=== PATIENT | male | born 1945 | race Caucasian/White ===

== ENCOUNTER 2016-10-17 18:21 | Inpatient (IN) | payer MEDICARE, MEDICAID ==
[2016-10-17] MEDS ORDERED: predniSONE TAB* 20 MG PO ONE (18:46)
[2016-10-17] MEDS ORDERED: Albuterol/Ipratropium NEB.SOL* Albuterol 2.5 MG/Ipratropium 0.5 MG 3 ML INH ONE (18:46)
--- NOTE | 2016-10-17 18:57 | ED ---
Shortness of Breath - HPI Summary HPI Summary: Patient presents for delayed evaluation of shortness of breath for the last several days with preceding URI/chest congestion with associated chills. No allev factors. Deep cough and dyspnea on exertion has caused him to stop smoking. Denies recent antibiotics or antipyretics. - History of Current Complaint Chief Complaint: EDUpperRespComplaint Time Seen by Provider: 10/17/16 18:41 Onset/Duration: Gradual Onset, Lasting Days Current Severity: Moderate Dyspnea At: Exertion Alleviating Factors: Nothing Associated Signs & Symptoms: Cough (Productive), Wheezing, Nasal Congestion - Allergy/Home Medications Allergies/Adverse Reactions: Allergies Allergy/AdvReac Type Severity Reaction Status Date / Time No Known Allergies Allergy Verified 05/03/16 12:53 PMH/Surg Hx/FS Hx/Imm Hx Endocrine/Hematology History: Reports: Hx Diabetes Denies: Hx Anticoagulant Therapy, Hx Blood Disorders, Hx Blood Transfusions, Hx Bone Marrow Disease, Hx Systemic Lupus Erythematosus, Hx Sickle Cell Disease , Hx Thyroid Disease, Hx Anemia, Hx Unexplained Bleeding, Other Endocrine/ Hematological Disorders Cardiovascular History: Reports: Hx Congestive Heart Failure, Hx Hypercholesterolemia, Hx Hypertension, Other Cardiovascular Problems/Disorders - 1st degree heart block Denies: Hx Aneurysm, Hx Angioplasty, Hx Auto Implanted Cardiovert Defib, Hx Cardiac Arrest, Hx Cardiomegaly, Hx Congenital Heart Disease, Hx Coronary Artery Disease, Hx Deep Vein Thrombosis, Hx Hypotension, Hx Pacemaker/ICD, Hx Peripheral Vascular Disease, Hx Rheumatic Fever, Hx Syncope, Hx Valvular Heart Disease Respiratory History: Reports: Hx Chronic Obstructive Pulmonary Disease (COPD), Hx Pneumonia, Other Respiratory Problems/Disorders - resp failure, pneumonia Denies: Hx Asthma, Hx Chronic Bronchitis, Hx Cystic Fibrosis, Hx Lung Cancer , Hx Pleural Effusion, Hx Pulmonary Edema, Hx Pulmonary Embolism, Hx Seasonal Allergies, Hx Sleep Apnea GI History: Denies: Hx Cirrhosis, Hx Crohn's Disease, Hx Diverticulosis, Hx Gall Bladder Disease, Hx Gastroesophageal Reflux Disease, Hx Gastrointestinal Bleed, Hx Hiatal Hernia, Hx Irritable Bowel, Hx Jaundice, Hx Obstructive Bowel, Hx Ileostomy, Hx Pyloric Stenosis, Hx Ulcer, Other GI Disorders History: Reports: Hx Benign Prostatic Hyperplasia Denies: Hx Acute Renal Failure, Hx Chronic Renal Failure, Hx Dialysis, Hx Kidney Infection, Hx Kidney Stones, Hx Renal Disease Musculoskeletal History: Reports: Hx Arthritis Denies: Hx Back Problems, Hx Bursitis, Hx Congenital Bone Abnormalities, Hx Fibromyalgia, Hx Gout, Hx Orthopedic Injury, Hx Osteoporosis, Hx Scoliosis, Hx Tendonitis, Other Musculoskeletal History Sensory History: Reports: Hx Contacts or Glasses - READING GLASSES Denies: Hx Cataracts, Hx Eye Injury, Hx Eye Prosthesis, Hx Glaucoma, Hx Legally Blind, Hx Macular Degeneration, Hx Vision Problem, Hx Deafness, Hx Hearing Aid, Hx Hearing Problem, Other Sensory Impairments Opthamlomology History: Reports: Hx Contacts or Glasses - READING GLASSES Denies: Hx Cataracts, Hx Eye Injury, Hx Eye Prosthesis, Hx Glaucoma, Hx Legally Blind, Hx Macular Degeneration, Hx Vision Problem, Other Sensory Impairments Neurological History: Denies: Hx Dementia, Hx Seizures Psychiatric History: Reports: Hx Anxiety, Hx Depression, Hx Inpatient Treatment - WHEN HE WAS 20, Hx Community Mental Health Tx, Hx Substance Abuse - Previous ETOH Denies: Hx Attention Deficit Hyperactivity Disorder, Hx Eating Disorder, Hx Panic Disorder, Hx Post Traumatic Stress Disorder, Hx Schizophrenia, Hx Bipolar Disorder, Hx Suicide Attempt, Hx of Violent Episodes Against Others, Other Psychiatric Issues/Disorders - Cancer History Hx Chemotherapy: No Hx Radiation Therapy: No - Surgical History Surgery Procedure, Year, and Place: T&A 1953 Hx Anesthesia Reactions: No Infectious Disease History: Yes Infectious Disease History: Denies: Hx Hepatitis, Hx Human Immunodeficiency Virus (HIV), Hx Tuberculosis , Traveled Outside the [place] in Last 30 Days - Social History Alcohol Use: Occasionally Alcohol Amount: 1-2x PER MONTH Substance Use Type: Reports: None Hx Tobacco Use: Yes Smoking Status (MU): Heavy Every Day Tobacco Smoker Type: Cigarettes Amount Used/How Often: DAILY 1PPD Length of Time of Smoking/Using Tobacco: 28 YEARS Have You Smoked in the Last Year: Yes Review of Systems Positive: Chills. Negative: Fever Negative: Palpitations, Chest Pain Positive: Shortness Of Breath, Cough All Other Systems Reviewed And Are Negative: Yes Physical Exam Triage Information Reviewed: Yes Vital Signs On Initial Exam: Initial Vitals Temp Pulse Resp BP Pulse Ox 100.4 F 109 20 143/71 68 10/17/16 18:22 10/17/16 18:22 10/17/16 18:22 10/17/16 18:22 10/17/16 18:22 Vital Signs Reviewed: Yes Appearance: Positive: No Pain Distress, Well-Nourished, Ill-Appearing Skin: Positive: Warm, Skin Color Reflects Adequate Perfusion, Dry Head/Face: Positive: Normal Head/Face Inspection Eyes: Positive: Normal, EOMI, ZAIN, Conjunctiva Clear ENT: Positive: Pharyngeal erythema, Nasal congestion. Negative: Nasal drainage , Tonsillar swelling, Tonsillar exudate Respiratory/Lung Sounds: Positive: Wheezes. Negative: Stridor, Tracheal Deviation Cardiovascular: Positive: RRR, Pulses are Symmetrical in both Upper and Lower Extremities, Tachycardia Abdomen Description: Positive: Nontender, No Organomegaly, Soft Musculoskeletal: Positive: Normal, Strength/ROM Intact Neurological: Positive: Normal, Sensory/Motor Intact, Alert, Oriented to Person Place, Time, CN Intact II-III, Normal Gait Diagnostics - Vital Signs Vital Signs Temp Pulse Resp BP Pulse Ox 10/17/16 18:22 100.4 F 109 20 143/71 68 - Laboratory Result Diagrams: 10/17/16 19:40 10/17/16 19:40 Lab Statement: Any lab studies that have been ordered have been reviewed, and results considered in the medical decision making process. - EKG No standard instances Cardiac Rate: NL EKG Rhythm: Sinus Tachycardia ST Segment: Normal Ectopy: None EKG Comparison: Other - rR RBBB, HR 101. Course/Dx - Diagnoses Differential Diagnosis/HQI/PQRI: Positive: Bronchitis, CHF, COPD Exacerbation, AR, Pneumonia Provider Diagnoses: Respiratory distress, Influenza A, COPD exacerbation, Hypoxia - Physician Notifications Discussed Care of Patient With: Hospitalist to admit. - Critical Care Time Critical Care Time: 30-74 min Discharge - Discharge Plan Condition: Stable Disposition: ADMITTED TO [facility] Prescriptions: DOXYcycline CAP(*) [DOXYcycline 100MG CAP(*)] 100 mg PO BID 10 Days predniSONE TAB* [Deltasone TAB*] 60 mg PO DAILY 5 Days Patient Education Materials: COPD (Chronic Obstructive Pulmonary Disease) (ED) Referrals: Robby Dey MD [Primary Care Provider] - 3 Days
--- NOTE | 2016-10-17 19:22 | RAD ---
INDICATION: Short of breath COMPARISON: February 03, 2016 TECHNIQUE: PA and lateral dual-energy views were obtained. FINDINGS: Bones/Soft Tissues: There are no acute bony findings. Cardiomediastinal: The cardiomediastinal silhouette is normal. Lungs: There are no infiltrates. There is hyperinflation. There are chronic interstitial changes. Pleura: There are no pleural effusions. Other: None IMPRESSION: HYPERINFLATION. NO ACTIVE DISEASE.
[2016-10-17] MEDS ORDERED: Albuterol/Ipratropium NEB.SOL* Albuterol 2.5 MG/Ipratropium 0.5 MG 3 ML ONE (19:26)
[2016-10-17] MEDS ORDERED: Albuterol/Ipratropium NEB.SOL* Albuterol 2.5 MG/Ipratropium 0.5 MG 3 ML INH STA (19:26)
[2016-10-17 19:49] LABS: Hematocrit 46 % (42-52); Mean Corpuscular HGB Conc 33 g/dl (31-36); Mean Corpuscular Hemoglobin 31 pg (27-31); Mean Corpuscular Volume 95 fL (80-94); Mean Platelet Volume 8 um3 (7.4-10.4); Red Blood Count 4.84 10^6/ul (4.0-5.4); Red Cell Distribution Width 14 % (10.5-15); White Blood Count 9.6 10^3/ul (3.5-10.8)
[2016-10-17 20:04] LABS: BUN/Creatinine Ratio 27.5 (8-20); Calcium 9.7 mg/dL (8.6-10.3); EGFR African American 123.3 (>60); EGFR Non-African American 95.8 (>60)
[2016-10-17 20:06] LABS: Troponin I 0.01 ng/mL (<0.04)
[2016-10-17] MEDS ORDERED: Albuterol/Ipratropium NEB.SOL* Albuterol 2.5 MG/Ipratropium 0.5 MG 3 ML INH PRN (21:25)
[2016-10-17] MEDS ORDERED: Dextrose 50% Syringe 50 ML* 25 GM/50 ML SYRINGE IV PUSH PRN (21:26)
[2016-10-17] MEDS ORDERED: NS 0.9% 1000 ML* 1,000 ML IV SCH (21:30)
[2016-10-17] MEDS: Heparin VIAL(*) 5000 UNITS/ML VIAL (FIVE THOUSAND) SUBCUT SCH (22:52)
--- NOTE | 2016-10-17 23:28 | HP ---
HOSPITAL MEDICINE HISTORY AND PHYSICAL: DATE OF ADMISSION: 10/17/16 PRIMARY CARE PHYSICIAN: Dr. Dey. ATTENDING PHYSICIAN: Dr. Mitchell Turner * (dictation provided by Pamela Mcintyre NP). CHIEF COMPLAINT: Cough. HISTORY OF PRESENT ILLNESS: Mr. Gray is a 71-year-old male with a past medical history of COPD, on 4 to 5 L of oxygen at home as well as non-insulin- dependent diabetes and hypertension, who presents today to the hospital with concern for cough and feeling unwell. Mr. Gray states that he began feeling poorly about 2 to 3 days ago. He has been feeling weak. He has had cough. He states he has been more short of breath with exertion. He did not take his temperature, but did have chills. He has been using his albuterol more often. He states he has been eating and drinking relatively well. In general, he is constipated and that is still the case while he has been sick. He states he has had a flu shot this year. He denies any sick contacts. He states he quit smoking 2 days ago secondary to feeling unwell. In the emergency room, Mr. Gray had a flu swab, which was positive. His white blood cell count is normal. His temperature is 100.4 and his heart rate is mildly tachycardic at approximately 100. His O2 saturation was initially about 68% on room air, is now 98% on 5 L. Based on Mr. Gray's presentation with a flu, Hospital Medicine was called regarding admission. PAST MEDICAL HISTORY: 1. COPD, on 4 to 5 L of oxygen at home. 2. Type 2 diabetes, non-insulin dependent. 3. Hypertension. 4. History of swallowing difficulties. MEDICATIONS: The patient does not know his current medication list and the pharmacies are closed. He states he gets his medications from [facility] on [facility] and his primary care physician is Dr. Dey, will have to follow with him tomorrow. ALLERGIES: No known drug allergies. FAMILY HISTORY: Reviewed and noncontributory. SOCIAL HISTORY: The patient states he started smoking at age around 42, currently he is down to smoking about 1 cigarette per day per his report. He states he quit smoking 2 days ago due to not feeling well. He denies any alcohol use, but he states in the past, he did have a problem with this. There is no report of drug abuse. He states his brother, Stefan, is the healthcare proxy. REVIEW OF SYSTEMS: A 14-point review of systems was completed with Mr. Gray and all those not mentioned above were negative. PHYSICAL EXAMINATION GENERAL: Mr. Gray is sitting in the bed. He is in no acute distress. He is calm and cooperative to my examination. VITAL SIGNS: Temperature 100.4, pulse rate 100, respiratory rate 20, O2 saturation 98% on 5 L nasal cannula, blood pressure 143/71. LUNGS: Clear to auscultation, but very diminished bilaterally with no accessory muscle use and good aeration. HEART: S1, S2. No murmur, rub, gallop, and regular. ABDOMEN: Soft, nontender with bowel sounds positive x4. EXTREMITIES: No cyanosis or edema. NEURO: He is alert and oriented x3. He moves all extremities equally. There is no facial asymmetry or focal weakness. Extraocular movements are intact. SKIN: Intact. DIAGNOSTIC STUDIES/LAB DATA: Sodium 137, potassium 4.0, chloride 93, serum bicarbonate 40, BUN 22, creatinine 0.80, glucose 220. Troponin 0.01. WBC 9.6, hemoglobin 15.0, hematocrit 46, platelet count 242. Flu A is positive. Chest x-ray shows no acute process. EKG shows ectopic atrial rhythm with a heart rate of about 100. ASSESSMENT AND PLAN: Mr. Gray is a 71-year-old male with a past medical history of chronic obstructive pulmonary disease, on 4 to 5 L oxygen at home, as well as [id number] diabetes, who presents today to the hospital with concern for cough, has been found to be flu A positive. Our plans are for observation in the hospital for the followin. Flu: The patient did get a flu shot this year, but flu A is positive. He has been having symptoms for at least 3 days, so he is not in the window for Tamiflu. We will provide symptomatic treatment with oxygen, nebulizer treatments , intravenous fluids, and Tylenol. The patient does have significant history of chronic obstructive pulmonary disease and he is very diminished today. I am quite concerned that he will develop an exacerbation, and therefore, I am going to continue the prednisone that was started in the emergency room. He will have 60 mg tomorrow morning and a quick taper could be initiated when he is feeling better. 2. Type 2 diabetes: Again, I do not have the medication reconciliation, but the patient will be on blood glucoses q.a.c. with lispro sliding scale insulin. 3. Hypertension. The patient was noted to be on cardizem at his last hospitalization, but this was in 2016. Again, we will await his medication list and resume those medications as appropriate. His blood pressure is currently well controlled. 4. DVT prophylaxis: With heparin subcu. 5. Disposition: To medical floor. TIME SPENT: Approximately 60 minutes was spent on admission of this patient, more than half time spent with him at the bedside reviewing the events leading up to this hospitalization, performing the physical examination, and reviewing my plan of care. PAMELA MCINTYRE NP CC: Dr. Dey* [id number]/CPS #: [id number] NICHOL
[2016-10-18] MEDS: Albuterol/Ipratropium NEB.SOL* Albuterol 2.5 MG/Ipratropium 0.5 MG 3 ML INH SCH ×7 (00:55→23:51)
[2016-10-18] MEDS: Heparin VIAL(*) 5000 UNITS/ML VIAL (FIVE THOUSAND) SUBCUT SCH ×3 (05:55→21:23)
[2016-10-18] MEDS: Insulin LISPRO* 1 UNITS UNIT SUBCUT SCH ×3 (08:15→17:46)
[2016-10-18] MEDS: Acetaminophen TAB* 325 MG PO PRN ×2 (08:15→21:31)
[2016-10-18] MEDS ORDERED: predniSONE TAB* 20 MG PO SCH (08:30)
--- NOTE | 2016-10-18 17:19 | PN ---
Subjective Date of Service: 10/18/16 Interval History: Patient reports he feels "ok" stating he feels a little better. Continues to have mild sob, cough with occasional sputum production. No CP. no fevers or chills. No abdominal pain but does report constipation and bloating - reports he just had a BM. No N/V. Reports good appetite Objective Active Medications: Acetaminophen (Tylenol Tab*) 650 mg PO Q6H PRN PRN Reason: pain/fever Last Admin: 10/18/16 08:15 Dose: 650 mg Albuterol/Ipratropium (Duoneb Neb.Allyn*) 1 neb INH [id number] AWAKE [facility] Last Admin: 10/18/16 15:13 Dose: 1 neb Albuterol/Ipratropium (Duoneb Neb.Allyn*) 1 neb INH Q4H PRN PRN Reason: SOB/WHEEZING Dextrose (D50w Syringe 50 Ml*) 12.5 gm IV PUSH .FOR FS < 60 - SS PRN PRN Reason: FS < 60 Heparin Sodium (Porcine) (Heparin Vial(*)) 5,000 units SUBCUT Q8HR [facility] Last Admin: 10/18/16 12:29 Dose: 5,000 units Sodium Chloride (Ns 0.9% 1000 Ml*) 1,000 mls @ 100 mls/hr IV PER RATE [facility] Last Admin: 10/18/16 08:14 Dose: 100 mls/hr Insulin Human Lispro (Humalog*) 0 units SUBCUT AC [facility] PRN Reason: Protocol Last Admin: 10/18/16 12:29 Dose: 6 units Prednisone (Deltasone Tab*) 60 mg PO DAILY WITH MEAL [facility] Last Admin: 10/18/16 08:15 Dose: 60 mg Vital Signs 10/17/16 10/17/16 10/17/16 22:00 22:59 23:01 Temperature 98.5 F 98.5 F Pulse Rate 98 96 96 Respiratory 22 22 Rate Blood Pressure 99/48 126/64 126/64 (mmHg) O2 Sat by Pulse 94 96 96 Oximetry 10/17/16 10/18/16 10/18/16 23:02 04:52 07:52 Temperature 97.4 F 97.3 F Pulse Rate 83 76 Respiratory 22 18 16 Rate Blood Pressure 125/58 106/45 (mmHg) O2 Sat by Pulse 94 96 Oximetry 10/18/16 10/18/16 10/18/16 08:00 08:45 12:23 Temperature Pulse Rate 88 76 Respiratory 18 16 18 Rate Blood Pressure (mmHg) O2 Sat by Pulse 93 93 Oximetry 10/18/16 15:15 Temperature Pulse Rate 82 Respiratory 16 Rate Blood Pressure (mmHg) O2 Sat by Pulse 92 Oximetry Oxygen Devices in Use Now: Nasal Cannula - 4.5L NC Appearance: 71 yo male sitting up on the side of the bed in NAD. A+O x3, simple Eyes: No Scleral Icterus, PERRLA Ears/Nose/Mouth/Throat: NL Teeth, Lips, Gums, Mucous Membranes Moist Neck: NL Appearance and Movements; NL JVP Respiratory: Symmetrical Chest Expansion and Respiratory Effort, - - diminished b/l with exp wheezes and coarse throughout Cardiovascular: NL Sounds; No Murmurs; No JVD, RRR, No Edema Abdominal: NL Sounds; No Tenderness; No Distention, - - distended soft nontender Extremities: No Edema, No Clubbing, Cyanosis Skin: No Rash or Ulcers, No Nodules or Sclerosis Neurological: Alert and Oriented x 3, NL Sensation, NL Gait, NL Muscle Strength and Tone Lines/Tubes/Other Access: Clean, Dry and Intact Peripheral IV Nutrition: Taking PO's Result Diagrams: 10/17/16 19:40 10/17/16 19:40 Assess/Plan/Problems-Billing Assessment: Mr. joiner is a 71 yo male with a PMH of COPD on 4-5L oxygen NC at home, Non-insulin dependent diabetes, HTN who presented to the ED on 10/17 with c /o cough found to have Influenza A - Patient Problems (1) Influenza A Comment: - pt is clincially improving - pt is outside the window for Tamiflu - supportive care only (2) COPD with exacerbation Comment: - on baseline oxygen 4-5L NC - continue azithromycin, prednisone taper and nebs. (3) HTN (hypertension) Comment: controlled. Continue carvedilol. (4) Hx of chronic congestive heart failure Comment: - Dialstolic dysfunction. Last TTE 02/17 showing EF 55% - appears stable - lasix prn - daily weights (5) Tobacco use disorder Comment: Pt states he quit a couple days prior nicotine replacement tobacco cessation (6) DVT prophylaxis Comment: HSQ (7) Full code status Status and Disposition: OBV switch to inpatient. home when medically stable.
[2016-10-18] MEDS ORDERED: Nicotine Inhaler* 10 MG AMP INH PRN (17:31)
[2016-10-18] MEDS ORDERED: Mouth Piece, Nicotine* 1 EACH CARTRIDGE INH PRN (17:31)
[2016-10-18] MEDS ORDERED: Azithromycin IV(*) 500 MG in NS 0.9% 250 ML* 250 ML IVPB SCH (21:00)
[2016-10-18] MEDS: Insulin GLARGINE(*) 1 UNITS UNIT SUBCUT SCH (21:26)
[2016-10-19] MEDS: Albuterol/Ipratropium NEB.SOL* Albuterol 2.5 MG/Ipratropium 0.5 MG 3 ML INH SCH ×6 (03:10→23:23)
[2016-10-19] MEDS: Heparin VIAL(*) 5000 UNITS/ML VIAL (FIVE THOUSAND) SUBCUT SCH ×3 (05:17→21:25)
[2016-10-19 06:31] LABS: Hematocrit 41 % (42-52); Hemoglobin 13.2 g/dl (14.0-18.0); Mean Corpuscular HGB Conc 32 g/dl (31-36); Mean Corpuscular Hemoglobin 31 pg (27-31); Mean Corpuscular Volume 96 fL (80-94); Mean Platelet Volume 8 um3 (7.4-10.4); Red Blood Count 4.24 10^6/ul (4.0-5.4); Red Cell Distribution Width 14 % (10.5-15); White Blood Count 11.2 10^3/ul (3.5-10.8)
[2016-10-19 06:44] LABS: BUN/Creatinine Ratio 32.3 (8-20); Calcium 9.2 mg/dL (8.6-10.3); EGFR African American 165.4 (>60); EGFR Non-African American 128.6 (>60); Potassium 4.6 mmol/L (3.5-5.0)
[2016-10-19] MEDS: Tiotropium CAP.INH* CAP.INH/18 MCG (USE ORDER SET !) INH SCH (07:39)
[2016-10-19] MEDS: Insulin LISPRO* 1 UNITS UNIT SUBCUT SCH ×3 (08:04→17:54)
[2016-10-19] MEDS: predniSONE TAB* 50 MG PO SCH (08:37)
[2016-10-19] MEDS: Azithromycin TAB* 250 MG PO SCH (08:37)
[2016-10-19] MEDS ORDERED: Spiriva Inhaler DEVICE* 1 EACH DEVICE INH ONE (09:00)
[2016-10-19] MEDS ORDERED: Albuterol/Ipratropium NEB.SOL* Albuterol 2.5 MG/Ipratropium 0.5 MG 3 ML INH PRN (11:11)
--- NOTE | 2016-10-19 11:17 | PN ---
Subjective Date of Service: 10/19/16 Interval History: Pt reports he "feels very tight" when he breathes. Occasionally productive cough. Slept well, good appetite, no N/V/D. No fevers or chills. No body aches. Objective Active Medications: Acetaminophen (Tylenol Tab*) 650 mg PO Q6H PRN PRN Reason: pain/fever Last Admin: 10/18/16 21:31 Dose: 650 mg Albuterol/Ipratropium (Duoneb Neb.Allyn*) 1 neb INH [id number] AWAKE [facility] Last Admin: 10/19/16 07:38 Dose: 1 neb Albuterol/Ipratropium (Duoneb Neb.Allyn*) 1 neb INH Q4H PRN PRN Reason: SOB/WHEEZING Azithromycin (Zithromax Tab*) 250 mg PO DAILY [facility] Stop: 10/23/16 08:59 Last Admin: 10/19/16 08:37 Dose: 250 mg Device (Nicotine Mouth Piece*) 1 each INH .USE WITH NICOTROL PRN PRN Reason: CRAVING Dextrose (D50w Syringe 50 Ml*) 12.5 gm IV PUSH .FOR FS < 60 - SS PRN PRN Reason: FS < 60 Heparin Sodium (Porcine) (Heparin Vial(*)) 5,000 units SUBCUT Q8HR [facility] Last Admin: 10/19/16 05:17 Dose: 5,000 units Insulin Glargine (Lantus(*)) 8 units SUBCUT Q24H [facility] Last Admin: 10/18/16 21:26 Dose: 8 units Insulin Human Lispro (Humalog*) 0 units SUBCUT AC [facility] PRN Reason: Protocol Last Admin: 10/19/16 08:04 Dose: Not Given Nicotine (Nicotine Inhaler*) 10 mg INH Q2H PRN PRN Reason: CRAVING Prednisone (Deltasone Tab*) 50 mg PO DAILY WITH MEAL [facility] Last Admin: 10/19/16 08:37 Dose: 50 mg Tiotropium [place] (Spiriva Cap.Inh*) 1 cap INH DAILY [facility] Last Admin: 10/19/16 07:39 Dose: 1 cap.inh Vital Signs 10/18/16 10/18/16 10/18/16 19:23 20:00 20:02 Temperature 97.1 F Pulse Rate 72 74 74 Respiratory 18 18 17 Rate Blood Pressure 113/61 (mmHg) O2 Sat by Pulse 96 95 97 Oximetry 10/18/16 10/18/16 10/18/16 21:36 23:36 23:50 Temperature 98.2 F Pulse Rate 67 Respiratory 18 20 Rate Blood Pressure 96/43 (mmHg) O2 Sat by Pulse 99 Oximetry 10/19/16 10/19/16 10/19/16 03:13 03:39 07:32 Temperature 97.4 F 97.4 F Pulse Rate 65 64 69 Respiratory 16 18 20 Rate Blood Pressure 90/41 113/60 (mmHg) O2 Sat by Pulse 100 100 97 Oximetry 10/19/16 10/19/16 07:41 08:00 Temperature Pulse Rate 71 Respiratory 14 20 Rate Blood Pressure (mmHg) O2 Sat by Pulse 97 Oximetry Oxygen Devices in Use Now: Nasal Cannula - 4.5L NC Appearance: 71 yo male sitting up on the side of the bed in NAD. A+O x3 Eyes: No Scleral Icterus, PERRLA Ears/Nose/Mouth/Throat: NL Teeth, Lips, Gums, Mucous Membranes Moist Neck: NL Appearance and Movements; NL JVP Respiratory: Symmetrical Chest Expansion and Respiratory Effort, - - very diminished throughout with exp wheezing bilaterally Cardiovascular: NL Sounds; No Murmurs; No JVD, RRR, No Edema Abdominal: NL Sounds; No Tenderness; No Distention, - - obese Lymphatic: No Cervical Adenopathy Extremities: No Edema, No Clubbing, Cyanosis Skin: No Rash or Ulcers, No Nodules or Sclerosis Neurological: Alert and Oriented x 3, NL Sensation, NL Gait, NL Muscle Strength and Tone Lines/Tubes/Other Access: Clean, Dry and Intact Peripheral IV Nutrition: Taking PO's Result Diagrams: 10/19/16 06:18 10/19/16 06:18 Assess/Plan/Problems-Billing Assessment: Mr. joiner is a 71 yo male with a PMH of COPD on 4-5L oxygen NC at home, Non-insulin dependent diabetes, HTN who presented to the ED on 10/17 with c /o cough found to have Influenza A - Patient Problems (1) Influenza A Comment: - pt is outside the window for Tamiflu - supportive care only (2) COPD with exacerbation Comment: - on baseline oxygen 4-5L NC, very diminshed today - repeat chest xray - continue azithromycin, prednisone taper and Q4hr nebs. - Aggressive pulmary tolieting (3) HTN (hypertension) Comment: controlled. Continue carvedilol. (4) Hx of chronic congestive heart failure Comment: - Dialstolic dysfunction. Last TTE 02/17 showing EF 55% - appears stable - lasix prn - daily weights (5) Tobacco use disorder Comment: Pt states he quit a couple days prior nicotine replacement tobacco cessation (6) DVT prophylaxis Comment: HSQ (7) Full code status Status and Disposition: inpatient with Influenza and COPD exacerbation.
--- NOTE | 2016-10-19 14:40 | RAD ---
INDICATION: Influenza COMPARISON: Chest x-ray October 17, 2016 TECHNIQUE: PA and lateral views were obtained. FINDINGS: Bones/Soft Tissues: There are no acute bony findings. Cardiomediastinal: The cardiomediastinal silhouette is normal. Lungs: There are no infiltrates. There is coarsening of interstitium which appears chronic. There is hyperinflation. Pleura: There are no pleural effusions. Other: None IMPRESSION: HYPERINFLATION WITH CHRONIC INTERSTITIAL CHANGES . NO ACUTE FINDINGS.
[2016-10-19] MEDS: Insulin GLARGINE(*) 1 UNITS UNIT SUBCUT SCH (21:25)
[2016-10-20] MEDS: Albuterol/Ipratropium NEB.SOL* Albuterol 2.5 MG/Ipratropium 0.5 MG 3 ML INH SCH ×4 (03:45→15:15)
[2016-10-20] MEDS: Heparin VIAL(*) 5000 UNITS/ML VIAL (FIVE THOUSAND) SUBCUT SCH ×2 (05:13→13:02)
[2016-10-20 06:00] LABS: Hematocrit 42 % (42-52); Hemoglobin 13.4 g/dl (14.0-18.0); Mean Corpuscular HGB Conc 32 g/dl (31-36); Mean Corpuscular Hemoglobin 31 pg (27-31); Mean Corpuscular Volume 96 fL (80-94); Mean Platelet Volume 8 um3 (7.4-10.4); Red Blood Count 4.34 10^6/ul (4.0-5.4); Red Cell Distribution Width 14 % (10.5-15); White Blood Count 13.3 10^3/ul (3.5-10.8)
[2016-10-20 06:10] LABS: Calcium 9.6 mg/dL (8.6-10.3); EGFR African American 198.2 (>60); EGFR Non-African American 154.1 (>60); Potassium 4.6 mmol/L (3.5-5.0)
[2016-10-20] MEDS: Insulin LISPRO* 1 UNITS UNIT SUBCUT SCH ×3 (07:32→16:33)
[2016-10-20] MEDS: Tiotropium CAP.INH* CAP.INH/18 MCG (USE ORDER SET !) INH SCH (08:07)
[2016-10-20 08:12] LABS: PCO2 Arterial 86 mmHg (35-45)
[2016-10-20] MEDS: predniSONE TAB* 50 MG PO SCH (08:23)
[2016-10-20] MEDS: Azithromycin TAB* 250 MG PO SCH (08:23)
[2016-10-20] MEDS ORDERED: Oseltamivir CAP* 75 MG PO SCH ×2 (09:00→21:00)
--- NOTE | 2016-10-20 10:55 | PN ---
Subjective Date of Service: 10/20/16 Interval History: per nursing staff patient is confused today. Pt was seen and evaluated at the bedside and appears more confused today. He reports SOB stating "I feel like I cant catch my breath". Appears tachypneic at rest with RR 40 min. No CP. occasional productive cough. Denies fever or chills. Per nurse he was drinking water, choked and vomited after coughing harshly. Pt denies N/V. Objective Active Medications: Acetaminophen (Tylenol Tab*) 650 mg PO Q6H PRN PRN Reason: pain/fever Last Admin: 10/18/16 21:31 Dose: 650 mg Albuterol/Ipratropium (Duoneb Neb.Allyn*) 1 neb INH [id number] AWAKE [facility] Last Admin: 10/20/16 08:07 Dose: 1 neb Albuterol/Ipratropium (Duoneb Neb.Allyn*) 1 neb INH Q4H PRN PRN Reason: SOB/WHEEZING Azithromycin (Zithromax Tab*) 250 mg PO DAILY [facility] Stop: 10/23/16 08:59 Last Admin: 10/20/16 08:23 Dose: 250 mg Device (Nicotine Mouth Piece*) 1 each INH .USE WITH NICOTROL PRN PRN Reason: CRAVING Dextrose (D50w Syringe 50 Ml*) 12.5 gm IV PUSH .FOR FS < 60 - SS PRN PRN Reason: FS < 60 Heparin Sodium (Porcine) (Heparin Vial(*)) 5,000 units SUBCUT Q8HR [facility] Last Admin: 10/20/16 05:13 Dose: Not Given Insulin Glargine (Lantus(*)) 8 units SUBCUT Q24H [facility] Last Admin: 10/19/16 21:25 Dose: 8 units Insulin Human Lispro (Humalog*) 0 units SUBCUT AC [facility] PRN Reason: Protocol Last Admin: 10/20/16 07:32 Dose: Not Given Nicotine (Nicotine Inhaler*) 10 mg INH Q2H PRN PRN Reason: CRAVING Oseltamivir Phosphate (Tamiflu Cap*) 75 mg PO DAILY [facility] Stop: 10/29/16 09:01 Last Admin: 10/20/16 08:23 Dose: 75 mg Prednisone (Deltasone Tab*) 50 mg PO DAILY WITH MEAL [facility] Last Admin: 10/20/16 08:23 Dose: 50 mg Tiotropium [place] (Spiriva Cap.Inh*) 1 cap INH DAILY [facility] Last Admin: 10/20/16 08:07 Dose: 1 cap.inh Vital Signs 10/19/16 10/19/16 10/19/16 11:21 13:53 14:56 Temperature 97.9 F Pulse Rate 68 80 80 Respiratory 16 20 14 Rate Blood Pressure 126/56 (mmHg) O2 Sat by Pulse 99 96 97 Oximetry 10/19/16 10/19/16 10/19/16 19:52 20:00 20:04 Temperature 97.6 F Pulse Rate 81 76 84 Respiratory 17 16 Rate Blood Pressure 139/60 (mmHg) O2 Sat by Pulse 97 97 98 Oximetry 10/19/16 10/19/16 10/19/16 20:12 23:22 23:34 Temperature 98.3 F Pulse Rate 79 Respiratory 18 20 Rate Blood Pressure 151/66 (mmHg) O2 Sat by Pulse 91 84 Oximetry 10/20/16 10/20/16 10/20/16 07:23 07:38 08:09 Temperature 98.0 F Pulse Rate 83 83 Respiratory 18 22 16 Rate Blood Pressure 144/58 (mmHg) O2 Sat by Pulse 93 83 Oximetry 10/20/16 10/20/16 10/20/16 08:12 09:59 10:00 Temperature 99 F Pulse Rate 52 92 Respiratory 6 Rate Blood Pressure 160/70 (mmHg) O2 Sat by Pulse 83 99 95 Oximetry 10/20/16 10/20/16 10/20/16 10:05 10:06 10:15 Temperature Pulse Rate 94 Respiratory 30 26 Rate Blood Pressure 160/70 163/76 (mmHg) O2 Sat by Pulse 95 Oximetry 10/20/16 10/20/16 10:30 10:42 Temperature Pulse Rate 95 Respiratory 22 30 Rate Blood Pressure 162/79 (mmHg) O2 Sat by Pulse 94 Oximetry Oxygen Devices in Use Now: Nasal Cannula - 4.5L NC Appearance: 71 yo male, noted mild intellectual disability A+O to self and place but not to time - appears tachypneic, mild confusion Eyes: No Scleral Icterus, PERRLA Ears/Nose/Mouth/Throat: NL Teeth, Lips, Gums, Mucous Membranes Moist Neck: NL Appearance and Movements; NL JVP Respiratory: - - diminished bilaterally with crackles to bases. tachyoneic. no accessory muscle use Cardiovascular: NL Sounds; No Murmurs; No JVD, RRR, No Edema Abdominal: NL Sounds; No Tenderness; No Distention Extremities: No Edema, No Clubbing, Cyanosis Skin: No Rash or Ulcers, No Nodules or Sclerosis Neurological: Alert and Oriented x 3, NL Sensation, NL Muscle Strength and Tone Lines/Tubes/Other Access: Clean, Dry and Intact Peripheral IV Nutrition: Taking PO's Result Diagrams: 10/20/16 05:47 10/20/16 05:47 Assess/Plan/Problems-Billing Assessment: Mr. joiner is a 71 yo male with a PMH of COPD on 4-5L oxygen NC at home, Non-insulin dependent diabetes, HTN who presented to the ED on 10/17 with c /o cough found to have Influenza A - Patient Problems (1) COPD with exacerbation Comment: - Acute on chronic hypercarbic respiratory failure - ABG this morning showing mild respiratory acidosis with with hypercapnia with pH 7.34, CO2 80, PO2 75, HCO3 37, could be chronic, but with noted confusion and tachypnea the patient will be transferred to ICU for possible Bipap. The patient is stable at this time but inappropriate to monitor this patient on the floor. Reviewed case with Dr. Judge - who agrees with monitoring in ICU but will hold off on Bipap for now. The patient would want intubation if needed. - Oxygenating well; on baseline oxygen 4-5L NC, Goal to maintain O2 sat 90%, continues to be very diminshed today with noted crackles to bases - continue azithromycin, prednisone taper and Q4hr nebs. - Aggressive pulmary tolieting - overnight pulse oximetry, patient may need home nightly Bipap. (2) Influenza A Comment: - Continue Tamiflu course (3) HTN (hypertension) Comment: controlled. Continue carvedilol. (4) Hx of chronic congestive heart failure Comment: - Dialstolic dysfunction. Last TTE 02/17 showing EF 55% - appears stable - lasix prn - daily weights (5) Tobacco use disorder Comment: Pt states he quit a couple days prior nicotine replacement tobacco cessation (6) DVT prophylaxis Comment: HSQ (7) Full code status Status and Disposition: inpatient with Influenza, acute on chronic respiratory failure
[2016-10-20 15:44] LABS: FIO2 4
[2016-10-20 15:57] LABS: PCO2 Arterial 90 mmHg (35-45)
[2016-10-20 16:27] VITALS: BP 151/79
[2016-10-20] MEDS ORDERED: LORazepam PREMIX BAG 1MG/ML* 100 MG/100 ML BAG IVPB SCH (17:00)
[2016-10-20] MEDS ORDERED: KCL 20 MEQ/100 ML IVPREMIX* 20 MEQ/100 ML BAG IV SCH (17:00)
--- NOTE | 2016-10-20 17:58 | PN ---
Progress Note - Progress Note Note: Patient with end-stage COPD admitted with acute exacerbation secondary to influenza URI, and brought to ICU because of episode of confusion this AM (see Critical Care Consult). Patient was breathing comfortably on admission to ICU, and was "cantankerous" but not confused. ABGs showed chronic CO2 retention. Patient strongly stated his desire to return home, and his roommate came in to drive him home. According to the roommate, the patient's mental condition was no different than usual. The patient signed out AMA and was discharged home breathing O2 (provided by the patients own O2 tank). He has an appointment with his PMD tomorrow. Final discharge note to be dictated.
--- NOTE | 2016-10-20 21:57 | CONS ---
CRITICAL CARE CONSULT: DATE OF CONSULT: 10/20/16 REASON FOR CONSULTATION: Apparent confusion and respiratory difficulties. HISTORY OF PRESENT ILLNESS: This patient is a 71-year-old male with a past medical history of COPD (on home O2 at 4 to 5 L per minute), hypertension, and diabetes, who was admitted to [facility] on 10/17/16 with exacerbation of COPD due to influenza A URI, Rx Tamiflu. The patient was initially admitted to the medical floor and was placed on supplemental oxygen and bronchodilator therapy. On the morning of 10/21/16, he had an episode of confusion, and was brought to the intensive care unit. When the patient arrived in the intensive care unit, there was no evidence of a change in his baseline mental status (patient known to the ICU staff from prior hospitalizations). ONGOING MEDICATIONS: 1. DuoNeb inhalations every 4 hours p.r.n. dyspnea. 2. Azithromycin 250 mg daily. 3. Tamiflu 75 mg twice daily. 4. Prednisone 40 mg daily. 5. Tiotropium inhalations once daily. 6. Glargine insulin 8 units subcutaneously daily. 7. Lispro insulin by sliding scale. DRUG ALLERGIES: None. PHYSICAL EXAM: The patient was alert and was cantankerous, but appeared to respond appropriately to verbal commands. There was no apparent respiratory distress. Vital Signs: Temperature was 99 degrees, blood pressure 160/70, heart rate 92, O2 sat 95% on nasal O2 at 4 L per minute. Auscultation of the lungs revealed scattered rhonchi with some crackles at the left base. Cardiac exam was unrevealing. Abdomen was protuberant, but bowel sounds were present and there was no fluid wave. Extremities revealed no cyanosis or edema. DIAGNOSTIC STUDIES/LAB DATA: On the day of ICU admission, white count was 13.3 , hemoglobin 13.4, hematocrit 42, platelet count 267, Sodium 139, potassium 4.6 , CO2 of 43, BUN 18 and creatinine 0.53. Fingerstick glucose monitoring showed values that ranged between 100 and 290 during the hospitalization. Chest x-ray showed hyperinflation with interstitial changes that appeared to be chronic. There is no acute alveolar process identified. Blood gases in the AM of 10/20/16 revealed a PO2 of 75, pCO2 of 86, pH 7.34, bicarb 37, O2 sat 94%. Repeat blood gases after ICU admission revealed a PO2 of 66, PCO2 of 90, pH 7.34, bicarb 38.4, and O2 sat of 93%. (The repeat ABGs are essentially unchanged from those drawn earlier.) IMPRESSION: This patient has end-stage lung disease exacerbated by an upper respiratory tract infection (influenza). At the time of ICU admission, he was breathing comfortably, and probably not far from his baseline level. Although the patient was boisterous and cantankerous, he did not appear to be confused. RECOMMENDATION: Would continue current therapy with bronchodilators, steroids, and Tamiflu. Nothing further to be added at this time. The patient does not need intubation and mechanical ventilation. CRITICAL CARE TIME: 50 minutes. [id number]/[facility] #: [id number] NICHOL
[2016-10-21] MEDS ORDERED: predniSONE TAB* 20 MG PO SCH (09:00)
--- NOTE | 2016-10-21 15:34 | DS ---
DISCHARGE SUMMARY: DATE OF ADMISSION: 10/17/16 DATE OF DISCHARGE: 10/20/16 HOSPITAL COURSE: This patient is a 71-year-old male with a history of end- stage COPD, who was well known to this hospital and was admitted on 10/17/16 with increasing shortness of breath and a diagnosis of exacerbation of COPD secondary to influenza A. The patient was placed on bronchodilator, steroids, and Tamiflu, and was admitted to the medical floor. On the morning of October 20, the patient had an episode of confusion on the floor and was subsequently brought to the intensive care unit. After admission to the intensive care unit , the patient did not appear to be confused and was in no respiratory distress. Blood gases showed chronic CO2 retention. The patient was continued on bronchodilator therapy and Tamiflu after admission to the intensive care unit. However, the patient stated a strong desire to be discharged home and became cantankerous, but did not appear confused. The patient's roommate was called in and the roommate claims that the patient's mental condition was no different than usual. The patient subsequently signed out against medical advice and was discharged home on oxygen (provided by the patient's own O2 tank). The patient' s roommate drove him home. According to the roommate, the patient has an appointment to see his PMD tomorrow. FINAL DISCHARGE DIAGNOSIS: End-stage chronic obstructive pulmonary disease with exacerbation secondary to influenza upper respiratory tract infection. [id number]/[facility] #: [id number] MTDTom
== END 2016-10-20 17:15 | disposition left against medical advice (07) | DRG 193 ==
LOC: ED 18:21 → MED 21:38 → OBSVTOIN 10-18 17:22 → ICU 10-20 09:21
PROVIDERS: ADMIT Hospitalist; ATTEND Internal Medicine Critical Care Medicine
DX: J10.1 Influenza due to other identified influenza virus with other respiratory manifestations (principal); J96.22 Acute and chronic respiratory failure with hypercapnia; E87.2 Acidosis; I50.9 Heart failure, unspecified; I11.0 Hypertensive heart disease with heart failure; J44.1 Chronic obstructive pulmonary disease with (acute) exacerbation; I50.32 Chronic diastolic (congestive) heart failure; Z99.81 Dependence on supplemental oxygen; E11.9 Type 2 diabetes mellitus without complications; E78.5 Hyperlipidemia, unspecified; Z87.01 Personal history of pneumonia (recurrent); N40.0 Benign prostatic hyperplasia without lower urinary tract symptoms; M19.90 Unspecified osteoarthritis, unspecified site; F41.9 Anxiety disorder, unspecified; F32.9 Major depressive disorder, single episode, unspecified; F17.210 Nicotine dependence, cigarettes, uncomplicated; R41.0 Disorientation, unspecified
CPT/HCPCS: 36415; 36600; 71020; 80048; 82803; 83880; 84484; 85025; 85027; 87502; 87641; 93005; 94640; 94760; 99406; A9270-GY; G0378; J0456; J1644; J7512

== ENCOUNTER 2017-08-02 00:10 | Emergency (ER) | payer MEDICARE, MEDICAID ==
[2017-08-02] MEDS ORDERED: methylPREDNISolone 125 MG* 2 ML VIAL IV ONE (01:01)
[2017-08-02] MEDS ORDERED: Albuterol/Ipratropium NEB.SOL* Albuterol 2.5 MG/Ipratropium 0.5 MG 3 ML INH ONE (01:01)
[2017-08-02 01:43] LABS: FIO2 36
[2017-08-02 01:59] LABS: PCO2 Arterial 79 mmHg (35-45)
[2017-08-02 02:14] LABS: Hematocrit 48 % (42-52); Hemoglobin 15.9 g/dl (14.0-18.0); Mean Corpuscular HGB Conc 33 g/dl (31-36); Mean Corpuscular Hemoglobin 32 pg (27-31); Mean Corpuscular Volume 97 fL (80-94); Mean Platelet Volume 9 um3 (7.4-10.4); Red Blood Count 4.96 10^6/ul (4.0-5.4); Red Cell Distribution Width 14 % (10.5-15); White Blood Count 10.4 10^3/ul (3.5-10.8)
[2017-08-02 02:34] LABS: Albumin 3.9 g/dL (3.2-5.2); BUN/Creatinine Ratio 19.4 (8-20); Calcium 10.1 mg/dL (8.6-10.3); EGFR African American 103.3 (>60); EGFR Non-African American 80.3 (>60); Globulin 2.5 g/dL (2-4); Potassium 4.1 mmol/L (3.5-5.0); Total Bilirubin 0.3 mg/dL (0.2-1.0); Total Protein 6.4 g/dL (6.4-8.9)
[2017-08-02 02:36] LABS: Troponin I 0.01 ng/mL (<0.04)
[2017-08-02] MEDS ORDERED: Azithromycin TAB* 250 MG PO ONE (03:38)
--- NOTE | 2017-08-02 03:50 | ED ---
Clare Shepard Gabriel scribrk for Law Mcintosh on 08/02/17 at 0100 . Shortness of Breath - HPI Summary HPI Summary: This patient is a 72 year old M presenting to [facility] with a chief complaint of SOB for a month. Patient reports general malaise and bilateral LE edema. Patient denies CP. Patient is on a diuretic that he takes are directed. - History of Current Complaint Chief Complaint: EDShortnessOfBreath Time Seen by Provider: 08/02/17 00:55 Hx Obtained From: Patient Onset/Duration: Lasting Weeks - 4, Still Present Timing: Constant Associated Signs & Symptoms: Negative - CP, Edema - Allergy/Home Medications Allergies/Adverse Reactions: Allergies Allergy/AdvReac Type Severity Reaction Status Date / Time No Known Allergies Allergy Verified 08/02/17 00:38 PMH/Surg Hx/FS Hx/Imm Hx Previously Healthy: No Endocrine/Hematology History: Reports: Hx Diabetes Denies: Hx Anticoagulant Therapy, Hx Blood Disorders, Hx Blood Transfusions, Hx Bone Marrow Disease, Hx Systemic Lupus Erythematosus, Hx Sickle Cell Disease , Hx Thyroid Disease, Hx Anemia, Hx Unexplained Bleeding, Other Endocrine/ Hematological Disorders Cardiovascular History: Reports: Hx Congestive Heart Failure, Hx Hypercholesterolemia, Hx Hypertension, Other Cardiovascular Problems/Disorders - 1st degree heart block Denies: Hx Aneurysm, Hx Angioplasty, Hx Auto Implanted Cardiovert Defib, Hx Cardiac Arrest, Hx Cardiomegaly, Hx Congenital Heart Disease, Hx Coronary Artery Disease, Hx Deep Vein Thrombosis, Hx Hypotension, Hx Pacemaker/ICD, Hx Peripheral Vascular Disease, Hx Rheumatic Fever, Hx Syncope, Hx Valvular Heart Disease Respiratory History: Reports: Hx Chronic Obstructive Pulmonary Disease (COPD), Hx Pneumonia, Other Respiratory Problems/Disorders - resp failure, pneumonia Denies: Hx Asthma, Hx Chronic Bronchitis, Hx Cystic Fibrosis, Hx Lung Cancer , Hx Pleural Effusion, Hx Pulmonary Edema, Hx Pulmonary Embolism, Hx Seasonal Allergies, Hx Sleep Apnea GI History: Denies: Hx Cirrhosis, Hx Crohn's Disease, Hx Diverticulosis, Hx Gall Bladder Disease, Hx Gastroesophageal Reflux Disease, Hx Gastrointestinal Bleed, Hx Hiatal Hernia, Hx Irritable Bowel, Hx Jaundice, Hx Obstructive Bowel, Hx Ileostomy, Hx Pyloric Stenosis, Hx Ulcer, Other GI Disorders History: Reports: Hx Benign Prostatic Hyperplasia Denies: Hx Acute Renal Failure, Hx Chronic Renal Failure, Hx Dialysis, Hx Kidney Infection, Hx Kidney Stones, Hx Renal Disease Musculoskeletal History: Reports: Hx Arthritis Denies: Hx Back Problems, Hx Bursitis, Hx Congenital Bone Abnormalities, Hx Fibromyalgia, Hx Gout, Hx Orthopedic Injury, Hx Osteoporosis, Hx Scoliosis, Hx Tendonitis, Other Musculoskeletal History Sensory History: Reports: Hx Contacts or Glasses Denies: Hx Cataracts, Hx Eye Injury, Hx Eye Prosthesis, Hx Glaucoma, Hx Legally Blind, Hx Macular Degeneration, Hx Vision Problem, Hx Deafness, Hx Hearing Aid, Hx Hearing Problem, Other Sensory Impairments Opthamlomology History: Reports: Hx Contacts or Glasses Denies: Hx Cataracts, Hx Eye Injury, Hx Eye Prosthesis, Hx Glaucoma, Hx Legally Blind, Hx Macular Degeneration, Hx Vision Problem, Other Sensory Impairments Neurological History: Denies: Hx Dementia, Hx Seizures Psychiatric History: Reports: Hx Anxiety, Hx Depression, Hx Inpatient Treatment - WHEN HE WAS 20, Hx Community Mental Health Tx, Hx Substance Abuse - Previous ETOH Denies: Hx Attention Deficit Hyperactivity Disorder, Hx Eating Disorder, Hx Panic Disorder, Hx Post Traumatic Stress Disorder, Hx Schizophrenia, Hx Bipolar Disorder, Hx Suicide Attempt, Hx of Violent Episodes Against Others, Other Psychiatric Issues/Disorders - Cancer History Hx Chemotherapy: No Hx Radiation Therapy: No - Surgical History Surgery Procedure, Year, and Place: T&A 1953 Hx Anesthesia Reactions: No Infectious Disease History: No Infectious Disease History: Denies: Hx Hepatitis, Hx Human Immunodeficiency Virus (HIV), Hx Tuberculosis , Traveled Outside the [place] in Last 30 Days - Family History Known Family History: Negative: Seizure Disorder - Social History Alcohol Use: None Alcohol Amount: 1-2x PER MONTH Hx Substance Use: No Substance Use Type: Reports: None Hx Tobacco Use: Yes Smoking Status (MU): Heavy Every Day Tobacco Smoker Type: Cigarettes Amount Used/How Often: DAILY 1PPD Length of Time of Smoking/Using Tobacco: 28 YEARS Have You Smoked in the Last Year: Yes Review of Systems Positive: Other - general malaise Negative: Chest Pain Positive: Shortness Of Breath Positive: Edema - bilateral All Other Systems Reviewed And Are Negative: Yes Physical Exam - Summary Physical Exam Summary: Appearance: Well appearing, no pain distress Skin: warm, dry, reflects adequate perfusion Head/face: normal Eyes: EOMI, ZAIN ENT: normal Neck: supple, non-tender Respiratory: Bilateral wheezing present. Cardiovascular: RRR, pulses symmetrical Abdomen: non-tender, soft Bowel: present Musculoskeletal: strength/ROM intact. Bilateral pedal edema Neuro: normal, sensory motor intact, A&Ox3 Triage Information Reviewed: Yes Vital Signs On Initial Exam: Initial Vitals Temp Pulse Resp BP Pulse Ox 99.2 F 98 16 141/72 95 08/02/17 00:25 08/02/17 00:25 08/02/17 00:25 08/02/17 00:25 08/02/17 00:25 Vital Signs Reviewed: Yes Diagnostics - Vital Signs Vital Signs Temp Pulse Resp BP Pulse Ox 08/02/17 00:25 99.2 F 98 16 141/72 95 - Laboratory Lab Results: Lab Results 08/02/17 08/02/17 08/02/17 Range/Units 01:38 01:55 01:55 WBC (3.5-10.8) 10^3/ul RBC (4.0-5.4) 10^6/ul Hgb (14.0-18.0) g/dl Hct (42-52) % MCV (80-94) fL MCH (27-31) pg MCHC (31-36) g/dl RDW (10.5-15) % Plt Count (150-450) 10^3/ul MPV (7.4-10.4) um3 Neut % (Auto) (38-83) % Lymph % (Auto) (25-47) % [place] % (Auto) (1-9) % Eos % (Auto) (0-6) % Baso % (Auto) (0-2) % Absolute Neuts (auto) (1.5-7.7) 10^3/ul Absolute Lymphs (auto) (1.0-4.8) 10^3/ul Absolute Monos (auto) (0-0.8) 10^3/ul Absolute Eos (auto) (0-0.6) 10^3/ul Absolute Basos (auto) (0-0.2) 10^3/ul Absolute Nucleated RBC 10^3/ul Nucleated RBC % INR (Anticoag Therapy) 0.82 L (0.89-1.11) APTT 30.8 (26.0-36.3) seconds Patient Temperature Not Reportable ABG pH 7.35 (7.35-7.45) ABG pH (Temp Correct) Not Reportable ABG pCO2 79 H* (35-45) mmHg ABG pCO2 (Temp Corrct Not Reportable ABG pO2 88 (80-100) mmHg ABG pO2 (Temp Correct Not Reportable ABG HCO3 35.0 H (19-31) mmol/L ABG O2 Saturation 96.0 (95-98) % ABG Base Excess 13.3 H (-2.0-2.0) Respiration Rate Not Reportable O2 Delivery Device nasal cannula Ventilator Type Not Reportable Vent Mode Not Reportable FiO2 36 Inspiratory Time Not Reportable PEEP Not Reportable Pressure Support Not Reportable Pressure Control Not Reportable EPAP Not Reportable IPAP Not Reportable BiPAP Not Reportable Sodium (133-145) mmol/L Potassium (3.5-5.0) mmol/L Chloride (101-111) mmol/L Carbon Dioxide (22-32) mmol/L Anion Gap (2-11) mmol/L BUN (6-24) mg/dL Creatinine (0.67-1.17) mg/dL Est GFR ( Amer) (>60) Est GFR (Non-Af Amer) (>60) BUN/Creatinine Ratio (8-20) Glucose (70-100) mg/dL Lactic Acid (0.5-2.0) mmol/L Calcium (8.6-10.3) mg/dL Total Bilirubin (0.2-1.0) mg/dL AST (13-39) U/L ALT (7-52) U/L Alkaline Phosphatase (34-104) U/L Troponin I (<0.04) ng/mL B-Natriuretic Peptide 44 ( - 100) pg/mL Total Protein (6.4-8.9) g/dL Albumin (3.2-5.2) g/dL Globulin (2-4) g/dL Albumin/Globulin Ratio (1-3) 08/02/17 08/02/17 08/02/17 Range/Units 01:55 01:55 01:55 WBC 10.4 (3.5-10.8) 10^3/ul RBC 4.96 (4.0-5.4) 10^6/ul Hgb 15.9 (14.0-18.0) g/dl Hct 48 (42-52) % MCV 97 H (80-94) fL MCH 32 H (27-31) pg MCHC 33 (31-36) g/dl RDW 14 (10.5-15) % Plt Count 211 (150-450) 10^3/ul MPV 9 (7.4-10.4) um3 Neut % (Auto) 73.3 (38-83) % Lymph % (Auto) 15.9 L (25-47) % [place] % (Auto) 8.1 (1-9) % Eos % (Auto) 2.0 (0-6) % Baso % (Auto) 0.7 (0-2) % Absolute Neuts (auto) 7.6 (1.5-7.7) 10^3/ul Absolute Lymphs (auto) 1.7 (1.0-4.8) 10^3/ul Absolute Monos (auto) 0.8 (0-0.8) 10^3/ul Absolute Eos (auto) 0.2 (0-0.6) 10^3/ul Absolute Basos (auto) 0.1 (0-0.2) 10^3/ul Absolute Nucleated RBC 0.01 10^3/ul Nucleated RBC % 0.1 INR (Anticoag Therapy) (0.89-1.11) APTT (26.0-36.3) seconds Patient Temperature ABG pH (7.35-7.45) ABG pH (Temp Correct) ABG pCO2 (35-45) mmHg ABG pCO2 (Temp Corrct ABG pO2 (80-100) mmHg ABG pO2 (Temp Correct ABG HCO3 (19-31) mmol/L ABG O2 Saturation (95-98) % ABG Base Excess (-2.0-2.0) Respiration Rate O2 Delivery Device Ventilator Type Vent Mode FiO2 Inspiratory Time PEEP Pressure Support Pressure Control EPAP IPAP BiPAP Sodium 140 (133-145) mmol/L Potassium 4.1 (3.5-5.0) mmol/L Chloride 94 L (101-111) mmol/L Carbon Dioxide 41 H* (22-32) mmol/L Anion Gap 5 (2-11) mmol/L BUN 18 (6-24) mg/dL Creatinine 0.93 (0.67-1.17) mg/dL Est GFR ( Amer) 103.3 (>60) Est GFR (Non-Af Amer) 80.3 (>60) BUN/Creatinine Ratio 19.4 (8-20) Glucose 274 H (70-100) mg/dL Lactic Acid 2.2 H* (0.5-2.0) mmol/L Calcium 10.1 (8.6-10.3) mg/dL Total Bilirubin 0.30 (0.2-1.0) mg/dL AST 11 L (13-39) U/L ALT 10 (7-52) U/L Alkaline Phosphatase 70 (34-104) U/L Troponin I 0.01 (<0.04) ng/mL B-Natriuretic Peptide ( - 100) pg/mL Total Protein 6.4 (6.4-8.9) g/dL Albumin 3.9 (3.2-5.2) g/dL Globulin 2.5 (2-4) g/dL Albumin/Globulin Ratio 1.6 (1-3) Result Diagrams: 08/02/17 01:55 08/02/17 01:55 Lab Statement: Any lab studies that have been ordered have been reviewed, and results considered in the medical decision making process. - Radiology CXR Radiology Interpretation Completed By: ED Physician - no active infiltrate - EKG 1:24 Cardiac Rate: NL EKG Rhythm: Sinus Rhythm - NSR at 94 BPM EKG Interpretation: RBBB Course/Dx - Course Assessment/Plan: This patient is a 72 year old M presenting to [facility] with a chief complaint of SOB for a month. An EKG reveals NSR. CXR reveals, per radiologist, no active infiltrate. Blood was drawn and a blood gas was take results show no significant abnormalities except for ABG CO2 of 79. In the ED course the patient was given Albuterol, Azithromycin, and Methylprednisolone. We discussed patient care with Dr. Gates wgo did consult and recommended dc home. Patient will be discharged with prescription for Methylprednisolone and Azithromycin. Patient will follow up from Dr. Dey in 3 days. The patient is agreeable with this plan. - Diagnoses Differential Diagnosis/HQI/PQRI: Positive: Asthma, CHF, COPD Exacerbation, ND, Pneumonia Provider Diagnoses: COPD exacerbation, Hypercarbia, Bronchitis - Physician Notifications Discussed Care of Patient With: Isidra Gates Time Discussed With Above Provider: 02:02 Instructed by Provider To: Other - We discussed patient care with Dr. Gates and they agreed to accept the patient for admittance. Discharge - Discharge Plan Condition: Stable Disposition: HOME Prescriptions: Azithromycin TAB* [Zithromax TAB (Z-SERGIO) 250 mg #6 tabs] 250 mg PO DAILY #4 tab Methylprednisolone [Medrol Dosepak 4 MG*] 0 mg PO .SEE SERGIO INSTRUCTION #1 tab Patient Education Materials: Azithromycin (By mouth), Methylprednisolone (By mouth), Acute Bronchitis (ED), COPD (Chronic Obstructive Pulmonary Disease) (ED) Referrals: Robby Dey MD [Primary Care Provider] - 3 Days Additional Instructions: RETURN TO THE EMERGENCY DEPARTMENT FOR CHANGING OR WORSENING SYMPTOMS. The documentation as recorded by the Clare delgadillo Gabriel accurately reflects the service I personally performed and the decisions made by , Law Mcintosh.
--- NOTE | 2017-08-02 05:05 | CONS ---
CC: Robby Dey MD * CONSULTATION REPORT: DATE OF CONSULT: 08/02/17 - EMERGENCY DEPT TIME OF EVALUATION: 0300 PRIMARY CARE PHYSICIAN: Robby Dey MD CHIEF COMPLAINT: Congestion and numbness and tingling in his feet. HISTORY OF PRESENT ILLNESS: This is a 72-year-old male with a past medical history of COPD, on 4 to 5 L, who is still smoking half a pack per day, who presents to the emergency room with numbness and tingling that has been going on for several years and not doing well in the cold. He states he lives in a trailer home. It is heated, but he feels that he is just declining and that he will eventually not do well. He denies any changes in his breathing. No increasing cough. No fevers or chills. No chest pain. No nausea or vomiting. No abdominal pain or urinary symptoms. He does have some intermittent issues with abdominal pain, but not active right now. He has trouble with constipation. He is independent of his ADLs. His appetite has been good. He states he overeats. Otherwise, remaining review of systems is negative. In the emergency room, the patient had labs and imaging and was referred to the hospitalist service for further evaluation at admission. PAST MEDICAL HISTORY: 1. COPD, on 4 to 5 L chronically. 2. Tobacco use. 3. Diabetes. 4. Hypertension. 5. History of dysphagia. 6. ICU admission for influenza in October 2016. 7. History of diverticulitis. MEDICATIONS: The patient is unsure of his current medication list. ALLERGIES: No known drug allergies. FAMILY HISTORY: Reviewed and noncontributory. SOCIAL HISTORY: The patient states he is still smoking about half a pack per day for the past 20 to 30 years. His brother, Stefan, is healthcare proxy. He occasionally drinks alcohol. Lives in a trailer park home. Independent of his ADLs. He does have his own daughter that he does not have a relationship with. CODE STATUS: He is a full code. REVIEW OF SYSTEMS: A 14-point review of systems as mentioned in the HPI, pertinent positives and negatives, otherwise negative. PHYSICAL EXAMINATION: Vitals: Temp 99.2, pulse rate 94, respiratory rate 17, oxygen saturation 98% on 4 L, blood pressure 141/72. General: No acute distress, resting comfortably. HEENT: Head, normocephalic. Pupils are equal and reactive, anicteric. Oropharynx: Mucous membranes moist. Neck: Supple. No lymphadenopathy. Cardiac: Regular rate and rhythm. Soft systolic murmur heard throughout. Respiratory: Diminished breath sounds. Bilateral expiratory wheezing. No increased work of breathing. No retractions. Poor aeration and prolonged expiratory phase. Abdomen is soft, nontender, nondistended. Extremities: No clubbing, cyanosis or edema. He does have clubbing noted on bilateral hands. Neurologic: Alert and oriented x3. No focal neurologic deficits. DIAGNOSTIC STUDIES/LAB DATA: White count 10.4, hemoglobin 15.9, hematocrit 48, platelets 211. INR was 0.82. The pH is 7.35, pCO2 is 79, pO2 88. Sodium 140, potassium 4.1, chloride 94, bicarb 41, BUN 18, creatinine 0.93. Troponin 0.01. BNP is 44. Chest x-ray, some mild prominent interstitial markings. No significant change. EKG shows sinus rhythm. No significant ST changes. ASSESSMENT: This is a 72-year-old male with past medical history of COPD, on 4 to 5 L at home, who presents to the emergency room, was not feeling well with numbness and tingling. This has been going on for several years, it comes and goes. He denies any issues with shortness of breath. No cough, no chest pain. It appears that his respiratory status is at his baseline. He is wheezing with poor aeration, but no increased work of breathing. He is on his home oxygen saturation. Discussed with him going home. May consider short course of steroids, following up with his primary care physician, which he is agreeable to and I spoke with Dr. Mcintosh who is going to follow up with the patient. TIME SPENT: Patient time, greater than 45 minutes was spent doing the consultation, more than half the time was spent in direct patient contact. [id number]/[facility] #: [id number] NICHOL
[2017-08-02 06:03] VITALS: BP 121/55
--- NOTE | 2017-08-02 08:02 | RAD ---
INDICATION: Shortness of breath. COMPARISON: Comparison is made with a prior chest x-ray study from October 19, 2016. TECHNIQUE: A portable view of the chest was obtained. FINDINGS: Cardiac and mediastinal contours appear to be within normal limits. The lungs are underinflated. There is mild prominence of the interstitial markings which are unchanged. There are linear densities at the left lung base suggestive of atelectasis. The lungs are otherwise clear. No pleural effusion is seen. IMPRESSION: NO EVIDENCE FOR ACUTE FINDING.
== END 2017-08-02 06:20 | disposition home or self-care (01) ==
LOC: ED 00:10
DX: J44.1 Chronic obstructive pulmonary disease with (acute) exacerbation (principal); R06.89 Other abnormalities of breathing; J40 Bronchitis, not specified as acute or chronic
CPT/HCPCS: 36415; 36600; 71010; 80053; 82803; 83605; 83880; 84484; 85025; 85610; 85730; 87040; 93005; 94640; 99284; A9270-GY; J2930

== ENCOUNTER 2017-08-02 21:23 | Inpatient (IN) | payer MEDICARE, MEDICAID ==
[2017-08-02 22:34] LABS: Hematocrit 46 % (42-52); Mean Corpuscular HGB Conc 33 g/dl (31-36); Mean Corpuscular Hemoglobin 32 pg (27-31); Mean Corpuscular Volume 97 fL (80-94); Mean Platelet Volume 9 um3 (7.4-10.4); Red Cell Distribution Width 14 % (10.5-15); White Blood Count 15.6 10^3/ul (3.5-10.8)
[2017-08-02 22:47] LABS: BUN/Creatinine Ratio 24.4 (8-20); Calcium 10.3 mg/dL (8.6-10.3); EGFR African American 126.6 (>60); EGFR Non-African American 98.4 (>60); Potassium 4.1 mmol/L (3.5-5.0)
[2017-08-03] MEDS ORDERED: Al Hydrox/Mg Hydrox/Simet LIQ* 30 ML UDC PO PRN
[2017-08-03] MEDS ORDERED: Acetaminophen TAB* 325 MG PO PRN
[2017-08-03] MEDS ORDERED: Ondansetron INJ* 2 MG/ML VIAL IV PRN
[2017-08-03] MEDS ORDERED: Albuterol 2.5 MG/3 ML NEB.SOL* (0.083%) INH PRN (00:04)
[2017-08-03] MEDS ORDERED: Dextrose 50% Syringe 50 ML* 25 GM/50 ML SYRINGE IV PUSH PRN (00:15)
[2017-08-03 02:22] LABS: Hematocrit 45 % (42-52); Hemoglobin 14.5 g/dl (14.0-18.0)
--- NOTE | 2017-08-03 03:42 | HP ---
CC: Robby Dey MD * HISTORY AND PHYSICAL: DATE OF ADMISSION: 08/03/17 TIME OF EVALUATION: 0000 PRIMARY CARE PHYSICIAN: Robby Dey MD CHIEF COMPLAINT: Bright red blood per rectum. HISTORY OF PRESENT ILLNESS: This is a 72-year-old male with past medical history of COPD, on 4 to 5 L chronically, tobacco use and also history of diverticulitis, who presented to the emergency room for the second time in the past 24 hours. At this time, his complaints are bright red blood per rectum. He was seen in the emergency room yesterday morning for concerns for breathing. He was sent home with prednisone and azithromycin for COPD exacerbation. He states around 5 o'clock last evening he wiped and he had bright red blood per rectum. It was jelly like in appearance and there was a whole lot that had come in into the toilet. It happened a second time. He states he has been having issues with constipation. He denied any abdominal pain. He was concerned and did not think he could wait to see Dr. Dey tomorrow at a followup appointment. He denies any lightheadedness. No dizziness, no chest pain. He states his breathing is the same as it always is. He states he has not had a colonoscopy in the last 15 years. He denies any recent aspirin use. No NSAID use and he denies being on a blood thinner. Otherwise, remaining review of systems is negative. In the emergency room, the patient had labs and was referred to the hospitalist service for further evaluation. PAST MEDICAL HISTORY: 1. History of diverticulitis. 2. COPD, on 4 to 5 L chronically. 3. Tobacco use. 4. Diabetes. 5. Hypertension. 6. History of dysphagia. 7. ICU admission back in October 2016 for Influenza. 8. BPH. MEDICATIONS: Unknown. He does not have a medication list with him. ALLERGIES: No known drug allergies. FAMILY HISTORY: Reviewed and noncontributory. SOCIAL HISTORY: The patient lives in a trailer park home alone. He is concerned about his well being there and has been considering moving into an assisted living facility. He still smoking about half a pack per day for the past 20 to 30 years. His brother, Stefan, is his healthcare proxy. He denies any alcohol use. He is independent of his ADLs. His code status is full code. He does have a daughter that he does not have a relationship with. REVIEW OF SYSTEMS: A 14-point review of systems as mentioned in the HPI, pertinent positives and negatives, otherwise reviewed and negative. PHYSICAL EXAMINATION GENERAL: No acute distress, resting comfortably. Initially he is sleeping quite soundly. I had to really do a sternal rub to get him to wake up. VITAL SIGNS: Temp 98.8, pulse rate 87, respiratory rate 27, oxygen saturation 97% on 5 L, blood pressure 127/63. HEENT: Head: Normocephalic. Pupils equal and reactive, anicteric. Oropharynx : Mucous membranes moist. No erythema or exudate. No white patches. NECK: Supple. No lymphadenopathy. RESPIRATORY: Diminished breath sounds. Prolonged expiratory phase, rhonchorous bilateral expiratory wheezing. No increased work of breathing. CARDIAC: Regular rate and rhythm. No murmurs, rubs, or gallops. ABDOMEN: Soft, nontender, nondistended. Normal bowel sounds. EXTREMITIES: Patient with upper extremity clubbing, +1 DPs. NEUROLOGIC: Alert and oriented x3. No focal neurological deficits. LABORATORY DATA: White count 15.6, hemoglobin 15, hematocrit 46, platelets 208. INR 0.88. Sodium 138, potassium 4.1, chloride 96, bicarb 38, BUN 19, creatinine 0.78, glucose 263. ASSESSMENT: This is a 72-year-old male with past medical history of diverticulitis and COPD, on 5 L, who presents to the emergency room for the second time in 24 hours, now with bright red blood per rectum. His H and H has remained stable. 1. Bright red blood per rectum. Assessment: With his history of diverticulitis, benign abdomen with bright red blood, this is most likely a diverticular bleed. His H and H is stable at this time; however, he did seem to have 2 significant events, not unreasonable to admit him and observe him overnight and monitor his H and H. I am concerned about his well being and his care at home, as he has had several admissions and ER visits over the past year. Plan: We will admit to [address] [place] [address], monitor his H and H q.4 for the next [address] a social work consult and also concern for difficulty arousing, we will get a urine tox screen as well. 2. Leukocytosis. I suspect this is demargination from his burst of steroids that he was given in the emergency room yesterday. 3. Chronic obstructive pulmonary disease, 4 to 5 L. He states his breathing is stable. We will hold off on any further steroids and continue DuoNeb and albuterol until we get his med rec and get his home inhaler regimen. CHRONIC MEDICAL PROBLEMS: 1. Diabetes: We will place him on lispro for now and obtain his home medication list. 2. FEN: We will place him on clear liquid diet. 3. DVT prophylaxis: Patient scores moderate risk. We will place him on SCDs in the setting of GI bleed. 4. Code status: The patient states he is full code. TIME SPENT: Patient time, greater than 45 minutes was spent doing the history and physical; more than half the time spent in direct patient contact. [id number]/[facility] #: [id number] MTDD
[2017-08-03 05:45] LABS: Hematocrit 47 % (42-52); Hemoglobin 15.3 g/dl (14.0-18.0); Mean Corpuscular HGB Conc 32 g/dl (31-36); Mean Corpuscular Hemoglobin 32 pg (27-31); Mean Corpuscular Volume 97 fL (80-94); Mean Platelet Volume 9 um3 (7.4-10.4); Red Blood Count 4.83 10^6/ul (4.0-5.4); Red Cell Distribution Width 14 % (10.5-15); White Blood Count 15.4 10^3/ul (3.5-10.8)
[2017-08-03] MEDS: Albuterol/Ipratropium NEB.SOL* Albuterol 2.5 MG/Ipratropium 0.5 MG 3 ML INH PRN ×3 (06:02→22:38)
--- NOTE | 2017-08-03 07:21 | ED ---
Clare Shepard Gabriel, scribed for Antwan Campbell MD on 08/02/17 at 2204 . GI/ HPI - HPI Summary HPI Summary: This patient is a 72 year old M presenting to [facility] with a chief complaint of rectal bleeding since earlier today. Pt sates he tried to pass gas when felt something fall into his underwear and upon inspection he discovered it was a blood clot. He had two episodes of blood in his stool after this. Patient denies abd pain, weakness, and dizziness. Pt states he is not on any blood thinners but has a hx of diverticulitis. - History of Current Complaint Chief Complaint: EDGIBleed Time Seen by Provider: 08/02/17 21:55 Stated Complaint: RECTAL BLEEDING Hx Obtained From: Patient Onset/Duration: Still Present Timing: Constant Pain Intensity: 0 Associated Signs and Symptoms: Positive: Negative - abd pain, weakness, and dizziness - Additional Pertinent History Primary Care Physician: NOAH - Allergy/Home Medications Allergies/Adverse Reactions: Allergies Allergy/AdvReac Type Severity Reaction Status Date / Time No Known Allergies Allergy Verified 08/02/17 00:38 PMH/Surg Hx/FS Hx/Imm Hx Previously Healthy: No Endocrine/Hematology History: Reports: Hx Diabetes Denies: Hx Anticoagulant Therapy, Hx Blood Disorders, Hx Blood Transfusions, Hx Bone Marrow Disease, Hx Systemic Lupus Erythematosus, Hx Sickle Cell Disease , Hx Thyroid Disease, Hx Anemia, Hx Unexplained Bleeding, Other Endocrine/ Hematological Disorders Cardiovascular History: Reports: Hx Congestive Heart Failure, Hx Hypercholesterolemia, Hx Hypertension, Other Cardiovascular Problems/Disorders - 1st degree heart block Denies: Hx Aneurysm, Hx Angioplasty, Hx Auto Implanted Cardiovert Defib, Hx Cardiac Arrest, Hx Cardiomegaly, Hx Congenital Heart Disease, Hx Coronary Artery Disease, Hx Deep Vein Thrombosis, Hx Hypotension, Hx Pacemaker/ICD, Hx Peripheral Vascular Disease, Hx Rheumatic Fever, Hx Syncope, Hx Valvular Heart Disease Respiratory History: Reports: Hx Chronic Obstructive Pulmonary Disease (COPD), Hx Pneumonia, Other Respiratory Problems/Disorders - resp failure, pneumonia Denies: Hx Asthma, Hx Chronic Bronchitis, Hx Cystic Fibrosis, Hx Lung Cancer , Hx Pleural Effusion, Hx Pulmonary Edema, Hx Pulmonary Embolism, Hx Seasonal Allergies, Hx Sleep Apnea GI History: Denies: Hx Cirrhosis, Hx Crohn's Disease, Hx Diverticulosis, Hx Gall Bladder Disease, Hx Gastroesophageal Reflux Disease, Hx Gastrointestinal Bleed, Hx Hiatal Hernia, Hx Irritable Bowel, Hx Jaundice, Hx Obstructive Bowel, Hx Ileostomy, Hx Pyloric Stenosis, Hx Ulcer, Other GI Disorders History: Reports: Hx Benign Prostatic Hyperplasia Denies: Hx Acute Renal Failure, Hx Chronic Renal Failure, Hx Dialysis, Hx Kidney Infection, Hx Kidney Stones, Hx Renal Disease Musculoskeletal History: Reports: Hx Arthritis Denies: Hx Back Problems, Hx Bursitis, Hx Congenital Bone Abnormalities, Hx Fibromyalgia, Hx Gout, Hx Orthopedic Injury, Hx Osteoporosis, Hx Scoliosis, Hx Tendonitis, Other Musculoskeletal History Sensory History: Reports: Hx Contacts or Glasses Denies: Hx Cataracts, Hx Eye Injury, Hx Eye Prosthesis, Hx Glaucoma, Hx Legally Blind, Hx Macular Degeneration, Hx Vision Problem, Hx Deafness, Hx Hearing Aid, Hx Hearing Problem, Other Sensory Impairments Opthamlomology History: Reports: Hx Contacts or Glasses Denies: Hx Cataracts, Hx Eye Injury, Hx Eye Prosthesis, Hx Glaucoma, Hx Legally Blind, Hx Macular Degeneration, Hx Vision Problem, Other Sensory Impairments Neurological History: Denies: Hx Dementia, Hx Seizures Psychiatric History: Reports: Hx Anxiety, Hx Depression, Hx Inpatient Treatment - WHEN HE WAS 20, Hx Community Mental Health Tx, Hx Substance Abuse - Previous ETOH Denies: Hx Attention Deficit Hyperactivity Disorder, Hx Eating Disorder, Hx Panic Disorder, Hx Post Traumatic Stress Disorder, Hx Schizophrenia, Hx Bipolar Disorder, Hx Suicide Attempt, Hx of Violent Episodes Against Others, Other Psychiatric Issues/Disorders - Cancer History Hx Chemotherapy: No Hx Radiation Therapy: No - Surgical History Surgery Procedure, Year, and Place: T&A 1953 Hx Anesthesia Reactions: No Infectious Disease History: No Infectious Disease History: Denies: Hx Hepatitis, Hx Human Immunodeficiency Virus (HIV), Hx Tuberculosis , Traveled Outside the [place] in Last 30 Days - Family History Known Family History: Negative: Seizure Disorder - Social History Alcohol Use: None Alcohol Amount: 1-2x PER MONTH Hx Substance Use: No Substance Use Type: Reports: None Hx Tobacco Use: Yes Smoking Status (MU): Heavy Every Day Tobacco Smoker Type: Cigarettes Amount Used/How Often: DAILY 1PPD Length of Time of Smoking/Using Tobacco: 28 YEARS Have You Smoked in the Last Year: Yes Review of Systems Positive: Other - rectal bleeding . Negative: Abdominal Pain Neurological: Negative - dizziness Negative: Weakness All Other Systems Reviewed And Are Negative: Yes Physical Exam - Summary Physical Exam Summary: Appearance: Well appearing, no pain distress Skin: warm, dry, reflects adequate perfusion Head/face: normal Eyes: EOMI, ZAIN, no pallor conjunctiva ENT: normal, no pallor of mucus membranes Neck: supple, non-tender Respiratory: CTA, breath sounds present Cardiovascular: RRR, pulses symmetrical Abdomen: non-tender, soft, abdomen is protuberant Bowel: present Musculoskeletal: normal, strength/ROM intact Neuro: normal, sensory motor intact, A&Ox3 Rectal: Plenty of dried gross blood on his buttock and anus ,no external hemorrhoids no fissures Triage Information Reviewed: Yes Vital Signs On Initial Exam: Initial Vitals Temp Pulse Resp BP Pulse Ox 98.8 F 97 20 150/69 84 08/02/17 21:26 08/02/17 21:26 08/02/17 21:26 08/02/17 21:26 08/02/17 21:26 Vital Signs Reviewed: Yes Diagnostics - Vital Signs Vital Signs Temp Pulse Resp BP Pulse Ox 08/02/17 21:26 98.8 F 97 20 150/69 84 - Laboratory Lab Results: Lab Results 08/02/17 08/02/17 08/02/17 Range/Units 22:12 22:12 22:12 WBC 15.6 H (3.5-10.8) 10^3/ul RBC 4.70 (4.0-5.4) 10^6/ul Hgb 15.0 (14.0-18.0) g/dl Hct 46 (42-52) % MCV 97 H (80-94) fL MCH 32 H (27-31) pg MCHC 33 (31-36) g/dl RDW 14 (10.5-15) % Plt Count 208 (150-450) 10^3/ul MPV 9 (7.4-10.4) um3 Neut % (Auto) 82.6 (38-83) % Lymph % (Auto) 8.3 L (25-47) % Guadalupe % (Auto) 8.4 (1-9) % Eos % (Auto) 0.2 (0-6) % Baso % (Auto) 0.5 (0-2) % Absolute Neuts (auto) 12.9 H (1.5-7.7) 10^3/ul Absolute Lymphs (auto) 1.3 (1.0-4.8) 10^3/ul Absolute Monos (auto) 1.3 H (0-0.8) 10^3/ul Absolute Eos (auto) 0 (0-0.6) 10^3/ul Absolute Basos (auto) 0.1 (0-0.2) 10^3/ul Absolute Nucleated RBC 0 10^3/ul Nucleated RBC % 0 INR (Anticoag Therapy) 0.88 L (0.89-1.11) APTT 31.0 (26.0-36.3) seconds Sodium 138 (133-145) mmol/L Potassium 4.1 (3.5-5.0) mmol/L Chloride 96 L (101-111) mmol/L Carbon Dioxide 38 H (22-32) mmol/L Anion Gap 4 (2-11) mmol/L BUN 19 (6-24) mg/dL Creatinine 0.78 (0.67-1.17) mg/dL Est GFR ( Amer) 126.6 (>60) Est GFR (Non-Af Amer) 98.4 (>60) BUN/Creatinine Ratio 24.4 H (8-20) Glucose 263 H (70-100) mg/dL Calcium 10.3 (8.6-10.3) mg/dL Serum Alcohol (<10) mg/dL Blood Type Antibody Screen 08/02/17 08/02/17 Range/Units 22:12 22:12 WBC (3.5-10.8) 10^3/ul RBC (4.0-5.4) 10^6/ul Hgb (14.0-18.0) g/dl Hct (42-52) % MCV (80-94) fL MCH (27-31) pg MCHC (31-36) g/dl RDW (10.5-15) % Plt Count (150-450) 10^3/ul MPV (7.4-10.4) um3 Neut % (Auto) (38-83) % Lymph % (Auto) (25-47) % Guadalupe % (Auto) (1-9) % Eos % (Auto) (0-6) % Baso % (Auto) (0-2) % Absolute Neuts (auto) (1.5-7.7) 10^3/ul Absolute Lymphs (auto) (1.0-4.8) 10^3/ul Absolute Monos (auto) (0-0.8) 10^3/ul Absolute Eos (auto) (0-0.6) 10^3/ul Absolute Basos (auto) (0-0.2) 10^3/ul Absolute Nucleated RBC 10^3/ul Nucleated RBC % INR (Anticoag Therapy) (0.89-1.11) APTT (26.0-36.3) seconds Sodium (133-145) mmol/L Potassium (3.5-5.0) mmol/L Chloride (101-111) mmol/L Carbon Dioxide (22-32) mmol/L Anion Gap (2-11) mmol/L BUN (6-24) mg/dL Creatinine (0.67-1.17) mg/dL Est GFR ( Amer) (>60) Est GFR (Non-Af Amer) (>60) BUN/Creatinine Ratio (8-20) Glucose (70-100) mg/dL Calcium (8.6-10.3) mg/dL Serum Alcohol < 10 (<10) mg/dL Blood Type AB Positive Antibody Screen Negative Result Diagrams: 08/03/17 05:26 08/02/17 22:12 Lab Statement: Any lab studies that have been ordered have been reviewed, and results considered in the medical decision making process. - EKG 22:09 Cardiac Rate: NL EKG Rhythm: Sinus Rhythm - NSR at 89 BPM EKG Interpretation: Normal axis, RBBB, non specific ST wave EKG Comparison: No Significant Change - In comparison to EKG from 08/01/19 Re-Evaluation - Re-Evaluation First Eval Change: Unchanged GIGU Course/Dx - Course Course Of Treatment: pt with 2 lg spontaneous BRBPR episodes. Nl Hbg. No blood thinners. Mult comorbidities. High risk to rebleed, likely diverticular. OBS for rebleeding, possible GI eval for scope. - Diagnoses Differential Diagnoses - Male: Diverticulosis, Ischemic Bowel, Other Provider Diagnoses: Bright red rectal bleeding, COPD (chronic obstructive pulmonary disease) - Physician Notifications Discussed Care Of Patient With: Isidra Gates Time Discussed With Above Provider: 23:17 Instructed by Provider To: Other - We discussed patient care with Dr. Gates, hospitalist and they to admit to patient to [facility] [place]. Discharge - Discharge Plan Condition: Stable Disposition: ADMITTED TO [facility] The documentation as recorded by the Clare delgadillo Gabriel accurately reflects the service I personally performed and the decisions made by , Antwan Campbell MD.
[2017-08-03] MEDS: Insulin LISPRO* 1 UNITS UNIT SUBCUT SCH ×3 (10:37→19:06)
[2017-08-03] MEDS: Azithromycin TAB* 250 MG PO SCH (13:48)
[2017-08-03] MEDS: predniSONE TAB* 20 MG PO SCH (13:48)
--- NOTE | 2017-08-03 16:07 | PN ---
Subjective Date of Service: 08/03/17 Interval History: This is a 72 yo male with chronic resp failure secondary to COPD and DM who presented with c/o BRBPR. Patient had been seen the day prior in the ER with c/ o SOB and diagnosed with a COPD exacerbation and started on prednisone and azithromycin. Patient was admitted with a suspected diverticular bleed for observation. Patient denies abd pain, n/v. He is quite fatigued as he got little sleep last night. He had another large bloody BM early this afternoon. Objective Active Medications: Acetaminophen (Tylenol Tab*) 650 mg PO Q4H PRN PRN Reason: FEVER/PAIN Al Hydrox/Mg Hydrox/Simethicone (Maalox Plus*) 30 ml PO Q6H PRN PRN Reason: INDIGESTION Albuterol (Ventolin 2.5 Mg/3 Ml Neb.Allyn*) 2.5 mg INH Q2H PRN PRN Reason: SOB/WHEEZING Albuterol/Ipratropium (Duoneb (Albuterol 2.5 Mg/Ipratropium 0.5 Mg)) 1 neb INH Q4H PRN PRN Reason: SOB/WHEEZING Last Admin: 08/03/17 11:04 Dose: 1 neb Azithromycin (Zithromax Tab*) 250 mg PO DAILY [facility] Last Admin: 08/03/17 13:48 Dose: 250 mg Dextrose (D50w Syringe 50 Ml*) 12.5 gm IV PUSH .FOR FS < 60 - SS PRN PRN Reason: FS < 60 Insulin Human Lispro (Humalog*) 0 units SUBCUT AC [facility] PRN Reason: Protocol Last Admin: 08/03/17 13:48 Dose: 3 units Ondansetron HCl (Zofran Inj*) 4 mg IV Q4H PRN PRN Reason: NAUSEA/VOMITING Prednisone (Deltasone Tab*) 40 mg PO DAILY [facility] Last Admin: 08/03/17 13:48 Dose: 40 mg Vital Signs: Temp Pulse Resp BP Pulse Ox 97.6 F 79 22 108/54 98 08/03/17 11:19 08/03/17 11:19 08/03/17 11:19 08/03/17 11:19 08/03/17 11:19 Oxygen Devices in Use Now: Nasal Cannula Appearance: Fatigued appearing elderly gentleman in NAD Respiratory: Symmetrical Chest Expansion and Respiratory Effort, - - diffuse wheeze Cardiovascular: NL Sounds; No Murmurs; No JVD, RRR Abdominal: NL Sounds; No Tenderness; No Distention Neurological: Alert and Oriented x 3 Result Diagrams: 08/03/17 05:26 08/02/17 22:12 Additional Lab and Data: . Assess/Plan/Problems-Billing Assessment: This is a 72 yo gentleman with chronic respiratory failure secondary to COPD and DM who presented with BRBPR and admitted with a lower GI bleed, suspected diverticular. - Patient Problems (1) Lower GI bleed Comment: Likely diverticular No associated abdominal pain Hgb remains stable, but still having rather large volume of blood Will cont to monitor Hgb No antiplatelet agents or anticoagulation (2) COPD with exacerbation Comment: Recently seen in the ER for increased SOB Improving symptoms, still significant wheeze on exam Cont prednisone and azithromycin At baseline O2 requirements (3) Chronic respiratory failure Comment: Secondary to COPD Requires 4-5L supp O2 at baseline (4) Diabetes Comment: NIDDM (5) DVT prophylaxis Comment: No chemical prophylaxis due to active bleeding (6) Full code status Status and Disposition: Cont observation stay. Anticipate likely dc tomorrow am
[2017-08-04] MEDS: Albuterol/Ipratropium NEB.SOL* Albuterol 2.5 MG/Ipratropium 0.5 MG 3 ML INH PRN ×2 (03:52→07:46)
[2017-08-04 05:58] LABS: Hematocrit 44 % (42-52); Hemoglobin 14.3 g/dl (14.0-18.0)
[2017-08-04] MEDS ORDERED: Furosemide IV* 10 MG/ML 2 ML VIAL (20 MG) IV ONE (06:22)
[2017-08-04] MEDS ORDERED: Albuterol/Ipratropium NEB.SOL* Albuterol 2.5 MG/Ipratropium 0.5 MG 3 ML INH PRN (07:48)
--- NOTE | 2017-08-04 07:51 | PN ---
Hospitalist Progress Note Pt with 5th large bloody BM since midnight, largest yet. BRBPR with some clots. Hypoxia increased. Sat 90% on 15L. Asked for another duoneb (last 4am). changed to q4 waldemar and q2 prn. Transferred to ICU for closer monitoring. H&H q6. 15.3-> 14.3 at 5am. HR 98 144/74. Placed on tele. Mentating well.
[2017-08-04] MEDS ORDERED: Albuterol/Ipratropium NEB.SOL* Albuterol 2.5 MG/Ipratropium 0.5 MG 3 ML INH SCH (08:00)
--- NOTE | 2017-08-04 08:14 | RAD ---
INDICATION: Short of breath COMPARISON: August 02, 2017 TECHNIQUE: An AP portable view obtained at 0438 hours is submitted. FINDINGS: Bones/Soft Tissues: There are no acute bony findings. Cardiomediastinal: The cardiomediastinal silhouette is normal. Lungs: There are no focal consolidative changes. There are mild chronic interstitial changes. Pleura: There are no pleural effusions. Other: None IMPRESSION: MILD CHRONIC LUNG FINDINGS. NO ACUTE PROCESS.
[2017-08-04] MEDS: predniSONE TAB* 20 MG PO SCH (09:57)
[2017-08-04] MEDS: Azithromycin TAB* 250 MG PO SCH (09:57)
[2017-08-04 10:11] LABS: PCO2 Arterial 88 mmHg (35-45)
[2017-08-04 11:43] LABS: FIO2 75; IPAP 14; Resp Rate 14
[2017-08-04 11:44] LABS: EPAP 6; Patient Temp ABG 101.4
[2017-08-04 11:52] LABS: Hematocrit 44 % (42-52); Hemoglobin 14.1 g/dl (14.0-18.0)
[2017-08-04] MEDS: Insulin LISPRO* 1 UNITS UNIT SUBCUT SCH ×5 (12:00→22:10)
[2017-08-04 12:04] LABS: PCO2 Arterial 94 mmHg (35-45)
--- NOTE | 2017-08-04 12:21 | CONSULT ---
Consult Consult: GI Consult: Patient evaluated. Consult dictated. 72 years old man with O2-dependant COPD, presented with multiple episodes of painless hematochezia but without hemodynamic instability. Last Colonoscopy (10/1996) showed sigmoid diverticulosis. His respiratory status deteriorated and he was transferred to ICU. Currently on BiPap with RR 25-28 HR: 90 & BP 121/77 Last bloody bowel movement > 4 hrs ago. No further bleeding while in ICU. Recommendations: -Continue supportive care. -Monitor CBC and transfuse pRBCs, prn -He will need diagnostic colonoscopy once breathing status improves. -If bleeding worsens, consider interventional radiologist consultation for selective mesenteric angiogram & coil embolization. Assessment & Recommendations were discussed with hospitalist
--- NOTE | 2017-08-04 13:38 | PN ---
Subjective Date of Service: 08/04/17 Interval History: Patient had multiple bloody bowel movements overnight and became increasingly hypoxic. He was transferred to ICU this am and placed on BiPAP. Patient continues to deny abd pain. Objective Active Medications: Acetaminophen (Tylenol Tab*) 650 mg PO Q4H PRN PRN Reason: FEVER/PAIN Al Hydrox/Mg Hydrox/Simethicone (Maalox Plus*) 30 ml PO Q6H PRN PRN Reason: INDIGESTION Albuterol (Ventolin 2.5 Mg/3 Ml Neb.Allyn*) 2.5 mg INH Q2H PRN PRN Reason: SOB/WHEEZING Albuterol/Ipratropium (Duoneb (Albuterol 2.5 Mg/Ipratropium 0.5 Mg)) 1 neb INH Q2H PRN PRN Reason: SOB/WHEEZING Albuterol/Ipratropium (Duoneb (Albuterol 2.5 Mg/Ipratropium 0.5 Mg)) 1 neb INH [id number] AWAKE [facility] Azithromycin (Zithromax Tab*) 250 mg PO DAILY [facility] Last Admin: 08/04/17 09:57 Dose: 250 mg Dextrose (D50w Syringe 50 Ml*) 12.5 gm IV PUSH .FOR FS < 60 - SS PRN PRN Reason: FS < 60 Insulin Human Lispro (Humalog*) 0 units SUBCUT Q4H [facility] PRN Reason: Protocol Last Admin: 08/04/17 13:27 Dose: 4 units Methylprednisolone Sodium Succinate (Solu-Medrol 40 Mg) 40 mg IV Q8H [facility] Ondansetron HCl (Zofran Inj*) 4 mg IV Q4H PRN PRN Reason: NAUSEA/VOMITING Vital Signs: Temp Pulse Resp BP Pulse Ox 98.7 F 89 32 121/71 93 08/04/17 11:45 08/04/17 11:45 08/04/17 11:45 08/04/17 11:45 08/04/17 11:46 Oxygen Devices in Use Now: BiPAP Appearance: 72 yo gentleman resting on BiPAP. Responds to verbal stimuli but generally lethargic. Respiratory: Symmetrical Chest Expansion and Respiratory Effort, - - little air exchange appreciated on exam Cardiovascular: NL Sounds; No Murmurs; No JVD, RRR Abdominal: NL Sounds; No Tenderness; No Distention Extremities: No Edema Skin: No Rash or Ulcers Neurological: Alert and Oriented x 3 - lethargic Result Diagrams: 08/04/17 11:30 08/02/17 22:12 Additional Lab and Data: . Assess/Plan/Problems-Billing Assessment: This is a 72 yo gentleman with chronic respiratory failure secondary to COPD and DM who presented with BRBPR and admitted with a lower GI bleed, suspected diverticular, now complicated by COPD exacerbation. - Patient Problems (1) Acute and chronic respiratory failure Comment: Secondary to COPD exacerbation Acutely decompensated overnight, now on BiPAP and appears to be tolerating well Start IV corticosteroids and scheduled nebulizer treatments No infiltrate appreciated on CXR Baseline O2 requirements ~4-5L (2) Lower GI bleed Comment: Likely diverticular No associated abdominal pain He has had multiple bloody BMs overnight but remains hemodynamically stable without large drop in Hgb Will cont to monitor Hgb No antiplatelet agents or anticoagulation Appreciate GI consult, plan for diagnostic colonoscopy Mon/Tu (3) Diabetes Comment: NIDDM Cover hyperglycemia associated with corticosteroids and acute illness with SS Humalog (4) DVT prophylaxis Comment: No chemical prophylaxis due to active bleeding (5) Full code status Status and Disposition: Now inpatient. Continue ICU level care. Colonoscopy planned for early next week
[2017-08-04 14:45] LABS: EPAP 6; FIO2 60; IPAP 18; Resp Rate 14
[2017-08-04] MEDS: Albuterol/Ipratropium NEB.SOL* Albuterol 2.5 MG/Ipratropium 0.5 MG 3 ML INH SCH ×3 (14:45→23:28)
[2017-08-04 16:35] LABS: PCO2 Arterial 88 mmHg (35-45)
--- NOTE | 2017-08-04 16:57 | PN ---
Progress Note - Progress Note Date of Service: 08/04/17 SOAP: Subjective: Mr. Gray is a 72 yo male with a history of COPD, Type II DM, and diverticulitis who presented to the ED c/o multiple episodes of hematochezia. Patient also has a COPD exacerbation and was in the ED one day ago d/t dyspnea. Patient is currently on BiPAP d/t respiratory failure that happened overnight. Patient is minimally responsive to verbal cues, and therefore, this exam was limited. Objective: Vital Signs Temp Pulse Resp BP Pulse Ox 98.7 F 89 33 108/69 91 08/04/17 16:00 08/04/17 15:00 08/04/17 15:00 08/04/17 14:00 08/04/17 15:00 Laboratory Results - last 24 hr 08/03/17 08/04/17 08/04/17 17:06 05:35 08:07 Hgb 14.3 Hct 44 Patient Temperature ABG pH ABG pH (Temp Correct) ABG pCO2 ABG pCO2 (Temp Corrct ABG pO2 ABG pO2 (Temp Correct ABG HCO3 ABG O2 Saturation ABG Base Excess Respiration Rate O2 Delivery Device Ventilator Type Vent Mode FiO2 Inspiratory Time PEEP Pressure Support Pressure Control EPAP IPAP BiPAP POC Glucose (mg/dL) 199 H 213 H 08/04/17 08/04/17 08/04/17 09:55 11:08 11:30 Hgb 14.1 Hct 44 Patient Temperature ABG pH 7.30 L ABG pH (Temp Correct) ABG pCO2 88 H* ABG pCO2 (Temp Corrct ABG pO2 63 L ABG pO2 (Temp Correct ABG HCO3 34.3 H ABG O2 Saturation 93.8 L ABG Base Excess 12.3 H Respiration Rate O2 Delivery Device Ventilator Type Vent Mode FiO2 Inspiratory Time PEEP Pressure Support Pressure Control EPAP IPAP BiPAP POC Glucose (mg/dL) 224 H 08/04/17 08/04/17 11:35 14:35 Hgb Hct Patient Temperature 101.4 Not Reportable ABG pH 7.31 L 7.31 L ABG pH (Temp Correct) Not Reportable Not Reportable ABG pCO2 94 H* 88 H* ABG pCO2 (Temp Corrct Not Reportable Not Reportable ABG pO2 84 69 L ABG pO2 (Temp Correct Not Reportable Not Reportable ABG HCO3 37.2 H 35.2 H ABG O2 Saturation 95.6 94.8 L ABG Base Excess 15.9 H 13.3 H Respiration Rate 14 14 O2 Delivery Device Bipap Bipap Ventilator Type Not Reportable Not Reportable Vent Mode bipap Not Reportable FiO2 75 60 Inspiratory Time Not Reportable Not Reportable PEEP Not Reportable Not Reportable Pressure Support Not Reportable Not Reportable Pressure Control Not Reportable Not Reportable EPAP 6 6 IPAP 14 18 BiPAP Not Reportable Not Reportable POC Glucose (mg/dL) Active Medications Acetaminophen (Tylenol Tab*) 650 mg PO Q4H PRN PRN Reason: FEVER/PAIN Al Hydrox/Mg Hydrox/Simethicone (Maalox Plus*) 30 ml PO Q6H PRN PRN Reason: INDIGESTION Albuterol (Ventolin 2.5 Mg/3 Ml Neb.Allyn*) 2.5 mg INH Q2H PRN PRN Reason: SOB/WHEEZING Albuterol/Ipratropium (Duoneb (Albuterol 2.5 Mg/Ipratropium 0.5 Mg)) 1 neb INH Q2H PRN PRN Reason: SOB/WHEEZING Albuterol/Ipratropium (Duoneb (Albuterol 2.5 Mg/Ipratropium 0.5 Mg)) 1 neb INH [id number] AWAKE [facility] Last Admin: 08/04/17 14:45 Dose: 1 neb Azithromycin (Zithromax Tab*) 250 mg PO DAILY [facility] Last Admin: 08/04/17 09:57 Dose: 250 mg Dextrose (D50w Syringe 50 Ml*) 12.5 gm IV PUSH .FOR FS < 60 - SS PRN PRN Reason: FS < 60 Insulin Human Lispro (Humalog*) 0 units SUBCUT Q4H [facility] PRN Reason: Protocol Last Admin: 08/04/17 13:27 Dose: 4 units Methylprednisolone Sodium Succinate (Solu-Medrol 40 Mg) 40 mg IV Q8H [facility] Ondansetron HCl (Zofran Inj*) 4 mg IV Q4H PRN PRN Reason: NAUSEA/VOMITING General: WDWN 72 yo male who is extremely lethargic. HEENT: Mucous membranes moist and pink CV: RRR w/o MRG Respiratory: Minimal lung movement appreciated Extremities: w/o LE edema Assessment: Mr. Gray is a 72 yo male with a history of COPD, type II DM, and diverticulitis who presented d/t episodes of hematochezia. Patient also has a COPD exacerbation. Patient has been admitted to ICU for respiratory failure. Plan: 1. Respiratory failure: Patient is on BiPAP, IV corticosteroids, and nebulizer treatments 2. GI Bleed: Suspicion of a diverticular bleed, GI consulted, monitoring H&H 3. Type II Diabetes: Non-insulin dependent, however, during acute illness, administer humalog.
[2017-08-04] MEDS: methylPREDNISolone SOD 40 MG* 1 ML VIAL IV SCH (17:13)
[2017-08-04 17:34] LABS: Hematocrit 44 % (42-52); Hemoglobin 14.3 g/dl (14.0-18.0)
--- NOTE | 2017-08-04 18:19 | CONS ---
CC: Dr. Ajay Gonzalez; Robby Dey MD GI CONSULTATION REPORT: DATE OF CONSULT: 08/04/17 REFERRING PHYSICIAN: Syed Mott MD REASON FOR CONSULTATION: Hematochezia. HISTORY OF PRESENT ILLNESS: A 72-year-old gentleman with a past medical history of oxygen-dependent COPD, who also has known history of diverticulosis, presented to emergency room twice with complaint of hematochezia. He reported copious amount of blood in the toilet bowl on 2 occasions. He denied any complaint of abdominal pain, nausea, vomiting. No hematemesis. No complaint of associated dizziness, lightheadedness, or loss of consciousness. His pulse and blood pressure were stable on admission. Due to repeated episodes, he was admitted for observation. His lab work upon admission revealed hemoglobin of 15.3, which dropped by 1 g overnight to 14.3. His INR was normal. During hospitalization, he became progressively short of breath and somnolent and was transferred to ICU and has been on BiPAP since then. He had a few episodes of hematochezia overnight. Last episode was cleaner laboratory equipment, but for the last 4 hours, he had no further lower GI bleeding. At present, he is in ICU on BiPAP and denies any abdominal pain or dizziness. PAST MEDICAL HISTORY: Diverticulosis, COPD, diabetes, hypertension, BPH. MEDICATIONS: 1. Albuterol. 2. Azithromycin. 3. Insulin. 4. Methylprednisolone. ALLERGIES: NKDA. FAMILY HISTORY: Reviewed and noncontributory. SOCIAL HISTORY: He [place] in [place]. Denies any alcohol use. He is a smoker for the past 30 years. PAST SURGICAL HISTORY: The patient had a colonoscopy performed by Dr. Curt Crum in October 1996, which revealed sigmoid diverticulosis. REVIEW OF SYSTEMS: Revealed shortness of breath, but no chest pain, dizziness, lightheadedness, or fever. PHYSICAL EXAMINATION: An elderly gentleman, lying in the bed, appears to be in respiratory distress, on BiPAP. Pulse 90 per minute, blood pressure 121/71, pulse ox 96%, respiratory rate 25 to 28 per minute, temperature afebrile. HEENT : Head is normocephalic. Pupils equal and reactive to light and accommodation. Neck: Supple. No JVD. Respiratory: Decreased breathing sounds bilaterally with expiratory wheezes. Cardiac: S1, S2 regular, but muffled sounds without any murmurs or added sounds. Abdomen: Obese, but soft, nontender. No organomegaly appreciated. Extremities: Clubbing in upper extremity. Neurologic: Alert, oriented to time, place and person without any gross focal deficit. DATA REVIEW: Showed a hemoglobin of 15.3 on admission, which dropped by 1 g to 14.3 earlier today, INR 0.88. Chemistry revealed elevated CO2. Sodium and potassium were normal. Blood gases showed pCO2 of 88 and ABG of 7.3 with oxygen of 63. ASSESSMENT: A 72-year-old gentleman with known history of diverticular disease , presenting with multiple episodes of painless hematochezia, but remained hemodynamically stable. Differential diagnosis includes diverticular bleeding, AVMs, colorectal malignancy. He is currently in ICU due to worsening of chronic chronic obstructive pulmonary disease. Chronic obstructive pulmonary disease, home oxygen dependent with increased CO2. RECOMMENDATIONS: 1. Advised to continue supportive care. 2. Treat COPD and shortness of breath. 3. Monitor CBC and transfuse packed RBC as needed. 4. The patient will require diagnostic colonoscopy at some point during this admission, but his respiratory status needs to be stable before he is scheduled for the procedure. 5. If the patient starts bleeding profusely, I will advise to consult interventional radiologist for coil embolization of bleeding vessel. [id number]/[facility] #: [id number] NICHOL
[2017-08-04 23:36] LABS: Hematocrit 44 % (42-52); Hemoglobin 14.2 g/dl (14.0-18.0)
[2017-08-05] MEDS: Insulin LISPRO* 1 UNITS UNIT SUBCUT SCH ×7 (02:14→20:21)
[2017-08-05] MEDS: methylPREDNISolone SOD 40 MG* 1 ML VIAL IV SCH ×2 (02:14→09:47)
[2017-08-05 03:10] LABS: Benzodiazepine Urine Screen None Detected (None Detect)
[2017-08-05] MEDS: Albuterol/Ipratropium NEB.SOL* Albuterol 2.5 MG/Ipratropium 0.5 MG 3 ML INH SCH ×6 (03:27→23:27)
[2017-08-05 05:36] LABS: Hematocrit 44 % (42-52); Hemoglobin 14.4 g/dl (14.0-18.0); Mean Corpuscular HGB Conc 32 g/dl (31-36); Mean Corpuscular Hemoglobin 31 pg (27-31); Mean Corpuscular Volume 97 fL (80-94); Mean Platelet Volume 9 um3 (7.4-10.4); Red Blood Count 4.59 10^6/ul (4.0-5.4); Red Cell Distribution Width 14 % (10.5-15); White Blood Count 15.6 10^3/ul (3.5-10.8)
[2017-08-05 05:52] LABS: BUN/Creatinine Ratio 30.8 (8-20); Calcium 9.4 mg/dL (8.6-10.3); EGFR African American 202.1 (>60); EGFR Non-African American 157.1 (>60); Potassium 4.8 mmol/L (3.5-5.0)
[2017-08-05] MEDS: Azithromycin TAB* 250 MG PO SCH (09:47)
--- NOTE | 2017-08-05 12:02 | PN ---
Subjective Date of Service: 08/05/17 Interval History: Less SOB. Little cough. Objective Active Medications: Acetaminophen (Tylenol Tab*) 650 mg PO Q4H PRN PRN Reason: FEVER/PAIN Al Hydrox/Mg Hydrox/Simethicone (Maalox Plus*) 30 ml PO Q6H PRN PRN Reason: INDIGESTION Albuterol (Ventolin 2.5 Mg/3 Ml Neb.Allyn*) 2.5 mg INH Q2H PRN PRN Reason: SOB/WHEEZING Albuterol/Ipratropium (Duoneb (Albuterol 2.5 Mg/Ipratropium 0.5 Mg)) 1 neb INH Q2H PRN PRN Reason: SOB/WHEEZING Albuterol/Ipratropium (Duoneb (Albuterol 2.5 Mg/Ipratropium 0.5 Mg)) 1 neb INH [id number] AWAKE [facility] Last Admin: 08/05/17 10:57 Dose: 1 neb Azithromycin (Zithromax Tab*) 250 mg PO DAILY [facility] Last Admin: 08/05/17 09:47 Dose: 250 mg Dextrose (D50w Syringe 50 Ml*) 12.5 gm IV PUSH .FOR FS < 60 - SS PRN PRN Reason: FS < 60 Insulin Human Lispro (Humalog*) 0 units SUBCUT Q4HR [facility] PRN Reason: Protocol Last Admin: 08/05/17 09:46 Dose: 4 units Ondansetron HCl (Zofran Inj*) 4 mg IV Q4H PRN PRN Reason: NAUSEA/VOMITING Prednisone (Deltasone Tab*) 60 mg PO DAILY [facility] Vital Signs 08/04/17 08/04/17 08/04/17 12:00 12:15 12:30 Temperature Pulse Rate 89 93 86 Respiratory 27 23 24 Rate Blood Pressure 127/73 118/71 118/65 (mmHg) O2 Sat by Pulse 95 96 94 Oximetry 08/04/17 08/04/17 08/04/17 12:45 13:00 13:15 Temperature Pulse Rate 86 85 85 Respiratory 29 23 29 Rate Blood Pressure 104/64 120/81 111/68 (mmHg) O2 Sat by Pulse 93 91 89 Oximetry 08/04/17 08/04/17 08/04/17 13:30 14:00 14:45 Temperature Pulse Rate 86 84 83 Respiratory 25 30 27 Rate Blood Pressure 114/69 108/69 (mmHg) O2 Sat by Pulse 90 90 95 Oximetry 08/04/17 08/04/17 08/04/17 15:00 16:00 17:00 Temperature 98.7 F Pulse Rate 89 84 84 Respiratory 28 28 26 Rate Blood Pressure 117/71 143/78 (mmHg) O2 Sat by Pulse 91 92 97 Oximetry 08/04/17 08/04/17 08/04/17 18:00 19:00 20:00 Temperature 98.1 F Pulse Rate 91 86 75 Respiratory 23 28 27 Rate Blood Pressure 125/72 122/72 127/80 (mmHg) O2 Sat by Pulse 96 91 93 Oximetry 08/04/17 08/04/17 08/04/17 21:00 21:55 22:00 Temperature Pulse Rate 82 80 78 Respiratory 25 25 26 Rate Blood Pressure 123/72 118/72 (mmHg) O2 Sat by Pulse 90 96 95 Oximetry 08/04/17 08/04/17 08/04/17 23:00 23:48 23:56 Temperature 98.1 F Pulse Rate 78 75 Respiratory 24 27 Rate Blood Pressure 120/68 (mmHg) O2 Sat by Pulse 94 93 Oximetry 08/05/17 08/05/17 08/05/17 00:00 00:45 01:00 Temperature Pulse Rate 75 74 Respiratory 26 23 24 Rate Blood Pressure 109/63 116/62 (mmHg) O2 Sat by Pulse 94 95 Oximetry 08/05/17 08/05/17 08/05/17 02:00 03:00 03:24 Temperature Pulse Rate 83 89 80 Respiratory 18 27 22 Rate Blood Pressure 120/69 130/83 (mmHg) O2 Sat by Pulse 95 88 91 Oximetry 08/05/17 08/05/17 08/05/17 03:27 04:00 05:00 Temperature 97.0 F Pulse Rate 74 77 76 Respiratory 22 27 24 Rate Blood Pressure 116/73 127/76 (mmHg) O2 Sat by Pulse 91 95 96 Oximetry 08/05/17 08/05/17 08/05/17 06:00 06:15 07:00 Temperature Pulse Rate 81 79 Respiratory 24 20 20 Rate Blood Pressure 126/75 120/73 (mmHg) O2 Sat by Pulse 95 93 Oximetry 08/05/17 08/05/17 08/05/17 07:50 07:54 08:00 Temperature 98.1 F 98.1 F Pulse Rate 80 80 Respiratory 20 28 Rate Blood Pressure 121/69 (mmHg) O2 Sat by Pulse 95 93 Oximetry 08/05/17 08/05/17 08/05/17 09:00 10:00 10:59 Temperature Pulse Rate 77 87 85 Respiratory 23 29 24 Rate Blood Pressure 109/58 128/74 (mmHg) O2 Sat by Pulse 94 92 93 Oximetry 08/05/17 11:39 Temperature 97.5 F Pulse Rate Respiratory Rate Blood Pressure (mmHg) O2 Sat by Pulse Oximetry Oxygen Devices in Use Now: High Flow Nasal Cannula Appearance: Alert, partly up in ICU bed. In fair spirits, c/o frequently about the [place] but otherwise looks comfortable. Eyes: No Scleral Icterus Neck: NL Appearance and Movements; NL JVP, No Thyroid Enlargement, Masses Respiratory: Symmetrical Chest Expansion and Respiratory Effort, Clear to Percussion, - - diminished B S BL Cardiovascular: NL Sounds; No Murmurs; No JVD, RRR, No Edema, - Extremities: No Edema, No Clubbing, Cyanosis, - Skin: No Rash or Ulcers, No Nodules or Sclerosis, - Neurological: Alert and Oriented x 3, NL Sensation Result Diagrams: 08/05/17 05:17 08/05/17 05:17 Additional Lab and Data: . Assess/Plan/Problems-Billing Assessment: This is a 72 yo gentleman with chronic respiratory failure secondary to COPD and DM who presented with BRBPR and admitted with a lower GI bleed, suspected diverticular, now complicated by COPD exacerbation. - Patient Problems (1) Lower GI bleed Current Visit: Yes Status: Acute Code(s): K92.2 - GASTROINTESTINAL HEMORRHAGE, UNSPECIFIED SNOMED Code(s): 47285452 Comment: Likely diverticular. No associated abdominal pain. H&H remain nl. Consider outpt colonoscopy . No antiplatelet agents or anticoagulation Appreciate GI consult, plan for diagnostic colonoscopy Mon/ (2) COPD with exacerbation Current Visit: No Status: Acute Code(s): J44.1 - CHRONIC OBSTRUCTIVE PULMONARY DISEASE W (ACUTE) EXACERBATION SNOMED Code(s): 181642361923765 Comment: Resume tiotropium. Recently seen in the ER for increased SOB Improving symptoms, still significant wheeze on exam Prednisone taper. Continue azithromycin (3) Diabetes Current Visit: Yes Status: Acute Code(s): E11.9 - TYPE 2 DIABETES MELLITUS WITHOUT COMPLICATIONS SNOMED Code(s): 12179636 Comment: Resume home dose metformin and glypizide. Status and Disposition: Now inpatient. Continue ICU level care. Colonoscopy planned for early next week
[2017-08-05] MEDS ORDERED: Dextrose 50% Syringe 50 ML* 25 GM/50 ML SYRINGE IV PUSH PRN (14:57)
[2017-08-05] MEDS: glipiZIDE TAB* 5 MG PO SCH (17:13)
[2017-08-05] MEDS: metFORMIN* 1,000 MG TAB PO SCH (17:13)
[2017-08-06] MEDS: Albuterol/Ipratropium NEB.SOL* Albuterol 2.5 MG/Ipratropium 0.5 MG 3 ML INH SCH ×5 (03:56→19:36)
[2017-08-06] MEDS: Tiotropium CAP.INH* CAP.INH/18 MCG (USE ORDER SET !) INH SCH (07:22)
[2017-08-06] MEDS: Insulin LISPRO* 1 UNITS UNIT SUBCUT SCH ×4 (07:44→20:23)
[2017-08-06] MEDS: glipiZIDE TAB* 5 MG PO SCH ×2 (08:31→17:49)
[2017-08-06] MEDS: Azithromycin TAB* 250 MG PO SCH (08:31)
[2017-08-06] MEDS: metFORMIN* 1,000 MG TAB PO SCH ×2 (08:31→17:49)
[2017-08-06] MEDS ORDERED: Spiriva Inhaler DEVICE* 1 EACH DEVICE INH ONE (09:00)
[2017-08-06] MEDS ORDERED: predniSONE TAB* 20 MG PO SCH (09:00)
--- NOTE | 2017-08-06 14:08 | PN ---
Objective Active Medications: Acetaminophen (Tylenol Tab*) 650 mg PO Q4H PRN PRN Reason: FEVER/PAIN Al Hydrox/Mg Hydrox/Simethicone (Maalox Plus*) 30 ml PO Q6H PRN PRN Reason: INDIGESTION Albuterol (Ventolin 2.5 Mg/3 Ml Neb.Allyn*) 2.5 mg INH Q2H PRN PRN Reason: SOB/WHEEZING Last Admin: 08/06/17 05:38 Dose: 2.5 mg Albuterol/Ipratropium (Duoneb (Albuterol 2.5 Mg/Ipratropium 0.5 Mg)) 1 neb INH Q2H PRN PRN Reason: SOB/WHEEZING Albuterol/Ipratropium (Duoneb (Albuterol 2.5 Mg/Ipratropium 0.5 Mg)) 1 neb INH [id number] AWAKE [facility] Last Admin: 08/06/17 13:19 Dose: 1 neb Azithromycin (Zithromax Tab*) 250 mg PO DAILY [facility] Last Admin: 08/06/17 08:31 Dose: 250 mg Dextrose (D50w Syringe 50 Ml*) 12.5 gm IV PUSH .FOR FS < 60 - SS PRN PRN Reason: FS < 60 Glipizide (Glucotrol Tab*) 10 mg PO 0800,1700 [facility] Last Admin: 08/06/17 08:31 Dose: 10 mg Insulin Human Lispro (Humalog*) 0 units SUBCUT ACHS [facility] PRN Reason: Protocol Last Admin: 08/06/17 12:35 Dose: 4 units Metformin HCl (Glucophage*) 1,000 mg PO 0800,1700 [facility] Last Admin: 08/06/17 08:31 Dose: 1,000 mg Ondansetron HCl (Zofran Inj*) 4 mg IV Q4H PRN PRN Reason: NAUSEA/VOMITING Prednisone (Deltasone Tab*) 60 mg PO DAILY [facility] Last Admin: 08/06/17 08:31 Dose: 60 mg Tiotropium [place] (Spiriva Cap.Inh*) 1 cap INH DAILY [facility] Last Admin: 08/06/17 07:22 Dose: 1 cap Vital Signs 08/05/17 08/05/17 08/05/17 14:16 14:33 14:47 Temperature 98.1 F 98.1 F Pulse Rate 83 83 89 Respiratory 24 24 17 Rate Blood Pressure 120/61 120/61 (mmHg) O2 Sat by Pulse 91 91 88 Oximetry 08/05/17 08/05/17 08/05/17 15:55 20:00 20:21 Temperature 97.8 F Pulse Rate 84 78 Respiratory 30 18 18 Rate Blood Pressure 121/59 (mmHg) O2 Sat by Pulse 97 99 Oximetry 08/05/17 08/06/17 08/06/17 23:44 03:30 03:31 Temperature 98.0 F 98.0 F Pulse Rate 88 75 Respiratory 18 19 Rate Blood Pressure 123/63 100/50 98/43 (mmHg) O2 Sat by Pulse 92 93 Oximetry 08/06/17 08/06/17 08/06/17 05:40 07:24 07:45 Temperature 98.2 F Pulse Rate 88 81 88 Respiratory 18 17 18 Rate Blood Pressure 131/70 (mmHg) O2 Sat by Pulse 91 91 90 Oximetry 08/06/17 08/06/17 11:22 13:20 Temperature Pulse Rate 86 Respiratory 17 16 Rate Blood Pressure (mmHg) O2 Sat by Pulse 92 Oximetry Oxygen Devices in Use Now: High Flow Nasal Cannula Result Diagrams: 08/05/17 05:17 08/05/17 05:17 Additional Lab and Data: . Assess/Plan/Problems-Billing Assessment: This is a 72 yo gentleman with chronic respiratory failure secondary to COPD and DM who presented with BRBPR and admitted with a lower GI bleed, suspected diverticular, now complicated by COPD exacerbation. - Patient Problems (1) Lower GI bleed Current Visit: Yes Status: Acute Code(s): K92.2 - GASTROINTESTINAL HEMORRHAGE, UNSPECIFIED SNOMED Code(s): 73908103 Comment: Likely diverticular. No associated abdominal pain. H&H remain nl. Consider outpt colonoscopy . No antiplatelet agents or anticoagulation Appreciate GI consult, plan for diagnostic colonoscopy Mon/Tu (2) COPD with exacerbation Current Visit: No Status: Acute Code(s): J44.1 - CHRONIC OBSTRUCTIVE PULMONARY DISEASE W (ACUTE) EXACERBATION SNOMED Code(s): 702489564121449 Comment: Resume tiotropium. Recently seen in the ER for increased SOB Improving symptoms, still significant wheeze on exam Prednisone taper. Continue azithromycin (3) Diabetes Current Visit: Yes Status: Acute Code(s): E11.9 - TYPE 2 DIABETES MELLITUS WITHOUT COMPLICATIONS SNOMED Code(s): 02491510 Comment: Resume home dose metformin and glypizide. Status and Disposition: Now inpatient. Continue ICU level care. Colonoscopy planned for early next week
[2017-08-06] MEDS ORDERED: Magnesium Hydroxide LIQ* 30 ML UDC PO ONE (14:21)
--- NOTE | 2017-08-06 14:38 | PN ---
Subjective Date of Service: 08/06/17 Interval History: No new c/o. Patient feels he is at his baseline. He uses O2 abut 5L/min at home. Objective Active Medications: Acetaminophen (Tylenol Tab*) 650 mg PO Q4H PRN PRN Reason: FEVER/PAIN Al Hydrox/Mg Hydrox/Simethicone (Maalox Plus*) 30 ml PO Q6H PRN PRN Reason: INDIGESTION Albuterol (Ventolin 2.5 Mg/3 Ml Neb.Allyn*) 2.5 mg INH Q2H PRN PRN Reason: SOB/WHEEZING Last Admin: 08/06/17 05:38 Dose: 2.5 mg Albuterol/Ipratropium (Duoneb (Albuterol 2.5 Mg/Ipratropium 0.5 Mg)) 1 neb INH Q2H PRN PRN Reason: SOB/WHEEZING Albuterol/Ipratropium (Duoneb (Albuterol 2.5 Mg/Ipratropium 0.5 Mg)) 1 neb INH [id number] AWAKE [facility] Last Admin: 08/06/17 13:19 Dose: 1 neb Azithromycin (Zithromax Tab*) [address] [facility] Last Admin: 08/06/17 08:31 Dose: 250 mg Dextrose (D50w Syringe 50 Ml*) 12.5 gm IV PUSH .FOR FS < 60 - SS PRN PRN Reason: FS < 60 Glipizide (Glucotrol Tab*) 10 [address] PO 0800,1700 [facility] Last Admin: 08/06/17 08:31 Dose: 10 mg Insulin Human Lispro (Humalog*) [address] [facility] PRN Reason: Protocol Last Admin: 08/06/17 12:35 Dose: 4 units Metformin HCl (Glucophage*) 1,000 mg PO 0800,1700 [facility] Last Admin: 08/06/17 08:31 Dose: 1,000 mg Ondansetron HCl (Zofran Inj*) 4 mg IV Q4H PRN PRN Reason: NAUSEA/VOMITING Prednisone (Deltasone Tab*) [address] [facility] Last Admin: 08/06/17 08:31 Dose: 60 mg Tiotropium [place] (Spiriva Cap.Inh*) [address] [facility] Last Admin: 08/06/17 07:22 Dose: 1 cap Vital Signs 08/05/17 08/05/17 08/05/17 14:33 14:47 15:55 Temperature 98.1 F 97.8 F Pulse Rate 83 89 84 Respiratory 24 17 30 Rate Blood Pressure 120/61 121/59 (mmHg) O2 Sat by Pulse 91 88 97 Oximetry 08/05/17 08/05/17 08/05/17 20:00 20:21 23:44 Temperature 98.0 F Pulse Rate 78 88 Respiratory 18 18 18 Rate Blood Pressure 123/63 (mmHg) O2 Sat by Pulse 99 92 Oximetry 08/06/17 08/06/17 08/06/17 03:30 03:31 05:40 Temperature 98.0 F Pulse Rate 75 88 Respiratory 19 18 Rate Blood Pressure 100/50 98/43 (mmHg) O2 Sat by Pulse 93 91 Oximetry 08/06/17 08/06/17 08/06/17 07:24 07:45 11:22 Temperature 98.2 F Pulse Rate 81 88 Respiratory 17 18 17 Rate Blood Pressure 131/70 (mmHg) O2 Sat by Pulse 91 90 Oximetry 08/06/17 13:20 Temperature Pulse Rate 86 Respiratory 16 Rate Blood Pressure (mmHg) O2 Sat by Pulse 92 Oximetry Oxygen Devices in Use Now: Nasal Cannula - Alert, sitting on the edge of his bed. In good spirits. Looks comfortable., High Flow Nasal Cannula Neck: NL Appearance and Movements; NL JVP, No Thyroid Enlargement, Masses Respiratory: Symmetrical Chest Expansion and Respiratory Effort, Clear to Auscultation, Clear to Percussion, - - diminished BS BL Extremities: No Edema, No Clubbing, Cyanosis, - Skin: No Rash or Ulcers, No Nodules or Sclerosis, - Neurological: Alert and Oriented x 3, NL Sensation Result Diagrams: 08/05/17 05:17 08/05/17 05:17 Additional Lab and Data: . Assess/Plan/Problems-Billing Assessment: This is a 72 yo gentleman with chronic respiratory failure secondary to COPD and DM who presented with [facility] and admitted with a lower GI bleed, suspected diverticular, now complicated by COPD exacerbation. - Patient Problems (1) Lower GI bleed Current Visit: Yes Status: Acute Code(s): K92.2 - GASTROINTESTINAL HEMORRHAGE, UNSPECIFIED SNOMED Code(s): 80704841 Comment: Likely diverticular. Small volume of blood loss. Avoid antiplatelet agents or anticoagulation Fup his PCP Dr. Dey. (2) COPD with exacerbation Current Visit: No Status: Acute Code(s): J44.1 - CHRONIC OBSTRUCTIVE PULMONARY DISEASE W (ACUTE) EXACERBATION SNOMED Code(s): 956683592646293 Comment: At his baseline. Prednisone taper, will give 30-20-10 as outpt due to effect on his glycemic control.. Needs 1 more day of azithromycin as outpt. (3) Diabetes Current Visit: Yes Status: Acute Code(s): E11.9 - TYPE 2 DIABETES MELLITUS WITHOUT COMPLICATIONS SNOMED Code(s): 85170420 Comment: Resume home dose metformin and glypizide. Glycemic control should be better in 1-2 days with rapid prednsione taper. Status and Disposition: Now inpatient. Continue ICU level care. Colonoscopy planned for early next week
[2017-08-06] MEDS ORDERED: Polyethylene Glycol 3350* 17 GM PACKET PO PRN (14:46)
--- NOTE | 2017-08-06 14:58 | PN ---
Progress Note - Progress Note Date of Service: 08/06/17 Note: Discussed with Dr. Resendiz. IN view of advanced COPD and small volume blood loss, no current GI-related sx's, not likely that a colonoscopy would be done. Discharge now. Fup Dr. Dey.
--- NOTE | 2017-08-06 14:59 | PN ---
Progress Note - Progress Note Date of Service: 08/06/17 Note: Time spent on discharge 50 minutes.
[2017-08-06] MEDS ORDERED: Magnesium CITRATE* 300 ML BTL PO PRN (17:00)
[2017-08-06] MEDS ORDERED: Dextrose 50% Syringe 50 ML* 25 GM/50 ML SYRINGE IV PUSH PRN ×2 (17:54→17:56)
[2017-08-06] MEDS ORDERED: Insulin LISPRO* 1 UNITS UNIT SUBCUT ONE (18:00)
--- NOTE | 2017-08-06 20:07 | PN ---
Progress Note - Progress Note Date of Service: 08/06/17 Note: Friend came to get patient. He brought oxygen however friend became very upset and yelling at the RN that the patient does not have electricity and is not safe to be discharged home. Will keep him here overnight and have social work readdress a safe discharge plan.
--- NOTE | 2017-08-06 21:09 | DS ---
CC: Dr. Dey * DISCHARGE SUMMARY: DATE OF ADMISSION: 08/04/17 DATE OF DISCHARGE: 08/06/17 HISTORY OF PRESENT ILLNESS: This 72-year-old man presented to the emergency room twice in the 24-hour period. On the first visit in the morning, he was having shortness of breath, he was given prednisone and azithromycin and sent home, and then he said that about 5 p.m., he had bright red blood per rectum, he said a lot came out in the toilet and was like jelly. He had been having some constipation before that. He did not get chest pain or dizziness, no change in his chronic shortness of breath. It turns out he last had a colonoscopy about 1996. The patient was admitted to the intensive care unit. He did not require any transfusions and in fact his hematocrit remained normal and unchanged at 44. He had no further bleeding in the hospital. He continued to get the prednisone taper and azithromycin. There was some compromise of his glycemic control with the prednisone and other steroids. In view of his advanced COPD, it is unlikely that he would ever have another colonoscopy particularly at this time when he is essentially asymptomatic and had a very small volume blood loss. If the blood loss became severe or the patient began having marked symptoms, then the decision about coloscopy could be reconsidered. On the last hospital day his FS glucose read high. He was given 12 U Lispro and about 2 hrs later his FS was 342. As he was rapidly tapering his prednison , I felt his hyperglycemia would resolve in a few days at most on his usual oral hypoglycemic agents. FINAL DIAGNOSES: 1. Chronic obstructive pulmonary disease exacerbation. 2. Lower gastrointestinal bleed, likely diverticular. 3. Diabetes. DISCHARGE MEDICATIONS: 1. Prednisone 10 mg, 3 on 08/07, 2 on 08/08, 1 on 08/09. 2. Albuterol inhaler 1 to 2 puffs every 4 hours p.r.n. 3. Simvastatin 40 mg daily. 4. Metformin 1000 mg b.i.d. 5. Glipizide 10 mg b.i.d. 6. Terbinafine 1% topical to feet p.r.n. 7. Budesonide 0.5 mg inhalation b.i.d. 8. Albuterol ipratropium 1 neb 4 times a day p.r.n. 9. Tiotropium 1 capsule daily. The social work department was notified that the patient seems to be having trouble with his utilities, particularly lack of electricity. [id number]/[facility] #: [id number] NICHOL
[2017-08-07] MEDS: Albuterol/Ipratropium NEB.SOL* Albuterol 2.5 MG/Ipratropium 0.5 MG 3 ML INH SCH ×3 (01:45→14:05)
[2017-08-07] MEDS: glipiZIDE TAB* 5 MG PO SCH (07:24)
[2017-08-07] MEDS: metFORMIN* 1,000 MG TAB PO SCH (07:24)
[2017-08-07] MEDS: Azithromycin TAB* 250 MG PO SCH (07:25)
[2017-08-07] MEDS: Insulin LISPRO* 1 UNITS UNIT SUBCUT SCH ×2 (07:25→12:19)
[2017-08-07] MEDS: Tiotropium CAP.INH* CAP.INH/18 MCG (USE ORDER SET !) INH SCH (08:17)
[2017-08-07] MEDS ORDERED: predniSONE TAB* 10 MG PO SCH (09:00)
[2017-08-07 12:14] VITALS: BP 149/71
[2017-08-07 12:47] LABS: Hematocrit 44 % (42-52); Hemoglobin 13.9 g/dl (14.0-18.0); Mean Corpuscular HGB Conc 32 g/dl (31-36); Mean Corpuscular Hemoglobin 31 pg (27-31); Mean Corpuscular Volume 98 fL (80-94); Mean Platelet Volume 9 um3 (7.4-10.4); Red Blood Count 4.45 10^6/ul (4.0-5.4); Red Cell Distribution Width 14 % (10.5-15); White Blood Count 12.9 10^3/ul (3.5-10.8)
[2017-08-07] MEDS ORDERED: Insulin LISPRO* 1 UNITS UNIT SUBCUT ONE (17:55)
--- NOTE | 2017-08-08 10:29 | DS ---
CC: Dr. Robby Dey; Dr. Ajay Gonzalez * DISCHARGE SUMMARY: DATE OF ADMISSION: 08/03/17 DATE OF DISCHARGE: 08/07/17 PRIMARY CARE PHYSICIAN: Dr. Robby Dey. ADMISSION DIAGNOSES: 1. Gastrointestinal bleed. 2. Leukocytosis. 3. Chronic obstructive pulmonary disease. 4. Diabetes. 5. Tobacco abuse. DISCHARGE DIAGNOSES: 1. Gastrointestinal bleed. 2. Leukocytosis. 3. Chronic obstructive pulmonary disease. 4. Diabetes. 5. Tobacco abuse. HOSPITAL COURSE: The patient is a 72-year-old gentleman who presented to [facility] with a chief complaint of bright red blood per rectum. Please see H and P for further details. The patient was felt to likely have a diverticular bleed. He was seen by GI. Overnight before GI saw him, the patient decompensated from a respiratory standpoint requiring BiPAP. He was placed in the ICU. GI put this endoscopy on hold. GI continued to see the patient but they felt he was too fragile from COPD perspective to do an endoscopy. GI said that in view of the advanced COPD and small volume blood loss that they would not do a colonoscopy at this point. The patient did have some more bleeding on the morning of discharge, but he was asymptomatic and his blood count was fairly stable. Therefore, the patient was stable for discharge to home with close followup with his PCP and GI as an outpatient. PHYSICAL EXAMINATION ON THE DAY OF DISCHARGE: Elderly gentleman, disheveled, sitting up in the bed, in no acute distress. Vital Signs: Blood pressure 149/ 71; pulse oxygenation 89% on room air, 92% on 5 L; respiratory rate 20 breaths per minute; heart rate 79 beats per minute; temperature 97.7 degrees. HEENT: Normocephalic, atraumatic. Pupils equal, round, and reactive to light. Moist mucous membranes. Neck: Supple. No JVD, bruits, palpable thyroid, or lymphadenopathy. Chest: Clear to auscultation and percussion bilaterally. Cardiovascular Exam: S1, S2 appreciated. Abdominal Exam: Positive bowel sounds in all 4 quadrants. Soft, nontender, nondistended. No hepatosplenomegaly. Extremities: No cyanosis or clubbing. Neuro: Alert and oriented x3. Moves all extremities. Skin: No rashes. STUDIES DONE WHILE IN THE HOSPITAL: Chest x-ray, 08/04/17, impression: Mild chronic lung findings. No acute process. DISCHARGE MEDICATIONS: 1. Albuterol nebulizer q.4 times a day as needed. 2. Metformin 1000 mg twice daily. 3. Glipizide 10 mg twice daily. 4. Spiriva 1 capsule inhaled daily. 5. Terbinafine 1% topical twice daily. 6. Simvastatin 40 mg daily. 7. Pulmicort 0.5 mg inhaled twice daily. 8. Albuterol inhaler 1 to 2 puffs every 4 hours as needed. 9. Prednisone 10 mg daily. DISCHARGE PLAN: The patient will be discharged home. He is to follow up with his PCP within 1 week. The patient will return to the ED if symptoms recur. The patient should also follow up with GI as soon as possible. TIME SPENT: Over 35 minutes was spent on this discharge, more than 20 minutes was spent in direct [id number] contact with the patient in evaluation, physical exam, counseling, and coordination of care. [id number]/[facility] #: [id number] NICHOL
== END 2017-08-07 14:05 | disposition home or self-care (01) | DRG 189 ==
LOC: ED 21:23 → SSU 08-03 → MED 08-04 00:16 → OBSVTOIN 08-04 08:08 → ICU 08-04 08:48 → MED 08-05 14:29
PROVIDERS: ADMIT Pediatrics; ATTEND Internal Medicine
PROC: 5A09457 Assistance with Respiratory Ventilation, 24-96 Consecutive Hours, Continuous Positive Airway Pressure (ICD-10-PCS; principal; 2017-08-04)
DX: J96.21 Acute and chronic respiratory failure with hypoxia (principal); Z99.81 Dependence on supplemental oxygen; K57.31 Diverticulosis of large intestine without perforation or abscess with bleeding; E11.9 Type 2 diabetes mellitus without complications; J44.1 Chronic obstructive pulmonary disease with (acute) exacerbation; D72.829 Elevated white blood cell count, unspecified; F17.210 Nicotine dependence, cigarettes, uncomplicated; I10 Essential (primary) hypertension; N40.0 Benign prostatic hyperplasia without lower urinary tract symptoms; Z79.84 Long term (current) use of oral hypoglycemic drugs; Z79.899 Other long term (current) drug therapy
CPT/HCPCS: 36415; 36600; 71010; 80048; 80053; 80307; 80320; 82803; 82947; 83605; 83880; 84484; 85014; 85018; 85025; 85027; 85610; 85730; 86850; 86900; 86901; 87040; 93005; 94640; 94660; 94760; 99284; 99406; A9270-GY; G0378; G0480; J1940; J2920; J2930; J7512

== ENCOUNTER 2017-08-07 21:49 | Observation (INO) | payer MEDICARE, MEDICAID ==
[2017-08-07] MEDS ORDERED: Pantoprazole IV* 40 MG IV ONE (22:10)
[2017-08-07] MEDS ORDERED: Albuterol 2.5 MG/3 ML NEB.SOL* (0.083%) INH ONE (22:14)
[2017-08-07] MEDS ORDERED: Albuterol/Ipratropium NEB.SOL* Albuterol 2.5 MG/Ipratropium 0.5 MG 3 ML INH ONE (22:14)
[2017-08-07] MEDS ORDERED: methylPREDNISolone 125 MG* 2 ML VIAL IV ONE (22:15)
[2017-08-07 22:28] LABS: Hematocrit 44 % (42-52); Hemoglobin 14.2 g/dl (14.0-18.0); Mean Corpuscular HGB Conc 33 g/dl (31-36); Mean Corpuscular Hemoglobin 32 pg (27-31); Mean Corpuscular Volume 98 fL (80-94); Mean Platelet Volume 9 um3 (7.4-10.4); Red Blood Count 4.45 10^6/ul (4.0-5.4); Red Cell Distribution Width 14 % (10.5-15); White Blood Count 12.4 10^3/ul (3.5-10.8)
[2017-08-07 22:42] LABS: Albumin 3.6 g/dL (3.2-5.2); BUN/Creatinine Ratio 27.6 (8-20); C Reactive Protein 50.75 mg/L (< 5.00); Calcium 9.6 mg/dL (8.6-10.3); EGFR African American 130.4 (>60); EGFR Non-African American 101.4 (>60); Globulin 2.7 g/dL (2-4); Magnesium 2.1 mg/dL (1.9-2.7); Potassium 4.4 mmol/L (3.5-5.0); Total Bilirubin 0.4 mg/dL (0.2-1.0); Total Protein 6.3 g/dL (6.4-8.9)
[2017-08-08] MEDS ORDERED: Iodixanol* (CONTRAST) 320 MG/ML 100 ML SDV IV ONE (00:12)
[2017-08-08 00:52] LABS: Urine Bacteria Absent (Absent); Urine Bilirubin Negative (Negative); Urine Glucose 3+(>=500 mg/dL) (Negative); Urine Nitrite Negative (Negative)
[2017-08-08] MEDS ORDERED: Acetaminophen TAB* 325 MG PO PRN (03:08)
[2017-08-08] MEDS ORDERED: Ondansetron INJ* 2 MG/ML VIAL IV PRN (03:08)
[2017-08-08] MEDS ORDERED: CMCS: Melatonin (NF) 3 MG TAB PO PRN (03:08)
[2017-08-08] MEDS ORDERED: Albuterol 2.5 MG/3 ML NEB.SOL* (0.083%) INH PRN (03:08)
[2017-08-08] MEDS ORDERED: traMADol TAB* 50 MG PO PRN (03:08)
--- NOTE | 2017-08-08 03:11 | ED ---
Madi Shepard Benjamin, scribed for Marlon Khan MD on 08/07/17 at 2217 . GI/ HPI - HPI Summary HPI Summary: 72yo male c/o rectal bleeding for a few days. Pt was d/c earlier last Monday from [facility] for lung problems. Pt suspects from diverticulitis. Pt denies taking any blood thinners. Denies previous rectal bleeding hx. No abdominal pain. Pt's abdomen is distended. Hx of asthma, emphysema, DM. Pt takes 2-3L of O2 at home. - History of Current Complaint Chief Complaint: EDGIBleed Stated Complaint: GI BLEEDING Hx Obtained From: Patient Onset/Duration: Started Days Ago - a fews days ago Severity: Mild Current Severity: Mild Pain Intensity: 0 Associated Signs and Symptoms: Positive: Blood w/Stool - rectal bleeding, Other : - distended abdomen - Additional Pertinent History Primary Care Physician: NOAH - Allergy/Home Medications Allergies/Adverse Reactions: Allergies Allergy/AdvReac Type Severity Reaction Status Date / Time No Known Allergies Allergy Verified 08/07/17 21:56 PMH/Surg Hx/FS Hx/Imm Hx Endocrine/Hematology History: Reports: Hx Diabetes Denies: Hx Anticoagulant Therapy, Hx Blood Disorders, Hx Blood Transfusions, Hx Bone Marrow Disease, Hx Systemic Lupus Erythematosus, Hx Sickle Cell Disease , Hx Thyroid Disease, Hx Anemia, Hx Unexplained Bleeding, Other Endocrine/ Hematological Disorders Cardiovascular History: Reports: Hx Congestive Heart Failure, Hx Hypercholesterolemia, Hx Hypertension, Other Cardiovascular Problems/Disorders - 1st degree heart block Denies: Hx Aneurysm, Hx Angioplasty, Hx Auto Implanted Cardiovert Defib, Hx Cardiac Arrest, Hx Cardiomegaly, Hx Congenital Heart Disease, Hx Coronary Artery Disease, Hx Deep Vein Thrombosis, Hx Hypotension, Hx Pacemaker/ICD, Hx Peripheral Vascular Disease, Hx Rheumatic Fever, Hx Syncope, Hx Valvular Heart Disease Respiratory History: Reports: Hx Chronic Obstructive Pulmonary Disease (COPD), Hx Pneumonia, Other Respiratory Problems/Disorders - resp failure, pneumonia Denies: Hx Asthma, Hx Chronic Bronchitis, Hx Cystic Fibrosis, Hx Lung Cancer , Hx Pleural Effusion, Hx Pulmonary Edema, Hx Pulmonary Embolism, Hx Seasonal Allergies, Hx Sleep Apnea GI History: Denies: Hx Cirrhosis, Hx Crohn's Disease, Hx Diverticulosis, Hx Gall Bladder Disease, Hx Gastroesophageal Reflux Disease, Hx Gastrointestinal Bleed, Hx Hiatal Hernia, Hx Irritable Bowel, Hx Jaundice, Hx Obstructive Bowel, Hx Ileostomy, Hx Pyloric Stenosis, Hx Ulcer, Other GI Disorders History: Reports: Hx Benign Prostatic Hyperplasia Denies: Hx Acute Renal Failure, Hx Chronic Renal Failure, Hx Dialysis, Hx Kidney Infection, Hx Kidney Stones, Hx Renal Disease Musculoskeletal History: Reports: Hx Arthritis Denies: Hx Back Problems, Hx Bursitis, Hx Congenital Bone Abnormalities, Hx Fibromyalgia, Hx Gout, Hx Orthopedic Injury, Hx Osteoporosis, Hx Scoliosis, Hx Tendonitis, Other Musculoskeletal History Sensory History: Reports: Hx Contacts or Glasses Denies: Hx Cataracts, Hx Eye Injury, Hx Eye Prosthesis, Hx Glaucoma, Hx Legally Blind, Hx Macular Degeneration, Hx Vision Problem, Hx Deafness, Hx Hearing Aid, Hx Hearing Problem, Other Sensory Impairments Opthamlomology History: Reports: Hx Contacts or Glasses Denies: Hx Cataracts, Hx Eye Injury, Hx Eye Prosthesis, Hx Glaucoma, Hx Legally Blind, Hx Macular Degeneration, Hx Vision Problem, Other Sensory Impairments Neurological History: Denies: Hx Dementia, Hx Seizures Psychiatric History: Reports: Hx Anxiety, Hx Depression, Hx Inpatient Treatment - WHEN HE WAS 20, Hx [facility] Tx, Hx Substance Abuse - Previous ETOH Denies: Hx Attention Deficit Hyperactivity Disorder, Hx Eating Disorder, Hx Panic Disorder, Hx Post Traumatic Stress Disorder, Hx Schizophrenia, Hx Bipolar Disorder, Hx Suicide Attempt, Hx of Violent Episodes Against Others, Other Psychiatric Issues/Disorders - Cancer History Hx Chemotherapy: No Hx Radiation Therapy: No - Surgical History Surgery Procedure, Year, and Place: T&A 1953 Hx Anesthesia Reactions: No Infectious Disease History: No Infectious Disease History: Denies: Hx Hepatitis, Hx Human Immunodeficiency Virus (HIV), Hx Tuberculosis , Traveled Outside the [place] in Last 30 Days - Family History Known Family History: Positive: Diabetes Negative: Seizure Disorder - Social History Alcohol Use: None Alcohol Amount: 1-2x PER MONTH Hx Substance Use: No Substance Use Type: Reports: None Substance Use Comment - Amount & Last Used: Patient states he smokes marijuana rarely. Hx Tobacco Use: Yes Smoking Status (MU): Heavy Every Day Tobacco Smoker Type: Cigarettes Amount Used/How Often: DAILY 1PPD Length of Time of Smoking/Using Tobacco: 28 YEARS Have You Smoked in the Last Year: Yes Review of Systems Constitutional: Negative Eyes: Negative ENT: Negative Cardiovascular: Negative Positive: Shortness Of Breath - chronic SOB Positive: Other - rectal bleeding, distended abdomen. Negative: Abdominal Pain Genitourinary: Negative Musculoskeletal: Negative Skin: Negative Neurological: Negative Psychological: Normal All Other Systems Reviewed And Are Negative: Yes Physical Exam - Summary Physical Exam Summary: Appearance: Well-appearing, Well-nourished Skin: Warm. No jaundice Eyes: Normal ENT: Normal, Moist Mucous Membrane Neck: Supple, nontender Respiratory: Bilateral expiratory wheezing with prolonged expiratory phase Cardiovascular: Normal Abdomen: Soft, nontender. No organomegaly. Distended abdomen. Bowel: Present Musculoskeletal: Normal, Strength/ROM Intact. Strong distal pulses. Bilateral LE 1+ pitting edema Neurological: Normal, A&Ox3 Psychiatric: Normal Triage Information Reviewed: Yes Vital Signs On Initial Exam: Initial Vitals Temp Pulse Resp BP Pulse Ox 98.9 F 108 18 167/78 77 08/07/17 21:51 08/07/17 21:51 08/07/17 21:51 08/07/17 21:51 08/07/17 21:51 Vital Signs Reviewed: Yes Diagnostics - Vital Signs Vital Signs Temp Pulse Resp BP Pulse Ox 08/07/17 21:51 98.9 F 108 18 167/78 77 - Laboratory Lab Results: Lab Results 08/07/17 08/07/17 08/07/17 Range/Units 22:20 22:20 22:20 WBC 12.4 H (3.5-10.8) 10^3/ul RBC 4.45 (4.0-5.4) 10^6/ul Hgb 14.2 (14.0-18.0) g/dl Hct 44 (42-52) % MCV 98 H (80-94) fL MCH 32 H (27-31) pg MCHC 33 (31-36) g/dl RDW 14 (10.5-15) % Plt Count 236 (150-450) 10^3/ul MPV 9 (7.4-10.4) um3 Neut % (Auto) 77.7 (38-83) % Lymph % (Auto) 9.8 L (25-47) % [place] % (Auto) 11.3 H (1-9) % Eos % (Auto) 0.7 (0-6) % Baso % (Auto) 0.5 (0-2) % Absolute Neuts (auto) 9.6 H (1.5-7.7) 10^3/ul Absolute Lymphs (auto) 1.2 (1.0-4.8) 10^3/ul Absolute Monos (auto) 1.4 H (0-0.8) 10^3/ul Absolute Eos (auto) 0.1 (0-0.6) 10^3/ul Absolute Basos (auto) 0.1 (0-0.2) 10^3/ul Absolute Nucleated RBC 0.01 10^3/ul Nucleated RBC % 0.1 INR (Anticoag Therapy) 0.80 (0.77-1.02) APTT 30.4 (26.0-36.3) seconds Sodium 136 (133-145) mmol/L Potassium 4.4 (3.5-5.0) mmol/L Chloride 94 L (101-111) mmol/L Carbon Dioxide 40 H (22-32) mmol/L Anion Gap 2 (2-11) mmol/L BUN 21 (6-24) mg/dL Creatinine 0.76 (0.67-1.17) mg/dL Est GFR ( Amer) 130.4 (>60) Est GFR (Non-Af Amer) 101.4 (>60) BUN/Creatinine Ratio 27.6 H (8-20) Glucose 494 H (70-100) mg/dL Lactic Acid (0.5-2.0) mmol/L Calcium 9.6 (8.6-10.3) mg/dL Magnesium 2.1 (1.9-2.7) mg/dL Total Bilirubin 0.40 (0.2-1.0) mg/dL AST 7 L (13-39) U/L ALT 8 (7-52) U/L Alkaline Phosphatase 53 (34-104) U/L C-Reactive Protein 50.75 H (< 5.00) mg/L Total Protein 6.3 L (6.4-8.9) g/dL Albumin 3.6 (3.2-5.2) g/dL Globulin 2.7 (2-4) g/dL Albumin/Globulin Ratio 1.3 (1-3) Lipase 19 (11.0-82.0) U/L Urine Color Urine Appearance Urine pH (5-9) Ur Specific [place] (1.010-1.030) Urine Protein (Negative) Urine Ketones (Negative) Urine Blood (Negative) Urine Nitrate (Negative) Urine Bilirubin (Negative) Urine Urobilinogen (Negative) Ur Leukocyte Esterase (Negative) Urine WBC (Auto) (Absent) Urine RBC (Auto) (Absent) Urine Bacteria (Absent) Urine Glucose (Negative) 08/07/17 08/08/17 Range/Units 22:20 00:04 WBC (3.5-10.8) 10^3/ul RBC (4.0-5.4) 10^6/ul Hgb (14.0-18.0) g/dl Hct (42-52) % MCV (80-94) fL MCH (27-31) pg MCHC (31-36) g/dl RDW (10.5-15) % Plt Count (150-450) 10^3/ul MPV (7.4-10.4) um3 Neut % (Auto) (38-83) % Lymph % (Auto) (25-47) % [place] % (Auto) (1-9) % Eos % (Auto) (0-6) % Baso % (Auto) (0-2) % Absolute Neuts (auto) (1.5-7.7) 10^3/ul Absolute Lymphs (auto) (1.0-4.8) 10^3/ul Absolute Monos (auto) (0-0.8) 10^3/ul Absolute Eos (auto) (0-0.6) 10^3/ul Absolute Basos (auto) (0-0.2) 10^3/ul Absolute Nucleated RBC 10^3/ul Nucleated RBC % INR (Anticoag Therapy) (0.77-1.02) APTT (26.0-36.3) seconds Sodium (133-145) mmol/L Potassium (3.5-5.0) mmol/L Chloride (101-111) mmol/L Carbon Dioxide (22-32) mmol/L Anion Gap (2-11) mmol/L BUN (6-24) mg/dL Creatinine (0.67-1.17) mg/dL Est GFR ( Amer) (>60) Est GFR (Non-Af Amer) (>60) BUN/Creatinine Ratio (8-20) Glucose (70-100) mg/dL Lactic Acid 1.8 (0.5-2.0) mmol/L Calcium (8.6-10.3) mg/dL Magnesium (1.9-2.7) mg/dL Total Bilirubin (0.2-1.0) mg/dL AST (13-39) U/L ALT (7-52) U/L Alkaline Phosphatase (34-104) U/L C-Reactive Protein (< 5.00) mg/L Total Protein (6.4-8.9) g/dL Albumin (3.2-5.2) g/dL Globulin (2-4) g/dL Albumin/Globulin Ratio (1-3) Lipase (11.0-82.0) U/L Urine Color Yellow Urine Appearance Clear Urine pH 6.0 (5-9) Ur Specific [place] 1.030 (1.010-1.030) Urine Protein Negative (Negative) Urine Ketones Negative (Negative) Urine Blood 2+ H (Negative) Urine Nitrate Negative (Negative) Urine Bilirubin Negative (Negative) Urine Urobilinogen Negative (Negative) Ur Leukocyte Esterase 1+ H (Negative) Urine WBC (Auto) 2+(11-20/hpf) H (Absent) Urine RBC (Auto) 2+(6-10/hpf) H (Absent) Urine Bacteria Absent (Absent) Urine Glucose 3+(>=500 mg/dl) H (Negative) Result Diagrams: 08/07/17 22:20 08/07/17 22:20 Lab Statement: Any lab studies that have been ordered have been reviewed, and results considered in the medical decision making process. - Radiology CXR Xray Interpretation: No Acute Changes - haziness bilaterally, consistent with prior CXR. No acute changes. Radiology Interpretation Completed By: ED Physician CT A/P Xray Interpretation: Positive (See Comments) - Diverticulosis without diverticulitis. Minimal bilateral pleural effusions with basilar compressive ateclectasis Radiology Interpretation Completed By: Radiologist - ED physician has reviewed this radiology report and agrees. GIGU Course/Dx - Course Course Of Treatment: ct shows diverticulosis wtihout diverticulitis, admtited for GI bleed, GI consulted - Diagnoses Provider Diagnoses: GI bleed, Diverticulosis Discharge - Discharge Plan Condition: Stable Disposition: ADMITTED TO [facility] Referrals: Robby Dey MD [Primary Care Provider] - The documentation as recorded by the Madi delgadillo Benjamin accurately reflects the service I personally performed and the decisions made by Bill saez Dong, MD.
[2017-08-08] MEDS: NS 0.9% 1000 ML* 1,000 ML IV SCH ×2 (04:59→19:14)
[2017-08-08] MEDS: Omeprazole CAP* 20 MG PO SCH (04:59)
--- NOTE | 2017-08-08 05:27 | HP ---
H&P (Free Text) History and Physical: PCP: Najma Dey MD Date/Time: 08/08/2017 0300 CC: rectal bleeding HPI: Mr Gray is a 72YO male [place] [facility] [place] for suspected diverticular bleed, last colonoscopy was 1996. After returning home, he began seeing "cranberry jelly" stools without pain, F/C, N/V, change in baseline SOB, chest pain, light-headedness, palpitations, or other issues. He is concerned as he has no electricity or heat at home and "can't concentrate on getting things fixed with this going on". ED MD discussed the case with Vinay Lazar MD GI television production technician who will evaluate him in the AM. PMedHx COPD, 4L NC continuous tobacco use disorder DM2 HTN HLD dysphagia BPH Ambulatory Orders Nursing to reconcile. Albuterol HFA INHALER* [Ventolin HFA Inhaler*] 1 - 2 puff INH Q4H PRN 06/15/12 Simvastatin TAB(NF) [Zocor 20 MG (NF)] 40 mg PO DAILY 06/15/12 Albuterol/Ipratropium NEB.KAM* [Duoneb (Albuterol 2.5 MG/Ipratropium 0.5 MG)] 1 neb INH QID PRN 02/03/16 Budesonide NEB* [Pulmicort Neb*] 0.5 mg INH BID 02/03/16 Terbinafine HCl (Topical) [Athletes Foot] 1 % TOPICAL BID 02/03/16 Tiotropium CAP.INH* [Spiriva CAP.INH*] 1 cap.inh INH DAILY 02/03/16 glipiZIDE TAB* [Glucotrol TAB*] 10 mg PO BID 02/03/16 metFORMIN* [Glucophage 1000 MG TAB *] 1,000 mg PO BID 02/03/16 predniSONE TAB* [Deltasone TAB*] 10 mg PO DAILY tab 08/06/17 Allergies No Known Allergies Allergy (Verified 08/07/17 21:56) SocHx: 1/2PPD cigarettes, denies alcohol & recreational drugs; lives alone in a trailer currently without electricity & heat; full code status FamHx: reviewed & non-contributory to presentation ROS: as above, otherwise reviewed and all were negative vitals: Vital Signs Temp 37.2 C 08/07/17 21:51 Pulse 87 08/08/17 02:55 Resp 30 08/08/17 02:55 BP 132/84 08/08/17 02:55 Pulse Ox 89 08/08/17 02:55 Intake & Output 08/07/17 08/07/17 08/08/17 11:59 23:59 11:59 Weight 77.111 kg 77.111 kg Constitutional: NAD, normally developed, well-nourished elderly white male HEENM: atraumatic; sclera/conjunctiva: anicteric/clear; hearing: moderately decreased; oropharynx: clear, mucosa moist Neck: soft tissue: non-tender; thyroid: normal Pulmonary: clear to auscultation bilaterally, good aeration, no accessory muscle use CV: RR/RR, normal S1S2, no carotid bruit, no jugular venous distention, 2+ B DP/ PT, no edema Abdominal: soft, non-distended, non-tender, no rebound/guarding/rigidity, normoactive bowel sounds, no hepatosplenomegaly or masses, no costovertebral angle tenderness Musculoskeletal: general: grossly intact w/o palpable tenderness Integumental: normal appearance and texture of exposed skin Psychiatric orientation: AA&O to PPS affect: calm mood: cooperative eye contact: fair content: reliable responses: timely insight: fair Testing: Lab Results 08/07/17 08/07/17 08/07/17 Range/Units 22:20 22:20 22:20 WBC 12.4 H (3.5-10.8) 10^3/ul RBC 4.45 (4.0-5.4) 10^6/ul Hgb 14.2 (14.0-18.0) g/dl Hct 44 (42-52) % MCV 98 H (80-94) fL MCH 32 H (27-31) pg MCHC 33 (31-36) g/dl RDW 14 (10.5-15) % Plt Count 236 (150-450) 10^3/ul MPV 9 (7.4-10.4) um3 Neut % (Auto) 77.7 (38-83) % Lymph % (Auto) 9.8 L (25-47) % [place] % (Auto) 11.3 H (1-9) % Eos % (Auto) 0.7 (0-6) % Baso % (Auto) 0.5 (0-2) % Absolute Neuts (auto) 9.6 H (1.5-7.7) 10^3/ul Absolute Lymphs (auto) 1.2 (1.0-4.8) 10^3/ul Absolute Monos (auto) 1.4 H (0-0.8) 10^3/ul Absolute Eos (auto) 0.1 (0-0.6) 10^3/ul Absolute Basos (auto) 0.1 (0-0.2) 10^3/ul Absolute Nucleated RBC 0.01 10^3/ul Nucleated RBC % 0.1 INR (Anticoag Therapy) 0.80 (0.77-1.02) APTT 30.4 (26.0-36.3) seconds Sodium 136 (133-145) mmol/L Potassium 4.4 (3.5-5.0) mmol/L Chloride 94 L (101-111) mmol/L Carbon Dioxide 40 H (22-32) mmol/L Anion Gap 2 (2-11) mmol/L BUN 21 (6-24) mg/dL Creatinine 0.76 (0.67-1.17) mg/dL Est GFR ( Amer) 130.4 (>60) Est GFR (Non-Af Amer) 101.4 (>60) BUN/Creatinine Ratio 27.6 H (8-20) Glucose 494 H (70-100) mg/dL Lactic Acid (0.5-2.0) mmol/L Calcium 9.6 (8.6-10.3) mg/dL Magnesium 2.1 (1.9-2.7) mg/dL Total Bilirubin 0.40 (0.2-1.0) mg/dL AST 7 L (13-39) U/L ALT 8 (7-52) U/L Alkaline Phosphatase 53 (34-104) U/L C-Reactive Protein 50.75 H (< 5.00) mg/L Total Protein 6.3 L (6.4-8.9) g/dL Albumin 3.6 (3.2-5.2) g/dL Globulin 2.7 (2-4) g/dL Albumin/Globulin Ratio 1.3 (1-3) Lipase 19 (11.0-82.0) U/L Urine Color Urine Appearance Urine pH (5-9) Ur Specific [place] (1.010-1.030) Urine Protein (Negative) Urine Ketones (Negative) Urine Blood (Negative) Urine Nitrate (Negative) Urine Bilirubin (Negative) Urine Urobilinogen (Negative) Ur Leukocyte Esterase (Negative) Urine WBC (Auto) (Absent) Urine RBC (Auto) (Absent) Urine Bacteria (Absent) Urine Glucose (Negative) 08/07/17 08/08/17 Range/Units 22:20 00:04 WBC (3.5-10.8) 10^3/ul RBC (4.0-5.4) 10^6/ul Hgb (14.0-18.0) g/dl Hct (42-52) % MCV (80-94) fL MCH (27-31) pg MCHC (31-36) g/dl RDW (10.5-15) % Plt Count (150-450) 10^3/ul MPV (7.4-10.4) um3 Neut % (Auto) (38-83) % Lymph % (Auto) (25-47) % [place] % (Auto) (1-9) % Eos % (Auto) (0-6) % Baso % (Auto) (0-2) % Absolute Neuts (auto) (1.5-7.7) 10^3/ul Absolute Lymphs (auto) (1.0-4.8) 10^3/ul Absolute Monos (auto) (0-0.8) 10^3/ul Absolute Eos (auto) (0-0.6) 10^3/ul Absolute Basos (auto) (0-0.2) 10^3/ul Absolute Nucleated RBC 10^3/ul Nucleated RBC % INR (Anticoag Therapy) (0.77-1.02) APTT (26.0-36.3) seconds Sodium (133-145) mmol/L Potassium (3.5-5.0) mmol/L Chloride (101-111) mmol/L Carbon Dioxide (22-32) mmol/L Anion Gap (2-11) mmol/L BUN (6-24) mg/dL Creatinine (0.67-1.17) mg/dL Est GFR ( Amer) (>60) Est GFR (Non-Af Amer) (>60) BUN/Creatinine Ratio (8-20) Glucose (70-100) mg/dL Lactic Acid 1.8 (0.5-2.0) mmol/L Calcium (8.6-10.3) mg/dL Magnesium (1.9-2.7) mg/dL Total Bilirubin (0.2-1.0) mg/dL AST (13-39) U/L ALT (7-52) U/L Alkaline Phosphatase (34-104) U/L C-Reactive Protein (< 5.00) mg/L Total Protein (6.4-8.9) g/dL Albumin (3.2-5.2) g/dL Globulin (2-4) g/dL Albumin/Globulin Ratio (1-3) Lipase (11.0-82.0) U/L Urine Color Yellow Urine Appearance Clear Urine pH 6.0 (5-9) Ur Specific [place] 1.030 (1.010-1.030) Urine Protein Negative (Negative) Urine Ketones Negative (Negative) Urine Blood 2+ H (Negative) Urine Nitrate Negative (Negative) Urine Bilirubin Negative (Negative) Urine Urobilinogen Negative (Negative) Ur Leukocyte Esterase 1+ H (Negative) Urine WBC (Auto) 2+(11-20/hpf) H (Absent) Urine RBC (Auto) 2+(6-10/hpf) H (Absent) Urine Bacteria Absent (Absent) Urine Glucose 3+(>=500 mg/dl) H (Negative) CXR, personally reviewed: no acute process CT abd/pel W, personally reviewed: IMPRESSION: Diverticulosis without diverticulitis. Minimal bilateral pleural effusions with basilar compressive atelectasis. Impression: 72M presenting with painless lower GI bleed, suspect diverticular DIAGNOSIS & PLAN Primary painless lower GI bleed, suspect diverticular : clear liquid diet : type & screen : Vinay Lazar MD consulted by ED, will evaluate in AM : IVFs : trend H&H : supportive care Secondary COPD, 4L NC continuous : albuterol nebs : mometasone/formoterol : tiotropium : supplemental oxygen : review other meds once reconciled tobacco use disorder : cessation recommended, low motivation DM2 : check A1c : hold metformin : correctional insulin HTN : review meds once reconciled HLD : review meds once reconciled BPH : review meds once reconciled Admission Rational: observation for lower GI bleeding DVTp: SCDs Code Status: full HCP: no designation
[2017-08-08 05:53] LABS: Hematocrit 40 % (42-52); Hemoglobin 13.2 g/dl (14.0-18.0); Mean Corpuscular HGB Conc 33 g/dl (31-36); Mean Corpuscular Hemoglobin 32 pg (27-31); Mean Corpuscular Volume 97 fL (80-94); Mean Platelet Volume 8 um3 (7.4-10.4); Red Blood Count 4.14 10^6/ul (4.0-5.4); Red Cell Distribution Width 14 % (10.5-15); White Blood Count 10.4 10^3/ul (3.5-10.8)
[2017-08-08] MEDS: Insulin LISPRO* 1 UNITS UNIT SUBCUT SCH ×5 (06:18→21:18)
[2017-08-08] MEDS: Albuterol 2.5 MG/3 ML NEB.SOL* (0.083%) INH SCH ×3 (07:58→20:25)
[2017-08-08] MEDS: Tiotropium CAP.INH* CAP.INH/18 MCG (USE ORDER SET !) INH SCH (07:59)
--- NOTE | 2017-08-08 08:02 | RAD ---
INDICATION: GI bleeding COMPARISON: Similar chest x-ray August 04, 2017 TECHNIQUE: Single AP portable view of the chest was obtained. FINDINGS: Image quality is compromised due to the relative inferiority of a portable chest x-ray. The heart and mediastinum exhibit normal size and contour. A faint linear density at the lateral left lung base is most compatible with atelectasis. Otherwise the lungs are grossly clear. There is no evidence of a large pleural effusion. Visualized bones are normal for the patient's age. IMPRESSION: No radiographic evidence for acute cardiopulmonary abnormality on this portable chest x-ray.
[2017-08-08] MEDS: Mometasone/Formoter 200/5 MDI INH SCH ×2 (08:06→20:24)
--- NOTE | 2017-08-08 08:18 | RAD ---
CLINICAL HISTORY: GI bleed, diverticulitis COMPARISON: May 03, 2016 TECHNIQUE: Multiple contiguous axial CT scans were obtained of the abdomen and pelvis after the administration of intravenous contrast. Coronal and sagittal multiplanar reformations are submitted for review. Oral contrast was administered. Delayed images were obtained through the abdomen and pelvis. FINDINGS: LUNG BASES: There is dependent atelectasis with trace bilateral pleural effusions. LIVER: The liver is normal in shape, size, contour, and attenuation. BILE DUCTS: There is no intrahepatic or extrahepatic biliary dilatation. GALLBLADDER: The gallbladder is normal, without pericholecystic inflammatory change. PANCREAS: The pancreas is normal, without mass or ductal dilatation. SPLEEN: Normal in size and appearance. UPPER GI TRACT: Evaluation of the gastrointestinal tract is limited by incomplete gastric distention. The upper GI tract is unremarkable. SMALL BOWEL AND MESENTERY: The small bowel is normal in contour, course, and caliber. There is no obstruction or dilatation. COLON: There is extensive diverticulosis of the descending and sigmoid colon. There is no pericolonic inflammatory change. There is large amount of stool within the proximal colon ADRENALS: Normal bilaterally. KIDNEYS: The kidneys are normal in shape, size, contour, and axis. There is no hydronephrosis or nephrolithiasis. BLADDER: The bladder is smooth in contour. PELVIC ORGANS: The prostate is mildly enlarged. The seminal vesicles are symmetric. AORTA: There is calcific atherosclerotic disease of the abdominal aorta and its branches, without aneurysmal dilatation IVC: Unremarkable LYMPH NODES: There is no lymphadenopathy by size criteria. ABDOMINAL WALL: There is no evidence for abdominal wall hernia. BONES AND SOFT TISSUES: Diffuse degenerative changes are noted. OTHER: None IMPRESSION: EXTENSIVE DIVERTICULOSIS OF THE DESCENDING AND SIGMOID COLON
[2017-08-08] MEDS ORDERED: Spiriva Inhaler DEVICE* 1 EACH DEVICE INH ONE (09:00)
[2017-08-08] MEDS: Docusate CAP* 100 MG PO SCH ×2 (11:04→21:15)
--- NOTE | 2017-08-08 17:52 | PN ---
Subjective Date of Service: 08/08/17 Interval History: Patient seen and examined. No complaints. States no abdominal pain, did not have BM today so does not know if he has further bleeding. Denies chest pain, no SOB although he has needed higher O2 demand as per RN. Objective Active Medications: Acetaminophen (Tylenol Tab*) 650 mg PO Q6H PRN PRN Reason: FEVER/PAIN Albuterol (Ventolin 2.5 Mg/3 Ml Neb.Allyn*) 2.5 mg INH Q2H PRN PRN Reason: SOB/WHEEZING Albuterol (Ventolin 2.5 Mg/3 Ml Neb.Allyn*) 2.5 mg INH [id number] Last Admin: 08/08/17 12:38 Dose: 2.5 mg Docusate Sodium (Colace Cap*) 200 mg PO BID [facility] Last Admin: 08/08/17 11:04 Dose: 200 mg Sodium Chloride (Ns 0.9% 1000 Ml*) 1,000 mls @ 75 mls/hr IV PER RATE [facility] Last Admin: 08/08/17 04:59 Dose: 75 mls/hr Insulin Glargine (Lantus(*)) 10 units SUBCUT Q12H [facility] Insulin Human Lispro (Humalog*) 0 units SUBCUT Q4H [facility] PRN Reason: Protocol Last Admin: 08/08/17 14:49 Dose: 8 units Melatonin (Melatonin (Nf)) 3 mg PO BEDTIME PRN; Protocol PRN Reason: Sleep Mometasone Furoate/Formoterol Fumar (Dulera 200/5 Mdi*) 2 puff INH BID [facility] Last Admin: 08/08/17 08:06 Dose: 2 puff Omeprazole (Prilosec Cap*) 20 mg PO DAILY@0600 [facility] Last Admin: 08/08/17 04:59 Dose: 20 mg Ondansetron HCl (Zofran Inj*) 4 mg IV Q6H PRN PRN Reason: NAUSEA Tiotropium [place] (Spiriva Cap.Inh*) 1 cap INH DAILY [facility] Last Admin: 08/08/17 07:59 Dose: 1 cap Tramadol HCl (Ultram*) 50 mg PO Q6H PRN PRN Reason: PAIN Vital Signs - 8 hr 08/08/17 08/08/17 11:40 12:42 Temperature 97.7 F Pulse Rate 78 78 Respiratory 18 22 Rate Blood Pressure 132/63 (mmHg) O2 Sat by Pulse 94 92 Oximetry Oxygen Devices in Use Now: OxyMask - 5LPM Eyes: No Scleral Icterus, PERRLA - poor dentition Neck: Trachea Midline Respiratory: - - diminished throughout, expiratory wheeze at bases, no rhonchi Cardiovascular: NL Sounds; No Murmurs; No JVD, RRR Abdominal: NL Sounds; No Tenderness; No Distention, No Hepatosplenomegaly Neurological: Alert and Oriented x 3 Nutrition: - - Clears Result Diagrams: 08/08/17 05:35 08/07/17 22:20 Additional Lab and Data: Lab Results 08/07/17 08/07/17 08/07/17 Range/Units 22:20 22:20 22:20 WBC 12.4 H (3.5-10.8) 10^3/ul RBC 4.45 (4.0-5.4) 10^6/ul Hgb 14.2 (14.0-18.0) g/dl Hct 44 (42-52) % MCV 98 H (80-94) fL MCH 32 H (27-31) pg MCHC 33 (31-36) g/dl RDW 14 (10.5-15) % Plt Count 236 (150-450) 10^3/ul MPV 9 (7.4-10.4) um3 Neut % (Auto) 77.7 (38-83) % Lymph % (Auto) 9.8 L (25-47) % [place] % (Auto) 11.3 H (1-9) % Eos % (Auto) 0.7 (0-6) % Baso % (Auto) 0.5 (0-2) % Absolute Neuts (auto) 9.6 H (1.5-7.7) 10^3/ul Absolute Lymphs (auto) 1.2 (1.0-4.8) 10^3/ul Absolute Monos (auto) 1.4 H (0-0.8) 10^3/ul Absolute Eos (auto) 0.1 (0-0.6) 10^3/ul Absolute Basos (auto) 0.1 (0-0.2) 10^3/ul Absolute Nucleated RBC 0.01 10^3/ul Nucleated RBC % 0.1 INR (Anticoag Therapy) 0.80 (0.77-1.02) APTT 30.4 (26.0-36.3) seconds Sodium 136 (133-145) mmol/L Potassium 4.4 (3.5-5.0) mmol/L Chloride 94 L (101-111) mmol/L Carbon Dioxide 40 H (22-32) mmol/L Anion Gap 2 (2-11) mmol/L BUN 21 (6-24) mg/dL Creatinine 0.76 (0.67-1.17) mg/dL Est GFR ( Amer) 130.4 (>60) Est GFR (Non-Af Amer) 101.4 (>60) BUN/Creatinine Ratio 27.6 H (8-20) Glucose 494 H (70-100) mg/dL Lactic Acid (0.5-2.0) mmol/L Calcium 9.6 (8.6-10.3) mg/dL Magnesium 2.1 (1.9-2.7) mg/dL Total Bilirubin 0.40 (0.2-1.0) mg/dL AST 7 L (13-39) U/L ALT 8 (7-52) U/L Alkaline Phosphatase 53 (34-104) U/L C-Reactive Protein 50.75 H (< 5.00) mg/L Total Protein 6.3 L (6.4-8.9) g/dL Albumin 3.6 (3.2-5.2) g/dL Globulin 2.7 (2-4) g/dL Albumin/Globulin Ratio 1.3 (1-3) Lipase 19 (11.0-82.0) U/L Urine Color Urine Appearance Urine pH (5-9) Ur Specific [place] (1.010-1.030) Urine Protein (Negative) Urine Ketones (Negative) Urine Blood (Negative) Urine Nitrate (Negative) Urine Bilirubin (Negative) Urine Urobilinogen (Negative) Ur Leukocyte Esterase (Negative) Urine WBC (Auto) (Absent) Urine RBC (Auto) (Absent) Urine Bacteria (Absent) Urine Glucose (Negative) 08/07/17 08/08/17 Range/Units 22:20 00:04 WBC (3.5-10.8) 10^3/ul RBC (4.0-5.4) 10^6/ul Hgb (14.0-18.0) g/dl Hct (42-52) % MCV (80-94) fL MCH (27-31) pg MCHC (31-36) g/dl RDW (10.5-15) % Plt Count (150-450) 10^3/ul MPV (7.4-10.4) um3 Neut % (Auto) (38-83) % Lymph % (Auto) (25-47) % [place] % (Auto) (1-9) % Eos % (Auto) (0-6) % Baso % (Auto) (0-2) % Absolute Neuts (auto) (1.5-7.7) 10^3/ul Absolute Lymphs (auto) (1.0-4.8) 10^3/ul Absolute Monos (auto) (0-0.8) 10^3/ul Absolute Eos (auto) (0-0.6) 10^3/ul Absolute Basos (auto) (0-0.2) 10^3/ul Absolute Nucleated RBC 10^3/ul Nucleated RBC % INR (Anticoag Therapy) (0.77-1.02) APTT (26.0-36.3) seconds Sodium (133-145) mmol/L Potassium (3.5-5.0) mmol/L Chloride (101-111) mmol/L Carbon Dioxide (22-32) mmol/L Anion Gap (2-11) mmol/L BUN (6-24) mg/dL Creatinine (0.67-1.17) mg/dL Est GFR ( Amer) (>60) Est GFR (Non-Af Amer) (>60) BUN/Creatinine Ratio (8-20) Glucose (70-100) mg/dL Lactic Acid 1.8 (0.5-2.0) mmol/L Calcium (8.6-10.3) mg/dL Magnesium (1.9-2.7) mg/dL Total Bilirubin (0.2-1.0) mg/dL AST (13-39) U/L ALT (7-52) U/L Alkaline Phosphatase (34-104) U/L C-Reactive Protein (< 5.00) mg/L Total Protein (6.4-8.9) g/dL Albumin (3.2-5.2) g/dL Globulin (2-4) g/dL Albumin/Globulin Ratio (1-3) Lipase (11.0-82.0) U/L Urine Color Yellow Urine Appearance Clear Urine pH 6.0 (5-9) Ur Specific [place] 1.030 (1.010-1.030) Urine Protein Negative (Negative) Urine Ketones Negative (Negative) Urine Blood 2+ H (Negative) Urine Nitrate Negative (Negative) Urine Bilirubin Negative (Negative) Urine Urobilinogen Negative (Negative) Ur Leukocyte Esterase 1+ H (Negative) Urine WBC (Auto) 2+(11-20/hpf) H (Absent) Urine RBC (Auto) 2+(6-10/hpf) H (Absent) Urine Bacteria Absent (Absent) Urine Glucose 3+(>=500 mg/dl) H (Negative) Assess/Plan/Problems-Billing Assessment: - Patient Problems (1) COPD (chronic obstructive pulmonary disease) Code(s): J44.9 - CHRONIC OBSTRUCTIVE PULMONARY DISEASE, UNSPECIFIED SNOMED Code(s): 75483493 Comment: - Keep on O2 to keep sats>90% - Maintenance/home meds (2) Chronic respiratory failure Code(s): J96.10 - CHRONIC RESPIRATORY FAILURE, UNSP W HYPOXIA OR HYPERCAPNIA SNOMED Code(s): 09661807 Comment: - Secondary to COPD - Requires 4-5L supp O2 at baseline, titrate down if possible (3) Diabetes Code(s): E11.9 - TYPE 2 DIABETES MELLITUS WITHOUT COMPLICATIONS SNOMED Code(s) : 06797873 Comment: - Uncontrolled hyperglycemia - Insulin SS coverage - Added lantus BID for more effective coverage - A1C = 10.0, poorly controlled (4) Full code status Code(s): Z78.9 - OTHER SPECIFIED HEALTH STATUS SNOMED Code(s): 121954155 (5) Lower GI bleed Code(s): K92.2 - GASTROINTESTINAL HEMORRHAGE, UNSPECIFIED SNOMED Code(s): 44777974 Comment: - Likely diverticular in nature - GI consulted, appreciate recommendations - Follow H&H - supportive care - Avoid blood thinning agents (6) HTN (hypertension) Code(s): I10 - ESSENTIAL (PRIMARY) HYPERTENSION SNOMED Code(s): 74273978 Comment: - continue home meds, coreg (7) Hx of chronic congestive heart failure Code(s): Z86.79 - PERSONAL HISTORY OF OTHER DISEASES OF THE CIRCULATORY SYSTEM SNOMED Code(s): 549340270 Comment: - Diastolic dysfunction - Not in exacerbation - Follow daily weights (8) Tobacco use disorder Code(s): Z72.0 - TOBACCO USE SNOMED Code(s): 786854323 Comment: - Reluctant to cease smoking - Counseled Status and Disposition: Remain inpatient until tomorrow. If stable (no change in hemodynamics) will DC with outpatient follow up with GI and PCP Dr. Dey. Counseling and/or Coordination of Care Minutes: Coordinated with patient and staff, time spent >60 mins Attending: Katie Tran
--- NOTE | 2017-08-08 17:58 | CONS ---
GASTROENTEROLOGY CONSULT: DATE OF CONSULT: 08/08/17 CONSULTING PHYSICIAN: Dr. Mitchell Turner. REASON FOR CONSULTATION: Rectal bleeding recurrent since 08/03/17. HISTORY: This 72-year-old man living in a trailer in [place] with a roommate of 11 years, was sent home and passage of dark and bright red blood seemed to cease as of 08/07/17. He is a poor historian but can give some sketchy details and his roommate of 11 years, Mitchell, assisted a little bit. Apparently, he overindulged over Thanksgiving and came to the emergency room with tingling in his legs on 08/02/17. He is also short of breath. It was not clear that he had any edema and he was sent home. He came back, however, just a few hours later complaining of passing blood per rectum. He was hemodynamically stable and in the ICU on BiPAP. Hemoglobin fell from 14.5 to 39. His BUN was never elevated. CT scan 08/07/17 showed extensive diverticulosis of the descending and sigmoid. There was no inflammatory change. Oral and IV contrast was administered. The liver, pancreas, and mesentery were normal. There was no ascites. He states that he has 1 to 7 bowel movements a day. He last had a rectal exam a couple of months ago when he seemed to be bound up. Dr. Dey did a rectal and found an enlarged prostate. He was not bleeding at the time. He had a colonoscopy in 1996 with a poor prep showing diverticulosis. In 2005, he was seen in our office by me complaining of loose stools, and based on COPD and living alone status with no social support, it was felt that attempting a colonoscopy had more burden than benefit and he was not a candidate for routine screening colonoscopy. That was 10 years ago. PAST MEDICAL HISTORY: 1. COPD - on home O2. 2. Congestive heart failure - he is familiar with that term. 3. Diabetes - poorly compliant with glucose 436 in January 2013, 450 in February 2016, and 494 on admission last night. Hemoglobin A1c has been 9 to 10 for determinations June 2012 till yesterday. 4. Hypertension. MEDICATIONS: The list is reviewed, though it is acknowledged that he does not take them. SOCIAL HISTORY: He lives in a trailer in [place]. Eight days ago the power went out. His roommate of 11 years is going to pay the rent, get the utilities worked on today. He has a brother living in [place]. A daughter lives in [place], but the patient says he has not seen her in 7 years and she has been telling others that he is . He smokes a pack a day and also some marijuana. REVIEW OF SYSTEMS: There is no history of SC, syncope or CVA, liver disease, gallbladder disease, upper endoscopy, surgery, or recent fall or fracture. PHYSICAL EXAMINATION: He is a disheveled man sitting at the edge of his bed, stating he has not had a bowel movement since he left home late last evening. He had no bowel movement through the night while sleeping or this morning. HEENT: Exam shows poor dentition. He is anicteric. He has no adenopathy. Breath sounds are diminished symmetrically. Heart sounds are regular, about 90. The abdomen is obese with an apple configuration and relatively low subcutaneous fat. There is no tenderness. He denies any pain anywhere. Perianal inspection shows dried bloody secretions and clots. Digital rectal shows the rectal fold of greasy clots and dark red blood. The prostate is unremarkable and nontender. There is no palpable mass. Extremities show no edema and popliteal pulses are intact. IMPRESSION: A 72-year-old man with multiple severe medical problems and poor social support, who has had some noncritical gastrointestinal bleeding. Right now the biggest threats to his health are chronic obstructive pulmonary disease and diabetes. If they are stabilized, there might be a way to partially investigate this bleeding via sigmoidoscopy. Should bleeding become more profuse, fresh blood could act as a laxative, but for the moment there was no practical way to perform endoscopy. Again, his other problems take precedence and would preclude safe performance of sigmoidoscopy or colonoscopy. [id number]/[facility] #: [id number] NICHOL
[2017-08-08] MEDS: Insulin GLARGINE(*) 1 UNITS UNIT SUBCUT SCH (21:17)
[2017-08-09] MEDS: Insulin LISPRO* 1 UNITS UNIT SUBCUT SCH ×3 (05:20→10:46)
[2017-08-09] MEDS: Omeprazole CAP* 20 MG PO SCH (05:29)
[2017-08-09] MEDS: NS 0.9% 1000 ML* 1,000 ML IV SCH (05:59)
[2017-08-09] MEDS: Tiotropium CAP.INH* CAP.INH/18 MCG (USE ORDER SET !) INH SCH (07:40)
[2017-08-09] MEDS: Mometasone/Formoter 200/5 MDI INH SCH (07:40)
[2017-08-09] MEDS: Insulin GLARGINE(*) 1 UNITS UNIT SUBCUT SCH (08:36)
[2017-08-09] MEDS: Docusate CAP* 100 MG PO SCH (08:37)
[2017-08-09 10:26] LABS: Hematocrit 41 % (42-52); Mean Corpuscular HGB Conc 32 g/dl (31-36); Mean Corpuscular Hemoglobin 32 pg (27-31); Mean Corpuscular Volume 99 fL (80-94); Mean Platelet Volume 8 um3 (7.4-10.4); Red Blood Count 4.12 10^6/ul (4.0-5.4); Red Cell Distribution Width 15 % (10.5-15); White Blood Count 12.6 10^3/ul (3.5-10.8)
[2017-08-09 12:59] VITALS: BP 146/65
--- NOTE | 2017-08-09 15:25 | DS ---
AMENDED REPORT NOW INCLUDES COSIGNER DESIGNATION - ESIGNED BEFORE ADJUSTMENT CC: Dr. Dey * DISCHARGE SUMMARY: DATE OF ADMISSION: 08/08/17 DATE OF DISCHARGE: 08/09/17 ATTENDING PROVIDER: Jackie Nicole MD * (DICTATED BY TY HALL NP ) HOSPITAL COURSE: The patient presented to the emergency room. This is a 72- year- old male in his usual state of health. He was originally admitted on through 08/06/17 for suspected diverticular bleeding. After returning home for a couple of days, he noticed that he had some additional bleeding, returned back to the ER after 2 days for persistent rectal bleeding. At that time, he had some change in his usual shortness of breath. The patient has chronic COPD and is always short of breath and apparently has had some issues with compliance with using his oxygen regimen at home. Also, he said that he had been lightheaded and few other kind of vague symptoms. Also stated that he was having trouble focusing. Also significant amount of social issues with the patient's living situation. He says he has no electricity or heat in his home, and he is very well known to social services counselor here at [facility]. The patient was admitted for observation for GI bleeding and GI was consulted to evaluate his condition. At that time, his hemoglobin was stable. The patient was observed for 24 hours. He had no continued rectal bleeding, although he did have a positive guaiac. The notes from GI basically state that the patient can follow up as an outpatient. Again, no change in hemodynamic status. Laboratories remain stable. Vital signs remain stable. The patient was placed back on his O2, he is on 4 to 5 L continuous at home. Once he was placed on that while here, he maintained the sats greater than 90% for the duration of his stay. LABORATORY DATA: Today, WBC is 12.6, RBC is 4.12, hemoglobin 13.0, hematocrit 41, platelets 262. Blood sugars were riding high in the range of 151 to, at admission, 398. Also of note, his urinalysis showed some microscopic hematuria. Chest x-ray was done at admission and showed no acute radiographic evidence of any cardiopulmonary abnormalities at that time. GI was consulted and the patient was essentially cleared for outpatient followup and management. The patient will need probably a sigmoidoscopy or outpatient colonoscopy and endoscopy. The patient would likely benefit also from outpatient urology. Again, the patient is hemodynamically stable, does not require any acute care at this time, but does have multiple comorbidities that should really be followed up on, but the patient has multiple social issues and probably does not have adequate followup in the community. He was referred to [facility]. We discussed this with case management this morning, so the patient will be transported directly to [facility], so he has access to oxygen and safe discharge in hotel environment where he has electricity and heat. The patient does need to be referred back to Dr. Dey, his primary care physician. I would also recommend a urologic follow up for the blood in his urine. The patient does have longstanding history of smoking. She would probably be screened for cancers, low dose chest CT for lung cancer, also bladder cancer given the hematuria and colon cancer for the rectal bleeding. This has all been explained to the patient. He does not have a whole lot of insight into his condition and again there are a lot of social issues involved here. However, we will do our best to get the patient access to community resources and healthcare followup as needed. The patient was discharged in stable condition. Followups were noted. MEDICATIONS AT THE TIME OF DISCHARGE: Include: 1. Albuterol inhaler 1 to 2 puffs q.4 hours as needed. 2. Albuterol/ipratropium nebulizer 1 neb inhaled daily as needed. 3. Budesonide nebulizer 0.5 mg inhaled b.i.d. 4. Glipizide 5 mg tablet 2 tablets p.o. 2 times a day. 5. Metformin 1000 mg one tablet 2 times a day. 6. Prednisone 10 mg one tablet daily. 7. Simvastatin 40 mg one tablet daily in the evening. 8. Terbinafine cream 1% cream topical daily 2 times a day to the feet. 9. Tiotropium cap inhalation, 18 mcg inhaled one cap daily. CONDITION ON DISCHARGE: The patient was discharged in stable condition in the care of [facility] services. All questions were answered. TY HALL, MARIANA [id number]/[facility] #: [id number] NICHOL
== END 2017-08-09 12:54 ==
LOC: ED 21:49 → MED 08-08 03:00
PROVIDERS: ADMIT Hospitalist; ATTEND Internal Medicine
DX: K92.2 Gastrointestinal hemorrhage, unspecified (principal); J44.9 Chronic obstructive pulmonary disease, unspecified; E11.9 Type 2 diabetes mellitus without complications; E78.5 Hyperlipidemia, unspecified; I11.0 Hypertensive heart disease with heart failure; I50.9 Heart failure, unspecified; N40.0 Benign prostatic hyperplasia without lower urinary tract symptoms; F17.210 Nicotine dependence, cigarettes, uncomplicated; Z79.899 Other long term (current) drug therapy; Z79.84 Long term (current) use of oral hypoglycemic drugs; R06.02 Shortness of breath; K57.90 Diverticulosis of intestine, part unspecified, without perforation or abscess without bleeding
CPT/HCPCS: 36415; 71010; 74177; 80053; 81003; 81015; 82272; 83036; 83605; 83690; 83735; 85025; 85027; 85610; 85730; 86140; 86850; 86900; 86901; 87077; 87086; 87186; 94640; 94760; 96374; 99283; 99406; A9270-GY; G0378; J2930; Q9967

== ENCOUNTER 2017-08-11 10:42 | Inpatient (IN) | payer MEDICARE, MEDICAID ==
[2017-08-11] MEDS ORDERED: NS 0.9% 1000 ML* 1,000 ML IV ONE ×2 (10:51→12:01)
[2017-08-11 11:29] LABS: Hematocrit 40 % (42-52); Mean Corpuscular HGB Conc 32 g/dl (31-36); Mean Corpuscular Hemoglobin 32 pg (27-31); Mean Corpuscular Volume 99 fL (80-94); Mean Platelet Volume 8 um3 (7.4-10.4); Red Blood Count 4.08 10^6/ul (4.0-5.4); Red Cell Distribution Width 15 % (10.5-15); White Blood Count 14.2 10^3/ul (3.5-10.8)
[2017-08-11 11:31] LABS: FIO2 4
[2017-08-11 11:34] LABS: Add Diff/Slide Review? Slide Review Added; Comments Flag Yes
[2017-08-11 11:44] LABS: PCO2 Arterial 76 mmHg (35-45)
[2017-08-11 11:49] LABS: Troponin I 0.03 ng/mL (<0.04)
[2017-08-11 11:52] LABS: Albumin 3.4 g/dL (3.2-5.2); BUN/Creatinine Ratio 21.7 (8-20); C Reactive Protein 147.02 mg/L (< 5.00); Calcium 9.5 mg/dL (8.6-10.3); EGFR African American 145.8 (>60); EGFR Non-African American 113.4 (>60); Globulin 2.7 g/dL (2-4); Potassium 4.7 mmol/L (3.5-5.0); Total Bilirubin 0.5 mg/dL (0.2-1.0); Total Protein 6.1 g/dL (6.4-8.9)
[2017-08-11] MEDS ORDERED: Insulin REGULAR(*) 1 UNITS UNIT IV PUSH ONE (12:00)
--- NOTE | 2017-08-11 12:31 | RAD ---
INDICATION: Short of breath COMPARISON: August 07, 2017 TECHNIQUE: AP seated and lateral views were obtained. FINDINGS: Bones/Soft Tissues: There are no acute bony findings. Cardiomediastinal: The heart is normal in size. . Lungs: There is no focal consolidation. The pulmonary interstitium is mildly prominent. There is mild hyperinflation. Pleura: There is scant residual fluid. There are no significant dependent effusions. Other: None IMPRESSION: SUSPECT MILD INTERSTITIAL CONGESTION. HYPERINFLATION.
[2017-08-11] MEDS ORDERED: cefTRIAXone(*) 1 GM in NS 0.9% 50 ML* 50 ML IVPB ONE (13:19)
[2017-08-11 14:23] LABS: Urine Bilirubin Negative (Negative); Urine Glucose 3+(>=500 mg/dL) (Negative); Urine Nitrite Negative (Negative)
[2017-08-11] MEDS ORDERED: Ondansetron INJ* 2 MG/ML VIAL IV PRN (14:45)
[2017-08-11] MEDS ORDERED: Albuterol 2.5 MG/3 ML NEB.SOL* (0.083%) INH PRN (14:45)
[2017-08-11] MEDS ORDERED: Piperacillin/Tazobac ADVAN(*) 3.375 GM in NS 0.9% 100 ML* 100 ML IVPB ONE (14:45)
[2017-08-11] MEDS ORDERED: Acetaminophen TAB* 325 MG PO PRN (14:45)
[2017-08-11] MEDS ORDERED: NS 0.9% 1000 ML* 1,000 ML IV SCH (14:45)
[2017-08-11] MEDS ORDERED: Dextrose 50% Syringe 50 ML* 25 GM/50 ML SYRINGE IV PUSH PRN (14:54)
[2017-08-11] MEDS ORDERED: Albuterol/Ipratropium NEB.SOL* Albuterol 2.5 MG/Ipratropium 0.5 MG 3 ML INH SCH (15:00)
[2017-08-11] MEDS ORDERED: Zosyn per Pharmacy* NOTE FOLLOW UP SCH (15:00)
[2017-08-11] MEDS ORDERED: Albuterol/Ipratropium NEB.SOL* Albuterol 2.5 MG/Ipratropium 0.5 MG 3 ML ONE (16:06)
[2017-08-11] MEDS ORDERED: Insulin LISPRO* 1 UNITS UNIT SUBCUT SCH (16:30)
[2017-08-11] MEDS: predniSONE TAB* 20 MG PO SCH (16:44)
[2017-08-11] MEDS ORDERED: Piperacillin/Tazobac ADVAN(*) 3.375 GM in D5W 100 ML BAG* 100 ML IVPB ONE (16:45)
[2017-08-11] MEDS ORDERED: Azithromycin IV(*) 250 MG in D5W 250 ML BAG* 250 ML IVPB SCH (17:00)
[2017-08-11] MEDS ORDERED: Azithromycin IV(*) 250 MG in NS 0.9% 250 ML* 250 ML IVPB SCH (17:30)
[2017-08-11 17:34] LABS: EGFR African American 193.4 (>60); EGFR Non-African American 150.4 (>60)
[2017-08-11] MEDS ORDERED: Insulin LISPRO* 1 UNITS UNIT SUBCUT ONE (18:18)
[2017-08-11] MEDS: Mometasone/Formoter 200/5 MDI INH SCH (20:09)
[2017-08-11] MEDS: Albuterol/Ipratropium NEB.SOL* Albuterol 2.5 MG/Ipratropium 0.5 MG 3 ML INH SCH ×2 (20:15→22:35)
--- NOTE | 2017-08-11 20:34 | HP ---
CC: Dr. Dey * HISTORY AND PHYSICAL: DATE OF ADMISSION: 08/11/17 PRIMARY CARE PROVIDER: Dr. Dey. ATTENDING PHYSICIAN WHILE IN THE HOSPITAL: Dr. Sidra Yoo * (report dictated by Yassine Alex NP). CHIEF COMPLAINT: 1. Hypoxia. 2. Shortness of breath. HISTORY OF PRESENT ILLNESS: Mr. Gray is a 72-year-old male patient. He has multiple complaints. He has a history of COPD, diabetes, hypertension, hyperlipidemia, dysphagia, and BPH. He says he comes in today because his doctor made him come in. Apparently, he was over at the doctor's office, Dr. Dey's office, and they checked his O2 saturation, that was in the 60s. He was not on his oxygen, and apparently his tank had run out, so we set him into the hospital because of this. The patient says that he recently was here, just discharged a couple of days ago for concerns of possible GI bleeding, he was observed overnight, had no more episodes and was discharged, but today, he says that he has been having a little bit more of a cough. Says anytime he drinks anything, he has trouble swallowing and he has been choking off and on. Denies having any chest pain. He says he feels short of breath. He says that he is pretty preoccupied with his home. He is worried that he might get evicted because of it is being unsafe. He denies having any chest pain at this point or any abdominal pain. He says he has not noticed any more blood per the rectum , but he says there was an issue at one point. He denies having any abdominal pain or any nausea or vomiting. He says he has been coughing particularly after he eats or drinks anything. So, he was concerned, came in to the hospital , was evaluated in the ED. It was noted that he was wheezing, there was concern for COPD exacerbation, we were asked to evaluate for admission. PAST MEDICAL HISTORY: Significant for: 1. COPD. 2. Diabetes. 3. Hyperlipidemia. 4. Hypertension. 5. Dysphagia. 6. BPH. PAST SURGICAL HISTORY: Denied. MEDICATIONS: Home meds include: 1. Bactroban 1 application topically t.i.d. as needed. 2. Glipizide 10 mg daily p.o. b.i.d. 3. Athlete's Foot 1% topically b.i.d. as needed. 4. Metformin 1000 mg p.o. b.i.d. 5. Theophylline 300 mg p.o. b.i.d. 6. Coreg 3.125 mg p.o. b.i.d. 7. Simvastatin 40 mg p.o. daily. 8. Lasix 40 mg daily as needed. 9. Lasix 80 mg p.o. daily as needed. 10. Spiriva 1 capsule inhaled daily. 11. Albuterol 1 to 2 puffs every 4 hours as needed. According to the discharge though, he was on albuterol 1 to 2 puffs every 4 hours as needed nebulizer, 1 neb as needed daily. 12. Pulmicort 0.5 mg inhaled b.i.d. 13. Prednisone 10 mg daily. ALLERGIES TO MEDICATIONS: Include no known drug allergies. FAMILY HISTORY: Says both of his parents of old age. SOCIAL HISTORY: He is [id number]-a-day smoker. He is still smoking. He has been smoking since he was a teenager. Surrogate decision maker would be his brother, Stefan. REVIEW OF SYSTEMS: There is no documented fever. He denied any significant weight change. No double vision or ear discharge. Denies having any rhinorrhea. No sore throat. No thyroid enlargement. Denied having any chest pain. There was no orthopnea or nocturnal dyspnea. There was no abdominal pain. There was no nausea, vomiting. No dysuria, no frequency. There was no seizure, no loss of consciousness. No pruritus and no skin ulcerations. Review of 14 systems was completed, all others negative. PHYSICAL EXAMINATION GENERAL: At this time, Mr. Gray is a 72-year-old male patient. He is unkempt. He is sitting in the ED stretcher. He does not appear to be in any acute distress. VITAL SIGNS: Blood pressure 153/60 with a pulse of 93, respirations 19, O2 sat 96%, temperature 98.7. HEENT: Head: Atraumatic. Eyes: EOMs are intact. Sclerae anicteric and not pale. Throat: Oral mucosa appears to be dry. No oropharyngeal erythema. NECK: Supple. LUNGS: He had wheezing in the lower lobes and rhonchi in the upper lobes. Equal diaphragmatic expansion. HEART: Sounds S1, S2. Regular rate and rhythm. No murmurs, rubs, or gallops. ABDOMEN: Soft, flat, nontender. Bowel sounds were present. EXTREMITIES: Pulses 2+ throughout. Moving all 4 extremities. He does have +2 pitting edema. NEUROLOGIC: The patient is awake, he is alert, he is oriented x3. No gross focal deficits. SKIN: Intact. DIAGNOSTIC STUDIES/LAB DATA: WBC 14.2, RBC of 4.08, hemoglobin 15.0, hematocrit 40, platelet count 306. APTT was 29.9. Blood gas: pH is 7.34, PCO2 is 76, bicarb of 34, which is kind of near his baseline gas. His sodium is 140, potassium 4.7, chloride 99, bicarb 38, BUN 15, creatinine 0.69, glucose 357, lactate 0.8, calcium 9.5. Total bili 0.5, AST 15, ALT 13, alk phos 65. CK 76. Troponin 0.03. CRP of 147. BNP 183. Albumin is 3.4. Urine showed trace ketones, positive urobilinogen, 3+ glucose. He was flu negative. He had a chest x-ray obtained today. It showed suspect mild interstitial congestion, hyperinflation. EKG shows normal sinus rhythm with a right bundle branch block, no ST elevations or T-wave inversions, rate of 96. It was reviewed to his previous EKG, it is similar. Old medical records were reviewed. ASSESSMENT AND PLAN: Mr. Gray is a 72-year-old male patient coming in to the ED today with complaints of hypoxia, worsening shortness of breath, and trouble swallowing. He will be admitted under inpatient status for: 1. Chronic obstructive pulmonary disease exacerbation. I am questioning if he may have aspirated. He may have an aspiration pneumonitis. He is wheezing on exam. I think it is appropriate to put him on Zosyn. His white count has gone up. His CRP has gone up significantly. So, I am going to put him on Zosyn, azithromycin, nebs, steroids, pulmonary toileting, n.p.o., and we are also going to get a speech evaluation on the patient and again aggressive pulmonary toileting. 2. Chronic obstructive pulmonary disease. Again, it does appear to be exacerbated. We will continue nebs, steroids, antibiotics. 3. Diabetes. Lispro sliding scale. 4. Hypertension. We will follow. We will start him on medication. 5. Hyperlipidemia. Continue statin therapy. 6. Dysphagia. Go ahead and get a speech evaluation. 7. Benign prostatic hyperplasia. Continue his meds as prescribed. 8. Social issues. Again, we will have Social Work come and evaluate the patient. There is concern that his home might be condemned because of the shape that it is in, so we will get Social Work to evaluate. 9. DVT prophylaxis. I am going to go ahead and put him on heparin subcu. 10. Code status. Full code. 11. Fluids, electrolytes, and nutrition. He will be n.p.o. pending speech evaluation. TIME SPENT: On admission was approximately 60 minutes, greater than half the time was spent [id number] with the patient obtaining my history and physical; the other half the time was spent going over the plan of care with the patient and implementing the plan of care. I did discuss this plan of care with my attending, Dr. Yoo; she is in agreement. YASSINE ALEX, MARIANA [id number]/[facility] #: [id number] NICHOL
[2017-08-11] MEDS ORDERED: Carvedilol TAB* 3.125 MG PO SCH (21:00)
[2017-08-11] MEDS ORDERED: Theophylline TAB* 300 MG PO SCH (21:00)
[2017-08-11] MEDS ORDERED: NS 0.9% 100 ML* 100 ML ONE (21:19)
[2017-08-11] MEDS: Heparin VIAL(*) 5000 UNITS/ML VIAL (FIVE THOUSAND) SUBCUT SCH (21:23)
[2017-08-11] MEDS: ZOSYN 3.375 GM Q8H per EXTENDED INFUSION IVPB SCH ×2 (21:23)
[2017-08-12] MEDS: Albuterol/Ipratropium NEB.SOL* Albuterol 2.5 MG/Ipratropium 0.5 MG 3 ML INH SCH ×6 (00:37→19:31)
[2017-08-12] MEDS: ZOSYN 3.375 GM Q8H per EXTENDED INFUSION IVPB SCH ×6 (05:05→21:22)
[2017-08-12] MEDS: Heparin VIAL(*) 5000 UNITS/ML VIAL (FIVE THOUSAND) SUBCUT SCH ×3 (05:31→21:22)
[2017-08-12] MEDS ORDERED: Insulin LISPRO* 1 UNITS UNIT SUBCUT SCH ×2 (07:30)
[2017-08-12 07:41] LABS: Hematocrit 37 % (42-52); Hemoglobin 11.7 g/dl (14.0-18.0); Mean Corpuscular HGB Conc 32 g/dl (31-36); Mean Corpuscular Hemoglobin 32 pg (27-31); Mean Corpuscular Volume 99 fL (80-94); Mean Platelet Volume 8 um3 (7.4-10.4); Red Blood Count 3.69 10^6/ul (4.0-5.4); Red Cell Distribution Width 14 % (10.5-15); White Blood Count 11.5 10^3/ul (3.5-10.8)
[2017-08-12 07:46] LABS: Add Diff/Slide Review? Slide Review Added; Comments Flag Yes
[2017-08-12 07:58] LABS: BUN/Creatinine Ratio 23.3 (8-20); Blood Urea Nitrogen 14 mg/dL (6-24); CO2 Carbon Dioxide 36 mmol/L (22-32); Calcium 8.4 mg/dL (8.6-10.3); Chloride 104 mmol/L (101-111); EGFR African American 171.3 (>60); EGFR Non-African American 133.2 (>60); Glucose 263 mg/dL (70-100); Sodium 140 mmol/L (133-145)
[2017-08-12] MEDS: Mometasone/Formoter 200/5 MDI INH SCH ×2 (08:09→19:29)
--- NOTE | 2017-08-12 09:30 | PN ---
Subjective Date of Service: 08/12/17 Interval History: Mr. Gray denies complaint today and feels that his breathing is at baseline. He notes trouble with his swallowing for about two years and feels that at times he aspirates on liquids. He denies a worsening cough, chest pain, fever, nausea, abdominal pain, and red or dark stool. He is not clear about the events at his doctor's office and whether or not he was wearing oxygen at the time that his O2 sat was checked and shown to be in the 60s. Objective Active Medications: Acetaminophen (Tylenol Tab*) 650 mg PO Q4H PRN Albuterol (Ventolin 2.5 Mg/3 Ml Neb.Allyn*) 2.5 mg INH Q2H PRN Albuterol/Ipratropium (Duoneb (Albuterol 2.5 Mg/Ipratropium 0.5 Mg)) 1 neb INH [id number] AWAKE MAGY Atorvastatin Calcium (Lipitor*) 40 mg PO DAILY MAGY Dextrose (D50w Syringe 50 Ml*) 12.5 gm IV PUSH .FOR FS < 60 - SS PRN Heparin Sodium (Porcine) (Heparin Vial(*)) 5,000 units SUBCUT Q8HR MAGY Sodium Chloride (Ns 0.9% 1000 Ml*) 1,000 mls @ 100 mls/hr IV PER RATE MAGY Piperacillin Sod/Tazobactam (Sod 3.375 gm/ Sodium Chloride) 100 mls @ 25 mls/ hr IVPB Q8H MAGY Azithromycin 250 mg/ Sodium (Chloride) 250 mls @ 250 mls/hr IVPB Q24H MAGY Insulin Human Lispro (Humalog*) 0 units SUBCUT AC MAGY Mometasone Furoate/Formoterol Fumar (Dulera 200/5 Mdi*) 2 puff INH BID MAGY Ondansetron HCl (Zofran Inj*) 4 mg IV Q6H PRN Pharmacy Consult (Zosyn Per Pharmacy*) 1 note FOLLOW UP .ZOSYN PER PHARMACY MAGY Prednisone (Deltasone Tab*) 60 mg PO DAILY MAGY Vital Signs: Temp Pulse Resp BP Pulse Ox 97.3 F 70 18 100/49 93 08/12/17 07:00 08/12/17 08:20 08/12/17 08:20 08/12/17 07:00 08/12/17 08:20 Oxygen Devices in Use Now: Nasal Cannula Appearance: Elderly male sitting up in bed in NAD Eyes: No Scleral Icterus Ears/Nose/Mouth/Throat: Mucous Membranes Moist Neck: Trachea Midline Respiratory: Symmetrical Chest Expansion and Respiratory Effort, - - Rhonchi in right base, no wheezing noted Cardiovascular: NL Sounds; No Murmurs; No JVD, No Edema Abdominal: NL Sounds; No Tenderness; No Distention Lymphatic: No Cervical Adenopathy Extremities: No Edema Skin: No Rash or Ulcers Neurological: Alert and Oriented x 3, NL Muscle Strength and Tone Nutrition: Taking PO's Result Diagrams: 08/12/17 07:26 08/12/17 07:26 Microbiology and Other Data: Microbiology 08/11/17 20:15 Legionella Urinary Antigen - Final Urine Negative Legionella Streptococcus pneumoniae Ag Screen - Final Negative S. pneumo Antigen Assess/Plan/Problems-Billing Assessment: Mr. Gray is a 72 yo male with a PMH of COPD, HTN, HLD, dysphagia and diabetes who was admitted on 08/11/17 with concern for COPD exacerbation vs aspiration pneumonia. - Patient Problems (1) Acute and chronic respiratory failure Comment: - Not tachypneic, mentation appropriate. However, currently needing 8-10L of O2 to maintain O2 sat > 90%. - Plan for nebulizer treatment now with re-eval. Consider transfer to ICU for vapotherm if O2 requirements remain high. - Secondary to COPD exacerbation vs aspiration pneumonia. - No infiltrate on cxray but CRP and WBC elevated, with report of possible dysphagia. - Continue albuterol, dulera, prednisone for COPD exacerbation. - Continue zosyn given concern for aspiration pneumonia. (2) Swallowing difficulty Comment: - History of unspecified swallowing difficulty. - Appreciate speech therapy swallow eval, thickened liquids ordered. (3) Diabetes Comment: - BG 170-370. - Increase to high dose sliding scale lispro with meals, add lantus 10 units now and adjust base on clinical course. (4) HLD (hyperlipidemia) Comment: - Continue atorvastatin. (5) HTN (hypertension) Comment: - SBP 100-120. - Not on medication outpatient. (6) DVT prophylaxis Comment: - Heparin SQ. (7) Full code status Status and Disposition: Inpatient. Anticipate discharge to home when medically stable, though report of unsafe living conditions has been raised, [employer] consulted.
[2017-08-12] MEDS: predniSONE TAB* 20 MG PO SCH (09:40)
[2017-08-12] MEDS: Atorvastatin* 20 MG TAB PO SCH (09:40)
[2017-08-12] MEDS ORDERED: Insulin GLARGINE(*) 1 UNITS UNIT SUBCUT ONE (09:42)
[2017-08-12] MEDS: Insulin LISPRO* 1 UNITS UNIT SUBCUT SCH ×2 (13:09→17:47)
[2017-08-13] MEDS: Albuterol/Ipratropium NEB.SOL* Albuterol 2.5 MG/Ipratropium 0.5 MG 3 ML INH SCH ×4 (01:13→19:37)
[2017-08-13] MEDS: ZOSYN 3.375 GM Q8H per EXTENDED INFUSION IVPB SCH ×4 (05:15→12:35)
[2017-08-13] MEDS: Heparin VIAL(*) 5000 UNITS/ML VIAL (FIVE THOUSAND) SUBCUT SCH ×3 (05:18→22:37)
[2017-08-13] MEDS: Mometasone/Formoter 200/5 MDI INH SCH ×2 (07:36→19:36)
[2017-08-13] MEDS: Insulin LISPRO* 1 UNITS UNIT SUBCUT SCH ×4 (08:29→22:37)
[2017-08-13] MEDS: Atorvastatin* 20 MG TAB PO SCH (08:31)
[2017-08-13] MEDS: predniSONE TAB* 20 MG PO SCH (08:32)
--- NOTE | 2017-08-13 08:35 | PN ---
Subjective Date of Service: 08/13/17 Objective Active Medications: Acetaminophen (Tylenol Tab*) 650 mg PO Q4H PRN Albuterol (Ventolin 2.5 Mg/3 Ml Neb.Allyn*) 2.5 mg INH Q2H PRN Albuterol/Ipratropium (Duoneb (Albuterol 2.5 Mg/Ipratropium 0.5 Mg)) 1 neb INH [id number] AWAKE MAGY Atorvastatin Calcium (Lipitor*) 40 mg PO DAILY MAGY Dextrose (D50w Syringe 50 Ml*) 12.5 gm IV PUSH .FOR FS < 60 - SS PRN Heparin Sodium (Porcine) (Heparin Vial(*)) 5,000 units SUBCUT Q8HR MAGY Piperacillin Sod/Tazobactam (Sod 3.375 gm/ Sodium Chloride) 100 mls @ 25 mls/ hr IVPB Q8H MAGY Insulin Human Lispro (Humalog*) 0 units SUBCUT ACHS MAGY Mometasone Furoate/Formoterol Fumar (Dulera 200/5 Mdi*) 2 puff INH BID MAGY Ondansetron HCl (Zofran Inj*) 4 mg IV Q6H PRN Pharmacy Consult (Zosyn Per Pharmacy*) 1 note FOLLOW UP .ZOSYN PER PHARMACY MAGY Prednisone (Deltasone Tab*) 60 mg PO DAILY [facility] Vital Signs - 8 hr Vital Signs: Temp Pulse Resp BP Pulse Ox 97.6 F 70 18 116/61 93 08/13/17 07:33 08/13/17 07:33 08/13/17 07:46 08/13/17 07:33 08/13/17 07:33 Oxygen Devices in Use Now: Nasal Cannula Result Diagrams: 08/12/17 07:26 08/12/17 07:26 Assess/Plan/Problems-Billing Assessment: Mr. Gray is a 72 yo male with a PMH of COPD, HTN, HLD, dysphagia and diabetes who was admitted on 08/11/17 with concern for COPD exacerbation vs aspiration pneumonia. - Patient Problems (1) Acute and chronic respiratory failure Comment: - O2 requirement back down to 4.5L NC. - Secondary to COPD exacerbation vs aspiration pneumonia. - No infiltrate on cxray but CRP and WBC elevated, with report of possible dysphagia. - Continue albuterol, dulera, prednisone for COPD exacerbation. - Continue zosyn given concern for aspiration pneumonia. (2) Swallowing difficulty Comment: - History of dysphagia. - Appreciate speech therapy swallow eval, thickened liquids ordered. (3) Diabetes Comment: - BG's 220. - Continue high dose sliding scale lispro with meals, with lantus 10 units daily. (4) HLD (hyperlipidemia) Comment: - Continue atorvastatin. (5) HTN (hypertension) Comment: - SBP 100-120. - Not on medication outpatient. (6) DVT prophylaxis Comment: - Heparin SQ. (7) Full code status Status and Disposition: Inpatient. Patient interested in placement and palliative care consult. hookman following.
--- NOTE | 2017-08-13 09:25 | PN ---
Subjective Date of Service: 08/13/17 Interval History: Mr. Gray feels that he is "slowly dying" but feels relatively well today without any new complaint. He reports that his breathing feels that it is about at baseline. He denies chest pain, nausea, or abdominal pain and is tolerating oral intake well. He is concerned about his continued lack of electricity at home and frustrations with his roommate. Objective Active Medications: Acetaminophen (Tylenol Tab*) 650 mg PO Q4H PRN Albuterol (Ventolin 2.5 Mg/3 Ml Neb.Allyn*) 2.5 mg INH Q2H PRN Albuterol/Ipratropium (Duoneb (Albuterol 2.5 Mg/Ipratropium 0.5 Mg)) 1 neb INH [id number] AWAKE MAGY Atorvastatin Calcium (Lipitor*) 40 mg PO DAILY [facility] Dextrose (D50w Syringe 50 Ml*) 12.5 gm IV PUSH .FOR FS < 60 - SS PRN Heparin Sodium (Porcine) (Heparin Vial(*)) 5,000 units SUBCUT Q8HR MAGY Piperacillin Sod/Tazobactam (Sod 3.375 gm/ Sodium Chloride) 100 mls @ 25 mls/ hr IVPB Q8H MAGY Insulin Human Lispro (Humalog*) 0 units SUBCUT ACHS MAGY Mometasone Furoate/Formoterol Fumar (Dulera 200/5 Mdi*) 2 puff INH BID MAGY Ondansetron HCl (Zofran Inj*) 4 mg IV Q6H PRN Pharmacy Consult (Zosyn Per Pharmacy*) 1 note FOLLOW UP .ZOSYN PER PHARMACY MAGY Prednisone (Deltasone Tab*) 60 mg PO DAILY [facility] Vital Signs: Temp Pulse Resp BP Pulse Ox 97.6 F 70 18 116/61 93 08/13/17 07:33 08/13/17 07:33 08/13/17 07:46 08/13/17 07:33 08/13/17 07:33 Oxygen Devices in Use Now: Nasal Cannula Appearance: Male sitting up on edge of bed eating breakfast, in good spirits Eyes: No Scleral Icterus Ears/Nose/Mouth/Throat: Mucous Membranes Moist Neck: Trachea Midline Respiratory: Symmetrical Chest Expansion and Respiratory Effort, - - Diminished bilaterally Cardiovascular: NL Sounds; No Murmurs; No JVD, No Edema Abdominal: NL Sounds; No Tenderness; No Distention Extremities: No Edema Skin: No Rash or Ulcers Neurological: Alert and Oriented x 3, NL Muscle Strength and Tone Result Diagrams: 08/12/17 07:26 08/12/17 07:26 Assess/Plan/Problems-Billing Assessment: Mr. Gray is a 72 yo male with a PMH of COPD, HTN, HLD, dysphagia and diabetes who was admitted on 08/11/17 with concern for COPD exacerbation vs aspiration pneumonia. - Patient Problems (1) Acute and chronic respiratory failure Comment: - O2 requirement back down to 4.5L NC. - Secondary to COPD exacerbation vs aspiration pneumonia. - No infiltrate on cxray but CRP and WBC elevated, with report of possible dysphagia. - Continue albuterol, dulera, prednisone taper for COPD exacerbation. - Switch to augmentin for possible aspiration pneumonia. (2) Swallowing difficulty Comment: - History of dysphagia. - Appreciate speech therapy swallow eval, thickened liquids ordered. However, nursing staff note persistent evidence of dysphagia, plan for swallow function study. (3) Diabetes Comment: - BG's 220, likely secondary to prednisone. - Continue high dose sliding scale lispro with meals, with lantus 10 units daily. - Hold glipizide and metformin. (4) HLD (hyperlipidemia) Comment: - Continue atorvastatin. (5) HTN (hypertension) Comment: - SBP 100-120. - Not on medication outpatient. (6) DVT prophylaxis Comment: - Heparin SQ. (7) Full code status Status and Disposition: Inpatient. Patient interested in placement and palliative care consult. clinical rn liaison following.
--- NOTE | 2017-08-13 16:26 | ED ---
Rubén Shepard Angela, scribed for Ezra Carver MD on 08/11/17 at 1123 . Shortness of Breath - HPI Summary HPI Summary: This pt is a 72 y/o male presenting to [facility] via EMS from [facility] for SOB today. He notes he had a fever of 101 F today at his PCP's office. Pt has multiple complaints, including stomach problems, increased bowel movements and increased urinary frequency. Pt is on Prednisone, Albuterol, and Metformin. Pt has not been taking his regular medications as he is living out of home. He notes he is staying at an [facility] (closer to [facility]) because he has an appointment next week and he lives far away. Pt was last seen in the ED on 08/08 for a GI bleed, for which he was admitted. PMHx includes COPD, asthma, DM, diverticulitis. - History of Current Complaint Chief Complaint: EDShortnessOfBreath Hx Obtained From: Patient Onset/Duration: Still Present Timing: Constant Dyspnea At: Rest Associated Signs & Symptoms: Fever - Allergy/Home Medications Allergies/Adverse Reactions: Allergies Allergy/AdvReac Type Severity Reaction Status Date / Time No Known Allergies Allergy Verified 08/07/17 21:56 Home Medications: Home Medications Albuterol/Ipratropium NEB.KAM* [Duoneb (Albuterol 2.5 MG/Ipratropium 0.5 MG)] 1 neb INH QID PRN 08/11/17 [History Confirmed 08/11/17] Budesonide NEB* [Pulmicort NEB*] 0.5 mg INH BID 08/11/17 [History Confirmed 04/20] predniSONE TAB* [Deltasone TAB*] 10 mg PO DAILY 08/11/17 [History Confirmed 04/20] PMH/Surg Hx/FS Hx/Imm Hx Endocrine/Hematology History: Reports: Hx Diabetes Denies: Hx Anticoagulant Therapy, Hx Blood Disorders, Hx Blood Transfusions, Hx Bone Marrow Disease, Hx Systemic Lupus Erythematosus, Hx Sickle Cell Disease , Hx Thyroid Disease, Hx Anemia, Hx Unexplained Bleeding, Other Endocrine/ Hematological Disorders Cardiovascular History: Reports: Hx Congestive Heart Failure, Hx Hypercholesterolemia, Hx Hypertension, Other Cardiovascular Problems/Disorders - 1st degree heart block Denies: Hx Aneurysm, Hx Angioplasty, Hx Auto Implanted Cardiovert Defib, Hx Cardiac Arrest, Hx Cardiomegaly, Hx Congenital Heart Disease, Hx Coronary Artery Disease, Hx Deep Vein Thrombosis, Hx Hypotension, Hx Pacemaker/ICD, Hx Peripheral Vascular Disease, Hx Rheumatic Fever, Hx Syncope, Hx Valvular Heart Disease Respiratory History: Reports: Hx Chronic Obstructive Pulmonary Disease (COPD), Hx Pneumonia, Other Respiratory Problems/Disorders - resp failure, pneumonia Denies: Hx Asthma, Hx Chronic Bronchitis, Hx Cystic Fibrosis, Hx Lung Cancer , Hx Pleural Effusion, Hx Pulmonary Edema, Hx Pulmonary Embolism, Hx Seasonal Allergies, Hx Sleep Apnea GI History: Denies: Hx Cirrhosis, Hx Crohn's Disease, Hx Diverticulosis, Hx Gall Bladder Disease, Hx Gastroesophageal Reflux Disease, Hx Gastrointestinal Bleed, Hx Hiatal Hernia, Hx Irritable Bowel, Hx Jaundice, Hx Obstructive Bowel, Hx Ileostomy, Hx Pyloric Stenosis, Hx Ulcer, Other GI Disorders History: Reports: Hx Benign Prostatic Hyperplasia Denies: Hx Acute Renal Failure, Hx Chronic Renal Failure, Hx Dialysis, Hx Kidney Infection, Hx Kidney Stones, Hx Renal Disease Musculoskeletal History: Reports: Hx Arthritis Denies: Hx Back Problems, Hx Bursitis, Hx Congenital Bone Abnormalities, Hx Fibromyalgia, Hx Gout, Hx Orthopedic Injury, Hx Osteoporosis, Hx Scoliosis, Hx Tendonitis, Other Musculoskeletal History Sensory History: Reports: Hx Contacts or Glasses Denies: Hx Cataracts, Hx Eye Injury, Hx Eye Prosthesis, Hx Glaucoma, Hx Legally Blind, Hx Macular Degeneration, Hx Vision Problem, Hx Deafness, Hx Hearing Aid, Hx Hearing Problem, Other Sensory Impairments Opthamlomology History: Reports: Hx Contacts or Glasses Denies: Hx Cataracts, Hx Eye Injury, Hx Eye Prosthesis, Hx Glaucoma, Hx Legally Blind, Hx Macular Degeneration, Hx Vision Problem, Other Sensory Impairments Neurological History: Denies: Hx Dementia, Hx Seizures Psychiatric History: Reports: Hx Anxiety, Hx Depression, Hx Inpatient Treatment - WHEN HE WAS 20, Hx Community Mental Health Tx, Hx Substance Abuse - Previous ETOH Denies: Hx Attention Deficit Hyperactivity Disorder, Hx Eating Disorder, Hx Panic Disorder, Hx Post Traumatic Stress Disorder, Hx Schizophrenia, Hx Bipolar Disorder, Hx Suicide Attempt, Hx of Violent Episodes Against Others, Other Psychiatric Issues/Disorders - Cancer History Hx Chemotherapy: No Hx Radiation Therapy: No - Surgical History Surgery Procedure, Year, and Place: T&A 1953 Hx Anesthesia Reactions: No Infectious Disease History: No Infectious Disease History: Denies: Hx Hepatitis, Hx Human Immunodeficiency Virus (HIV), Hx Tuberculosis , Traveled Outside the [place] in Last 30 Days - Family History Known Family History: Positive: Diabetes Negative: Seizure Disorder - Social History Alcohol Use: None Alcohol Amount: 1-2x PER MONTH Hx Substance Use: No Substance Use Type: Reports: None Substance Use Comment - Amount & Last Used: Patient states he smokes marijuana rarely. Hx Tobacco Use: Yes Smoking Status (MU): Heavy Every Day Tobacco Smoker Type: Cigarettes Amount Used/How Often: DAILY 1PPD Length of Time of Smoking/Using Tobacco: 28 YEARS Have You Smoked in the Last Year: Yes Review of Systems Positive: Fever. Negative: Chills Positive: Shortness Of Breath Gastrointestinal: Other - increased frequency of bowel movements Positive: frequency - increased All Other Systems Reviewed And Are Negative: Yes Physical Exam - Summary Physical Exam Summary: VITAL SIGNS: Reviewed. GENERAL: Patient is an elderly male who is currently on oxygen. Patient is not in any acute respiratory distress. HEAD AND FACE: No signs of trauma. No ecchymosis, hematomas or skull depressions. No sinus tenderness. EYES: PERRLA, EOMI x 2, No injected conjunctiva, no nystagmus. EARS: Hearing grossly intact. Ear canals and tympanic membranes are within normal limits. MOUTH: Oropharynx within normal limits. NECK: Supple, trachea is midline, no adenopathy, no JVD, no carotid bruit, no c- spine tenderness, neck with full ROM. CHEST: Symmetric, no tenderness at palpation LUNGS: Crackles in both bases of the lungs with some wheezing. CVS: Regular rate and rhythm, S1 and S2 present, no murmurs or gallops appreciated. ABDOMEN: Soft, non-tender. No signs of distention. No rebound no guarding, and no masses palpated. Bowel sounds are normal. : Both testicles are descended. Uncircumcised penis. No masses are appreciated. No flores or rash abnormalities. EXTREMITIES: FROM in all major joints, no edema, no cyanosis or clubbing. NEURO: Alert and oriented x 3. No acute neurological deficits. Speech is normal and follows commands. SKIN: Warm. His skin is dry. Triage Information Reviewed: Yes Vital Signs On Initial Exam: Initial Vitals Temp Pulse Resp BP Pulse Ox 98.7 F 101 22 131/75 92 08/11/17 10:50 08/11/17 10:50 08/11/17 10:50 08/11/17 10:50 08/11/17 10:50 Vital Signs Reviewed: Yes - Sakina Coma Scale Coma Scale Total: 15 Diagnostics - Vital Signs Vital Signs Temp Pulse Resp BP Pulse Ox 08/11/17 10:50 98.7 F 101 22 131/75 92 - Laboratory Lab Results: Lab Results 08/11/17 08/11/17 08/11/17 Range/Units 11:10 11:10 11:10 WBC (3.5-10.8) 10^3/ul RBC (4.0-5.4) 10^6/ul Hgb (14.0-18.0) g/dl Hct (42-52) % MCV (80-94) fL MCH (27-31) pg MCHC (31-36) g/dl RDW (10.5-15) % Plt Count (150-450) 10^3/ul MPV (7.4-10.4) um3 Neut % (Auto) (38-83) % Lymph % (Auto) (25-47) % Custer % (Auto) (1-9) % Eos % (Auto) (0-6) % Baso % (Auto) (0-2) % Absolute Neuts (auto) (1.5-7.7) 10^3/ul Absolute Lymphs (auto) (1.0-4.8) 10^3/ul Absolute Monos (auto) (0-0.8) 10^3/ul Absolute Eos (auto) (0-0.6) 10^3/ul Absolute Basos (auto) (0-0.2) 10^3/ul Absolute Nucleated RBC 10^3/ul Nucleated RBC % APTT 29.9 (26.0-36.3) seconds Patient Temperature ABG pH (7.35-7.45) ABG pH (Temp Correct) ABG pCO2 (35-45) mmHg ABG pCO2 (Temp Corrct ABG pO2 (80-100) mmHg ABG pO2 (Temp Correct ABG HCO3 (19-31) mmol/L ABG O2 Saturation (95-98) % ABG Base Excess (-2.0-2.0) Respiration Rate Ventilator Type Vent Mode FiO2 Inspiratory Time PEEP Pressure Support Pressure Control EPAP IPAP BiPAP Sodium 140 (133-145) mmol/L Potassium 4.7 (3.5-5.0) mmol/L Chloride 99 L (101-111) mmol/L Carbon Dioxide 38 H (22-32) mmol/L Anion Gap 3 (2-11) mmol/L BUN 15 (6-24) mg/dL Creatinine 0.69 (0.67-1.17) mg/dL Est GFR ( Amer) 145.8 (>60) Est GFR (Non-Af Amer) 113.4 (>60) BUN/Creatinine Ratio 21.7 H (8-20) Glucose 357 H (70-100) mg/dL Lactic Acid (0.5-2.0) mmol/L Calcium 9.5 (8.6-10.3) mg/dL Total Bilirubin 0.50 (0.2-1.0) mg/dL AST 15 (13-39) U/L ALT 13 (7-52) U/L Alkaline Phosphatase 65 (34-104) U/L Total Creatine Kinase 76 (10-223) U/L Troponin I 0.03 (<0.04) ng/mL C-Reactive Protein 147.02 H (< 5.00) mg/L B-Natriuretic Peptide 183 H ( - 100) pg/mL Total Protein 6.1 L (6.4-8.9) g/dL Albumin 3.4 (3.2-5.2) g/dL Globulin 2.7 (2-4) g/dL Albumin/Globulin Ratio 1.3 (1-3) Urine Color Urine Appearance Urine pH (5-9) Ur Specific [place] (1.010-1.030) Urine Protein (Negative) Urine Ketones (Negative) Urine Blood (Negative) Urine Nitrate (Negative) Urine Bilirubin (Negative) Urine Urobilinogen (Negative) Ur Leukocyte Esterase (Negative) Urine Glucose (Negative) Influenza A (Rapid) (Negative) Influenza B (Rapid) (Negative) 08/11/17 08/11/17 08/11/17 Range/Units 11:10 11:10 11:22 WBC 14.2 H (3.5-10.8) 10^3/ul RBC 4.08 (4.0-5.4) 10^6/ul Hgb 13.0 L (14.0-18.0) g/dl Hct 40 L (42-52) % MCV 99 H (80-94) fL MCH 32 H (27-31) pg MCHC 32 (31-36) g/dl RDW 15 (10.5-15) % Plt Count 306 (150-450) 10^3/ul MPV 8 (7.4-10.4) um3 Neut % (Auto) 81.6 (38-83) % Lymph % (Auto) 8.0 L (25-47) % Custer % (Auto) 7.9 (1-9) % Eos % (Auto) 1.7 (0-6) % Baso % (Auto) 0.8 (0-2) % Absolute Neuts (auto) 11.6 H (1.5-7.7) 10^3/ul Absolute Lymphs (auto) 1.1 (1.0-4.8) 10^3/ul Absolute Monos (auto) 1.1 H (0-0.8) 10^3/ul Absolute Eos (auto) 0.2 (0-0.6) 10^3/ul Absolute Basos (auto) 0.1 (0-0.2) 10^3/ul Absolute Nucleated RBC 0.03 10^3/ul Nucleated RBC % 0.2 APTT (26.0-36.3) seconds Patient Temperature Not Reportable ABG pH 7.34 L (7.35-7.45) ABG pH (Temp Correct) Not Reportable ABG pCO2 76 H* (35-45) mmHg ABG pCO2 (Temp Corrct Not Reportable ABG pO2 100 (80-100) mmHg ABG pO2 (Temp Correct Not Reportable ABG HCO3 34.1 H (19-31) mmol/L ABG O2 Saturation 97.3 (95-98) % ABG Base Excess 12.0 H (-2.0-2.0) Respiration Rate Not Reportable Ventilator Type Not Reportable Vent Mode Not Reportable FiO2 4 Inspiratory Time Not Reportable PEEP Not Reportable Pressure Support Not Reportable Pressure Control Not Reportable EPAP Not Reportable IPAP Not Reportable BiPAP Not Reportable Sodium (133-145) mmol/L Potassium (3.5-5.0) mmol/L Chloride (101-111) mmol/L Carbon Dioxide (22-32) mmol/L Anion Gap (2-11) mmol/L BUN (6-24) mg/dL Creatinine (0.67-1.17) mg/dL Est GFR ( Amer) (>60) Est GFR (Non-Af Amer) (>60) BUN/Creatinine Ratio (8-20) Glucose (70-100) mg/dL Lactic Acid 0.8 (0.5-2.0) mmol/L Calcium (8.6-10.3) mg/dL Total Bilirubin (0.2-1.0) mg/dL AST (13-39) U/L ALT (7-52) U/L Alkaline Phosphatase (34-104) U/L Total Creatine Kinase (10-223) U/L Troponin I (<0.04) ng/mL C-Reactive Protein (< 5.00) mg/L B-Natriuretic Peptide ( - 100) pg/mL Total Protein (6.4-8.9) g/dL Albumin (3.2-5.2) g/dL Globulin (2-4) g/dL Albumin/Globulin Ratio (1-3) Urine Color Urine Appearance Urine pH (5-9) Ur Specific [place] (1.010-1.030) Urine Protein (Negative) Urine Ketones (Negative) Urine Blood (Negative) Urine Nitrate (Negative) Urine Bilirubin (Negative) Urine Urobilinogen (Negative) Ur Leukocyte Esterase (Negative) Urine Glucose (Negative) Influenza A (Rapid) (Negative) Influenza B (Rapid) (Negative) 08/11/17 08/11/17 Range/Units 11:29 13:37 WBC (3.5-10.8) 10^3/ul RBC (4.0-5.4) 10^6/ul Hgb (14.0-18.0) g/dl Hct (42-52) % MCV (80-94) fL MCH (27-31) pg MCHC (31-36) g/dl RDW (10.5-15) % Plt Count (150-450) 10^3/ul MPV (7.4-10.4) um3 Neut % (Auto) (38-83) % Lymph % (Auto) (25-47) % Custer % (Auto) (1-9) % Eos % (Auto) (0-6) % Baso % (Auto) (0-2) % Absolute Neuts (auto) (1.5-7.7) 10^3/ul Absolute Lymphs (auto) (1.0-4.8) 10^3/ul Absolute Monos (auto) (0-0.8) 10^3/ul Absolute Eos (auto) (0-0.6) 10^3/ul Absolute Basos (auto) (0-0.2) 10^3/ul Absolute Nucleated RBC 10^3/ul Nucleated RBC % APTT (26.0-36.3) seconds Patient Temperature ABG pH (7.35-7.45) ABG pH (Temp Correct) ABG pCO2 (35-45) mmHg ABG pCO2 (Temp Corrct ABG pO2 (80-100) mmHg ABG pO2 (Temp Correct ABG HCO3 (19-31) mmol/L ABG O2 Saturation (95-98) % ABG Base Excess (-2.0-2.0) Respiration Rate Ventilator Type Vent Mode FiO2 Inspiratory Time PEEP Pressure Support Pressure Control EPAP IPAP BiPAP Sodium (133-145) mmol/L Potassium (3.5-5.0) mmol/L Chloride (101-111) mmol/L Carbon Dioxide (22-32) mmol/L Anion Gap (2-11) mmol/L BUN (6-24) mg/dL Creatinine (0.67-1.17) mg/dL Est GFR ( Amer) (>60) Est GFR (Non-Af Amer) (>60) BUN/Creatinine Ratio (8-20) Glucose (70-100) mg/dL Lactic Acid (0.5-2.0) mmol/L Calcium (8.6-10.3) mg/dL Total Bilirubin (0.2-1.0) mg/dL AST (13-39) U/L ALT (7-52) U/L Alkaline Phosphatase (34-104) U/L Total Creatine Kinase (10-223) U/L Troponin I (<0.04) ng/mL C-Reactive Protein (< 5.00) mg/L B-Natriuretic Peptide ( - 100) pg/mL Total Protein (6.4-8.9) g/dL Albumin (3.2-5.2) g/dL Globulin (2-4) g/dL Albumin/Globulin Ratio (1-3) Urine Color Yellow Urine Appearance Clear Urine pH 5.0 (5-9) Ur Specific [place] 1.030 (1.010-1.030) Urine Protein Negative (Negative) Urine Ketones Trace H (Negative) Urine Blood Negative (Negative) Urine Nitrate Negative (Negative) Urine Bilirubin Negative (Negative) Urine Urobilinogen Positive H (Negative) Ur Leukocyte Esterase Negative (Negative) Urine Glucose 3+(>=500 mg/dl) H (Negative) Influenza A (Rapid) Negative (Negative) Influenza B (Rapid) Negative (Negative) Result Diagrams: 08/12/17 07:26 08/12/17 07:26 Lab Statement: Any lab studies that have been ordered have been reviewed, and results considered in the medical decision making process. - Radiology chest XR Xray Interpretation: Positive (See Comments) - IMPRESSION: Suspect mild interstitial congestion. Hyperinflation. ED physician has reviewed this radiology report and agrees. Radiology Interpretation Completed By: Radiologist - EKG 1117 Cardiac Rate: NL EKG Rhythm: Sinus Rhythm - at 96 bpm EKG Interpretation: RBBB. EKG Comparison: No Significant Change - similar to prior EKG done on 08/02/17. Course/Dx - Course Assessment/Plan: This pt is a 72 y/o male presenting to [facility] via EMS from [facility] for SOB today. He notes he had a fever of 101 F today at his PCP 's office. Pt has multiple complaints, including stomach problems, increased bowel movements and increased urinary frequency. Pt is on Prednisone, Albuterol , and Metformin. Pt has not been taking his regular medications as he is living out of home. He notes he is staying at an [facility] (closer to [facility]) because he has an appointment next week and he lives far away. Pt was last seen in the ED on 08/08 for a GI bleed, for which he was admitted. PMHx includes COPD, asthma, DM , diverticulitis. Test results shows WBC of 14.2, slight anemia, glucose of 357 , CRP of 147, BNP of 183,. ABG ph of 7.34, pCO2 of 76, pO2 of 100, therefore this is compensated. Urinalysis is negative for UTI. Rapid influenza A and B are negative. Chest XR shows Suspect mild interstitial congestion. Hyperinflation. CRP tripled in a couple of days, therefore I will start the pt on Rocephin. I discussed the test results and findings with Dr. Yoo, who accepted the pt for admission. Pt is hemodynamically stable, alert and oriented x3. - Diagnoses Differential Diagnosis/HQI/PQRI: Positive: Asthma, Bronchitis, CHF, COPD Exacerbation, Pneumonia Provider Diagnoses: COPD exacerbation, Hypoxia Discharge - Discharge Plan Condition: Stable Disposition: ADMITTED TO [facility] The documentation as recorded by the Rubén delgadillo Angela accurately reflects the service I personally performed and the decisions made by Mehul saez Walter, MD.
[2017-08-13] MEDS: Insulin LISPRO* 1 UNITS UNIT SUBCUT ONE (17:43)
[2017-08-13] MEDS: Amoxicillin/Clavulanate TAB* 875 MG PO SCH (22:36)
[2017-08-13] MEDS: Insulin GLARGINE(*) 1 UNITS UNIT SUBCUT SCH (22:39)
[2017-08-14] MEDS: Albuterol/Ipratropium NEB.SOL* Albuterol 2.5 MG/Ipratropium 0.5 MG 3 ML INH SCH ×2 (01:03→07:55)
[2017-08-14 04:35] LABS: Hematocrit 37 % (42-52); Hemoglobin 11.6 g/dl (14.0-18.0); Mean Corpuscular HGB Conc 32 g/dl (31-36); Mean Corpuscular Hemoglobin 31 pg (27-31); Mean Corpuscular Volume 99 fL (80-94); Mean Platelet Volume 8 um3 (7.4-10.4); Red Blood Count 3.69 10^6/ul (4.0-5.4); Red Cell Distribution Width 15 % (10.5-15); White Blood Count 12.9 10^3/ul (3.5-10.8)
[2017-08-14] MEDS: Heparin VIAL(*) 5000 UNITS/ML VIAL (FIVE THOUSAND) SUBCUT SCH ×3 (05:30→21:49)
[2017-08-14] MEDS: Insulin LISPRO* 1 UNITS UNIT SUBCUT SCH ×4 (07:53→21:50)
[2017-08-14] MEDS: Mometasone/Formoter 200/5 MDI INH SCH ×2 (07:55→20:13)
[2017-08-14] MEDS: predniSONE TAB* 20 MG PO SCH (09:27)
[2017-08-14] MEDS: Atorvastatin* 20 MG TAB PO SCH (09:27)
[2017-08-14] MEDS: Amoxicillin/Clavulanate TAB* 875 MG PO SCH ×2 (09:27→21:49)
--- NOTE | 2017-08-14 10:53 | RAD ---
INDICATION: Aspiration COMPARISON: None FINDINGS: 60 seconds of fluoroscopy were provided for the speech pathology department. Fluoroscopic imaging of the swallowing mechanism was performed. Briefly, there was aspiration of nectar thick liquids without apparent symptomatology. Please refer to full speech pathology report. CPT II Codes: 6045F (fluoro time doc)
--- NOTE | 2017-08-14 12:51 | CONS ---
CC: Robby Dey MD * PALLIATIVE CARE CONSULTATION: DATE OF CONSULT: 08/14/17 PRIMARY CARE PHYSICIAN: Robby Dey MD REFERRING PHYSICIAN: Pamela Mcintyre NP HOSPITAL COURSE: This is a 72-year-old male with past medical history of COPD on 4 to 5 L, tobacco use and diabetes who presented to the emergency room on the for hypoxia and shortness of breath. He was seen at his primary care physician's office that day where his O2 sat was in the 60s. He was not on oxygen, he had ran out at home. On my encounter, the patient states that his breathing is at his baseline. He states he has a good appetite. He occasionally has intermittent pain. When discussing his home life, he states [place]. He has difficulties with a roommate, Mitchell, who he states does not take care of himself and brings several items back to the house. They do not have a lot of space there. When asked about his oxygen needs, he states he usually has no issues managing his oxygen at home. He states he is able to get to the [facility] where he can shower routinely and obtain meals there without any issues. He states that he is planning to ask the friend to move out next summer so that he has more space and can manage easier. When talking about his frequent ER visits and admissions over the past several months, he admits that he does not want to keep coming back here and would like to have better control of his breathing at home. We discussed his eligibility for hospice given his end-stage COPD and he is interested in hospice coming out to his home to help manage him at home. We also reviewed his MOLST form and he is agreeable to being a DNR/DNI. Otherwise, remaining review of systems is negative. The patient states he had a good breakfast and is feeling better. PAST MEDICAL HISTORY: 1. 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 This is his fourth admission since October 2016. 2. History of GI bleed. 3. Tobacco use. 4. Diabetes. 5. Hypertension. 6. History of dysphagia. 7. BPH. 8. History of diverticulitis. INPATIENT MEDICATIONS: 1. Tylenol 650 mg every 4 hours as needed. 2. Albuterol 2.5 mg q.2 hours as needed. 3. Augmentin 875 mg p.o. b.i.d. 4. Lipitor 40 mg daily. 5. Heparin 5000 units subcu t.i.d. 6. Insulin lantus 15 units at bedtime and 20 units in the morning. 7. Lispro sliding scale. 8. Mometasone/formoterol 2 puffs inhaled b.i.d. 9. Zofran 4 mg IV q.6 hours as needed. 10. Prednisone 40 mg daily. ALLERGIES: No known drug allergies. FAMILY HISTORY: Both parents from old age. SOCIAL HISTORY: As mentioned, the patient lives in a trailer park home with a housemate named Mitchell. He is still smoking above 2 packs per day. He has been smoking for past 55 years. No alcohol use. No illicit drug use. His surrogate decision maker is his brother, Stefan. He states he does have a daughter, but she does not want anything to do with him. He states he is independent of his ADLs. REVIEW OF SYSTEMS: A 14-point review of systems completed as mentioned in the HPI, otherwise negative. PHYSICAL EXAM: Vital Signs: Temp 98.3, pulse rate 70, respiratory rate 18, oxygen saturation 91% on 7 L, blood pressure 115/56. General: In no acute distress, resting comfortably, watching TV. HEENT: Head, normocephalic. Pupils are equal and reactive. Oropharynx, mucous membranes moist. Neck: Supple. No lymphadenopathy. Cardiac: Regular rate and rhythm. Soft systolic murmur heard throughout. Respiratory: Diminished breath sounds. Poor aeration. Prolonged expiratory phase. No wheezes, rhonchi, or rales. Abdomen: Some mild distention. Soft and nontender. Extremities: Trace pretibial edema. +1 DPs. Neurologic: Alert and oriented x3. No focal neurologic deficits. LABORATORY DATA: White count 12.9, hemoglobin 11.6, hematocrit 37, and platelets 293,000. Sodium 140, potassium 5, chloride 104, bicarbonate 36, BUN 14, creatinine 0.6, albumin 3.4. RADIOGRAPHIC DATA: Chest x-ray on 08/11/17 shows suspect mild interstitial congestion and hyperinflation. ASSESSMENT/PLAN: This is a 72-year-old male with past medical history of end- stage chronic obstructive pulmonary disease, on 4 to 5 L, who presents to the emergency room from his primary care physician office after being found hypoxic while not on his home routine continuous oxygen. The patient has had several ER visits and admissions including for a recent GI bleed. He states he is relatively independent in his [facility] home. I discussed his end-stage chronic obstructive pulmonary disease requiring 4 to 5 L that he is eligible for hospice. He is interested in having hospice come out to the home. There needs to be further evaluation that he has a safe discharge plan and Physical Therapy is going to get involved and he will have Siria from social work follow up with him to discuss more of his home situation. Also, a MOLST form completed with a DNR/DNI was done. Currently the patient is asymptomatic with his breathing. If he gets to be more with increased work of breathing, recommend morphine as needed for air hunger. Thank you for this consultation. I will follow along with you. TIME SPENT: Greater than 60 minutes spent doing the consultation, more than half the time spent in direct patient contact. [id number]/CPS #: [id number] NICHOL
--- NOTE | 2017-08-14 14:39 | PN ---
Subjective Date of Service: 08/14/17 Interval History: Patient has no acute complaints, not feeling SOB, no CP, abdominal pain, F/C, productive cough or other signs of worsening respiratory status. While patient was being interviewed he took off his oxygen to eat and made no attempt to put it back on while he was eating. Patient had to be prompted to thicken his fluids and took a sip of thin liquids and started coughing profusely before trying to take another sip. Patient was prompted to put Nasal Cannula on and his saturations gonzalez from 89% with no O2 to 94% on 4.5L NC. Patient states that he feels like he's dying slowly and doesn't want to keep going on like this. Family History: Unchanged from Admission Social History: Unchanged from Admission Past Medical History: Unchanged from Admission Objective Active Medications: Acetaminophen (Tylenol Tab*) 650 mg PO Q4H PRN PRN Reason: FEVER/PAIN Albuterol (Ventolin 2.5 Mg/3 Ml Neb.Allyn*) 2.5 mg INH Q2H PRN PRN Reason: SOB/WHEEZING Last Admin: 08/13/17 11:54 Dose: 2.5 mg Amoxicillin/Clavulanate Potassium (Augmentin Tab*) 875 mg PO BID [facility] Last Admin: 08/14/17 09:27 Dose: 875 mg Atorvastatin Calcium (Lipitor*) 40 mg PO DAILY [facility] Last Admin: 08/14/17 09:27 Dose: 40 mg Dextrose (D50w Syringe 50 Ml*) 12.5 gm IV PUSH .FOR FS < 60 - SS PRN PRN Reason: FS < 60 Heparin Sodium (Porcine) (Heparin Vial(*)) 5,000 units SUBCUT Q8HR [facility] Last Admin: 08/14/17 12:45 Dose: 5,000 units Insulin Glargine (Lantus(*)) 15 units SUBCUT 2100 [facility] Last Admin: 08/13/17 22:39 Dose: 15 units Insulin Human Lispro (Humalog*) 0 units SUBCUT ACHS [facility] PRN Reason: Protocol Last Admin: 08/14/17 12:45 Dose: 12 units Insulin Human Lispro (Humalog*) 20 units SUBCUT ONCE ONE Stop: 08/14/17 17:33 Last Admin: 08/13/17 17:43 Dose: 20 units Mometasone Furoate/Formoterol Fumar (Dulera 200/5 Mdi*) 2 puff INH BID [facility] Last Admin: 08/14/17 07:55 Dose: Not Given Ondansetron HCl (Zofran Inj*) 4 mg IV Q6H PRN PRN Reason: NAUSEA Prednisone (Deltasone Tab*) 40 mg PO DAILY [facility] Last Admin: 08/14/17 09:27 Dose: 40 mg Vital Signs - 8 hr 08/14/17 08/14/17 08/14/17 07:33 07:49 07:56 Temperature 98.3 F Pulse Rate 70 70 Respiratory 18 21 18 Rate Blood Pressure 115/56 (mmHg) O2 Sat by Pulse 97 91 Oximetry Oxygen Devices in Use Now: Nasal Cannula - 4.5L, OxyMask Appearance: Patient is a 72yo male who appears stated age and is sitting in the bed in [facility]. Eyes: No Scleral Icterus, PERRLA Ears/Nose/Mouth/Throat: NL Teeth, Lips, Gums, Clear Oropharnyx, Mucous Membranes Moist Neck: NL Appearance and Movements; NL JVP, Trachea Midline Respiratory: Symmetrical Chest Expansion and Respiratory Effort, - - Diminished throughout, Course rhonchi heard in B/L Lower lobes. Cardiovascular: NL Sounds; No Murmurs; No JVD, RRR, - - Trace pitting edema in B /L LE. Pulses 2+ in Radial, DP/PT areas. Abdominal: NL Sounds; No Tenderness; No Distention, No Hepatosplenomegaly Lymphatic: No Cervical Adenopathy Extremities: No Clubbing, Cyanosis Skin: No Rash or Ulcers, No Nodules or Sclerosis Neurological: Alert and Oriented x 3, NL Sensation, NL Gait, NL Muscle Strength and Tone Result Diagrams: 08/14/17 04:24 08/12/17 07:26 Additional Lab and Data: Lab Results Microbiology and Other Data: Microbiology 08/11/17 20:15 Legionella Urinary Antigen - Final Urine Negative Legionella Streptococcus pneumoniae Ag Screen - Final Negative S. pneumo Antigen Assess/Plan/Problems-Billing Assessment: Mr. Gray is a 72 yo male with a PMH of COPD, HTN, HLD, dysphagia and diabetes who was admitted on 08/11/17 with concern for COPD exacerbation vs aspiration pneumonia. - Patient Problems (1) Acute and chronic respiratory failure Current Visit: No Status: Acute Code(s): J96.20 - ACUTE AND CHR RESP FAILURE , UNSP W HYPOXIA OR HYPERCAPNIA SNOMED Code(s): 52676494 Comment: O2 requirement back down to 4.5L NC. Secondary to COPD exacerbation vs aspiration pneumonia. No infiltrate on cxray but CRP and WBC elevated, with report of possible dysphagia. Continue albuterol, dulera, prednisone taper for COPD exacerbation. Switch to augmentin for possible aspiration pneumonia. WBC count increased back up today. Will monitor and consider antibiotic change patient begins to deteriorate clinically. (2) COPD with exacerbation Current Visit: No Status: Acute Code(s): J44.1 - CHRONIC OBSTRUCTIVE PULMONARY DISEASE W (ACUTE) EXACERBATION SNOMED Code(s): 912107654722227 Comment: Continue albuterol, dulera. Continue augmentin given concern for aspiration pneumonia. (3) Diabetes Current Visit: No Status: Acute Code(s): E11.9 - TYPE 2 DIABETES MELLITUS WITHOUT COMPLICATIONS SNOMED Code(s): 76943809 Comment: BG's up to 405, likely secondary to prednisone. Continue high dose sliding scale lispro with meals, with lantus 10 units daily. Hold glipizide and metformin. Will not adjust lantus today due to FSBG of 100 in AM (4) Swallowing difficulty Current Visit: No Status: Acute Code(s): R13.10 - DYSPHAGIA, UNSPECIFIED SNOMED Code(s): 44075838 Comment: History of dysphagia. Witnessed coughing spell with thin liquids. Appreciate speech therapy swallow eval and fluoroscopy. Honey Thickened liquids ordered. Concern for compliance at home with thickening liquids. (5) HLD (hyperlipidemia) Current Visit: No Status: Chronic Code(s): E78.5 - HYPERLIPIDEMIA, UNSPECIFIED SNOMED Code(s): 12409979 Comment: Continue atorvastatin. (6) HTN (hypertension) Current Visit: No Status: Chronic Code(s): I10 - ESSENTIAL (PRIMARY) HYPERTENSION SNOMED Code(s): 30285610 Comment: History of HTN, well controlled in hospital. SBP 100-120. Not on medication outpatient. (7) DNR (do not resuscitate) Current Visit: Yes Status: Acute (8) DVT prophylaxis Current Visit: No Status: Acute Code(s): NVT9003 - SNOMED Code(s): 138509820 Comment: - Heparin SQ. Status and Disposition: Inpatient. Patient interested in placement and palliative care consult. burn nurse following.
[2017-08-14] MEDS: Insulin LISPRO* 1 UNITS UNIT SUBCUT ONE (17:18)
[2017-08-14] MEDS: Insulin GLARGINE(*) 1 UNITS UNIT SUBCUT SCH (21:49)
[2017-08-15] MEDS: Heparin VIAL(*) 5000 UNITS/ML VIAL (FIVE THOUSAND) SUBCUT SCH ×3 (05:53→21:23)
[2017-08-15 06:21] LABS: Hematocrit 38 % (42-52); Hemoglobin 12.3 g/dl (14.0-18.0); Mean Corpuscular HGB Conc 32 g/dl (31-36); Mean Corpuscular Hemoglobin 32 pg (27-31); Mean Corpuscular Volume 99 fL (80-94); Mean Platelet Volume 8 um3 (7.4-10.4); Red Cell Distribution Width 15 % (10.5-15); White Blood Count 13.9 10^3/ul (3.5-10.8)
[2017-08-15] MEDS ORDERED: LORazepam TAB(*) 0.5 MG PO PRN (06:32)
--- NOTE | 2017-08-15 06:34 | PN ---
Progress Note - Progress Note Date of Service: 08/15/17 Note: The patient is demanding to leave the hospital. At this time I do not feel he has capacity to make that decision. Will try giving the patient a nicotine inhaler and prn ativan for agitation.
[2017-08-15] MEDS ORDERED: Mouth Piece, Nicotine* 1 EACH CARTRIDGE ONE (06:36)
[2017-08-15] MEDS ORDERED: LORazepam TAB(*) 0.5 MG ONE (06:36)
[2017-08-15] MEDS ORDERED: Nicotine Inhaler* 10 MG AMP ONE (06:37)
[2017-08-15] MEDS: Mouth Piece, Nicotine* 1 EACH CARTRIDGE INH PRN (06:39)
[2017-08-15 06:43] LABS: BUN/Creatinine Ratio 20.6 (8-20); Calcium 9.6 mg/dL (8.6-10.3); EGFR African American 148.3 (>60); EGFR Non-African American 115.3 (>60)
[2017-08-15] MEDS: Nicotine Inhaler* 10 MG AMP INH PRN (07:16)
[2017-08-15 07:44] LABS: Potassium 4.9 mmol/L (3.5-5.0)
[2017-08-15 08:15] LABS: C Reactive Protein 20.59 mg/L (< 5.00)
[2017-08-15] MEDS: Mometasone/Formoter 200/5 MDI INH SCH ×2 (08:24→19:52)
[2017-08-15] MEDS: Insulin LISPRO* 1 UNITS UNIT SUBCUT SCH ×4 (09:02→21:19)
[2017-08-15] MEDS: predniSONE TAB* 20 MG PO SCH (09:03)
[2017-08-15] MEDS: Atorvastatin* 20 MG TAB PO SCH (09:03)
[2017-08-15] MEDS: Amoxicillin/Clavulanate TAB* 875 MG PO SCH ×2 (09:03→21:19)
--- NOTE | 2017-08-15 10:13 | RAD ---
HISTORY: Aspiration pneumonia COMPARISONS: August 11, 2017 VIEWS: 2: Frontal and lateral views of the chest. FINDINGS: CARDIOMEDIASTINAL SILHOUETTE: The cardiomediastinal silhouette is normal. ZENIA: The zenia are normal. PLEURA: There is a small left pleural effusion. LUNG PARENCHYMA: The lung volumes are low. The lungs are clear. There is patchy alveolar opacification of the lung bases bilaterally. ABDOMEN: The upper abdomen is clear. There is no subphrenic gas. BONES AND SOFT TISSUES: No bone or soft tissue abnormalities are noted. OTHER: None. IMPRESSION: 1. COPD. 2. BIBASILAR ATELECTASIS VERSUS CONSOLIDATION. 3. SMALL LEFT PLEURAL EFFUSION
[2017-08-15 13:22] LABS: FIO2 5
[2017-08-15] MEDS: guaiFENesin ER TAB 600 MG PO SCH ×2 (13:26→21:19)
[2017-08-15 13:30] LABS: Blood Urea Nitrogen 13 mg/dL (6-24); Calcium 9.8 mg/dL (8.6-10.3); Chloride 95 mmol/L (101-111); EGFR African American 164.9 (>60); EGFR Non-African American 128.3 (>60); Glucose 289 mg/dL (70-100); Sodium 144 mmol/L (133-145)
[2017-08-15 13:34] LABS: PCO2 Arterial 98 mmHg (35-45)
[2017-08-15 13:36] LABS: Potassium 5.3 mmol/L (3.5-5.0)
[2017-08-15 13:48] LABS: CO2 Carbon Dioxide 46 mmol/L (22-32)
--- NOTE | 2017-08-15 14:45 | PN ---
Subjective Date of Service: 08/15/17 Interval History: Patient has no new complaints overnight except that he wants to go home and has been stating this repeatedly throughout the day. Patient is somewhat confused and seems to think he is in [place] at times but is oriented at others. Patient has no increased SOB, N/V, F/C, abdominal pain, Diarrhea, or constipation. Patient was also confused yesterday at times and his his oxygen increased overnight several times. Family History: Unchanged from Admission Social History: Unchanged from Admission Past Medical History: Unchanged from Admission Objective Active Medications: Acetaminophen (Tylenol Tab*) 650 mg PO Q4H PRN PRN Reason: FEVER/PAIN Acetazolamide (Diamox Tab*) 250 mg PO BID [facility] Stop: 08/17/17 21:01 Albuterol (Ventolin 2.5 Mg/3 Ml Neb.Allyn*) 2.5 mg INH Q2H PRN PRN Reason: SOB/WHEEZING Last Admin: 08/13/17 11:54 Dose: 2.5 mg Amoxicillin/Clavulanate Potassium (Augmentin Tab*) 875 mg PO BID [facility] Last Admin: 08/15/17 09:03 Dose: 875 mg Atorvastatin Calcium (Lipitor*) 40 mg PO DAILY [facility] Last Admin: 08/15/17 09:03 Dose: 40 mg Device (Nicotine Mouth Piece*) 1 each INH .USE WITH NICOTROL PRN PRN Reason: CRAVING Last Admin: 08/15/17 06:39 Dose: 1 each Dextrose (D50w Syringe 50 Ml*) 12.5 gm IV PUSH .FOR FS < 60 - SS PRN PRN Reason: FS < 60 Guaifenesin (Mucinex*) 1,200 mg PO BID [facility] Last Admin: 08/15/17 13:26 Dose: 1,200 mg Heparin Sodium (Porcine) (Heparin Vial(*)) 5,000 units SUBCUT Q8HR [facility] Last Admin: 08/15/17 12:48 Dose: 5,000 units Insulin Glargine (Lantus(*)) 20 units SUBCUT 2100 [facility] Insulin Human Lispro (Humalog*) 0 units SUBCUT ACHS MAGY PRN Reason: Protocol Last Admin: 08/15/17 12:49 Dose: 9 units Lorazepam (Ativan Tab(*)) 0.5 mg PO Q4H PRN PRN Reason: AGITATION Last Admin: 08/15/17 06:39 Dose: 0.5 mg Mometasone Furoate/Formoterol Fumar (Dulera 200/5 Mdi*) 2 puff INH BID [facility] Last Admin: 08/15/17 08:24 Dose: 2 puff Nicotine (Nicotine Inhaler*) 10 mg INH Q2H PRN PRN Reason: CRAVING Last Admin: 08/15/17 07:16 Dose: 10 mg Ondansetron HCl (Zofran Inj*) 4 mg IV Q6H PRN PRN Reason: NAUSEA Prednisone (Deltasone Tab*) 40 mg PO DAILY [facility] Last Admin: 08/15/17 09:03 Dose: 40 mg Vital Signs - 8 hr 08/15/17 08/15/17 08/15/17 07:33 08:26 10:46 Temperature 98.1 F Pulse Rate 87 78 Respiratory 20 18 19 Rate Blood Pressure 148/73 (mmHg) O2 Sat by Pulse 91 94 Oximetry 08/15/17 11:18 Temperature 98.1 F Pulse Rate 88 Respiratory 16 Rate Blood Pressure 144/71 (mmHg) O2 Sat by Pulse 89 Oximetry Oxygen Devices in Use Now: Nasal Cannula - 5L Appearance: Patient is a 72yo male who appears older than stated age and is sitting in the bed in [facility]. Eyes: No Scleral Icterus, PERRLA Ears/Nose/Mouth/Throat: NL Teeth, Lips, Gums, Clear Oropharnyx, Mucous Membranes Moist Neck: NL Appearance and Movements; NL JVP, Trachea Midline Respiratory: Symmetrical Chest Expansion and Respiratory Effort, - - Diminished breath sounds throughout. One wheeze heard in middle of right lung and course rhonchi heard in B/L lung bases. Cardiovascular: NL Sounds; No Murmurs; No JVD, RRR, - - 1+ pitting edema in B/L LE unchanged from prior exam. Abdominal: NL Sounds; No Tenderness; No Distention, No Hepatosplenomegaly Lymphatic: No Cervical Adenopathy Extremities: No Clubbing, Cyanosis Skin: No Rash or Ulcers, No Nodules or Sclerosis Neurological: NL Gait, - - CN II-XII intact. No focal deficits. Result Diagrams: 08/15/17 05:55 08/15/17 12:30 Additional Lab and Data: Lab Results Microbiology and Other Data: Microbiology 08/11/17 20:15 Legionella Urinary Antigen - Final Urine Negative Legionella Streptococcus pneumoniae Ag Screen - Final Negative S. pneumo Antigen Assess/Plan/Problems-Billing Assessment: Mr. Gray is a 72 yo male with a PMH of COPD, HTN, HLD, dysphagia and diabetes who was admitted on 08/11/17 with concern for COPD exacerbation vs aspiration pneumonia. - Patient Problems (1) Acute and chronic respiratory failure Current Visit: No Status: Acute Code(s): J96.20 - ACUTE AND CHR RESP FAILURE , UNSP W HYPOXIA OR HYPERCAPNIA SNOMED Code(s): 85186542 Comment: O2 requirement at 5L NC. Secondary to COPD exacerbation vs aspiration pneumonia. No infiltrate on cxr or repeat but CRP and WBC elevated, with documented dysphagia to thin liquids. Continue albuterol, dulera, prednisone taper for COPD exacerbation. On augmentin WBC count increased again but CRP significantly from previously today. Will monitor and consider antibiotic change patient begins to deteriorate clinically. Patient reataining CO2 with a serum CO2 of 46 and a ABG pCO2 of 98 with a normal pH of 7.35. Will start on Diamox to decrease serum bicarbonate and allow for compensation and attempt to lower O2 use by targeting a lower SpO2. (2) COPD with exacerbation Current Visit: No Status: Acute Code(s): J44.1 - CHRONIC OBSTRUCTIVE PULMONARY DISEASE W (ACUTE) EXACERBATION SNOMED Code(s): 065957934943870 Comment: Continue albuterol, dulera. Continue augmentin given concern for aspiration pneumonia. (3) Diabetes Current Visit: No Status: Acute Code(s): E11.9 - TYPE 2 DIABETES MELLITUS WITHOUT COMPLICATIONS SNOMED Code(s): 76904763 Comment: BG's up to 405, likely secondary to prednisone. Continue high dose sliding scale lispro with meals, with lantus 20 units daily. Hold glipizide and metformin. (4) Swallowing difficulty Current Visit: No Status: Acute Code(s): R13.10 - DYSPHAGIA, UNSPECIFIED SNOMED Code(s): 17113809 Comment: History of dysphagia. Witnessed coughing spell with thin liquids. Appreciate speech therapy swallow eval and fluoroscopy. Honey Thickened liquids ordered. Concern for compliance at home with thickening liquids. (5) HLD (hyperlipidemia) Current Visit: No Status: Chronic Code(s): E78.5 - HYPERLIPIDEMIA, UNSPECIFIED SNOMED Code(s): 03720554 Comment: Continue atorvastatin. (6) HTN (hypertension) Current Visit: No Status: Chronic Code(s): I10 - ESSENTIAL (PRIMARY) HYPERTENSION SNOMED Code(s): 94100001 Comment: History of HTN, well controlled in hospital. SBP 100-120. Not on medication outpatient. (7) DNR (do not resuscitate) Current Visit: Yes Status: Acute (8) DVT prophylaxis Current Visit: No Status: Acute Code(s): OZX6369 - SNOMED Code(s): 432943610 Comment: - Heparin SQ. Status and Disposition: Inpatient. Patient interested in placement and palliative care consult. [facility] bed offered. Will discharge when medically stable.
[2017-08-15] MEDS: acetaZOLAMIDE TAB* 250 MG PO SCH ×2 (15:54→21:19)
[2017-08-15] MEDS ORDERED: Sodium Polystyrene ORAL.SOL* 15 GM/60 ML BTL PO ONE (16:11)
[2017-08-15] MEDS ORDERED: Insulin GLARGINE(*) 1 UNITS UNIT SUBCUT SCH (21:00)
[2017-08-16] MEDS: Heparin VIAL(*) 5000 UNITS/ML VIAL (FIVE THOUSAND) SUBCUT SCH ×3 (05:38→22:03)
[2017-08-16 05:55] LABS: Hematocrit 41 % (42-52); Hemoglobin 12.7 g/dl (14.0-18.0); Mean Corpuscular HGB Conc 31 g/dl (31-36); Mean Corpuscular Hemoglobin 31 pg (27-31); Mean Corpuscular Volume 100 fL (80-94); Mean Platelet Volume 8 um3 (7.4-10.4); Red Blood Count 4.09 10^6/ul (4.0-5.4); Red Cell Distribution Width 15 % (10.5-15); White Blood Count 17.4 10^3/ul (3.5-10.8)
[2017-08-16 06:16] LABS: BUN/Creatinine Ratio 18.7 (8-20); Blood Urea Nitrogen 14 mg/dL (6-24); Chloride 96 mmol/L (101-111); Glucose 302 mg/dL (70-100); Potassium 4.4 mmol/L (3.5-5.0); Sodium 138 mmol/L (133-145)
[2017-08-16 06:17] LABS: C Reactive Protein 14.39 mg/L (< 5.00); Calcium 9.5 mg/dL (8.6-10.3); EGFR African American 132.4 (>60); Magnesium 2.1 mg/dL (1.9-2.7)
[2017-08-16 06:20] LABS: CO2 Carbon Dioxide 43 mmol/L (22-32)
[2017-08-16] MEDS: Mometasone/Formoter 200/5 MDI INH SCH ×2 (08:00→19:19)
[2017-08-16] MEDS: Amoxicillin/Clavulanate TAB* 875 MG PO SCH (08:36)
[2017-08-16] MEDS: predniSONE TAB* 20 MG PO SCH (08:36)
[2017-08-16] MEDS: guaiFENesin ER TAB 600 MG PO SCH ×2 (08:36→21:32)
[2017-08-16] MEDS: Insulin LISPRO* 1 UNITS UNIT SUBCUT SCH ×4 (08:36→21:46)
[2017-08-16] MEDS: Atorvastatin* 20 MG TAB PO SCH (08:36)
[2017-08-16] MEDS: acetaZOLAMIDE TAB* 250 MG PO SCH (08:42)
[2017-08-16 13:22] LABS: PCO2 Arterial 93 mmHg (35-45)
[2017-08-16] MEDS ORDERED: Insulin GLARGINE(*) 1 UNITS UNIT SUBCUT SCH (14:22)
[2017-08-16] MEDS ORDERED: Albuterol/Ipratropium NEB.SOL* Albuterol 2.5 MG/Ipratropium 0.5 MG 3 ML INH PRN (15:12)
--- NOTE | 2017-08-16 15:18 | PN ---
Subjective Date of Service: 08/16/17 Interval History: Patient drowsy and barely arousable. Denies any complaint including increased SOB, CP, Abdominal pain, Dysuria, F/C, N/V. Patient oriented only to self. Blood Gas repeated and shows acidosis. Transferred to ICU. Still drowsy and tolerating BiPAP well. Family History: Unchanged from Admission Social History: Unchanged from Admission Past Medical History: Unchanged from Admission Objective Active Medications: Acetaminophen (Tylenol Tab*) 650 mg PO Q4H PRN PRN Reason: FEVER/PAIN Albuterol (Ventolin 2.5 Mg/3 Ml Neb.Allyn*) 2.5 mg INH Q2H PRN PRN Reason: SOB/WHEEZING Last Admin: 08/13/17 11:54 Dose: 2.5 mg Albuterol/Ipratropium (Duoneb (Albuterol 2.5 Mg/Ipratropium 0.5 Mg)) 1 neb INH Q4H PRN PRN Reason: SOB/WHEEZING Amoxicillin/Clavulanate Potassium (Augmentin Tab*) 875 mg PO BID [facility] Last Admin: 08/16/17 08:36 Dose: 875 mg Atorvastatin Calcium (Lipitor*) 40 mg PO DAILY [facility] Last Admin: 08/16/17 08:36 Dose: 40 mg Device (Nicotine Mouth Piece*) 1 each INH .USE WITH NICOTROL PRN PRN Reason: CRAVING Last Admin: 08/15/17 06:39 Dose: 1 each Dextrose (D50w Syringe 50 Ml*) 12.5 gm IV PUSH .FOR FS < 60 - SS PRN PRN Reason: FS < 60 Guaifenesin (Mucinex*) 1,200 mg PO BID [facility] Last Admin: 08/16/17 08:36 Dose: 1,200 mg Heparin Sodium (Porcine) (Heparin Vial(*)) 5,000 units SUBCUT Q8HR [facility] Last Admin: 08/16/17 12:34 Dose: 5,000 units Insulin Glargine (Lantus(*)) 30 units SUBCUT 2100 [facility] Insulin Human Lispro (Humalog*) 0 units SUBCUT ACHS [facility] PRN Reason: Protocol Last Admin: 08/16/17 12:34 Dose: 6 units Lorazepam (Ativan Tab(*)) 0.5 mg PO Q4H PRN PRN Reason: AGITATION Last Admin: 08/15/17 06:39 Dose: 0.5 mg Mometasone Furoate/Formoterol Fumar (Dulera 200/5 Mdi*) 2 puff INH BID MAGY Last Admin: 08/16/17 08:00 Dose: 2 puff Nicotine (Nicotine Inhaler*) 10 mg INH Q2H PRN PRN Reason: CRAVING Last Admin: 08/15/17 07:16 Dose: 10 mg Ondansetron HCl (Zofran Inj*) 4 mg IV Q6H PRN PRN Reason: NAUSEA Prednisone (Deltasone Tab*) 40 mg PO DAILY [facility] Vital Signs - 8 hr 08/16/17 08/16/17 08/16/17 07:38 08:00 08:02 Temperature 97.3 F Pulse Rate 78 82 Respiratory 17 24 16 Rate Blood Pressure 121/55 (mmHg) O2 Sat by Pulse 93 95 Oximetry 08/16/17 08/16/17 08/16/17 11:33 14:28 14:30 Temperature 97.9 F Pulse Rate 84 93 Respiratory 16 10 33 Rate Blood Pressure 121/63 153/77 (mmHg) O2 Sat by Pulse 94 90 Oximetry 08/16/17 08/16/17 08/16/17 14:32 14:45 14:48 Temperature 98.9 F Pulse Rate 89 82 78 Respiratory 23 25 Rate Blood Pressure 147/77 113/64 113/64 (mmHg) O2 Sat by Pulse 93 93 93 Oximetry 08/16/17 08/16/17 14:57 15:00 Temperature Pulse Rate 77 Respiratory 17 19 Rate Blood Pressure 105/60 (mmHg) O2 Sat by Pulse 97 93 Oximetry Oxygen Devices in Use Now: BiPAP Appearance: Patient is a drowsy 72yo male alexia appears stated age and is sitting in the bed in NAD. Eyes: No Scleral Icterus, PERRLA Ears/Nose/Mouth/Throat: NL Teeth, Lips, Gums, Clear Oropharnyx, Mucous Membranes Moist Neck: NL Appearance and Movements; NL JVP, Trachea Midline Respiratory: Symmetrical Chest Expansion and Respiratory Effort, - - Course Rhonchi in B/L Lower lobes. Breath sounds severely diminished throughout. Cardiovascular: NL Sounds; No Murmurs; No JVD, RRR, No Edema, - - 2+ edema in B/ L LE. Abdominal: NL Sounds; No Tenderness; No Distention, No Hepatosplenomegaly, - - Obese Lymphatic: No Cervical Adenopathy Extremities: No Clubbing, Cyanosis Skin: No Rash or Ulcers, No Nodules or Sclerosis Neurological: - - CN II-XII intact, Drowsy and awakens to verbal stimulation. Minimally cooperative with exam. Result Diagrams: 08/16/17 05:33 08/16/17 05:33 Additional Lab and Data: Lab Results Microbiology and Other Data: Microbiology 08/11/17 20:15 Legionella Urinary Antigen - Final Urine Negative Legionella Streptococcus pneumoniae Ag Screen - Final Negative S. pneumo Antigen Assess/Plan/Problems-Billing Assessment: Mr. Gray is a 72 yo male with a PMH of COPD, HTN, HLD, dysphagia and diabetes who was admitted on 08/11/17 with concern for COPD exacerbation vs aspiration pneumonia. - Patient Problems (1) Acute and chronic respiratory failure Current Visit: No Status: Acute Code(s): J96.20 - ACUTE AND CHR RESP FAILURE , UNSP W HYPOXIA OR HYPERCAPNIA SNOMED Code(s): 80099182 Comment: Patient retaining CO2 with a serum CO2 of 43 Repeat ABG shows pCO2 of 93 with a Acidosis at 7.25. Diamox stopped, transferred to ICU for BiPAP. Appreciate Pulmonology input. Keep on BiPAP, Recheck ABG in 1 hour. Broaden Antibiotic coverage to cefepime/azithromycin. Made NPO due to sedation and aspiration risk. O2 requirement at 5L NC. Secondary to COPD exacerbation and aspiration pneumonia No infiltrate on cxr or repeat but CRP and WBC elevated, with documented dysphagia to thin liquids. Continue albuterol, dulera, spiriva, prednisone taper for COPD exacerbation. WBC count increased again. CRP continues to decline. May be appropriate for comfort care if no improvement. (2) COPD with exacerbation Current Visit: No Status: Acute Code(s): J44.1 - CHRONIC OBSTRUCTIVE PULMONARY DISEASE W (ACUTE) EXACERBATION SNOMED Code(s): 856245485154098 Comment: Continue Duoneb, Albuterol, dulera. Continue augmentin given concern for aspiration pneumonia. (3) Diabetes Current Visit: No Status: Acute Code(s): E11.9 - TYPE 2 DIABETES MELLITUS WITHOUT COMPLICATIONS SNOMED Code(s): 05417145 Comment: Fasting BG 302 this morning, likely secondary to prednisone. Continue high dose sliding scale lispro with meals, increase lantus to 30 units daily. Hold glipizide and metformin. (4) Swallowing difficulty Current Visit: No Status: Acute Code(s): R13.10 - DYSPHAGIA, UNSPECIFIED SNOMED Code(s): 28757909 Comment: History of dysphagia. Witnessed coughing spell with thin liquids. Appreciate speech therapy swallow eval and fluoroscopy. Honey Thickened liquids ordered. Concern for compliance at home with thickening liquids. (5) HLD (hyperlipidemia) Current Visit: No Status: Chronic Code(s): E78.5 - HYPERLIPIDEMIA, UNSPECIFIED SNOMED Code(s): 58947625 Comment: Continue atorvastatin. (6) HTN (hypertension) Current Visit: No Status: Chronic Code(s): I10 - ESSENTIAL (PRIMARY) HYPERTENSION SNOMED Code(s): 66021058 Comment: History of HTN, well controlled in hospital. SBP 100-120. Not on medication outpatient. (7) DNR (do not resuscitate) Current Visit: Yes Status: Acute Comment: Patient DNR and interested in Hospice. Will trial BiPAP and hopefully stabilize for discharge to SNF to allow him to return home with hospice. (8) DVT prophylaxis Current Visit: No Status: Acute Code(s): PWO0807 - SNOMED Code(s): 695926901 Comment: - Heparin SQ. Status and Disposition: Inpatient. Patient interested in placement and palliative care consult. [facility] bed offered. Will discharge when medically stable. Earliest they could take him is on 08/17.
[2017-08-16 15:21] LABS: EPAP 6; FIO2 60; IPAP 14; Resp Rate 14
[2017-08-16 15:27] LABS: PCO2 Arterial 98 mmHg (35-45)
[2017-08-16] MEDS ORDERED: Spiriva Inhaler DEVICE* 1 EACH DEVICE INH ONE (16:00)
[2017-08-16] MEDS ORDERED: Cefepime(*) 1 GM in NS 0.9% 50 ML* 50 ML IVPB SCH (16:00)
[2017-08-16] MEDS ORDERED: CEFEPIME* 2 GM in Dextrose* 50 ml IV SCH (16:30)
[2017-08-16] MEDS: Cefepime 1 GM in Dextrose(*) 1 GM/50 ML BAG IV SCH (17:37)
[2017-08-16] MEDS: Nicotine Inhaler* 10 MG AMP INH PRN (17:41)
[2017-08-16] MEDS: Mouth Piece, Nicotine* 1 EACH CARTRIDGE INH PRN (17:41)
[2017-08-16] MEDS: Azithromycin IV(*) 500 MG in NS 0.9% 250 ML* 250 ML IVPB SCH (19:02)
[2017-08-16] MEDS: Tiotropium CAP.INH* CAP.INH/18 MCG (USE ORDER SET !) INH SCH (19:19)
[2017-08-16 20:07] LABS: EPAP 6; FIO2 50; IPAP 14
[2017-08-16 20:14] LABS: PCO2 Arterial 89 mmHg (35-45)
--- NOTE | 2017-08-16 20:14 | CONS ---
PULMONARY CONSULTATION REPORT: DATE OF CONSULTATION: 08/16/17 CONSULTATION REQUESTED BY: ROSANNE Fernández REASON FOR CONSULTATION: Hypercapnic respiratory failure. HISTORY OF PRESENT ILLNESS: A 72-year-old male with multiple comorbidities including COPD, dementia, dysphagia, presented to the emergency room for evaluation of hypoxemia and shortness of breath. The patient was sent from his PCP's office for evaluation of hypoxemia to low 60s. He was not on O2 at that time as his oxygen tank ran out. He was recently discharged after being admitted for possible GI bleed. The patient reports having a worsening cough. He also reports choking while eating. He denies chest pain, palpitations, or dizziness. He was admitted for treatment of acute COPD exacerbation and also for possible aspiration pneumonia. The patient has had a complicated course, has been having worsening hypoxemia and hypercapnia and respiratory acidosis. He was started on Diamox yesterday for significant metabolic alkalosis as a compensation for underlying respiratory acidosis, he was found to be drowsy this morning and barely arousable. Blood gas analysis showed hypercapnia and was transferred to ICU for noninvasive ventilation. He was placed on BiPAP and I have seen and examined him. He is not able to provide information or history at this time. History obtained from his chart. He appears drowsy, arousable. He has been tolerating BiPAP well. Blood gas and other labs were reviewed. The patient is on maximal treatment for COPD at this time. The patient is tolerating BiPAP well at this time. Speech and Swallow revealed a possible aspiration. Chest x-ray was reviewed by me showed evidence of bibasilar atelectasis versus consolidation and small left pleural effusion with underlying hyperinflation suggestive of COPD. The patient is currently on 60% FiO2, saturating 99%. He is on prednisone 40 mg, Dulera, and nebulizer treatments. He is on Augmentin. Urine was negative for Legionella and Strep pneumo antigens. Influenza testing was negative. Blood cultures negative to date. PAST MEDICAL HISTORY: 1. COPD. 2. Diabetes. 3. Hyperlipidemia. 4. Hypertension. 5. Dysphagia. 6. BPH. PAST SURGICAL HISTORY: Denied. MEDICATIONS: 1. Bactroban. 2. Glipizide. 3. Athlete's foot medication. 4. Metformin. 5. Theophylline. 6. Coreg. 7. Simvastatin. 8. Lasix. 9. Spiriva. 10. Albuterol. 11. Pulmicort. 12. Prednisone. ALLERGIES: No known drug allergies. FAMILY HISTORY: Both parents of old age. SOCIAL HISTORY: Half a pack a day smoker, continues to smoke. REVIEW OF SYSTEMS: Limited given the patient being drowsy. PHYSICAL EXAMINATION: The patient is drowsy, arousable to verbal stimuli. Vital Signs: Temperature 98.9, pulse 77 beats per minute, respiratory rate 19 per minute, O2 sat 99% on 60% FiO2, blood pressure 105/60. HEENT: Pupils equal and reactive to light, mucous membranes moist. Respiratory: Diminished air entry bilaterally, decreased at bases. Cardiovascular: S1, S2 present, regular. Skin: No rash or bruises. Musculoskeletal: Normal range of motion. Neuro: No focal deficits, drowsy secondary to underlying hypercapnia. DIAGNOSTIC STUDIES/LAB DATA: WBC count 17.4, hemoglobin 12.7, hematocrit 41, and platelet count was 318. Blood gas analysis showed respiratory acidosis with pCO2 of 98, pH 7.24, pO2 of 70 while on BiPAP, with bicarb 32.9. Chest x-ray as described above in HPI. IMPRESSION AND RECOMMENDATIONS: 72-year-old male with history of chronic obstructive pulmonary disease, noncompliant with O2 with worsening hypercapnia, likely [id number] hypercapnic and hypoxemic respiratory failure secondary to possible aspiration pneumonia. Would broaden antibiotic coverage given elevated white count. Agree with continuing current dose of prednisone. Noninvasive ventilation. Will repeat BiPAP in 4 hours to monitor improvements. Continue with nebulizers every 4 hours. Thank you for allowing me to participate in the care of your patient. Will follow up with you. The patient is DNR/DNI. D/w Chance Mojica [id number]/[facility] #: [id number] [facility]
[2017-08-16] MEDS: Insulin GLARGINE(*) 1 UNITS UNIT SUBCUT SCH (21:47)
[2017-08-17 01:15] LABS: Venous Bicarbonate HCO3 29.7 mmol/L (24-28)
[2017-08-17] MEDS: Cefepime 1 GM in Dextrose(*) 1 GM/50 ML BAG IV SCH ×2 (04:29→16:51)
[2017-08-17 04:30] LABS: FIO2 45; Patient Temp ABG 98.9
[2017-08-17 04:39] LABS: PCO2 Arterial 81 mmHg (35-45)
[2017-08-17] MEDS: Heparin VIAL(*) 5000 UNITS/ML VIAL (FIVE THOUSAND) SUBCUT SCH ×3 (06:03→22:18)
[2017-08-17 06:55] LABS: Hematocrit 41 % (42-52); Hemoglobin 12.8 g/dl (14.0-18.0); Mean Corpuscular HGB Conc 31 g/dl (31-36); Mean Corpuscular Hemoglobin 31 pg (27-31); Mean Corpuscular Volume 100 fL (80-94); Mean Platelet Volume 8 um3 (7.4-10.4); Red Blood Count 4.11 10^6/ul (4.0-5.4); Red Cell Distribution Width 15 % (10.5-15); White Blood Count 17.1 10^3/ul (3.5-10.8)
[2017-08-17 06:56] LABS: Add Diff/Slide Review? Slide Review Added; Comments Flag Yes
[2017-08-17 07:09] LABS: Albumin 3.1 g/dL (3.2-5.2); BUN/Creatinine Ratio 35.6 (8-20); Calcium 9.6 mg/dL (8.6-10.3); EGFR African American 174.7 (>60); EGFR Non-African American 135.8 (>60); Globulin 2.5 g/dL (2-4); Total Bilirubin 0.3 mg/dL (0.2-1.0); Total Protein 5.6 g/dL (6.4-8.9)
[2017-08-17] MEDS: Insulin LISPRO* 1 UNITS UNIT SUBCUT SCH ×4 (08:57→22:44)
[2017-08-17] MEDS ORDERED: predniSONE TAB* 20 MG PO SCH (09:00)
[2017-08-17] MEDS: Tiotropium CAP.INH* CAP.INH/18 MCG (USE ORDER SET !) INH SCH (09:59)
[2017-08-17] MEDS: Mometasone/Formoter 200/5 MDI INH SCH ×2 (09:59→21:38)
[2017-08-17] MEDS: Atorvastatin* 20 MG TAB PO SCH (11:22)
[2017-08-17] MEDS: guaiFENesin ER TAB 600 MG PO SCH ×2 (11:23→21:40)
[2017-08-17] MEDS: predniSONE TAB* 20 MG PO SCH (11:23)
--- NOTE | 2017-08-17 16:16 | PN ---
Subjective Date of Service: 08/17/17 Interval History: Mr. Gray reports that he is tired but doesn't offer any other complaint this morning. He denies chest pain, SOB, nausea, or abdominal pain. Note is made of patient's transfer to ICU for Bipap. He is now on vapotherm at 45% at 25L flow rate with an SpO2 of 87%. Family History: Unchanged from Admission Social History: Unchanged from Admission Past Medical History: Unchanged from Admission Objective Active Medications: Acetaminophen (Tylenol Tab*) 650 mg PO Q4H PRN Albuterol (Ventolin 2.5 Mg/3 Ml Neb.Allyn*) 2.5 mg INH Q2H PRN Albuterol/Ipratropium (Duoneb (Albuterol 2.5 Mg/Ipratropium 0.5 Mg)) 1 neb INH Q4H PRN Atorvastatin Calcium (Lipitor*) 40 mg PO DAILY MAGY Device (Nicotine Mouth Piece*) 1 each INH .USE WITH NICOTROL PRN Dextrose (D50w Syringe 50 Ml*) 12.5 gm IV PUSH .FOR FS < 60 - SS PRN Guaifenesin (Mucinex*) 1,200 mg PO BID MAGY Heparin Sodium (Porcine) (Heparin Vial(*)) 5,000 units SUBCUT Q8HR MAGY Azithromycin 500 mg/ Sodium (Chloride) 250 mls @ 250 mls/hr IVPB Q24H MAGY Cefepime HCl (Maxipime 1 Gm In Dextrose Duplex (*)) 1 gm in 50 mls @ 100 mls/ hr IV Q12H MAGY Insulin Glargine (Lantus(*)) 30 units SUBCUT 2100 MAGY Insulin Human Lispro (Humalog*) 0 units SUBCUT ACHS MAGY Lorazepam (Ativan Tab(*)) 0.5 mg PO Q4H PRN Mometasone Furoate/Formoterol Fumar (Dulera 200/5 Mdi*) 2 puff INH BID MAGY Nicotine (Nicotine Inhaler*) 10 mg INH Q2H PRN Ondansetron HCl (Zofran Inj*) 4 mg IV Q6H PRN Prednisone (Deltasone Tab*) 40 mg PO DAILY MAGY Tiotropium [place] (Spiriva Cap.Inh*) 1 cap INH DAILY [facility] Vital Signs: Temp Pulse Resp BP Pulse Ox 98.2 F 76 18 107/54 88 08/17/17 15:43 08/17/17 15:00 08/17/17 15:00 08/17/17 12:30 08/17/17 15:00 Oxygen Devices in Use Now: High Flow Heated Nasal Cannula Appearance: Male lying in bed in NAD Eyes: No Scleral Icterus Ears/Nose/Mouth/Throat: Mucous Membranes Moist Neck: Trachea Midline Respiratory: Symmetrical Chest Expansion and Respiratory Effort, - - Diminished bilaterally Cardiovascular: NL Sounds; No Murmurs; No JVD, No Edema Abdominal: NL Sounds; No Tenderness; No Distention Lymphatic: No Cervical Adenopathy Extremities: No Edema Skin: No Rash or Ulcers Neurological: NL Muscle Strength and Tone, - - Alert and oriented x 3 but confused about details. Difficult to direct during conversation. Nutrition: Taking PO's Result Diagrams: 08/17/17 06:35 08/17/17 06:35 Additional Lab and Data: Lab Results Microbiology and Other Data: Microbiology 08/11/17 20:15 Legionella Urinary Antigen - Final Urine Negative Legionella Streptococcus pneumoniae Ag Screen - Final Negative S. pneumo Antigen Assess/Plan/Problems-Billing Assessment: Mr. Gray is a 72 yo male with a PMH of COPD, HTN, HLD, dysphagia and diabetes who was admitted on 08/11/17 with concern for COPD exacerbation vs aspiration pneumonia now with worsening acute on chronic respiratory failure. - Patient Problems (1) Acute and chronic respiratory failure Comment: - Minimal improvement, appears that mentation is better. He is now on vapotherm and will continue on bipap at night. - Chronic hypoxic and hypercapnic respiratory failure, not likely to improve dramatically. - Appreciate pulmonology input, as well as welder fitter helper. - Secondary to COPD exacerbation and aspiration pneumonia. Continue cefepime and azithromycin. Continue dulera, spiriva, and prednisone. - Patient is DNR/DNI and has considered hospice care, do not anticipate that patient will improve enough to return home, will continue to consult with palliative care team. (2) Swallowing difficulty Comment: - Appreciate speech therapy swallow eval and fluoroscopy. Honey Thickened liquids ordered. (3) Diabetes Comment: - Fasting BG 110 this morning. Patient still eating well per nursing. - Continue high dose sliding scale lispro with meals, with lantus 30 units qPM. - Hold glipizide and metformin. (4) HLD (hyperlipidemia) Comment: Continue atorvastatin. (5) HTN (hypertension) Comment: - SBP 100-120. - Not on medication outpatient. (6) DVT prophylaxis Comment: - Heparin SQ. (7) Full code status Status and Disposition: Inpatient. Patient interested in placement. [facility] has offered a bed. ? possible discharge for Monday.
[2017-08-17] MEDS: Azithromycin IV(*) 500 MG in NS 0.9% 250 ML* 250 ML IVPB SCH (17:32)
[2017-08-17] MEDS: Insulin LISPRO* 1 UNITS UNIT SUBCUT ONE (18:28)
[2017-08-17] MEDS ORDERED: Insulin LISPRO* 1 UNITS UNIT SUBCUT ONE (21:57)
[2017-08-17] MEDS: Insulin GLARGINE(*) 1 UNITS UNIT SUBCUT SCH (22:17)
[2017-08-18] MEDS: Cefepime 1 GM in Dextrose(*) 1 GM/50 ML BAG IV SCH ×2 (05:15→15:52)
[2017-08-18] MEDS: Heparin VIAL(*) 5000 UNITS/ML VIAL (FIVE THOUSAND) SUBCUT SCH ×3 (06:20→22:00)
--- NOTE | 2017-08-18 07:19 | PN ---
Subjective Date of Service: 08/18/17 Interval History: Mr. Gray reports that he is feeling fine today. He is on salter cannula this morning and her SpO2 is > 90%. He denies chest pain, nausea, or abdominal pain. Family History: Unchanged from Admission Social History: Unchanged from Admission Past Medical History: Unchanged from Admission Objective Active Medications: Acetaminophen (Tylenol Tab*) 650 mg PO Q4H PRN Albuterol (Ventolin 2.5 Mg/3 Ml Neb.Allyn*) 2.5 mg INH Q2H PRN Albuterol/Ipratropium (Duoneb (Albuterol 2.5 Mg/Ipratropium 0.5 Mg)) 1 neb INH Q4H PRN Atorvastatin Calcium (Lipitor*) 40 mg PO DAILY MAGY Device (Nicotine Mouth Piece*) 1 each INH .USE WITH NICOTROL PRN Dextrose (D50w Syringe 50 Ml*) 12.5 gm IV PUSH .FOR FS < 60 - SS PRN Guaifenesin (Mucinex*) 1,200 mg PO BID MAGY Heparin Sodium (Porcine) (Heparin Vial(*)) 5,000 units SUBCUT Q8HR MAGY Azithromycin 500 mg/ Sodium (Chloride) 250 mls @ 250 mls/hr IVPB Q24H MAGY Cefepime HCl (Maxipime 1 Gm In Dextrose Duplex (*)) 1 gm in 50 mls @ 100 mls/ hr IV Q12H MAGY Insulin Glargine (Lantus(*)) 30 units SUBCUT 2100 [facility]Y Insulin Human Lispro (Humalog*) 0 units SUBCUT ACHS MAGY Insulin Human Lispro (Humalog*) 18 units SUBCUT ONCE ONE Lorazepam (Ativan Tab(*)) 0.5 mg PO Q4H PRN Mometasone Furoate/Formoterol Fumar (Dulera 200/5 Mdi*) 2 puff INH BID MAGY Nicotine (Nicotine Inhaler*) 10 mg INH Q2H PRN Ondansetron HCl (Zofran Inj*) 4 mg IV Q6H PRN Prednisone (Deltasone Tab*) 40 mg PO DAILY MAGY Tiotropium [place] (Spiriva Cap.Inh*) 1 cap INH DAILY [facility] Vital Signs: Temp Pulse Resp BP Pulse Ox 98.4 F 83 16 119/57 94 08/18/17 15:21 08/18/17 15:21 08/18/17 15:21 08/18/17 15:21 08/18/17 15:21 Oxygen Devices in Use Now: High Flow Heated Nasal Cannula Appearance: Male sitting up in chair in NAD Eyes: No Scleral Icterus Ears/Nose/Mouth/Throat: Mucous Membranes Moist Neck: Trachea Midline Respiratory: Symmetrical Chest Expansion and Respiratory Effort, - - Diminished Cardiovascular: NL Sounds; No Murmurs; No JVD, No Edema Abdominal: NL Sounds; No Tenderness; No Distention Lymphatic: No Cervical Adenopathy Extremities: No Edema Skin: No Rash or Ulcers Neurological: Alert and Oriented x 3, NL Muscle Strength and Tone Nutrition: Taking PO's Result Diagrams: 08/17/17 06:35 08/17/17 06:35 Additional Lab and Data: . Microbiology and Other Data: . Assess/Plan/Problems-Billing Assessment: Mr. Gray is a 72 yo male with a PMH of COPD, HTN, HLD, dysphagia and diabetes who was admitted on 08/11/17 with concern for COPD exacerbation vs aspiration pneumonia now with worsening acute on chronic respiratory failure. - Patient Problems (1) Acute and chronic respiratory failure Comment: - Continued improvement but remains on salter cannula. Mentation continues to improve. He will continue on bipap at night. - Chronic hypoxic and hypercapnic respiratory failure, not likely to improve dramatically. - Appreciate pulmonology input, as well as news copy editor. - Secondary to COPD exacerbation and aspiration pneumonia. Continue cefepime and azithromycin. Continue dulera, spiriva, and prednisone. - Patient is DNR/DNI and has considered hospice care, do not anticipate that patient will improve enough to return home, will continue to consult with palliative care team. (2) Swallowing difficulty Comment: - Appreciate speech therapy swallow eval and fluoroscopy. Honey Thickened liquids ordered. (3) Diabetes Comment: - Fasting BG 110 this morning, higher later in day due to dietary indiscretion. Patient still eating well per nursing. - Continue high dose sliding scale lispro with meals, with lantus 30 units qPM. - Hold glipizide and metformin. (4) HLD (hyperlipidemia) Comment: - Continue atorvastatin. (5) HTN (hypertension) Comment: - SBP 100-120. - Not on medication outpatient. (6) DVT prophylaxis Comment: - Heparin SQ. (7) Full code status Status and Disposition: Inpatient. Patient interested in placement. [facility] has offered a bed. ? possible discharge for Monday.
[2017-08-18] MEDS: Mometasone/Formoter 200/5 MDI INH SCH ×2 (07:59→20:21)
[2017-08-18] MEDS: Tiotropium CAP.INH* CAP.INH/18 MCG (USE ORDER SET !) INH SCH (07:59)
[2017-08-18] MEDS: Insulin LISPRO* 1 UNITS UNIT SUBCUT SCH ×4 (08:26→21:00)
[2017-08-18] MEDS: Atorvastatin* 20 MG TAB PO SCH (08:45)
[2017-08-18] MEDS: guaiFENesin ER TAB 600 MG PO SCH ×2 (08:45→21:00)
[2017-08-18] MEDS: predniSONE TAB* 20 MG PO SCH (08:46)
--- NOTE | 2017-08-18 10:51 | PN ---
Progress Note - Progress Note Date of Service: 08/18/17 - Pulm consult f/u note Note: Pt seen and examined bedside, overnight events noted. Pt sitting up in chair, wants to be d/braydon, reports having to take care of lot of things. Active Medications Generic Name Dose Route Start Last Admin Trade Name Freq PRN Reason Stop Dose Admin Acetaminophen 650 mg 08/11/17 14:45 Tylenol Tab* PO Q4H PRN FEVER/PAIN Albuterol 2.5 mg 08/11/17 14:45 08/13/17 11:54 Ventolin 2.5 Mg/3 Ml Neb.Allyn* INH 2.5 mg Q2H PRN Administration SOB/WHEEZING Albuterol/Ipratropium 1 neb 08/16/17 15:12 Duoneb (Albuterol 2.5 Mg/Ipratropium 0.5 Mg) INH Q4H PRN SOB/WHEEZING Atorvastatin Calcium 40 mg 08/12/17 09:00 08/18/17 08:45 Lipitor* PO 40 mg DAILY MAGY Administration Device 1 each 08/15/17 06:33 08/16/17 17:41 Nicotine Mouth Piece* INH 1 each .USE WITH NICOTROL PRN Administration CRAVING Dextrose 12.5 gm 08/11/17 14:54 D50w Syringe 50 Ml* IV PUSH .FOR FS < 60 - SS PRN FS < 60 Guaifenesin 1,200 mg 08/15/17 13:00 08/18/17 08:45 Mucinex* PO 1,200 mg BID MAGY Administration Heparin Sodium (Porcine) 5,000 units 08/11/17 22:00 08/18/17 06:20 Heparin Vial(*) SUBCUT 5,000 units Q8HR MAGY Administration Azithromycin 500 mg/ Sodium 250 mls @ 250 mls/hr 08/16/17 17:00 08/17/17 17: 32 Chloride IVPB 250 mls/hr Q24H MAGY Administration Cefepime HCl 1 gm in 50 mls @ 100 mls/hr 08/16/17 16:30 08/18/17 05:15 Maxipime 1 Gm In Dextrose Duplex (*) IV 100 mls/hr Q12H MAGY Administration Insulin Glargine 30 units 08/16/17 21:00 08/17/17 22:17 Lantus(*) SUBCUT 30 units 2100 MAGY Administration Insulin Human Lispro 0 units 08/13/17 07:30 08/18/17 08:26 Humalog* SUBCUT 3 units ACHS MAGY Administration Protocol Insulin Human Lispro 18 units 08/18/17 18:19 08/17/17 18:28 Humalog* SUBCUT 08/18/17 18:20 18 unit ONCE ONE Administration Lorazepam 0.5 mg 08/15/17 06:32 08/15/17 06:39 Ativan Tab(*) PO 0.5 mg Q4H PRN Administration AGITATION Mometasone Furoate/Formoterol Fumar 2 puff 08/11/17 21:00 08/18/17 07:59 Dulera 200/5 Mdi* INH 2 puff BID MAGY Administration Nicotine 10 mg 08/15/17 06:33 08/16/17 17:41 Nicotine Inhaler* INH 10 mg Q2H PRN Administration CRAVING Ondansetron HCl 4 mg 08/11/17 14:45 Zofran Inj* IV Q6H PRN NAUSEA Prednisone 40 mg 08/17/17 09:00 08/18/17 08:46 Deltasone Tab* PO 40 mg DAILY MAGY Administration Tiotropium [place] 1 cap 08/16/17 16:00 08/18/17 07:59 Spiriva Cap.Inh* INH 1 cap DAILY MAGY Administration Vital Signs Temp Pulse Resp BP Pulse Ox 97.9 F 60 21 101/63 95 08/18/17 08:00 08/18/17 07:59 08/18/17 06:06 08/18/17 06:00 08/18/17 06:00 O/E: Pt in NAD, sitting up in chair, alert, oriented HEENT: PERRLA, No JVD Lungs: Diminished air entry, no wheeze CVS: S1, S2+, regular Abd: Soft, BS+ Ext: Normal ROM Skin: No rash/bruise Laboratory Results - last 24 hr 08/17/17 08/17/17 08/17/17 16:58 17:11 17:30 Glucose 418 H POC Glucose (mg/dL) > 444 H* 411 H* 08/17/17 08/17/17 08/17/17 21:09 21:15 21:19 Glucose 418 H POC Glucose (mg/dL) 441 H* 415 H* 12/15/17 08:17 Glucose POC Glucose (mg/dL) 154 H I/R: 72 y o m with h/o COPD, O2 depeandant a/w worsening hypoxia and SOB found to have acute on chronic resp failure improved with BiPAP, FiO2 currently being tapered to nasal cannula also with improved mental status Acute COPD exacerbation likely sec to PNA with acute on chronic hypercapnic and hypoxic resp failure C/w nebulizers q 6 hrs while awake Pt on long acting bronchodilators On Nicotine patch Smoking cessation enforced On Cefepime, Azithromycin, will d/c Azithromycin as received 3 day course Possible asp PNA on Cefepime, to complete 7 day course COPD education Can be transferred to regular medical floor
[2017-08-18] MEDS: Azithromycin IV(*) 500 MG in NS 0.9% 250 ML* 250 ML IVPB SCH (16:55)
[2017-08-18] MEDS: Insulin LISPRO* 1 UNITS UNIT SUBCUT ONE (16:57)
[2017-08-18] MEDS: Insulin GLARGINE(*) 1 UNITS UNIT SUBCUT SCH (21:01)
[2017-08-19] MEDS: Cefepime 1 GM in Dextrose(*) 1 GM/50 ML BAG IV SCH ×2 (04:37→16:14)
[2017-08-19] MEDS: Heparin VIAL(*) 5000 UNITS/ML VIAL (FIVE THOUSAND) SUBCUT SCH ×3 (05:47→21:45)
[2017-08-19] MEDS: Insulin LISPRO* 1 UNITS UNIT SUBCUT SCH ×4 (07:36→21:42)
[2017-08-19] MEDS: guaiFENesin ER TAB 600 MG PO SCH ×2 (07:48→21:44)
[2017-08-19] MEDS: predniSONE TAB* 20 MG PO SCH (07:48)
[2017-08-19] MEDS: Atorvastatin* 20 MG TAB PO SCH (07:48)
[2017-08-19] MEDS: Mometasone/Formoter 200/5 MDI INH SCH ×2 (08:22→19:58)
[2017-08-19] MEDS: Tiotropium CAP.INH* CAP.INH/18 MCG (USE ORDER SET !) INH SCH (08:22)
--- NOTE | 2017-08-19 15:53 | PN ---
Subjective Date of Service: 08/19/17 Interval History: Mr. Gray denies complaint today other than complaining that his bottom hurts from lying in bed. Patient offered to sit in chair and he accepted. He denies chest pain, SOB, nausea, or abdominal pain. Family History: Unchanged from Admission Social History: Unchanged from Admission Past Medical History: Unchanged from Admission Objective Active Medications: Acetaminophen (Tylenol Tab*) 650 mg PO Q4H PRN Albuterol (Ventolin 2.5 Mg/3 Ml Neb.Allyn*) 2.5 mg INH Q2H PRN Albuterol/Ipratropium (Duoneb (Albuterol 2.5 Mg/Ipratropium 0.5 Mg)) 1 neb INH Q4H PRN Atorvastatin Calcium (Lipitor*) 40 mg PO DAILY MAGY Device (Nicotine Mouth Piece*) 1 each INH .USE WITH NICOTROL PRN Dextrose (D50w Syringe 50 Ml*) 12.5 gm IV PUSH .FOR FS < 60 - SS PRN Guaifenesin (Mucinex*) 1,200 mg PO BID MAGY Heparin Sodium (Porcine) (Heparin Vial(*)) 5,000 units SUBCUT Q8HR MAGY Azithromycin 500 mg/ Sodium (Chloride) 250 mls @ 250 mls/hr IVPB Q24H MAGY Cefepime HCl (Maxipime 1 Gm In Dextrose Duplex (*)) 1 gm in 50 mls @ 100 mls/ hr IV Q12H MAGY Insulin Glargine (Lantus(*)) 30 units SUBCUT 2100 MAGY Insulin Human Lispro (Humalog*) 0 units SUBCUT ACHS MAGY Lorazepam (Ativan Tab(*)) 0.5 mg PO Q4H PRN Mometasone Furoate/Formoterol Fumar (Dulera 200/5 Mdi*) 2 puff INH BID MAGY Nicotine (Nicotine Inhaler*) 10 mg INH Q2H PRN Ondansetron HCl (Zofran Inj*) 4 mg IV Q6H PRN Prednisone (Deltasone Tab*) 40 mg PO DAILY MAGY Tiotropium [place] (Spiriva Cap.Inh*) 1 cap INH DAILY MAGY Vital Signs: Temp Pulse Resp BP Pulse Ox 98.2 F 74 18 135/53 88 08/19/17 11:38 08/19/17 11:38 08/19/17 11:38 08/19/17 11:38 08/19/17 11:38 Oxygen Devices in Use Now: Nasal Cannula Appearance: Male sitting up in chair in NAD Eyes: No Scleral Icterus Ears/Nose/Mouth/Throat: Mucous Membranes Moist Neck: Trachea Midline Respiratory: Symmetrical Chest Expansion and Respiratory Effort, - - Diminished bilaterally Cardiovascular: NL Sounds; No Murmurs; No JVD, No Edema Abdominal: NL Sounds; No Tenderness; No Distention Lymphatic: No Cervical Adenopathy Extremities: No Edema Skin: No Rash or Ulcers Neurological: Alert and Oriented x 3, NL Muscle Strength and Tone Nutrition: Taking PO's Result Diagrams: 08/17/17 06:35 08/17/17 06:35 Additional Lab and Data: . Microbiology and Other Data: . Assess/Plan/Problems-Billing Assessment: Mr. Gray is a 72 yo male with a PMH of COPD, HTN, HLD, dysphagia and diabetes who was admitted on 08/11/17 with concern for COPD exacerbation vs aspiration pneumonia now with worsening acute on chronic respiratory failure. - Patient Problems (1) Acute and chronic respiratory failure Comment: - Continued improvement, now back on NC. He will continue on bipap at night. - Chronic hypoxic and hypercapnic respiratory failure. - Appreciate pulmonology input, as well as food production worker. - Secondary to COPD exacerbation and aspiration pneumonia. Continue cefepime completed course of azithromycin. Continue dulera, spiriva, and prednisone. - Patient is DNR/DNI and has considered hospice care, do not anticipate that patient will improve enough to return home, will continue to consult with palliative care team. (2) Swallowing difficulty Comment: - Appreciate speech therapy swallow eval and fluoroscopy. Honey Thickened liquids ordered. (3) Diabetes Comment: - Fasting BG 110 this morning, but up to 300 later in the day - Increase sliding scale lispro with meals, with lantus 30 units qPM. - Hold glipizide and metformin. (4) HLD (hyperlipidemia) Comment: - Continue atorvastatin. (5) HTN (hypertension) Comment: - SBP 100-120. - Not on medication outpatient. (6) DVT prophylaxis Comment: - Heparin SQ. (7) Full code status Status and Disposition: Inpatient. Patient interested in placement. [facility] has offered a bed. ? possible discharge for Monday.
[2017-08-19] MEDS: Azithromycin IV(*) 500 MG in NS 0.9% 250 ML* 250 ML IVPB SCH (17:13)
[2017-08-19] MEDS: Insulin GLARGINE(*) 1 UNITS UNIT SUBCUT SCH (21:47)
[2017-08-20] MEDS: Cefepime 1 GM in Dextrose(*) 1 GM/50 ML BAG IV SCH ×2 (04:14→16:34)
[2017-08-20] MEDS: Heparin VIAL(*) 5000 UNITS/ML VIAL (FIVE THOUSAND) SUBCUT SCH ×3 (06:11→21:27)
[2017-08-20] MEDS: Mometasone/Formoter 200/5 MDI INH SCH ×2 (07:35→19:57)
[2017-08-20] MEDS: Tiotropium CAP.INH* CAP.INH/18 MCG (USE ORDER SET !) INH SCH (07:36)
[2017-08-20] MEDS: Atorvastatin* 20 MG TAB PO SCH (08:22)
[2017-08-20] MEDS: guaiFENesin ER TAB 600 MG PO SCH ×2 (08:23→20:22)
[2017-08-20] MEDS: predniSONE TAB* 10 MG PO SCH (08:23)
[2017-08-20] MEDS: Insulin LISPRO* 1 UNITS UNIT SUBCUT SCH ×6 (08:24→20:34)
[2017-08-20] MEDS ORDERED: Insulin LISPRO* 1 UNITS UNIT SUBCUT ONE ×2 (08:25→08:28)
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
[2017-08-20] MEDS ORDERED: glipiZIDE TAB* 5 MG ONE (08:30)
[2017-08-20] MEDS ORDERED: metFORMIN* 1,000 MG TAB ONE (08:30)
[2017-08-20] MEDS: metFORMIN* 1,000 MG TAB PO SCH ×2 (08:31→20:22)
[2017-08-20] MEDS: glipiZIDE TAB* 5 MG PO SCH ×2 (08:31→20:22)
[2017-08-20] MEDS: Mupirocin 2% OINT* TUBE TOPICAL SCH (17:30)
[2017-08-20] MEDS: Insulin GLARGINE(*) 1 UNITS UNIT SUBCUT SCH (20:33)
[2017-08-20] MEDS ORDERED: Mupirocin 2% OINT* TUBE TOPICAL SCH (21:00)
[2017-08-21] MEDS: Cefepime 1 GM in Dextrose(*) 1 GM/50 ML BAG IV SCH ×2 (04:32→16:02)
[2017-08-21] MEDS: Heparin VIAL(*) 5000 UNITS/ML VIAL (FIVE THOUSAND) SUBCUT SCH ×3 (05:23→21:20)
[2017-08-21 07:10] LABS: Hematocrit 37 % (42-52); Hemoglobin 11.9 g/dl (14.0-18.0); Mean Corpuscular HGB Conc 32 g/dl (31-36); Mean Corpuscular Hemoglobin 32 pg (27-31); Mean Corpuscular Volume 97 fL (80-94); Mean Platelet Volume 8 um3 (7.4-10.4); Red Blood Count 3.79 10^6/ul (4.0-5.4); Red Cell Distribution Width 14 % (10.5-15); White Blood Count 14.7 10^3/ul (3.5-10.8)
[2017-08-21] MEDS ORDERED: Insulin LISPRO* 1 UNITS UNIT SUBCUT ONE (08:08)
[2017-08-21] MEDS ORDERED: Dextrose 50% Syringe 50 ML* 25 GM/50 ML SYRINGE IV PUSH PRN (08:08)
[2017-08-21] MEDS: Mometasone/Formoter 200/5 MDI INH SCH ×2 (08:12→21:06)
[2017-08-21] MEDS: Tiotropium CAP.INH* CAP.INH/18 MCG (USE ORDER SET !) INH SCH (08:13)
[2017-08-21] MEDS: Insulin LISPRO* 1 UNITS UNIT SUBCUT SCH ×7 (08:51→20:26)
[2017-08-21] MEDS: Atorvastatin* 20 MG TAB PO SCH (08:58)
[2017-08-21] MEDS: metFORMIN* 1,000 MG TAB PO SCH ×2 (08:58→20:16)
[2017-08-21] MEDS: glipiZIDE TAB* 5 MG PO SCH ×2 (08:58→20:16)
[2017-08-21] MEDS: predniSONE TAB* 10 MG PO SCH (08:58)
[2017-08-21] MEDS: guaiFENesin ER TAB 600 MG PO SCH ×2 (08:59→20:16)
[2017-08-21] MEDS: Clotrimazole 1% CREAM* 30 GM TOPICAL SCH (08:59)
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
[2017-08-21] MEDS: Mupirocin 2% OINT* TUBE TOPICAL SCH (16:11)
[2017-08-21] MEDS: Insulin GLARGINE(*) 1 UNITS UNIT SUBCUT SCH (20:24)
[2017-08-22] MEDS: Cefepime 1 GM in Dextrose(*) 1 GM/50 ML BAG IV SCH ×2 (04:29→17:14)
[2017-08-22] MEDS: Heparin VIAL(*) 5000 UNITS/ML VIAL (FIVE THOUSAND) SUBCUT SCH ×3 (05:21→22:24)
[2017-08-22] MEDS: Insulin LISPRO* 1 UNITS UNIT SUBCUT SCH ×7 (07:41→22:25)
[2017-08-22] MEDS: Mometasone/Formoter 200/5 MDI INH SCH ×2 (08:29→20:33)
[2017-08-22] MEDS: Tiotropium CAP.INH* CAP.INH/18 MCG (USE ORDER SET !) INH SCH (08:29)
[2017-08-22] MEDS: predniSONE TAB* 10 MG PO SCH (08:43)
[2017-08-22] MEDS: Atorvastatin* 20 MG TAB PO SCH (08:43)
[2017-08-22] MEDS: metFORMIN* 1,000 MG TAB PO SCH ×2 (08:43→21:56)
[2017-08-22] MEDS: guaiFENesin ER TAB 600 MG PO SCH ×2 (08:43→21:56)
[2017-08-22] MEDS: glipiZIDE TAB* 5 MG PO SCH (08:43)
[2017-08-22] MEDS: Clotrimazole 1% CREAM* 30 GM TOPICAL SCH (08:44)
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
[2017-08-22] MEDS: Mupirocin 2% OINT* TUBE TOPICAL SCH (17:19)
[2017-08-22] MEDS: Insulin GLARGINE(*) 1 UNITS UNIT SUBCUT SCH (22:25)
[2017-08-23] MEDS: Cefepime 1 GM in Dextrose(*) 1 GM/50 ML BAG IV SCH (04:33)
[2017-08-23] MEDS: Heparin VIAL(*) 5000 UNITS/ML VIAL (FIVE THOUSAND) SUBCUT SCH (05:17)
[2017-08-23] MEDS: Mometasone/Formoter 200/5 MDI INH SCH (07:23)
[2017-08-23] MEDS: Tiotropium CAP.INH* CAP.INH/18 MCG (USE ORDER SET !) INH SCH (07:23)
[2017-08-23] MEDS: Insulin LISPRO* 1 UNITS UNIT SUBCUT SCH ×2 (07:28→08:44)
[2017-08-23 07:44] VITALS: BP 113/45
[2017-08-23] MEDS: guaiFENesin ER TAB 600 MG PO SCH (08:43)
[2017-08-23] MEDS: metFORMIN* 1,000 MG TAB PO SCH (08:43)
[2017-08-23] MEDS: Atorvastatin* 20 MG TAB PO SCH (08:43)
[2017-08-23] MEDS: predniSONE TAB* 10 MG PO SCH (08:43)
[2017-08-23] MEDS: Clotrimazole 1% CREAM* 30 GM TOPICAL SCH (08:46)
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
== END 2017-08-23 11:50 | DRG 177 ==
LOC: ED 10:42 → MED 14:03 → ICU 08-16 14:44 → MED 08-18 09:45
PROVIDERS: ADMIT Internal Medicine; ATTEND Internal Medicine
PROC: 5A09357 Assistance with Respiratory Ventilation, Less than 24 Consecutive Hours, Continuous Positive Airway Pressure (ICD-10-PCS; principal; 2017-08-15)
DX: J69.0 Pneumonitis due to inhalation of food and vomit (principal); J96.21 Acute and chronic respiratory failure with hypoxia; E11.649 Type 2 diabetes mellitus with hypoglycemia without coma; I50.9 Heart failure, unspecified; I11.0 Hypertensive heart disease with heart failure; R13.10 Dysphagia, unspecified; E87.2 Acidosis; J96.22 Acute and chronic respiratory failure with hypercapnia; J44.1 Chronic obstructive pulmonary disease with (acute) exacerbation; M19.90 Unspecified osteoarthritis, unspecified site; F41.9 Anxiety disorder, unspecified; F32.9 Major depressive disorder, single episode, unspecified; N40.0 Benign prostatic hyperplasia without lower urinary tract symptoms; E78.5 Hyperlipidemia, unspecified; F17.210 Nicotine dependence, cigarettes, uncomplicated; I45.10 Unspecified right bundle-branch block; F03.90 Unspecified dementia, unspecified severity, without behavioral disturbance, psychotic disturbance, mood disturbance, and anxiety; Z66 Do not resuscitate; T25.022A Burn of unspecified degree of left foot, initial encounter; R15.9 Full incontinence of feces; R19.7 Diarrhea, unspecified; Z79.4 Long term (current) use of insulin; Z83.3 Family history of diabetes mellitus; Z91.19 Patient's noncompliance with other medical treatment and regimen; Z99.81 Dependence on supplemental oxygen
CPT/HCPCS: 36415; 36600; 71010; 71020; 74177; 74230; 80048; 80053; 81003; 81015; 82272; 82550; 82565; 82803; 82947; 83036; 83605; 83690; 83735; 83880; 84484; 84520; 85025; 85027; 85610; 85730; 86140; 86850; 86900; 86901; 87040; 87070; 87077; 87086; 87186; 87205; 87502; 87899; 93005; 94640; 94660; 94760; 96374; 99283; 99406; A9270-GY; G0378; J0456; J0692; J0696; J1644; J2543; J2930; J7512; Q9967

== ENCOUNTER 2019-01-31 13:19 | Inpatient (IN) | payer MEDICARE, MEDICAID ==
--- NOTE | 2019-01-31 13:35 | ED ---
Shortness of Breath - HPI Summary HPI Summary: 73 year old M brought in by ambulance to [facility] with a chief complaint of shortness of breath since 4 days ago. The patient rates the pain 4/10 in severity. Symptoms aggravated by exertion. Symptoms alleviated by nothing. Patient reports productive cough with yellow phlegm. Patient denies chest pain, BLE edema, fever. Patient wears O2 at home. - History of Current Complaint Chief Complaint: EDShortnessOfBreath Time Seen by Provider: 01/31/19 13:27 Hx Obtained From: Patient Onset/Duration: Lasting Days - 4, Still Present Timing: Constant Current Severity: None Aggrevating Factors: Other - Exertion Alleviating Factors: Nothing Associated Signs & Symptoms: Negative - chest pain, BLE edema, fever, Cough ( Productive) - Allergy/Home Medications Allergies/Adverse Reactions: Allergies Allergy/AdvReac Type Severity Reaction Status Date / Time No Known Allergies Allergy Verified 08/07/17 21:56 Home Medications: Home Medications Acetaminophen [Acetaminophen Extra Strength] 1,000 mg PO Q8HR 01/31/19 [History Confirmed 01/31/19] Albuterol Sulfate 1.25 mg INH Q4HR 01/31/19 [History Confirmed 01/31/19] Albuterol/Ipratropium RESP(NF) [Combivent Respimat(NF)] 1 puff INH QID 01/31/19 [History Confirmed 01/31/19] DOXYcycline CAP(*) [DOXYcycline 100MG CAP(*)] 100 mg PO BID 01/31/19 [History Confirmed 01/31/19] Econazole 1% CREAM (NF) [Econazole 1 % CREAM (NF)] 1 applic TOPICAL BID PRN [History Confirmed 01/31/19] Fluticasone-Salmeterol 100-50* [Advair Diskus 100-50*] 1 puff INH BID 01/31/19 [ History Confirmed 01/31/19] Insulin GLARGINE(*) [Lantus(*)] 40 units SUBCUT 2100 01/31/19 [History Confirmed 01/31/19] Insulin LISPRO* [HumaLOG*] 14 units SUBCUT PC 01/31/19 [History Confirmed ] Sennosides/Docusate Sodium [Senna Plus Tablet] 1 tab PO DAILY 01/31/19 [History Confirmed 01/31/19] Spironolactone TAB* [Aldactone TAB*] 25 mg PO DAILY 01/31/19 [History Confirmed 01/31/19] Torsemide TAB* [Demadex*] 20 mg PO BID 01/31/19 [History Confirmed 01/31/19] PMH/Surg Hx/FS Hx/Imm Hx Previously Healthy: No Endocrine/Hematology History: Reports: Hx Diabetes Denies: Hx Anticoagulant Therapy, Hx Blood Disorders, Hx Blood Transfusions, Hx Bone Marrow Disease, Hx Systemic Lupus Erythematosus, Hx Sickle Cell Disease , Hx Thyroid Disease, Hx Anemia, Hx Unexplained Bleeding, Other Endocrine/ Hematological Disorders Cardiovascular History: Reports: Hx Congestive Heart Failure, Hx Hypercholesterolemia, Hx Hypertension, Other Cardiovascular Problems/Disorders - 1st degree heart block Denies: Hx Aneurysm, Hx Angioplasty, Hx Auto Implanted Cardiovert Defib, Hx Cardiac Arrest, Hx Cardiomegaly, Hx Congenital Heart Disease, Hx Coronary Artery Disease, Hx Deep Vein Thrombosis, Hx Hypotension, Hx Pacemaker/ICD, Hx Peripheral Vascular Disease, Hx Rheumatic Fever, Hx Syncope, Hx Valvular Heart Disease Respiratory History: Reports: Hx Chronic Obstructive Pulmonary Disease (COPD), Hx Pneumonia, Other Respiratory Problems/Disorders - resp failure, pneumonia Denies: Hx Asthma, Hx Chronic Bronchitis, Hx Cystic Fibrosis, Hx Lung Cancer , Hx Pleural Effusion, Hx Pulmonary Edema, Hx Pulmonary Embolism, Hx Seasonal Allergies, Hx Sleep Apnea GI History: Denies: Hx Cirrhosis, Hx Crohn's Disease, Hx Diverticulosis, Hx Gall Bladder Disease, Hx Gastroesophageal Reflux Disease, Hx Gastrointestinal Bleed, Hx Hiatal Hernia, Hx Irritable Bowel, Hx Jaundice, Hx Obstructive Bowel, Hx Ileostomy, Hx Pyloric Stenosis, Hx Ulcer, Other GI Disorders History: Reports: Hx Benign Prostatic Hyperplasia Denies: Hx Acute Renal Failure, Hx Chronic Renal Failure, Hx Dialysis, Hx Kidney Infection, Hx Kidney Stones, Hx Renal Disease Musculoskeletal History: Reports: Hx Arthritis Denies: Hx Back Problems, Hx Bursitis, Hx Congenital Bone Abnormalities, Hx Fibromyalgia, Hx Gout, Hx Orthopedic Injury, Hx Osteoporosis, Hx Scoliosis, Hx Tendonitis, Other Musculoskeletal History Sensory History: Reports: Hx Contacts or Glasses Denies: Hx Cataracts, Hx Eye Injury, Hx Eye Prosthesis, Hx Glaucoma, Hx Legally Blind, Hx Macular Degeneration, Hx Vision Problem, Hx Deafness, Hx Hearing Aid, Hx Hearing Problem, Other Sensory Impairments Opthamlomology History: Reports: Hx Contacts or Glasses Denies: Hx Cataracts, Hx Eye Injury, Hx Eye Prosthesis, Hx Glaucoma, Hx Legally Blind, Hx Macular Degeneration, Hx Vision Problem, Other Sensory Impairments Neurological History: Denies: Hx Dementia, Hx Seizures Psychiatric History: Reports: Hx Anxiety, Hx Depression, Hx Inpatient Treatment - WHEN HE WAS 20, Hx Community Mental Health Tx, Hx Substance Abuse - Previous ETOH Denies: Hx Attention Deficit Hyperactivity Disorder, Hx Eating Disorder, Hx Panic Disorder, Hx Post Traumatic Stress Disorder, Hx Schizophrenia, Hx Bipolar Disorder, Hx Suicide Attempt, Hx of Violent Episodes Against Others, Other Psychiatric Issues/Disorders - Cancer History Hx Chemotherapy: No Hx Radiation Therapy: No - Surgical History Surgery Procedure, Year, and Place: T&A 1953 Hx Anesthesia Reactions: No Infectious Disease History: No Infectious Disease History: Denies: Hx Hepatitis, Hx Human Immunodeficiency Virus (HIV), Hx Tuberculosis , Traveled Outside the [place] in Last 30 Days - Family History Known Family History: Positive: Diabetes Negative: Seizure Disorder - Social History Alcohol Use: Rare Alcohol Amount: 1-2x PER MONTH Hx Substance Use: No Substance Use Type: Reports: None Substance Use Comment - Amount & Last Used: Patient states he smokes marijuana rarely. Hx Tobacco Use: Yes Smoking Status (MU): Heavy Every Day Tobacco Smoker Type: Cigarettes Amount Used/How Often: DAILY 1PPD Length of Time of Smoking/Using Tobacco: 28 YEARS Have You Smoked in the Last Year: Yes Review of Systems Negative: Fever Negative: Chest Pain Positive: Shortness Of Breath, Cough Negative: Edema All Other Systems Reviewed And Are Negative: Yes Physical Exam - Summary Physical Exam Summary: VITAL SIGNS: Reviewed. GENERAL: Patient is a well-developed and nourished MALE who is lying comfortable in the stretcher. Patient is not in any acute respiratory distress. HEAD AND FACE: No signs of trauma. No ecchymosis, hematomas or skull depressions. No sinus tenderness. EYES: PERRLA, EOMI x 2, No injected conjunctiva, no nystagmus. EARS: Hearing grossly intact. Ear canals and tympanic membranes are within normal limits. MOUTH: Dry oral mucosa NECK: Supple, trachea is midline, no adenopathy, no JVD, no carotid bruit, no c- spine tenderness, neck with full ROM. CHEST: Symmetric, no tenderness at palpation LUNGS: Crackles in both bases of lungs, decreased breath sounds CVS: Regular rate and rhythm, S1 and S2 present, no murmurs or gallops appreciated. ABDOMEN: Soft, non-tender. No signs of distention. No rebound no guarding, and no masses palpated. Bowel sounds are normal. EXTREMITIES: FROM in all major joints, no edema, no cyanosis or clubbing. NEURO: Alert and oriented x 3. No acute neurological deficits. Speech is normal and follows commands. SKIN: Dry and warm. Triage Information Reviewed: Yes Vital Signs On Initial Exam: Initial Vitals Temp Pulse Resp BP Pulse Ox 97.8 F 104 20 142/82 89 01/31/19 13:21 01/31/19 13:21 01/31/19 13:21 01/31/19 13:21 01/31/19 13:21 Vital Signs Reviewed: Yes Diagnostics - Vital Signs Vital Signs Temp Pulse Resp BP Pulse Ox 01/31/19 13:21 97.8 F 104 20 142/82 89 - Laboratory Result Diagrams: 01/31/19 14:06 01/31/19 14:06 Lab Statement: Any lab studies that have been ordered have been reviewed, and results considered in the medical decision making process. - Radiology CXR Radiology Interpretation Completed By: Radiologist Summary of Radiographic Findings: PATCHY RIGHT BASILAR ATELECTASIS VERSUS EARLY CONSOLIDATION. ED physician has reviewed this report. - EKG 1357 Cardiac Rate: NL - 99 BPM EKG Comparison: No Significant Change - 08/15/17 Summary of EKG Findings: Ectopic atrial tachycardia at 99 BPM, RBBB, similar to previous EKG on 08/15/17 - Additional Comments Diagnostic Additional Comments: CTA Chest, per radiology, 1. No visualized pulmonary embolus. The subsegmental pulmonary arteries are subobtimally demonstrated, and cannot be completely cleared. 2. Bibasilar atelectasis, and left lower lobe consolidation which may be pneumonia or aspiration. 3. Additional occasional scattered patchy areas of consolidation also suggesting inflammation or infection. Nodules could be obscured currently here and followup after therapy is recommended. 4. Moderate bronchial wall thickening with some areas of impacted secretions in the lower lobes. 5. No other acute disease seen. As above. ED physician has reviewed this report. Course/Dx - Course Assessment/Plan: 73 year old M brought in by ambulance to [facility] with a chief complaint of shortness of breath since 4 days ago. The patient rates the pain 4/ 10 in severity. Symptoms aggravated by exertion. Symptoms alleviated by nothing. Patient reports productive cough with yellow phlegm. Patient denies chest pain, BLE edema, fever. Patient wears O2 at home. Blood work shows WBCs of 14.3, hemoglobin 12.9, hematocrit 40, chloride 93, carbon dioxide is 39, BUN is 29, glucose 315, BNP of 200 and CRP 336. Chest x-ray impression: Patchy right basilar atelectasis versus consolidation. In the ED course, the patient was started on Rocephin and azithromycin. ABG shows a pH of 7.38, PCO2 of 71, PO2 66, O2 sat is 93.7. Therefore at this point, I decided to place the patient in BiPAP. I repeated the ABG which showed a pH of 7.36, PCO2 79, PO2 is 96, O2 sat is 98.9. At this time, I discussed my physical exam and findings with Dr. Mendoza from the intensive care unit and she came and assessed the patient. She recommends for the patient to be placed on Zosyn for the pneumonia , and to remove the BiPAP at this time. She only recommends a nasal cannula to keep and O2 sat between 90 to 92%. She also recommends for the patient to be admitted to the hospital services. I discuss my physical exam, findings and test results with Dr. Moreno from the hospitalist services and she agrees to admit patient to her services. Patient is hemodynamically stable alert and oriented x 3. - Diagnoses Differential Diagnosis/HQI/PQRI: Positive: Asthma, Bronchitis, CHF, COPD Exacerbation, SD, Pneumonia Provider Diagnoses: COPD exacerbation, Pneumonia, Hypercapnia - Physician Notifications Discussed Care of Patient With: Dexter Mendoza Time Discussed With Above Provider: 16:56 Instructed by Provider To: Other - Dr. Mendoza, ICU, will come see patient in ED. Spoke with Dr. Moreno, hospitalist, at 1719, who agrees to admit the patient - Critical Care Time Critical Care Time: 30-74 min Discharge - Sign-Out/Discharge Documenting (check all that apply): Patient Departure - Admit Patient Received Moderate/Deep Sedation with Procedure: No - Discharge Plan Condition: Fair Disposition: ADMITTED TO [facility] Referrals: Elton Torres [Primary Care Provider] - - Billing Disposition and Condition Condition: FAIR Disposition: Admitted to [facility] - Attestation Statements Document Initiated by Scribe: Yes Documenting Scribe: Yael Emmanuel Provider For Whom Abdirashid is Documenting (Include Credential): Ezra Carver MD Scribe Attestation: I, Yael Emmanuel, scribed for Ezra Carver MD on 01/31/19 at 1857. Scribe Documentation Reviewed: Yes Provider Attestation: The documentation as recorded by the scribeYael accurately reflects the service I personally performed and the decisions made by nh, Ezra Carver MD Status of Scribe Document: Viewed
[2019-01-31] MEDS ORDERED: methylPREDNISolone 125 MG* 2 ML VIAL IV ONE (13:50)
[2019-01-31] MEDS ORDERED: Albuterol/Ipratropium NEB.SOL* Albuterol 2.5 MG/Ipratropium 0.5 MG 3 ML INH ONE (13:50)
[2019-01-31 14:34] LABS: ABS Lymphocytes 0.4 10^3/ul (1.0-4.8); ABS Monocytes 0.7 10^3/ul (0-0.8); ABS Neutrophils 13.2 10^3/ul (1.5-7.7); Hematocrit 40 % (42-52); Hemoglobin 12.9 g/dL (14.0-18.0); Lymphocyte % 2.9 %; Mean Corpuscular HGB Conc 32 g/dL (31-36); Mean Corpuscular Hemoglobin 31 pg (27-31); Mean Corpuscular Volume 96 fL (80-94); Mean Platelet Volume 8.5 fL (7.4-10.4); Nucleated Red Blood Cells % 0.2; Platelet Count 290 10^3/uL (150-450); Red Blood Count 4.12 10^6 /uL (4.18-5.48); Red Cell Distribution Width 14 % (10.5-15); White Blood Count 14.3 10^3/uL (3.5-10.8)
[2019-01-31 14:52] LABS: Albumin 3.5 g/dL (3.2-5.2); BUN/Creatinine Ratio 26.1 (8-20); C Reactive Protein 336.06 mg/L (<8.01); Calcium 9.6 mg/dL (8.6-10.3); EGFR Non-African American 65.3 (>60); Globulin 3.6 g/dL (2-4); Potassium 4.5 mmol/L (3.5-5.0); Total Bilirubin 0.4 mg/dL (0.2-1.0); Total Protein 7.1 g/dL (6.4-8.9)
[2019-01-31 14:54] LABS: Troponin I 0.03 ng/mL (<0.04)
[2019-01-31 14:55] LABS: CKMB ng/mL 3.8 ng/mL (0.6-6.3)
[2019-01-31] MEDS ORDERED: cefTRIAXone(*) 1 GM in NS 0.9% 50 ML* 50 ML IVPB ONE (16:17)
[2019-01-31] MEDS ORDERED: Azithromycin 500 mg/250 ml NS 500 MG/250 ML BAG IVPB ONE (16:17)
[2019-01-31] MEDS ORDERED: Iodixanol* (CONTRAST) 320 MG/ML 100 ML SDV IV ONE (16:58)
[2019-01-31] MEDS ORDERED: Piperacillin/Tazobac ADVAN(*) 3.375 GM in NS 0.9% 100 ML* 100 ML IVPB ONE (17:34)
[2019-01-31] MEDS ORDERED: Acetaminophen TAB* 325 MG PO PRN (19:25)
[2019-01-31] MEDS ORDERED: NS 0.9% 1000 ML** 2,720 ML IV ONE (19:35)
[2019-01-31] MEDS ORDERED: ECONAZOLE 1% TOPICAL PRN (19:40)
[2019-01-31] MEDS ORDERED: Dextrose 50% Syringe 50 ML* 25 GM/50 ML SYRINGE IV PUSH PRN (19:46)
[2019-01-31] MEDS: Enoxaparin(*) 40 MG/0.4 ML SYR SUBCUT SCH (21:20)
[2019-01-31] MEDS: Docusate CAP* 100 MG PO SCH (21:21)
[2019-01-31] MEDS: Acetaminophen TAB* 325 MG PO SCH (21:21)
[2019-01-31] MEDS: Senna TAB PO SCH (21:21)
[2019-01-31] MEDS: metFORMIN* 1,000 MG TAB PO SCH (21:21)
[2019-01-31] MEDS: Insulin GLARGINE(*) 1 UNITS UNIT SUBCUT SCH (21:33)
[2019-01-31] MEDS: Torsemide TAB 10 MG PO SCH (21:34)
--- NOTE | 2019-01-31 21:58 | HP ---
HISTORY AND PHYSICAL: DATE OF ADMISSION: 01/31/19 PRIMARY CARE PROVIDER: Dr. Torres at [facility]. ATTENDING PHYSICIAN: Dr. Sidra Yoo* (dictated by ROSANNE Jeronimo). CHIEF COMPLAINT: Shortness of breath x3 to 4 days. HISTORY OF PRESENT ILLNESS: Shayan Gray is a 73-year-old white male with past medical history of COPD, on 3 L; history of hypercapnic respiratory failure; diabetes mellitus type 2; hypertension; and diastolic heart failure, who presents to the emergency department from [facility] due to shortness of breath x3 to 4 days. The patient explains that his shortness of breath has worsened over this period of time, and today it was very difficult for him to walk from his unit to the dining room and it took several minutes of sitting for him to recover from the shortness of breath. The patient increased his oxygen from 3 L and continued to not receive relief from the shortness of breath. He is unsure how high he increased his oxygen to. The patient reports that he typically has a productive cough. The nursing staff at [facility] states that the cough has worsened over the past week. There has been no documented fever per nursing staff at [facility]. The patient feels that he has been having cold sweats. The patient denies nausea, vomiting, abdominal pain, and chest pain. He does report that he has chronic constipation issue and did have 1 hard stool today. It is of note that the prescriptive history shows that the patient has been receiving doxycycline since 01/01/19. When discussed with [facility] nursing staff, it was unable to gather the reason why the patient is prescribed doxycycline as there is no documentation of pneumonia on chest x-ray that the nursing staff could see. The patient additionally denies headache, visual changes, and new edema. EMERGENCY DEPARTMENT COURSE: When the patient arrived to the emergency room, his temperature was 97.8 degrees Fahrenheit, pulse 104 beats per minute, respiratory rate 31 respirations per minute, oxygen saturation 89% on 4 L, blood pressure 142/82. The patient had an ABG in the emergency department, which demonstrated hypercapnia and the patient was placed on BiPAP; however, once the patient was on BiPAP, repeat ABG demonstrated worsening hypercapnia. The bargain table clerk, Dr. Mendoza, was called and she recommended taking the patient off BiPAP and switching to a nasal cannula. While the patient was in the emergency department, he was given 1 dose of IV Zosyn 3.375 g, 1 g of IV ceftriaxone, and 1 dose of 500 mg IV azithromycin. He additionally was given 125 mg of IV Solu-Medrol and DuoNeb. The hospitalists were then asked to evaluate the patient for admission. PAST MEDICAL HISTORY: 1. COPD, on 3 L of oxygen at home. 2. History of hypercapnic respiratory failure, previously declined BiPAP. 3. Diabetes mellitus type 2. 4. Hyperlipidemia. 5. Hypertension. 6. History of dysphagia. 7. BPH. 8. Diastolic heart failure. 9. Diverticulosis. 10. 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 PAST SURGICAL HISTORY: Tonsillectomy. HOME MEDICATIONS: 1. Econazole 1% cream apply topically b.i.d. p.r.n. itching. 2. Albuterol inhaler 1 puff q.2 hours p.r.n. shortness of breath/wheezing. 3. Acetaminophen 1000 mg p.o. q.8 hours. 4. Albuterol nebulizer inhaled q.4 hours p.r.n. shortness of breath/wheezing. 5. Combivent Respimat inhaler 1 puff inhaled q.i.d. 6. Doxycycline 100 mg p.o. b.i.d. 7. Prednisone 20 mg daily. 8. Torsemide 20 mg p.o. b.i.d. 9. Advair 1 puff inhaled b.i.d. 10. Senna 1 tab p.o. daily. 11. Spironolactone 25 mg p.o. daily. 12. Insulin glargine 40 units subcu at 2100. 13. Insulin lispro 14 units subcu p.c. 14. Metformin 1000 mg p.o. b.i.d. 15. Simvastatin 40 mg p.o. daily. ALLERGIES: No known drug allergies. FAMILY HISTORY: Mother lived to age 104. The patient is unsure of her past medical history. Father at age 65 due to a cancer of the mouth. SOCIAL HISTORY: The patient is and has 1 child. He is a long-term resident at [facility] currently. The patient is a retired institutional custodian. The patient is a previous smoker. He quit 1.5 years ago when he entered [employer]. He was previously smoking about 2 packs per day and smoked for about 45 years. He denies alcohol use and illicit drug use. Should the patient need a surrogate medical decision maker, he would like his brother, Stefan Gray, to do so. His phone number is [phone]. REVIEW OF SYSTEMS: An 11-point review of systems was completed and all pertinent positives and negatives are above in the HPI. All other systems are negative. PHYSICAL EXAMINATION GENERAL: An obese white male, sitting comfortably in the emergency department stretcher, appearing in no acute distress. HEENT: Head: Normocephalic, atraumatic. Eyes: PERRL. Sclerae anicteric. ENT: Mucous membranes moist. NECK: Supple without JVD. LUNGS: Rhonchi in the lower bilateral bases. Wheezing throughout. CARDIO: Regular rate and rhythm without murmurs, rubs, or gallops. ABDOMEN: Abdomen is distended. Normoactive bowel sounds x4 quadrants. Abdomen is nontender to palpation. EXTREMITIES: No clubbing, cyanosis, or edema. NEURO: The patient is alert and oriented x3. The patient's speech is dysarthric. SKIN: Skin is warm, dry, and intact. There is patchy dryness to the lateral upper arms. DIAGNOSTIC STUDIES/LAB DATA: White blood cells 14.3, hemoglobin 12.9, hematocrit 40, platelet count 290. Sodium 140, potassium 4.5, chloride 93, carbon dioxide 39, BUN 29, creatinine 1.11, glucose 315, lactic acid 2.0. Troponin 0.03, CRP 36.06, BNP 200. ABG at 1415; pH 7.38, pCO2 71, pO2 66, bicarb 35.7, O2 sat 93.7%, and base excess 14. ABG at 1622; pH 7.36, pCO2 79, pO2 96, bicarb 36.8, O2 sat 98.9%, base excess 15.2. Chest x-ray, impression: Patchy right basilar atelectasis versus early consolidation. Chest CT angiogram, impression: 1. No visualized pulmonary embolus. The subsegmental pulmonary arteries are suboptimally demonstrated and cannot be completely cleared. 2. Bibasilar atelectasis and left lower lobe consolidation, which may be pneumonia or aspiration. 3. Additional occasional scattered patchy areas of consolidation also suggesting inflammation or infection. Nodules could be obscured currently here and followup after therapy is recommended. 4. Moderate bronchial wall thickening with some areas of impacted secretions in the lower lobes. 5. No other acute disease seen. EKG: Atrial tachycardia, rate 99 beats per minute, right bundle-branch block consistent with previous EKG in 2017. No T-wave changes. No ST depressions or elevations. ASSESSMENT AND PLAN: Shayan Gray is a 73-year-old male with past medical history of diabetes; chronic obstructive pulmonary disease, on 3 L; history of hypercapnic respiratory failure; hypertension; and diastolic heart failure, who presents to the emergency department with shortness of breath. The patient will be admitted OBV for: 1. Sepsis. This sepsis is likely secondary to pneumonia. It appears that the patient has been taking doxycycline at [facility], but it is unclear whether this was due to a diagnosis of pneumonia or not. I will place an order to obtain records from providers at [facility]. The patient received 1 dose of Zosyn, 1 dose of ceftriaxone, and 1 dose of azithromycin in the emergency department. We will continue IV ceftriaxone and azithromycin. The patient had blood cultures drawn prior to the administration of these antibiotics. Lactic acid was 2.0, which does not need to be rechecked at this point. I will order a normal saline fluid bolus. His vital signs of tachycardia and tachypnea as well as a white blood cell count of 14.3 are all the criteria meeting for sepsis. Additionally, urine legionella and Strep pneumoniae antigens have been ordered as well as a sputum culture. 2. Acute on chronic hypoxic respiratory failure. The patient normally uses 3 L oxygen at home and has been hypoxic and dyspneic despite this. He received BiPAP while he was in the emergency department, but his hypercapnia worsened with this and he has been on 5 L nasal cannula since then. The patient will be admitted into the ICU for further respiratory monitoring overnight. The patient received IV Solu- Medrol in the emergency department and we will continue 20 mg IV Solu-Medrol as well as DuoNeb scheduled. Likely, the underlying pneumonia has caused the exacerbation of his chronic obstructive pulmonary disease. His home inhalers will be continued per hospital formularies and will include Dulera and Spiriva as well as albuterol rescue inhaler. I am holding the patient's home prednisone while receiving IV Solu- Medrol. 3. Diabetes mellitus type 2. Order lispro sliding scale and we will continue a lower dose of p.m. insulin glargine and we will continue the patient's home metformin. Because the patient's creatinine clearance is over 30, metformin does not need to be held in the setting of receiving IV contrast. Fingersticks have been ordered a.c. h.s. 4. Diastolic heart failure. Continue the patient's home spironolactone and torsemide. 5. Hyperlipidemia. Continue the patient's home simvastatin. 6. Chronic constipation. The patient does appear distended, but abdominal exam is otherwise benign. If this clinically worsens, we will consider an abdominal plain film. The patient takes senna and docusate at home, and we will continue these. 7. FEN: Carbohydrate consistent diet has been ordered. The patient is receiving fluid bolus and all electrolytes are within normal limits. 8. Code status: The patient is DNR/DNI. MOLST has been updated. 9. DVT prophylaxis: The patient is receiving Lovenox 40 mg daily. TIME SPENT: Approximately 55 minutes was spent on this admission, approximately half this time was spent at bedside. This case has been reviewed by my attending Dr. Sidra Yoo, and she agrees with this plan of care. ROSANNE JERONIMO [id number]/[facility] #: [id number] MTDD
[2019-01-31] MEDS: Mometasone/Formoter 100/5 MDI INH SCH (21:59)
[2019-01-31] MEDS: NFT: Albuterol/Ipratropium RESP(NF) MDI (Combivent Respimat) INH SCH (22:57)
[2019-01-31 23:48] LABS: Urine Appearance Clear; Urine Bilirubin Negative (Negative); Urine Blood Negative (Negative); Urine Color Yellow; Urine Glucose 3+(>=500 mg/dL) (Negative); Urine Ketones Trace (Negative); Urine Nitrite Negative (Negative); Urine Protein Negative (Negative); Urine Specific Gravity 1.033 (1.010-1.030); Urine Urobilinogen Negative (Negative)
[2019-02-01] MEDS: Albuterol 2.5 MG/3 ML NEB.SOL* (0.083%) INH SCH ×7 (00:42→23:45)
[2019-02-01 05:42] LABS: ABS Lymphocytes 0.6 10^3/ul (1.0-4.8); ABS Monocytes 0.8 10^3/ul (0-0.8); ABS Neutrophils 9.5 10^3/ul (1.5-7.7); Hematocrit 35 % (42-52); Hemoglobin 11.2 g/dL (14.0-18.0); Lymphocyte % 5.8 %; Mean Corpuscular HGB Conc 32 g/dL (31-36); Mean Corpuscular Hemoglobin 31 pg (27-31); Mean Corpuscular Volume 98 fL (80-94); Mean Platelet Volume 8.4 fL (7.4-10.4); Nucleated Red Blood Cells % 0.1; Platelet Count 272 10^3/uL (150-450); Red Blood Count 3.56 10^6 /uL (4.18-5.48); Red Cell Distribution Width 14 % (10.5-15)
[2019-02-01 05:58] LABS: BUN/Creatinine Ratio 30.6 (8-20); Calcium 8.3 mg/dL (8.6-10.3); EGFR African American 91.2 (>60); EGFR Non-African American 75.4 (>60); Potassium 4.6 mmol/L (3.5-5.0)
[2019-02-01] MEDS ORDERED: cefTRIAXone(*) 1 GM in NS 0.9% 50 ML* 50 ML IVPB SCH (06:00)
[2019-02-01] MEDS: Acetaminophen TAB* 325 MG PO SCH ×3 (06:33→21:30)
[2019-02-01] MEDS: Mometasone/Formoter 100/5 MDI INH SCH ×2 (07:29→19:42)
[2019-02-01] MEDS: metFORMIN* 1,000 MG TAB PO SCH ×2 (07:56→21:31)
[2019-02-01] MEDS: Senna TAB PO SCH (07:57)
[2019-02-01] MEDS: Torsemide TAB 10 MG PO SCH ×2 (07:57→21:30)
[2019-02-01] MEDS: Spironolactone TAB* 25 MG PO SCH (07:58)
[2019-02-01] MEDS: Docusate CAP* 100 MG PO SCH ×2 (07:58→21:32)
[2019-02-01] MEDS: Atorvastatin* 20 MG TAB PO SCH (07:58)
[2019-02-01] MEDS: methylPREDNISolone SOD 40 MG* 1 ML VIAL IV SCH (08:03)
[2019-02-01] MEDS: Azithromycin IV(*) 250 MG in NS 0.9% 250 ML* 250 ML IVPB SCH (08:04)
[2019-02-01] MEDS: cefTRIAXone(*) 1 GM in NS 0.9% 50 ML* 50 ML IVPB SCH (08:07)
[2019-02-01] MEDS: Insulin LISPRO* 1 UNITS UNIT SUBCUT SCH ×3 (08:11→17:00)
[2019-02-01] MEDS: NFT: Albuterol/Ipratropium RESP(NF) MDI (Combivent Respimat) INH SCH ×3 (10:32→19:01)
--- NOTE | 2019-02-01 18:51 | PN ---
Progress Note - Progress Note Date of Service: 02/01/19 - Pulmonary note Note: Pt seen and examined at bedside. pt reports feeling better. Doing well off BiPAP Active Medications Generic Name Dose Route Start Last Admin Trade Name Freq PRN Reason Stop Dose Admin Acetaminophen 650 mg 01/31/19 19:25 Tylenol Tab* PO Q4H PRN FEVER/PAIN Acetaminophen 975 mg 01/31/19 22:00 02/01/19 16:10 Tylenol Tab* PO Not Given Q8HR MAGY Albuterol 2.5 mg 01/31/19 23:00 02/01/19 15:30 Ventolin 2.5 Mg/3 Ml Neb.Allyn* INH 2.5 mg [id number] AWAKE MAGY Administration Albuterol 1 puff 01/31/19 19:40 Ventolin Hfa Inhaler* INH Q2HR PRN SOB/WHEEZING Albuterol/Ipratropium 1 puff 01/31/19 21:00 02/01/19 17:03 Combivent Respimat(Nf) INH Not Given QID [facility] Protocol Atorvastatin Calcium 20 mg 02/01/19 09:00 02/01/19 07:58 Lipitor* PO 20 mg DAILY MAGY Administration Dextrose 12.5 gm 01/31/19 19:46 D50w Syringe 50 Ml* IV PUSH .FOR FS < 60 - SS PRN FS < 60 Docusate Sodium 100 mg 01/31/19 21:00 02/01/19 07:58 Colace Cap* PO 100 mg BID MAGY Administration Econazole Nitrate 1 applic 01/31/19 19:40 Econazole 1 % Cream (Nf) TOPICAL BID PRN ITCHING Enoxaparin Sodium 40 mg 01/31/19 20:00 01/31/19 21:20 Lovenox(*) SUBCUT 40 mg Q24H MAGY Administration Azithromycin 250 mg/ Sodium 250 mls @ 250 mls/hr 02/01/19 09:00 02/01/19 08: 04 Chloride IVPB 250 mls/hr Q24H MAGY Administration Ceftriaxone Sodium 1 gm/ 50 mls @ 200 mls/hr 02/01/19 09:00 02/01/19 08:07 Sodium Chloride IVPB 200 mls/hr Q24H MAGY Administration Insulin Glargine 30 units 01/31/19 21:00 01/31/19 21:33 Lantus(*) SUBCUT 30 unit Q24H MAGY Administration Insulin Human Lispro 0 units 02/01/19 07:30 02/01/19 17:00 Humalog* SUBCUT 3 units AC MAGY Administration Protocol Metformin HCl 1,000 mg 01/31/19 21:00 02/01/19 07:56 Glucophage* PO 1,000 mg BID MAGY Administration Methylprednisolone Sodium Succinate 20 mg 02/01/19 09:00 02/01/19 08:03 Solu-Medrol 40 Mg IV 20 mg DAILY MAGY Administration Mometasone Furoate/Formoterol Fumar 2 puff 01/31/19 21:00 02/01/19 07:29 Dulera 100/5 Mdi* INH 2 puff BID MAGY Administration Senna 1 tab 01/31/19 21:00 02/01/19 07:57 Senokot Tab* PO 1 tab DAILY MAGY Administration Spironolactone 25 mg 02/01/19 09:00 02/01/19 07:58 Aldactone Tab* PO 25 mg DAILY MAGY Administration Torsemide 20 mg 01/31/19 21:00 02/01/19 07:57 Torsemide PO 20 mg BID MAGY Administration Vital Signs Temp Pulse Resp BP Pulse Ox 96.9 F 82 23 139/67 95 02/01/19 15:54 02/01/19 18:00 02/01/19 18:00 02/01/19 18:00 02/01/19 18:00 O/E: Pt in NAD HEENT: PERRLA Lungs: Significant wheeze+ CVS: S1, S+, regular Abd: Obese, BS+ Ext: No edema Neuro: No focal deficits Laboratory Results - last 24 hr 01/31/19 01/31/19 02/01/19 21:39 23:22 05:31 WBC RBC Hgb Hct MCV MCH MCHC RDW Plt Count MPV Neut % (Auto) Lymph % (Auto) [place] % (Auto) Eos % (Auto) Baso % (Auto) Absolute Neuts (auto) Absolute Lymphs (auto) Absolute Monos (auto) Absolute Eos (auto) Absolute Basos (auto) Absolute Nucleated RBC Nucleated RBC % Sodium 143 Potassium 4.6 Chloride 103 Carbon Dioxide 36 H Anion Gap 4 BUN 30 H Creatinine 0.98 Est GFR ( Amer) 91.2 Est GFR (Non-Af Amer) 75.4 BUN/Creatinine Ratio 30.6 H Glucose 301 H POC Glucose (mg/dL) 335 H Hemoglobin A1c Calcium 8.3 L Urine Color Yellow Urine Appearance Clear Urine pH 5.0 Ur Specific [place] 1.033 H Urine Protein Negative Urine Ketones Trace A Urine Blood Negative Urine Nitrate Negative Urine Bilirubin Negative Urine Urobilinogen Negative Ur Leukocyte Esterase Negative Urine Glucose 3+(>=500 mg/dl) A 02/01/19 02/01/19 02/01/19 05:31 05:31 07:44 WBC 11.0 H RBC 3.56 L Hgb 11.2 L Hct 35 L MCV 98 H MCH 31 MCHC 32 RDW 14 Plt Count 272 MPV 8.4 Neut % (Auto) 86.3 Lymph % (Auto) 5.8 [place] % (Auto) 7.7 Eos % (Auto) 0.0 Baso % (Auto) 0.2 Absolute Neuts (auto) 9.5 H Absolute Lymphs (auto) 0.6 L Absolute Monos (auto) 0.8 Absolute Eos (auto) 0.0 Absolute Basos (auto) 0.0 Absolute Nucleated RBC 0.0 Nucleated RBC % 0.1 Sodium Potassium Chloride Carbon Dioxide Anion Gap BUN Creatinine Est GFR ( Amer) Est GFR (Non-Af Amer) BUN/Creatinine Ratio Glucose POC Glucose (mg/dL) 278 H Hemoglobin A1c 9.6 H Calcium Urine Color Urine Appearance Urine pH Ur Specific [place] Urine Protein Urine Ketones Urine Blood Urine Nitrate Urine Bilirubin Urine Urobilinogen Ur Leukocyte Esterase Urine Glucose 02/01/19 02/01/19 11:45 16:13 WBC RBC Hgb Hct MCV MCH MCHC RDW Plt Count MPV Neut % (Auto) Lymph % (Auto) [place] % (Auto) Eos % (Auto) Baso % (Auto) Absolute Neuts (auto) Absolute Lymphs (auto) Absolute Monos (auto) Absolute Eos (auto) Absolute Basos (auto) Absolute Nucleated RBC Nucleated RBC % Sodium Potassium Chloride Carbon Dioxide Anion Gap BUN Creatinine Est GFR ( Amer) Est GFR (Non-Af Amer) BUN/Creatinine Ratio Glucose POC Glucose (mg/dL) 306 H 179 H Hemoglobin A1c Calcium Urine Color Urine Appearance Urine pH Ur Specific [place] Urine Protein Urine Ketones Urine Blood Urine Nitrate Urine Bilirubin Urine Urobilinogen Ur Leukocyte Esterase Urine Glucose I/R: 73 y o m with h/o COPD, prior h/o resp failure transferred from [place] for worsening SOB, being treated for acute COPD exacerbation Pt also with acute on chronic hypoxic resp failure Pt tolerating 3-4L O2 currently, is on 3L at baseline Tolerated BiPAP, currently on O2 c/w CPAP at night c/w abx c/w solumedrol, will not taper yet as pt is still wheezing OOB to chair as tolerated Will monitor in ICU closely tonight
[2019-02-01] MEDS: Enoxaparin(*) 40 MG/0.4 ML SYR SUBCUT SCH (21:30)
[2019-02-01] MEDS: Insulin GLARGINE(*) 1 UNITS UNIT SUBCUT SCH (21:31)
[2019-02-02] MEDS: Albuterol 2.5 MG/3 ML NEB.SOL* (0.083%) INH SCH ×4 (03:42→14:30)
[2019-02-02] MEDS: Acetaminophen TAB* 325 MG PO SCH ×4 (07:17→20:50)
[2019-02-02] MEDS: Insulin LISPRO* 1 UNITS UNIT SUBCUT SCH ×3 (07:35→17:37)
[2019-02-02] MEDS: NFT: Albuterol/Ipratropium RESP(NF) MDI (Combivent Respimat) INH SCH ×3 (07:38→20:06)
[2019-02-02] MEDS: Mometasone/Formoter 100/5 MDI INH SCH ×2 (07:38→20:01)
[2019-02-02] MEDS: cefTRIAXone(*) 1 GM in NS 0.9% 50 ML* 50 ML IVPB SCH (08:15)
[2019-02-02] MEDS: methylPREDNISolone SOD 40 MG* 1 ML VIAL IV SCH (08:17)
[2019-02-02] MEDS: metFORMIN* 1,000 MG TAB PO SCH ×3 (08:18→20:50)
[2019-02-02] MEDS: Senna TAB PO SCH (08:18)
[2019-02-02] MEDS: Atorvastatin* 20 MG TAB PO SCH (08:18)
[2019-02-02] MEDS: Spironolactone TAB* 25 MG PO SCH (08:18)
[2019-02-02] MEDS: Docusate CAP* 100 MG PO SCH ×2 (08:18→20:50)
[2019-02-02] MEDS: Torsemide TAB 10 MG PO SCH ×2 (08:47→20:49)
[2019-02-02] MEDS: Azithromycin IV(*) 250 MG in NS 0.9% 250 ML* 250 ML IVPB SCH (08:47)
--- NOTE | 2019-02-02 17:39 | PN ---
Subjective Date of Service: 02/02/19 Interval History: SOB improved. Can transfer out of ICU Objective Active Medications: Acetaminophen (Tylenol Tab*) 650 mg PO Q4H PRN PRN Reason: FEVER/PAIN Acetaminophen (Tylenol Tab*) 975 mg PO Q8HR [facility] Last Admin: 02/02/19 14:45 Dose: 975 mg Albuterol (Ventolin 2.5 Mg/3 Ml Neb.Allyn*) 2.5 mg INH [id number] AWAKE [facility] Last Admin: 02/02/19 14:30 Dose: 2.5 mg Albuterol (Ventolin Hfa Inhaler*) 1 puff INH Q2HR PRN PRN Reason: SOB/WHEEZING Albuterol/Ipratropium (Combivent Respimat(Nf)) 1 puff INH QID [facility]; Protocol Last Admin: 02/02/19 14:55 Dose: Not Given Atorvastatin Calcium (Lipitor*) 20 mg PO DAILY [facility] Last Admin: 02/02/19 08:18 Dose: 20 mg Dextrose (D50w Syringe 50 Ml*) 12.5 gm IV PUSH .FOR FS < 60 - SS PRN PRN Reason: FS < 60 Docusate Sodium (Colace Cap*) 100 mg PO BID [facility] Last Admin: 02/02/19 08:18 Dose: 100 mg Econazole Nitrate (Econazole 1 % Cream (Nf)) 1 applic TOPICAL BID PRN PRN Reason: ITCHING Enoxaparin Sodium (Lovenox(*)) 40 mg SUBCUT Q24H [facility] Last Admin: 02/01/19 21:30 Dose: 40 mg Azithromycin 250 mg/ Sodium (Chloride) 250 mls @ 250 mls/hr IVPB Q24H [facility] Last Admin: 02/02/19 08:47 Dose: 250 mls/hr Ceftriaxone Sodium 1 gm/ (Sodium Chloride) 50 mls @ 200 mls/hr IVPB Q24H [facility] Last Admin: 02/02/19 08:15 Dose: 200 mls/hr Insulin Glargine (Lantus(*)) 30 units SUBCUT Q24H [facility] Last Admin: 02/01/19 21:31 Dose: 30 unit Insulin Human Lispro (Humalog*) 0 units SUBCUT AC [facility]; Protocol Last Admin: 02/02/19 12:57 Dose: 9 units Metformin HCl (Glucophage*) 1,000 mg PO BID [facility] Last Admin: 02/02/19 08:18 Dose: 1,000 mg Methylprednisolone Sodium Succinate (Solu-Medrol 40 Mg) 20 mg IV DAILY [facility] Last Admin: 02/02/19 08:17 Dose: 20 mg Mometasone Furoate/Formoterol Fumar (Dulera 100/5 Mdi*) 2 puff INH BID [facility] Last Admin: 02/02/19 07:38 Dose: 2 puff Senna (Senokot Tab*) 1 tab PO DAILY [facility] Last Admin: 02/02/19 08:18 Dose: 1 tab Spironolactone (Aldactone Tab*) 25 mg PO DAILY [facility] Last Admin: 02/02/19 08:18 Dose: 25 mg Torsemide (Torsemide) 20 mg PO BID [facility] Last Admin: 02/02/19 08:47 Dose: 20 mg Vital Signs - 8 hr 02/02/19 02/02/19 02/02/19 10:00 11:00 11:22 Temperature Pulse Rate 86 83 86 Respiratory 18 28 20 Rate Blood Pressure 148/73 152/74 (mmHg) O2 Sat by Pulse 92 93 93 Oximetry 02/02/19 02/02/19 02/02/19 11:59 12:00 13:00 Temperature 97.4 F Pulse Rate 81 84 Respiratory 22 40 42 Rate Blood Pressure 139/68 151/79 (mmHg) O2 Sat by Pulse 93 94 Oximetry 02/02/19 02/02/19 02/02/19 14:00 14:31 15:00 Temperature Pulse Rate 83 84 81 Respiratory 16 0 Rate Blood Pressure 148/71 143/73 (mmHg) O2 Sat by Pulse 94 97 95 Oximetry 02/02/19 16:01 Temperature 97.7 F Pulse Rate 82 Respiratory 20 Rate Blood Pressure 137/65 (mmHg) O2 Sat by Pulse 94 Oximetry Oxygen Devices in Use Now: Nasal Cannula Eyes: No Scleral Icterus Respiratory: Symmetrical Chest Expansion and Respiratory Effort, Clear to Auscultation Cardiovascular: NL Sounds; No Murmurs; No JVD, RRR Abdominal: NL Sounds; No Tenderness; No Distention Skin: - - 1+ Edema Result Diagrams: 02/01/19 05:31 02/01/19 05:31 Microbiology and Other Data: Microbiology 01/31/19 14:10 Aerobic Blood Culture - Preliminary Blood Venous No Growth Day 2 Anaerobic Blood Culture - Preliminary No Growth Day 2 01/31/19 14:06 Aerobic Blood Culture - Preliminary Blood Venous No Growth Day 2 Anaerobic Blood Culture - Preliminary No Growth Day 2 01/31/19 21:48 Gram Stain - Final Sputum Expectorated 01/31/19 23:22 Legionella Urinary Antigen - Final Urine Negative Legionella Antigen Streptococcus pneumoniae Ag Screen - Final Negative S. pneumo Antigen 01/31/19 21:00 Nasal Screen MRSA (PCR) - Final Nasal Mrsa Not Detected Assess/Plan/Problems-Billing Assessment: - Patient Problems (1) Pneumonia Current Visit: Yes Status: Acute Code(s): J18.9 - PNEUMONIA, UNSPECIFIED ORGANISM SNOMED Code(s): 053510735 Comment: On ceftriazone, azithromycin (2) Acute and chronic respiratory failure Current Visit: No Status: Acute Code(s): J96.20 - ACUTE AND CHR RESP FAILURE , UNSP W HYPOXIA OR HYPERCAPNIA SNOMED Code(s): 13001411 Comment: Acute on chronic hypercapnic and hypoxemic resp failure In ICU on bipap and copd exacerbation management Transitioned to NC and cpap at night (3) COPD with exacerbation Current Visit: No Status: Acute Code(s): J44.1 - CHRONIC OBSTRUCTIVE PULMONARY DISEASE W (ACUTE) EXACERBATION SNOMED Code(s): 431794041 Comment: Continue Solumedrol, Duoneb and inhalers improved (4) Diabetes Current Visit: Yes Status: Acute Code(s): E11.9 - TYPE 2 DIABETES MELLITUS WITHOUT COMPLICATIONS SNOMED Code(s): 76631230 Comment: Insulin
[2019-02-02] MEDS: Enoxaparin(*) 40 MG/0.4 ML SYR SUBCUT SCH (20:45)
[2019-02-02] MEDS: Insulin GLARGINE(*) 1 UNITS UNIT SUBCUT SCH (20:46)
[2019-02-03] MEDS: Acetaminophen TAB* 325 MG PO SCH ×3 (06:09→22:12)
[2019-02-03 06:34] LABS: Hematocrit 42 % (42-52); Hemoglobin 13.2 g/dL (14.0-18.0); Mean Corpuscular HGB Conc 32 g/dL (31-36); Mean Corpuscular Hemoglobin 31 pg (27-31); Mean Corpuscular Volume 98 fL (80-94); Mean Platelet Volume 8.5 fL (7.4-10.4); Platelet Count 314 10^3/uL (150-450); Red Blood Count 4.26 10^6 /uL (4.18-5.48); Red Cell Distribution Width 15 % (10.5-15); White Blood Count 10.4 10^3/uL (3.5-10.8)
[2019-02-03 06:43] LABS: BUN/Creatinine Ratio 29.9 (8-20); Calcium 10.1 mg/dL (8.6-10.3); EGFR African American 120.5 (>60); EGFR Non-African American 99.6 (>60); Potassium 4.3 mmol/L (3.5-5.0)
[2019-02-03 07:21] LABS: ABS Eosinophils 0.2 10^3/ul (0-0.6); ABS Neutrophils 7.5 10^3/ul (1.5-7.7); ABS Neutrophils 7.8 10^3/ul (1.5-7.7)
[2019-02-03] MEDS: Mometasone/Formoter 100/5 MDI INH SCH ×2 (08:32→20:28)
[2019-02-03] MEDS: Insulin LISPRO* 1 UNITS UNIT SUBCUT SCH ×3 (10:41→18:42)
[2019-02-03] MEDS: Atorvastatin* 20 MG TAB PO SCH (10:52)
[2019-02-03] MEDS: Torsemide TAB 10 MG PO SCH ×2 (10:52→20:51)
[2019-02-03] MEDS: Spironolactone TAB* 25 MG PO SCH (10:52)
[2019-02-03] MEDS: Docusate CAP* 100 MG PO SCH ×2 (10:53→20:51)
[2019-02-03] MEDS: Senna TAB PO SCH (10:53)
[2019-02-03] MEDS: metFORMIN* 1,000 MG TAB PO SCH ×2 (10:53→20:50)
[2019-02-03] MEDS: methylPREDNISolone SOD 40 MG* 1 ML VIAL IV SCH (10:53)
[2019-02-03] MEDS: cefTRIAXone(*) 1 GM in NS 0.9% 50 ML* 50 ML IVPB SCH (10:53)
[2019-02-03] MEDS: Azithromycin IV(*) 250 MG in NS 0.9% 250 ML* 250 ML IVPB SCH (11:09)
[2019-02-03] MEDS: Albuterol HFA INHALER* 8 gm MDI INH PRN (11:09)
--- NOTE | 2019-02-03 14:24 | PN ---
Subjective Date of Service: 02/03/19 Interval History: SOB improved. Objective Active Medications: Acetaminophen (Tylenol Tab*) 650 mg PO Q4H PRN PRN Reason: FEVER/PAIN Acetaminophen (Tylenol Tab*) 975 mg PO Q8HR [facility] Last Admin: 02/03/19 13:46 Dose: 975 mg Albuterol (Ventolin Hfa Inhaler*) 1 puff INH Q2HR PRN PRN Reason: SOB/WHEEZING Last Admin: 02/03/19 11:09 Dose: 1 puff Albuterol/Ipratropium (Duoneb (Albuterol 2.5 Mg/Ipratropium 0.5 Mg)) 1 neb INH Q4H PRN PRN Reason: SOB/WHEEZING Atorvastatin Calcium (Lipitor*) 20 mg PO DAILY [facility] Last Admin: 02/03/19 10:52 Dose: 20 mg Dextrose (D50w Syringe 50 Ml*) 12.5 gm IV PUSH .FOR FS < 60 - SS PRN PRN Reason: FS < 60 Docusate Sodium (Colace Cap*) 100 mg PO BID [facility] Last Admin: 02/03/19 10:53 Dose: 100 mg Econazole Nitrate (Econazole 1 % Cream (Nf)) 1 applic TOPICAL BID PRN PRN Reason: ITCHING Enoxaparin Sodium (Lovenox(*)) 40 mg SUBCUT Q24H [facility] Last Admin: 02/02/19 20:45 Dose: 40 mg Azithromycin 250 mg/ Sodium (Chloride) 250 mls @ 250 mls/hr IVPB Q24H [facility] Last Admin: 02/03/19 11:09 Dose: 250 mls/hr Ceftriaxone Sodium 1 gm/ (Sodium Chloride) 50 mls @ 200 mls/hr IVPB Q24H [facility] Last Admin: 02/03/19 10:53 Dose: 200 mls/hr Insulin Glargine (Lantus(*)) 30 units SUBCUT Q24H [facility] Last Admin: 02/02/19 20:46 Dose: 30 unit Insulin Human Lispro (Humalog*) 0 units SUBCUT [facility]; Protocol Last Admin: 02/03/19 13:46 Dose: 9 units Metformin HCl (Glucophage*) 1,000 mg PO BID [facility] Last Admin: 02/03/19 10:53 Dose: 1,000 mg Methylprednisolone Sodium Succinate (Solu-Medrol 40 Mg) 20 mg IV DAILY [facility] Last Admin: 02/03/19 10:53 Dose: 20 mg Mometasone Furoate/Formoterol Fumar (Dulera 100/5 Mdi*) 2 puff INH BID [facility] Last Admin: 02/03/19 08:32 Dose: 2 puff Senna (Senokot Tab*) 1 tab PO DAILY [facility] Last Admin: 02/03/19 10:53 Dose: 1 tab Spironolactone (Aldactone Tab*) 25 mg PO DAILY [facility] Last Admin: 02/03/19 10:52 Dose: 25 mg Torsemide (Torsemide) 20 mg PO BID [facility] Last Admin: 02/03/19 10:52 Dose: 20 mg Vital Signs - 8 hr 02/03/19 02/03/19 02/03/19 07:35 08:00 08:35 Temperature 97.7 F Pulse Rate 84 88 Respiratory 22 22 16 Rate Blood Pressure 146/78 (mmHg) O2 Sat by Pulse 92 92 Oximetry 02/03/19 11:25 Temperature Pulse Rate 96 Respiratory 20 Rate Blood Pressure 168/75 (mmHg) O2 Sat by Pulse 92 Oximetry Oxygen Devices in Use Now: Nasal Cannula Eyes: No Scleral Icterus Neck: NL Appearance and Movements; NL JVP Respiratory: Symmetrical Chest Expansion and Respiratory Effort, Clear to Auscultation Cardiovascular: NL Sounds; No Murmurs; No JVD, RRR Abdominal: NL Sounds; No Tenderness; No Distention Skin: No Rash or Ulcers Neurological: Alert and Oriented x 3 Result Diagrams: 02/03/19 06:18 02/03/19 06:18 Microbiology and Other Data: Microbiology 01/31/19 14:10 Aerobic Blood Culture - Preliminary Blood Venous No Growth Day 2 Anaerobic Blood Culture - Preliminary No Growth Day 2 01/31/19 14:06 Aerobic Blood Culture - Preliminary Blood Venous No Growth Day 2 Anaerobic Blood Culture - Preliminary No Growth Day 2 01/31/19 21:48 Gram Stain - Final Sputum Expectorated 01/31/19 23:22 Legionella Urinary Antigen - Final Urine Negative Legionella Antigen Streptococcus pneumoniae Ag Screen - Final Negative S. pneumo Antigen 01/31/19 21:00 Nasal Screen MRSA (PCR) - Final Nasal Mrsa Not Detected Assess/Plan/Problems-Billing Assessment: - Patient Problems (1) Pneumonia Current Visit: Yes Status: Acute Code(s): J18.9 - PNEUMONIA, UNSPECIFIED ORGANISM SNOMED Code(s): 798598382 Comment: On ceftriazone, azithromycin (2) Acute and chronic respiratory failure Current Visit: No Status: Acute Code(s): J96.20 - ACUTE AND CHR RESP FAILURE , UNSP W HYPOXIA OR HYPERCAPNIA SNOMED Code(s): 56685806 Comment: Acute on chronic hypercapnic and hypoxemic resp failure In ICU on bipap and copd exacerbation management Transitioned to NC and cpap at night (3) COPD with exacerbation Current Visit: No Status: Acute Code(s): J44.1 - CHRONIC OBSTRUCTIVE PULMONARY DISEASE W (ACUTE) EXACERBATION SNOMED Code(s): 829129397 Comment: Continue Solumedrol, Duoneb and inhalers improved (4) Diabetes Current Visit: Yes Status: Acute Code(s): E11.9 - TYPE 2 DIABETES MELLITUS WITHOUT COMPLICATIONS SNOMED Code(s): 25068112 Comment: Insulin
[2019-02-03] MEDS: Enoxaparin(*) 40 MG/0.4 ML SYR SUBCUT SCH (20:50)
[2019-02-03] MEDS: Insulin GLARGINE(*) 1 UNITS UNIT SUBCUT SCH (20:50)
[2019-02-04] MEDS: Acetaminophen TAB* 325 MG PO SCH ×3 (06:14→21:37)
[2019-02-04 06:48] LABS: Hematocrit 42 % (42-52); Hemoglobin 13.8 g/dL (14.0-18.0); Mean Corpuscular HGB Conc 33 g/dL (31-36); Mean Corpuscular Hemoglobin 31 pg (27-31); Mean Corpuscular Volume 96 fL (80-94); Mean Platelet Volume 7.9 fL (7.4-10.4); Platelet Count 349 10^3/uL (150-450); Red Cell Distribution Width 14 % (10.5-15); White Blood Count 11.1 10^3/uL (3.5-10.8)
[2019-02-04 07:06] LABS: BUN/Creatinine Ratio 33.7 (8-20); Calcium 10.5 mg/dL (8.6-10.3); EGFR African American 110.5 (>60); EGFR Non-African American 91.3 (>60); Potassium 4.5 mmol/L (3.5-5.0)
[2019-02-04 07:29] LABS: ABS Basophils 0.1 10^3/ul (0-0.2); ABS Eosinophils 0.3 10^3/ul (0-0.6); ABS Lymphocytes 1.6 10^3/ul (1.0-4.8); ABS Monocytes 0.9 10^3/ul (0-0.8); ABS Neutrophils 8.3 10^3/ul (1.5-7.7); Eosinophil % 2.4 %; Lymphocyte % 14.1 %; Nucleated Red Blood Cells % 0.1
[2019-02-04] MEDS: methylPREDNISolone SOD 40 MG* 1 ML VIAL IV SCH (09:05)
[2019-02-04] MEDS: Torsemide TAB 10 MG PO SCH ×2 (09:06→21:37)
[2019-02-04] MEDS: Insulin LISPRO* 1 UNITS UNIT SUBCUT SCH ×3 (09:06→17:30)
[2019-02-04] MEDS: metFORMIN* 1,000 MG TAB PO SCH (09:07)
[2019-02-04] MEDS: Docusate CAP* 100 MG PO SCH ×2 (09:07→21:37)
[2019-02-04] MEDS: Senna TAB PO SCH (09:07)
[2019-02-04] MEDS: Spironolactone TAB* 25 MG PO SCH (09:07)
[2019-02-04] MEDS: Atorvastatin* 20 MG TAB PO SCH (09:07)
[2019-02-04] MEDS: cefTRIAXone(*) 1 GM in NS 0.9% 50 ML* 50 ML IVPB SCH (09:13)
[2019-02-04] MEDS: Albuterol HFA INHALER* 8 gm MDI INH PRN (09:42)
[2019-02-04] MEDS: Mometasone/Formoter 100/5 MDI INH SCH ×2 (09:43→19:56)
--- NOTE | 2019-02-04 09:45 | PN ---
Subjective Date of Service: 02/04/19 Interval History: Mr. Gray is feeling ok this morning. He c/o a cough and occasional "gurgling" in his upper airway. He feels this is improving since yesterday. He is still SOB at times, but this is also improving. Reports some BLE edema, but unable to state if this is worse than usual for him. Denies CP, N/V. Appetite is good. Down to 3L NC which is his baseline. No concerns from nursing. Family History: Unchanged from Admission Social History: Unchanged from Admission Past Medical History: Unchanged from Admission Objective Active Medications: Acetaminophen (Tylenol Tab*) 650 mg PO Q4H PRN FEVER/PAIN Acetaminophen (Tylenol Tab*) 975 mg PO Q8HR MAGY Albuterol (Ventolin Hfa Inhaler*) 1 puff INH Q2HR PRN SOB/WHEEZING Albuterol/Ipratropium (Duoneb (Albuterol 2.5 Mg/Ipratropium 0.5 Mg)) 1 neb INH Q4H PRN SOB/WHEEZING Atorvastatin Calcium (Lipitor*) 20 mg PO DAILY [facility] Dextrose (D50w Syringe 50 Ml*) 12.5 gm IV PUSH .FOR FS < 60 - SS PRN FS < 60 Docusate Sodium (Colace Cap*) 100 mg PO BID MAGY Econazole Nitrate (Econazole 1 % Cream (Nf)) 1 applic TOPICAL BID PRN ITCHING Enoxaparin Sodium (Lovenox(*)) 40 mg SUBCUT Q24H MAGY Azithromycin 250 mg/ Sodium (Chloride) 250 mls @ 250 mls/hr IVPB Q24H MAGY Ceftriaxone Sodium 1 gm/ (Sodium Chloride) 50 mls @ 200 mls/hr IVPB Q24H [facility] Insulin Glargine (Lantus(*)) 30 units SUBCUT Q24H MAGY Insulin Human Lispro (Humalog*) 0 units SUBCUT AC [facility]; Protocol Metformin HCl (Glucophage*) 1,000 mg PO BID [facility] Methylprednisolone Sodium Succinate (Solu-Medrol 40 Mg) 20 mg IV DAILY [facility] Mometasone Furoate/Formoterol Fumar (Dulera 100/5 Mdi*) 2 puff INH BID [facility] Senna (Senokot Tab*) 1 tab PO DAILY [facility] Spironolactone (Aldactone Tab*) 25 mg PO DAILY MAGY Torsemide (Torsemide) 20 mg PO BID [facility]Y Vital Signs - 8 hr 02/04/19 08:00 Respiratory 22 Rate Oxygen Devices in Use Now: Nasal Cannula - 3L Appearance: Elderly male sitting in bed in NAD Eyes: No Scleral Icterus Ears/Nose/Mouth/Throat: Mucous Membranes Moist Neck: NL Appearance and Movements; NL JVP, Trachea Midline Respiratory: Symmetrical Chest Expansion and Respiratory Effort, - - Rhonchi throughout with scattered wheezing Cardiovascular: NL Sounds; No Murmurs; No JVD, RRR Abdominal: NL Sounds; No Tenderness; No Distention - Large, round Extremities: - - +1 pitting BLE Neurological: - - Oriented to self and place Lines/Tubes/Other Access: Clean, Dry and Intact Peripheral IV Nutrition: Taking PO's Result Diagrams: 02/04/19 06:38 02/04/19 06:38 Assess/Plan/Problems-Billing Assessment: Mr. Gray is a 73 yo M with PMH of COPD, chronic respiratory failure on 3L, DM , HTN, HLD, and dCHF; who presented to the ED with c/o SOB and was found to be hypoxic and meeting sepsis criteria. - Patient Problems (1) Pneumonia Code(s): J18.9 - PNEUMONIA, UNSPECIFIED ORGANISM Comment: - CTA chest showing LLL consolidation - Negative Strep pneumo and legionella urine antigens - Continue ceftriazone, azithromycin (2) COPD with exacerbation Code(s): J44.1 - CHRONIC OBSTRUCTIVE PULMONARY DISEASE W (ACUTE) EXACERBATION Comment: - Presented with 3-4 days of SOB - CTA unremarkable for PE, but shows LLL consolidation with additional scattered areas of consolidation which may represent nodules; f/u imaging after treatment is recommended - Continue Solu-medrol, nebs (3) Acute and chronic respiratory failure with hypercapnia Code(s): J96.22 - ACUTE AND CHRONIC RESPIRATORY FAILURE WITH HYPERCAPNIA Comment: - Requiring BiPAP on admission, now down to 3L NC which is baseline - Secondary to pneumonia and COPD exacerbation - Plan as above (4) Diabetes Code(s): E11.9 - TYPE 2 DIABETES MELLITUS WITHOUT COMPLICATIONS Comment: - Poor glucose control in the setting of steroid use - A1c 9.6% - Continue metformin, Lantus, Lispro SS (5) HTN (hypertension) Code(s): I10 - ESSENTIAL (PRIMARY) HYPERTENSION Comment: - Slightly hypertensive, SBP 140-150s - Continue torsemide, spironolactone (6) Diastolic congestive heart failure Code(s): I50.30 - UNSPECIFIED DIASTOLIC (CONGESTIVE) HEART FAILURE Comment: - No evidence of exacerbation - Continue torsemide, spironolactone (7) HLD (hyperlipidemia) Code(s): E78.5 - HYPERLIPIDEMIA, UNSPECIFIED Comment: - Continue atorvastatin (8) DVT prophylaxis Comment: - Lovenox (9) DNR (do not resuscitate) Comment: Status and Disposition: Inpatient. Anticipate d/c back to [facility] when medically stable, possibly tomorrow. Attending: Katie Trna
[2019-02-04] MEDS: Azithromycin IV(*) 250 MG in NS 0.9% 250 ML* 250 ML IVPB SCH (11:06)
[2019-02-04] MEDS ORDERED: Insulin LISPRO* 1 UNITS UNIT SUBCUT ONE (20:50)
[2019-02-04] MEDS ORDERED: Dextrose 50% Syringe 50 ML* 25 GM/50 ML SYRINGE IV PUSH PRN ×2 (20:50→20:51)
[2019-02-04] MEDS: Insulin GLARGINE(*) 1 UNITS UNIT SUBCUT SCH (21:38)
[2019-02-04] MEDS: Enoxaparin(*) 40 MG/0.4 ML SYR SUBCUT SCH (21:39)
[2019-02-05] MEDS: Acetaminophen TAB* 325 MG PO SCH ×3 (05:56→20:57)
[2019-02-05] MEDS: cefTRIAXone(*) 1 GM in NS 0.9% 50 ML* 50 ML IVPB SCH (08:58)
[2019-02-05] MEDS: Insulin LISPRO* 1 UNITS UNIT SUBCUT SCH ×6 (08:59→18:06)
[2019-02-05] MEDS: methylPREDNISolone SOD 40 MG* 1 ML VIAL IV SCH (08:59)
[2019-02-05] MEDS: Senna TAB PO SCH (09:01)
[2019-02-05] MEDS: Atorvastatin* 20 MG TAB PO SCH (09:01)
[2019-02-05] MEDS: Docusate CAP* 100 MG PO SCH ×2 (09:01→20:58)
[2019-02-05] MEDS: Spironolactone TAB* 25 MG PO SCH (09:01)
[2019-02-05] MEDS: Torsemide TAB 10 MG PO SCH ×2 (09:01→20:58)
[2019-02-05] MEDS: Azithromycin IV(*) 250 MG in NS 0.9% 250 ML* 250 ML IVPB SCH (09:45)
[2019-02-05] MEDS: Mometasone/Formoter 100/5 MDI INH SCH ×2 (10:51→20:03)
[2019-02-05] MEDS: Albuterol/Ipratropium NEB.SOL* Albuterol 2.5 MG/Ipratropium 0.5 MG 3 ML INH PRN ×3 (10:51→20:03)
[2019-02-05] MEDS ORDERED: Insulin LISPRO* 1 UNITS UNIT SUBCUT ONE (12:53)
--- NOTE | 2019-02-05 15:21 | PN ---
Subjective Date of Service: 02/05/19 Interval History: Mr. Gray is feeling fine today. He offers no complaints. 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 He denies CP, SOB, N/V. Occasional cough. No concerns from nursing, though patient had been saturating well on 3L and had to be increased to 10L by RT as he desated into the low 80s. Family History: Unchanged from Admission Social History: Unchanged from Admission Past Medical History: Unchanged from Admission Objective Active Medications: Acetaminophen (Tylenol Tab*) 650 mg PO Q4H PRN FEVER/PAIN Acetaminophen (Tylenol Tab*) 975 mg PO Q8HR MAGY Albuterol (Ventolin Hfa Inhaler*) 1 puff INH Q2HR PRN SOB/WHEEZING Albuterol/Ipratropium (Duoneb (Albuterol 2.5 Mg/Ipratropium 0.5 Mg)) 1 neb INH Q4H PRN SOB/WHEEZING Atorvastatin Calcium (Lipitor*) 20 mg PO DAILY [facility] Dextrose (D50w Syringe 50 Ml*) 12.5 gm IV PUSH .FOR FS < 60 - SS PRN FS < 60 Docusate Sodium (Colace Cap*) 100 mg PO BID MAGY Econazole Nitrate (Econazole 1 % Cream (Nf)) 1 applic TOPICAL BID PRN ITCHING Enoxaparin Sodium (Lovenox(*)) 40 mg SUBCUT Q24H [facility] Azithromycin 250 mg/ Sodium (Chloride) 250 mls @ 250 mls/hr IVPB Q24H MAGY Ceftriaxone Sodium 1 gm/ (Sodium Chloride) 50 mls @ 200 mls/hr IVPB Q24H [facility] Insulin Glargine (Lantus(*)) 35 units SUBCUT Q24H MAGY Insulin Human Lispro (Humalog*) 0 units SUBCUT AC MAGY; Protocol Insulin Human Lispro (Humalog*) 0 units SUBCUT AC MAGY; Protocol Methylprednisolone Sodium Succinate (Solu-Medrol 40 Mg) 20 mg IV DAILY [facility] Mometasone Furoate/Formoterol Fumar (Dulera 100/5 Mdi*) 2 puff INH BID [facility] Senna (Senokot Tab*) 1 tab PO DAILY [facility] Spironolactone (Aldactone Tab*) 25 mg PO DAILY [facility] Torsemide (Torsemide) 20 mg PO BID [facility] Vital Signs - 8 hr 02/05/19 10:51 Pulse Rate 66 Respiratory 20 Rate O2 Sat by Pulse 90 Oximetry Oxygen Devices in Use Now: Simple Face Mask - 8L Appearance: Elderly male sitting in chair in NAD Eyes: No Scleral Icterus Ears/Nose/Mouth/Throat: Mucous Membranes Moist Neck: NL Appearance and Movements; NL JVP, Trachea Midline Respiratory: Symmetrical Chest Expansion and Respiratory Effort, - - Scattered rhonchi and wheezing Cardiovascular: NL Sounds; No Murmurs; No JVD, RRR Abdominal: NL Sounds; No Tenderness; No Distention Extremities: No Edema Neurological: - - Oriented to self and place Lines/Tubes/Other Access: Clean, Dry and Intact Peripheral IV Nutrition: Taking PO's Result Diagrams: 02/06/19 07:18 02/06/19 07:18 Assess/Plan/Problems-Billing Assessment: Mr. Gray is a 73 yo M with PMH of COPD, chronic respiratory failure on 3L, DM , HTN, HLD, and dCHF; who presented to the ED with c/o SOB and was found to be hypoxic and meeting sepsis criteria. - Patient Problems (1) Acute and chronic respiratory failure with hypercapnia Code(s): J96.22 - ACUTE AND CHRONIC RESPIRATORY FAILURE WITH HYPERCAPNIA Comment: - Requiring BiPAP on admission; was down to 3L, but now back up to 8L, but asymptomatic - Repeat ABG slightly worse than that on admission - Secondary to pneumonia and COPD exacerbation - Titrate oxygen as able; baseline is 3L - Start MetaNebs (2) Pneumonia Code(s): J18.9 - PNEUMONIA, UNSPECIFIED ORGANISM Comment: - CTA chest showing LLL consolidation - Negative Strep pneumo and legionella urine antigens - Continue ceftriazone and azithromycin (day 6/7) (3) COPD with exacerbation Code(s): J44.1 - CHRONIC OBSTRUCTIVE PULMONARY DISEASE W (ACUTE) EXACERBATION Comment: - Presented with 3-4 days of SOB - CTA unremarkable for PE, but shows LLL consolidation with additional scattered areas of consolidation which may represent nodules; f/u imaging after treatment is recommended - Continue nebs, Solu-Medrol (4) Diabetes Code(s): E11.9 - TYPE 2 DIABETES MELLITUS WITHOUT COMPLICATIONS Comment: - Poor glucose control in the setting of steroid use - A1c 9.6% - Hold metformin - Continue Lispro SS; increase Lantus (5) HTN (hypertension) Code(s): I10 - ESSENTIAL (PRIMARY) HYPERTENSION Comment: - Slightly hypertensive, SBP 100-150s - Continue torsemide, spironolactone (6) Diastolic congestive heart failure Code(s): I50.30 - UNSPECIFIED DIASTOLIC (CONGESTIVE) HEART FAILURE Comment: - No evidence of exacerbation - Continue torsemide, spironolactone (7) HLD (hyperlipidemia) Code(s): E78.5 - HYPERLIPIDEMIA, UNSPECIFIED Comment: - Continue atorvastatin (8) DVT prophylaxis Comment: - Lovenox (9) DNR (do not resuscitate) Comment: Status and Disposition: Inpatient. Anticipate d/c back to [facility] when medically stable, timeframe unknown. Attending: Jackie Wiseman
[2019-02-05] MEDS: Enoxaparin(*) 40 MG/0.4 ML SYR SUBCUT SCH (20:56)
[2019-02-05] MEDS ORDERED: Insulin GLARGINE(*) 1 UNITS UNIT SUBCUT SCH (21:00)
[2019-02-06] MEDS: Acetaminophen TAB* 325 MG PO SCH ×4 (05:23→21:45)
[2019-02-06 07:54] LABS: ABS Eosinophils 0.3 10^3/ul (0-0.6); ABS Lymphocytes 1.6 10^3/ul (1.0-4.8); ABS Monocytes 0.8 10^3/ul (0-0.8); ABS Neutrophils 12.9 10^3/ul (1.5-7.7); Eosinophil % 1.7 %; Hematocrit 44 % (42-52); Hemoglobin 13.6 g/dL (14.0-18.0); Mean Corpuscular HGB Conc 31 g/dL (31-36); Mean Corpuscular Hemoglobin 30 pg (27-31); Mean Corpuscular Volume 97 fL (80-94); Mean Platelet Volume 8.3 fL (7.4-10.4); Nucleated Red Blood Cells % 0.1; Platelet Count 365 10^3/uL (150-450); Red Blood Count 4.48 10^6 /uL (4.18-5.48); Red Cell Distribution Width 15 % (10.5-15); White Blood Count 15.5 10^3/uL (3.5-10.8)
[2019-02-06] MEDS: Mometasone/Formoter 100/5 MDI INH SCH ×2 (08:08→20:30)
[2019-02-06 08:11] LABS: BUN/Creatinine Ratio 36.4 (8-20); Calcium 10.6 mg/dL (8.6-10.3); EGFR African American 79.8 (>60); Potassium 4.5 mmol/L (3.5-5.0)
[2019-02-06] MEDS: cefTRIAXone(*) 1 GM in NS 0.9% 50 ML* 50 ML IVPB SCH (08:53)
[2019-02-06] MEDS: Azithromycin IV(*) 250 MG in NS 0.9% 250 ML* 250 ML IVPB SCH (09:22)
[2019-02-06] MEDS: Senna TAB PO SCH (09:46)
[2019-02-06] MEDS: Insulin LISPRO* 1 UNITS UNIT SUBCUT SCH ×6 (09:46→18:22)
[2019-02-06] MEDS: Docusate CAP* 100 MG PO SCH ×2 (09:46→21:38)
[2019-02-06] MEDS: Torsemide TAB 10 MG PO SCH ×2 (09:46→21:39)
[2019-02-06] MEDS: Atorvastatin* 20 MG TAB PO SCH (09:46)
[2019-02-06] MEDS: Spironolactone TAB* 25 MG PO SCH (09:46)
[2019-02-06] MEDS: methylPREDNISolone SOD 40 MG* 1 ML VIAL IV SCH ×3 (09:53→21:40)
--- NOTE | 2019-02-06 11:05 | PN ---
Subjective Date of Service: 02/06/19 Interval History: Mr. Gray is feeling fine this morning. He reports that he feels as though he is developing a fungal infection in his feet. When questioned further, he is unable to state why he thinks this as he is not having any pain or discomfort. He offers no other complaints. Denies CP, SOB, N/V. Appetite is good. Occasional productive cough. No concerns from nursing. Family History: Unchanged from Admission Social History: Unchanged from Admission Past Medical History: Unchanged from Admission Objective Active Medications: Acetaminophen (Tylenol Tab*) 650 mg PO Q4H PRN FEVER/PAIN Acetaminophen (Tylenol Tab*) 975 mg PO Q8HR MAGY Albuterol (Ventolin Hfa Inhaler*) 1 puff INH Q2HR PRN SOB/WHEEZING Albuterol/Ipratropium (Duoneb (Albuterol 2.5 Mg/Ipratropium 0.5 Mg)) 1 neb INH Q4H PRN SOB/WHEEZING Atorvastatin Calcium (Lipitor*) 20 mg PO DAILY [facility] Dextrose (D50w Syringe 50 Ml*) 12.5 gm IV PUSH .FOR FS < 60 - SS PRN FS < 60 Docusate Sodium (Colace Cap*) 100 mg PO BID MAGY Econazole Nitrate (Econazole 1 % Cream (Nf)) 1 applic TOPICAL BID PRN ITCHING Enoxaparin Sodium (Lovenox(*)) 40 mg SUBCUT Q24H [facility] Azithromycin 250 mg/ Sodium (Chloride) 250 mls @ 250 mls/hr IVPB Q24H MAGY Ceftriaxone Sodium 1 gm/ (Sodium Chloride) 50 mls @ 200 mls/hr IVPB Q24H [facility] Insulin Glargine (Lantus(*)) 35 units SUBCUT Q24H MAG[facility] Insulin Human Lispro (Humalog*) 0 units SUBCUT AC MAGY; Protocol Insulin Human Lispro (Humalog*) 0 units SUBCUT AC MAGY; Protocol Methylprednisolone Sodium Succinate (Solu-Medrol 40 Mg) 20 mg IV DAILY [facility] Mometasone Furoate/Formoterol Fumar (Dulera 100/5 Mdi*) 2 puff INH BID [facility] Senna (Senokot Tab*) 1 tab PO DAILY [facility] Spironolactone (Aldactone Tab*) 25 mg PO DAILY [facility] Torsemide (Torsemide) 20 mg PO BID [facility] Vital Signs - 8 hr 02/06/19 08:10 Pulse Rate 74 Respiratory 20 Rate O2 Sat by Pulse 96 Oximetry Oxygen Devices in Use Now: High Flow Nasal Cannula - 8L Appearance: Elderly male sitting in chair in NAD Eyes: No Scleral Icterus Ears/Nose/Mouth/Throat: Mucous Membranes Moist Neck: NL Appearance and Movements; NL JVP, Trachea Midline Respiratory: Symmetrical Chest Expansion and Respiratory Effort, - - Scattered rhonchi Cardiovascular: NL Sounds; No Murmurs; No JVD, RRR Abdominal: NL Sounds; No Tenderness; No Distention Extremities: - - Mild nonpitting BLE Neurological: - - Oriented to self and place Lines/Tubes/Other Access: Clean, Dry and Intact Peripheral IV Nutrition: Taking PO's Result Diagrams: 02/06/19 07:18 02/06/19 07:18 Assess/Plan/Problems-Billing Assessment: Mr. Gray is a 73 yo M with PMH of COPD, chronic respiratory failure on 3L, DM , HTN, HLD, and dCHF; who presented to the ED with c/o SOB and was found to be hypoxic and meeting sepsis criteria. - Patient Problems (1) COPD with exacerbation Code(s): J44.1 - CHRONIC OBSTRUCTIVE PULMONARY DISEASE W (ACUTE) EXACERBATION Comment: - Presented with 3-4 days of SOB - CTA unremarkable for PE, but shows LLL consolidation with additional scattered areas of consolidation which may represent nodules; f/u imaging after treatment is recommended - Continue nebs; increase Solu-Medrol d/t slow response to treatment (2) Acute and chronic respiratory failure with hypercapnia Code(s): J96.22 - ACUTE AND CHRONIC RESPIRATORY FAILURE WITH HYPERCAPNIA Comment: - Requiring BiPAP on admission; was down to 3L, but now back up to 8L, but asymptomatic - Repeat ABG slightly worse than that on admission - Secondary to pneumonia and COPD exacerbation - Titrate oxygen as able; baseline is 3L - Continue MetaNebs (3) Pneumonia Code(s): J18.9 - PNEUMONIA, UNSPECIFIED ORGANISM Comment: - CTA chest showing LLL consolidation - Negative Strep pneumo and legionella urine antigens - Completed 7 day course of ceftriazone and azithromycin (4) Diabetes Code(s): E11.9 - TYPE 2 DIABETES MELLITUS WITHOUT COMPLICATIONS Comment: - Poor glucose control in the setting of steroid use - A1c 9.6% - Hold metformin - Continue Lispro SS; increase Lantus (5) HTN (hypertension) Code(s): I10 - ESSENTIAL (PRIMARY) HYPERTENSION Comment: - Slightly hypertensive, SBP 100-150s - Continue torsemide, spironolactone (6) Diastolic congestive heart failure Code(s): I50.30 - UNSPECIFIED DIASTOLIC (CONGESTIVE) HEART FAILURE Comment: - No evidence of exacerbation - Continue torsemide, spironolactone (7) HLD (hyperlipidemia) Code(s): E78.5 - HYPERLIPIDEMIA, UNSPECIFIED Comment: - Continue atorvastatin (8) DVT prophylaxis Comment: - Lovenox (9) DNR (do not resuscitate) Comment: Status and Disposition: Inpatient. Anticipate d/c back to [facility] when medically stable, timeframe unknown. Attending: Jackie Wiseman
[2019-02-06] MEDS: Insulin GLARGINE(*) 1 UNITS UNIT SUBCUT SCH (13:11)
[2019-02-06] MEDS: Enoxaparin(*) 40 MG/0.4 ML SYR SUBCUT SCH (20:48)
[2019-02-06] MEDS: Albuterol/Ipratropium NEB.SOL* Albuterol 2.5 MG/Ipratropium 0.5 MG 3 ML INH PRN (20:54)
[2019-02-07] MEDS: Acetaminophen TAB* 325 MG PO SCH ×3 (05:27→21:31)
[2019-02-07] MEDS: methylPREDNISolone SOD 40 MG* 1 ML VIAL IV SCH ×3 (05:31→21:34)
[2019-02-07 06:53] LABS: ABS Lymphocytes 1.5 10^3/ul (1.0-4.8); ABS Monocytes 0.4 10^3/ul (0-0.8); ABS Neutrophils 17.4 10^3/ul (1.5-7.7); Eosinophil % 0.1 %; Hematocrit 41 % (42-52); Hemoglobin 13.2 g/dL (14.0-18.0); Lymphocyte % 7.6 %; Mean Corpuscular HGB Conc 32 g/dL (31-36); Mean Corpuscular Hemoglobin 31 pg (27-31); Mean Corpuscular Volume 97 fL (80-94); Mean Platelet Volume 8.7 fL (7.4-10.4); Platelet Count 357 10^3/uL (150-450); Red Blood Count 4.27 10^6 /uL (4.18-5.48); Red Cell Distribution Width 15 % (10.5-15); White Blood Count 19.3 10^3/uL (3.5-10.8)
[2019-02-07 07:08] LABS: BUN/Creatinine Ratio 42.3 (8-20); Calcium 10.5 mg/dL (8.6-10.3); EGFR African American 85.2 (>60); EGFR Non-African American 70.4 (>60)
[2019-02-07 07:15] LABS: Potassium 5.2 mmol/L (3.5-5.0)
[2019-02-07] MEDS: Mometasone/Formoter 100/5 MDI INH SCH ×2 (07:57→20:52)
[2019-02-07] MEDS: Insulin LISPRO* 1 UNITS UNIT SUBCUT SCH ×7 (08:05→18:41)
[2019-02-07] MEDS: Docusate CAP* 100 MG PO SCH ×2 (08:58→21:32)
[2019-02-07] MEDS: Senna TAB PO SCH (08:59)
[2019-02-07] MEDS: Torsemide TAB 10 MG PO SCH (08:59)
[2019-02-07] MEDS: Spironolactone TAB* 25 MG PO SCH (08:59)
[2019-02-07] MEDS: Atorvastatin* 20 MG TAB PO SCH (08:59)
[2019-02-07] MEDS: Albuterol/Ipratropium NEB.SOL* Albuterol 2.5 MG/Ipratropium 0.5 MG 3 ML INH PRN ×2 (11:17→23:13)
[2019-02-07] MEDS: Insulin GLARGINE(*) 1 UNITS UNIT SUBCUT SCH (11:59)
[2019-02-07] MEDS ORDERED: acetaZOLAMIDE TAB* 250 MG PO ONE (15:10)
[2019-02-07] MEDS ORDERED: Furosemide IV* 10 MG/ML 10 ML VIAL (100 MG) IV ONE (15:54)
--- NOTE | 2019-02-07 15:57 | PN ---
Subjective Date of Service: 02/07/19 Interval History: Pt is feeling poorly. He still is having significant SOB. He feels better when he uses the CPAP but doesnt like being tied to the bed all day. He is coughing and bringing up yellowish sputum. Family History: Unchanged from Admission Social History: Unchanged from Admission Past Medical History: Unchanged from Admission Objective Active Medications: Acetaminophen (Tylenol Tab*) 650 mg PO Q4H PRN PRN Reason: FEVER/PAIN Last Admin: 02/07/19 09:16 Dose: 650 mg Acetaminophen (Tylenol Tab*) 975 mg PO Q8HR MAGY Last Admin: 02/07/19 14:37 Dose: 975 mg Albuterol (Ventolin Hfa Inhaler*) 1 puff INH Q2HR PRN PRN Reason: SOB/WHEEZING Last Admin: 02/04/19 09:42 Dose: 1 puff Albuterol/Ipratropium (Duoneb (Albuterol 2.5 Mg/Ipratropium 0.5 Mg)) 1 neb INH Q4H PRN PRN Reason: SOB/WHEEZING Last Admin: 02/07/19 11:17 Dose: 1 neb Atorvastatin Calcium (Lipitor*) 20 mg PO DAILY [facility] Last Admin: 02/07/19 08:59 Dose: 20 mg Dextrose (D50w Syringe 50 Ml*) 12.5 gm IV PUSH .FOR FS < 60 - SS PRN PRN Reason: FS < 60 Docusate Sodium (Colace Cap*) 100 mg PO BID [facility] Last Admin: 02/07/19 08:58 Dose: 100 mg Econazole Nitrate (Econazole 1 % Cream (Nf)) 1 applic TOPICAL BID PRN PRN Reason: ITCHING Enoxaparin Sodium (Lovenox(*)) 40 mg SUBCUT Q24H [facility] Last Admin: 02/06/19 20:48 Dose: 40 mg Guaifenesin (Mucinex*) 1,200 mg PO BID [facility] Insulin Glargine (Lantus(*)) 40 units SUBCUT Q24H [facility] Last Admin: 02/07/19 11:59 Dose: 40 units Insulin Human Lispro (Humalog*) 0 units SUBCUT [facility]; Protocol Last Admin: 02/07/19 12:59 Dose: 2 units Insulin Human Lispro (Humalog*) 0 units SUBCUT [facility]; Protocol Last Admin: 02/07/19 12:59 Dose: 4 units Methylprednisolone Sodium Succinate (Solu-Medrol 40 Mg) 40 mg IV Q8HR [facility] Last Admin: 02/07/19 14:38 Dose: 40 mg Mometasone Furoate/Formoterol Fumar (Dulera 100/5 Mdi*) 2 puff INH BID [facility] Last Admin: 02/07/19 07:57 Dose: 2 puff Senna (Senokot Tab*) 1 tab PO DAILY [facility] Last Admin: 02/07/19 08:59 Dose: 1 tab Spironolactone (Aldactone Tab*) 25 mg PO DAILY [facility] Last Admin: 02/07/19 08:59 Dose: 25 mg Torsemide (Torsemide) 20 mg PO BID [facility] Last Admin: 02/07/19 08:59 Dose: 20 mg Vital Signs - 8 hr 02/07/19 02/07/19 02/07/19 08:00 09:00 11:08 Temperature 97.3 F Pulse Rate 76 63 Respiratory 18 20 28 Rate Blood Pressure 149/50 (mmHg) O2 Sat by Pulse 92 87 Oximetry 02/07/19 02/07/19 11:17 11:30 Temperature Pulse Rate 86 Respiratory 18 Rate Blood Pressure (mmHg) O2 Sat by Pulse 92 92 Oximetry Oxygen Devices in Use Now: OxyMask Appearance: Elderly male sitting up in a chair, NAD Eyes: No Scleral Icterus Ears/Nose/Mouth/Throat: Mucous Membranes Moist Respiratory: Symmetrical Chest Expansion and Respiratory Effort, - - very coarse respirations Cardiovascular: NL Sounds; No Murmurs; No JVD, RRR, - - 1+ LE edema Abdominal: NL Sounds; No Tenderness; No Distention Extremities: No Clubbing, Cyanosis Skin: No Nodules or Sclerosis Neurological: Alert and Oriented x 3 Result Diagrams: 02/07/19 06:25 02/07/19 06:25 Microbiology and Other Data: Microbiology 01/31/19 14:10 Aerobic Blood Culture - Preliminary Blood Venous No Growth Day 2 Anaerobic Blood Culture - Preliminary No Growth Day 2 01/31/19 14:06 Aerobic Blood Culture - Preliminary Blood Venous No Growth Day 2 Anaerobic Blood Culture - Preliminary No Growth Day 2 01/31/19 21:48 Gram Stain - Final Sputum Expectorated 01/31/19 23:22 Legionella Urinary Antigen - Final Urine Negative Legionella Antigen Streptococcus pneumoniae Ag Screen - Final Negative S. pneumo Antigen 01/31/19 21:00 Nasal Screen MRSA (PCR) - Final Nasal Mrsa Not Detected Assess/Plan/Problems-Billing Mr. Gray is a 73 yo M with PMH of COPD, chronic respiratory failure on 3L, DM , HTN, HLD, and dCHF; who presented to the ED with c/o SOB and was found to be hypoxic and meeting sepsis criteria. - Patient Problems (1) Acute and chronic respiratory failure with hypercapnia Current Visit: Yes Status: Acute Code(s): J96.22 - ACUTE AND CHRONIC RESPIRATORY FAILURE WITH HYPERCAPNIA SNOMED Code(s): 3280302065931 Comment: Pt now up to 10L O2 as he desaturated on 5L while sitting. He continues to have coarse respirations and sounds as if he has mucous to clear. Will initiate mucinex and flutter valve. Titrate O2 down again. He is not improving as anticipated. Will titrate solumedrol down tomorrow as pt does not have any wheezing. (2) COPD with exacerbation Current Visit: No Status: Acute Code(s): J44.1 - CHRONIC OBSTRUCTIVE PULMONARY DISEASE W (ACUTE) EXACERBATION SNOMED Code(s): 417700258 Comment: Treatment as above. (3) Pneumonia Current Visit: Yes Status: Acute Code(s): J18.9 - PNEUMONIA, UNSPECIFIED ORGANISM SNOMED Code(s): 944026010 Comment: CTA chest showing LLL consolidation. The patient has completed ceftriaxone and azithromycin. (4) Diastolic congestive heart failure Current Visit: Yes Status: Acute Code(s): I50.30 - UNSPECIFIED DIASTOLIC ( CONGESTIVE) HEART FAILURE SNOMED Code(s): 396603724 Comment: As pt has wet sounding respirations and LE edema will give dose of IV lasix now and see if that helps his respiratory status. (5) Diabetes Current Visit: Yes Status: Acute Code(s): E11.9 - TYPE 2 DIABETES MELLITUS WITHOUT COMPLICATIONS SNOMED Code(s): 70645205 Comment: Blood sugars are much improved today compared to the previous several days. Will continue current dose of lantus and lispro sliding scale. Metformin has been on hold. Continue to monitor sugars. (6) HTN (hypertension) Current Visit: Yes Status: Chronic Code(s): I10 - ESSENTIAL (PRIMARY) HYPERTENSION SNOMED Code(s): 59448482 Comment: BP is mildly elevated. Continue to monitor on diuretic therapy. (7) HLD (hyperlipidemia) Current Visit: Yes Status: Chronic Code(s): E78.5 - HYPERLIPIDEMIA, UNSPECIFIED SNOMED Code(s): 88380913 Comment: Continue atorvastatin (8) DVT prophylaxis Current Visit: Yes Status: Acute Code(s): COQ8781 - SNOMED Code(s): 681067590 Comment: Alexi (9) DNR (do not resuscitate) Current Visit: Yes Status: Acute Comment: Status and Disposition: .
[2019-02-07] MEDS: guaiFENesin ER TAB 600 MG PO SCH ×2 (16:50→21:32)
[2019-02-07] MEDS ORDERED: Insulin LISPRO* 1 UNITS UNIT SUBCUT ONE (21:20)
[2019-02-07] MEDS: Enoxaparin(*) 40 MG/0.4 ML SYR SUBCUT SCH (21:32)
[2019-02-08] MEDS: methylPREDNISolone SOD 40 MG* 1 ML VIAL IV SCH ×2 (05:27→14:36)
[2019-02-08] MEDS: Acetaminophen TAB* 325 MG PO SCH ×3 (05:30→21:18)
[2019-02-08] MEDS: Mometasone/Formoter 100/5 MDI INH SCH ×2 (07:16→19:30)
[2019-02-08] MEDS: Albuterol/Ipratropium NEB.SOL* Albuterol 2.5 MG/Ipratropium 0.5 MG 3 ML INH PRN (07:19)
[2019-02-08] MEDS: Spironolactone TAB* 25 MG PO SCH (09:40)
[2019-02-08] MEDS: Docusate CAP* 100 MG PO SCH ×2 (09:40→21:18)
[2019-02-08] MEDS: Senna TAB PO SCH (09:41)
[2019-02-08] MEDS: Insulin LISPRO* 1 UNITS UNIT SUBCUT SCH ×7 (09:41→21:17)
[2019-02-08] MEDS: Atorvastatin* 20 MG TAB PO SCH (09:41)
[2019-02-08] MEDS: guaiFENesin ER TAB 600 MG PO SCH ×2 (09:46→21:18)
[2019-02-08 10:00] LABS: Hematocrit 46 % (42-52); Hemoglobin 14.5 g/dL (14.0-18.0); Mean Corpuscular HGB Conc 31 g/dL (31-36); Mean Corpuscular Hemoglobin 31 pg (27-31); Mean Corpuscular Volume 98 fL (80-94); Mean Platelet Volume 8.9 fL (7.4-10.4); Platelet Count 400 10^3/uL (150-450); Red Blood Count 4.73 10^6 /uL (4.18-5.48); Red Cell Distribution Width 15 % (10-15); White Blood Count 25.6 10^3/uL (3.5-10.8)
[2019-02-08 10:18] LABS: BUN/Creatinine Ratio 44.9 (8-20); Calcium 10.5 mg/dL (8.6-10.3); EGFR African American 82.4 (>60); EGFR Non-African American 68.1 (>60); Potassium 5.1 mmol/L (3.5-5.0)
[2019-02-08] MEDS ORDERED: Insulin LISPRO* 1 UNITS UNIT SUBCUT ONE ×2 (12:53→13:00)
[2019-02-08] MEDS: Insulin GLARGINE(*) 1 UNITS UNIT SUBCUT SCH (12:57)
[2019-02-08] MEDS ORDERED: Furosemide IV* 10 MG/ML VIAL (40 MG) IV ONE (18:08)
[2019-02-08] MEDS ORDERED: acetaZOLAMIDE TAB* 250 MG PO ONE (18:08)
--- NOTE | 2019-02-08 18:18 | PN ---
Subjective Date of Service: 02/08/19 Interval History: Pt is feeling better today. He was down to 6L O2. He is still coughing up some creamy colored sputum. He denies any pain. He tells me he had a hard time with his BM today and needed help getting cleaned up and then asks for an evaluation of this. He tells me he has had this same problem for the last 20-30 years. Family History: Unchanged from Admission Social History: Unchanged from Admission Past Medical History: Unchanged from Admission Objective Active Medications: Acetaminophen (Tylenol Tab*) 650 mg PO Q4H PRN PRN Reason: FEVER/PAIN Last Admin: 02/07/19 09:16 Dose: 650 mg Acetaminophen (Tylenol Tab*) 975 mg PO Q8HR [facility] Last Admin: 02/08/19 14:37 Dose: 975 mg Acetazolamide (Diamox Tab*) 250 mg PO ONCE ONE Stop: 02/08/19 18:09 Albuterol (Ventolin Hfa Inhaler*) 1 puff INH Q2HR PRN PRN Reason: SOB/WHEEZING Last Admin: 02/04/19 09:42 Dose: 1 puff Albuterol/Ipratropium (Duoneb (Albuterol 2.5 Mg/Ipratropium 0.5 Mg)) 1 neb INH Q4H PRN PRN Reason: SOB/WHEEZING Last Admin: 02/08/19 07:19 Dose: 1 neb Atorvastatin Calcium (Lipitor*) 20 mg PO DAILY [facility] Last Admin: 02/08/19 09:41 Dose: 20 mg Dextrose (D50w Syringe 50 Ml*) 12.5 gm IV PUSH .FOR FS < 60 - SS PRN PRN Reason: FS < 60 Docusate Sodium (Colace Cap*) 100 mg PO BID [facility] Last Admin: 02/08/19 09:40 Dose: 100 mg Econazole Nitrate (Econazole 1 % Cream (Nf)) 1 applic TOPICAL BID PRN PRN Reason: ITCHING Enoxaparin Sodium (Lovenox(*)) 40 mg SUBCUT Q24H [facility] Last Admin: 02/07/19 21:32 Dose: 40 mg Furosemide (Lasix Iv*) 40 mg IV ONCE ONE Stop: 02/08/19 18:09 Guaifenesin (Mucinex*) 1,200 mg PO BID [facility] Last Admin: 02/08/19 09:46 Dose: 1,200 mg Insulin Glargine (Lantus(*)) 40 units SUBCUT Q24H [facility] Last Admin: 02/08/19 12:57 Dose: 40 units Insulin Human Lispro (Humalog*) 0 units SUBCUT AC [facility]; Protocol Last Admin: 02/08/19 18:09 Dose: 5 units Insulin Human Lispro (Humalog*) 0 units SUBCUT ACHS [facility]; Protocol Last Admin: 02/08/19 18:09 Dose: 15 units Mometasone Furoate/Formoterol Fumar (Dulera 100/5 Mdi*) 2 puff INH BID [facility] Last Admin: 02/08/19 07:16 Dose: 2 puff Prednisone (Deltasone Tab*) 40 mg PO DAILY [facility] Senna (Senokot Tab*) 1 tab PO DAILY [facility] Last Admin: 02/08/19 09:41 Dose: 1 tab Spironolactone (Aldactone Tab*) 25 mg PO DAILY [facility] Last Admin: 02/08/19 09:40 Dose: 25 mg Vital Signs - 8 hr 02/08/19 11:30 Temperature 97.3 F Pulse Rate 62 Respiratory 28 Rate Blood Pressure 126/54 (mmHg) O2 Sat by Pulse 95 Oximetry Oxygen Devices in Use Now: OxyMask Appearance: Elderly male sitting in a chair, comfortable appearing, NAD Eyes: No Scleral Icterus Ears/Nose/Mouth/Throat: Mucous Membranes Moist Respiratory: Symmetrical Chest Expansion and Respiratory Effort, - - diminished breath sounds throughout, clear Cardiovascular: NL Sounds; No Murmurs; No JVD, RRR, - - 1+ edema Abdominal: NL Sounds; No Tenderness; No Distention Extremities: No Clubbing, Cyanosis Skin: No Nodules or Sclerosis Neurological: Alert and Oriented x 3, - - very poor historian Result Diagrams: 02/08/19 09:44 02/08/19 09:44 Microbiology and Other Data: Microbiology 01/31/19 14:10 Aerobic Blood Culture - Preliminary Blood Venous No Growth Day 2 Anaerobic Blood Culture - Preliminary No Growth Day 2 01/31/19 14:06 Aerobic Blood Culture - Preliminary Blood Venous No Growth Day 2 Anaerobic Blood Culture - Preliminary No Growth Day 2 01/31/19 21:48 Gram Stain - Final Sputum Expectorated 01/31/19 23:22 Legionella Urinary Antigen - Final Urine Negative Legionella Antigen Streptococcus pneumoniae Ag Screen - Final Negative S. pneumo Antigen 01/31/19 21:00 Nasal Screen MRSA (PCR) - Final Nasal Mrsa Not Detected Assess/Plan/Problems-Billing Mr. Gray is a 73 yo M with PMH of COPD, chronic respiratory failure on 3L, DM , HTN, HLD, and dCHF; who presented to the ED with c/o SOB and was found to be hypoxic and meeting sepsis criteria. - Patient Problems (1) Acute and chronic respiratory failure with hypercapnia Current Visit: Yes Status: Acute Code(s): J96.22 - ACUTE AND CHRONIC RESPIRATORY FAILURE WITH HYPERCAPNIA SNOMED Code(s): 3057273484974 Comment: Down to 6L today. Will wean down further to 4L (baseline he is on 3L ). Continue mucinex and flutter valve. He seems to be moving the mucous better. I also gave lasix 60mg IV x1 yesterday and with the improvement will dose lasix again today. Change to prednisone. I anticipate he will be able to be discharged tomorrow. (2) COPD with exacerbation Current Visit: Yes Status: Acute Code(s): J44.1 - CHRONIC OBSTRUCTIVE PULMONARY DISEASE W (ACUTE) EXACERBATION SNOMED Code(s): 562887102 Comment: Treatment as above. (3) Pneumonia Current Visit: Yes Status: Acute Code(s): J18.9 - PNEUMONIA, UNSPECIFIED ORGANISM SNOMED Code(s): 028772387 Comment: CTA chest showing LLL consolidation. The patient has completed ceftriaxone and azithromycin. (4) Diastolic congestive heart failure Current Visit: Yes Status: Acute Code(s): I50.30 - UNSPECIFIED DIASTOLIC ( CONGESTIVE) HEART FAILURE SNOMED Code(s): 569836913 Comment: Dose lasix again today as he did have overall improvement in his symptoms. Will then resume home torsemide. Continue spironolactone. (5) Diabetes Current Visit: Yes Status: Acute Code(s): E11.9 - TYPE 2 DIABETES MELLITUS WITHOUT COMPLICATIONS SNOMED Code(s): 77906270 Comment: Sugars are uncontrolled today. Likely secondary to IV solumedrol. Resume meformin on d/c. (6) HTN (hypertension) Current Visit: Yes Status: Chronic Code(s): I10 - ESSENTIAL (PRIMARY) HYPERTENSION SNOMED Code(s): 58801843 Comment: BP is mildly elevated. Continue to monitor on diuretic therapy. (7) HLD (hyperlipidemia) Current Visit: Yes Status: Chronic Code(s): E78.5 - HYPERLIPIDEMIA, UNSPECIFIED SNOMED Code(s): 59388126 Comment: Continue atorvastatin (8) DVT prophylaxis Current Visit: Yes Status: Acute Code(s): NFH0509 - SNOMED Code(s): 730761833 Comment: Alexi (9) DNR (do not resuscitate) Current Visit: Yes Status: Acute Comment: Status and Disposition: .
[2019-02-08] MEDS: Enoxaparin(*) 40 MG/0.4 ML SYR SUBCUT SCH (21:17)
[2019-02-09] MEDS: Acetaminophen TAB* 325 MG PO SCH (06:00)
[2019-02-09 08:04] VITALS: BP 126/48
[2019-02-09] MEDS: Albuterol HFA INHALER* 8 gm MDI INH PRN (08:40)
[2019-02-09] MEDS: Mometasone/Formoter 100/5 MDI INH SCH (08:40)
[2019-02-09] MEDS ORDERED: predniSONE TAB* 20 MG PO SCH (09:00)
[2019-02-09] MEDS: Insulin LISPRO* 1 UNITS UNIT SUBCUT SCH ×4 (09:19→13:03)
[2019-02-09] MEDS: guaiFENesin ER TAB 600 MG PO SCH (09:20)
[2019-02-09] MEDS: Senna TAB PO SCH (09:20)
[2019-02-09] MEDS: Spironolactone TAB* 25 MG PO SCH (09:20)
[2019-02-09] MEDS: Atorvastatin* 20 MG TAB PO SCH (09:20)
[2019-02-09] MEDS: Docusate CAP* 100 MG PO SCH (09:20)
--- NOTE | 2019-02-09 10:02 | PN ---
Progress Note - Progress Note Date of Service: 02/09/19 Note: Time spent on discharge including exam of pt, discussion with patient, nurse, CM , review of EMR and preparation of discharge documents is 45 minutes.
[2019-02-09] MEDS: Insulin GLARGINE(*) 1 UNITS UNIT SUBCUT SCH (10:13)
--- NOTE | 2019-02-09 11:09 | TRS ---
TRANSFER SUMMARY: DATE OF TRANSFER: 02/09/19 HISTORY: This 73-year-old man presented with shortness of breath for 3 to 4 days. He is a resident of [facility] with a long history of COPD. History is detailed and dictated in admission note. CTA of the chest was done; there was no evidence of pulmonary embolism. He had bibasilar atelectasis and possible infiltrate of the left base. He was treated for pneumonia with azithromycin and ceftriaxone as well as intravenous glucocorticoids. He did well and returned to his baseline. He has chronic creamy sputum production. He was going to be on continuous Mucinex. He is going to have tapering dose of prednisone. He completed his antibiotic course before discharge. FINAL DIAGNOSES: 1. Chronic obstructive pulmonary disease exacerbation with possible pneumonia. 2. Diabetes. 3. Diastolic congestive heart failure. 4. Hyperlipidemia. 5. Chronic constipation. MEDICATIONS ON DISCHARGE: 1. Guaifenesin ER 1200 mg b.i.d. 2. Prednisone 35 mg daily, to taper by 5 mg daily until off. 3. Albuterol inhaler 1 puff every 2 hours p.r.n. 4. Simvastatin 40 mg daily. 5. Metformin 1000 mg b.i.d. 6. Econazole 1% cream b.i.d. p.r.n. 7. Acetaminophen 1000 mg every 8 hours. 8. Albuterol sulfate 1.25 mg every 4 hours via inhalation. 9. Albuterol/ipratropium 1 puff 4 times a day. 10. Torsemide 20 mg b.i.d. 11. Fluticasone/salmeterol 100/50 one puff b.i.d. 12. Sennosides-docusate 1 daily. 13. Spironolactone 25 mg daily. 14. Glargine insulin 40 units daily at 9 p.m. 15. Lispro 14 units after meals. DISPOSITION ON DISCHARGE: Discharged to [facility]. CONDITION ON DISCHARGE: Stable. DISPOSITION ON DISCHARGE: Discharge to [facility] [id number]/[facility] #: [id number] MTDD
[2019-02-09] MEDS ORDERED: Insulin LISPRO* 1 UNITS UNIT SUBCUT ONE (13:00)
== END 2019-02-09 14:15 | DRG 871 ==
LOC: ED 13:19 → ICU 19:25 → OBSVTOIN 02-01 15:17 → MED 02-02 14:04
PROVIDERS: ADMIT Internal Medicine; ATTEND Internal Medicine
PROC: 5A09457 Assistance with Respiratory Ventilation, 24-96 Consecutive Hours, Continuous Positive Airway Pressure (ICD-10-PCS; principal; 2019-01-31)
DX: A41.9 Sepsis, unspecified organism (principal); J18.9 Pneumonia, unspecified organism; J96.01 Acute respiratory failure with hypoxia; J44.0 Chronic obstructive pulmonary disease with (acute) lower respiratory infection; J44.1 Chronic obstructive pulmonary disease with (acute) exacerbation; I50.32 Chronic diastolic (congestive) heart failure; E78.00 Pure hypercholesterolemia, unspecified; I11.0 Hypertensive heart disease with heart failure; N40.0 Benign prostatic hyperplasia without lower urinary tract symptoms; M19.90 Unspecified osteoarthritis, unspecified site; F41.9 Anxiety disorder, unspecified; F32.9 Major depressive disorder, single episode, unspecified; I45.10 Unspecified right bundle-branch block; F17.210 Nicotine dependence, cigarettes, uncomplicated; K59.09 Other constipation; Z66 Do not resuscitate; E78.5 Hyperlipidemia, unspecified; K57.90 Diverticulosis of intestine, part unspecified, without perforation or abscess without bleeding; E66.9 Obesity, unspecified; Z68.31 Body mass index [BMI] 31.0-31.9, adult; Z83.3 Family history of diabetes mellitus; Z79.4 Long term (current) use of insulin
CPT/HCPCS: 36415; 36600; 71045; 71046; 71275; 80048; 80053; 81003; 82550; 82553; 82803; 82947; 83036; 83605; 83880; 84484; 85025; 85027; 85730; 86140; 87040; 87070; 87205; 87641; 87899; 93005; 94640; 94660; 94667; 94668; 99283; A9270-GY; G8978-GP-CJ; G8979-GP-CI; J0456; J0696; J1650; J1815; J1940; J2543; J2920; J2930; J7512; Q9967

== ENCOUNTER 2020-04-11 06:40 | Inpatient (IN) ==
[2020-04-11 07:21] LABS: ABS Basophils 0.1 10^3/ul (0-0.2); ABS Eosinophils 0.1 10^3/ul (0-0.6); ABS Lymphocytes 0.7 10^3/ul (1.0-4.8); ABS Neutrophils 14.1 10^3/ul (1.5-7.7); Eosinophil % 0.4 %; Hematocrit 33 % (42-52); Hemoglobin 10.8 g/dL (14.0-18.0); Lymphocyte % 4.6 %; Mean Corpuscular HGB Conc 33 g/dL (31-36); Mean Corpuscular Hemoglobin 33 pg (27-31); Mean Corpuscular Volume 101 fL (80-94); Mean Platelet Volume 8.2 fL (7.4-10.4); Platelet Count 329 10^3/uL (150-450); Red Blood Count 3.24 10^6 /uL (4.18-5.48); Red Cell Distribution Width 15 % (10-15)
[2020-04-11] MEDS ORDERED: NS 0.9% 1000 ml BAG 1,000 ML IV ONE ×2 (07:22→09:48)
[2020-04-11] MEDS ORDERED: NS 0.9% 500 ml BAG 500 ML IV ONE (07:23)
[2020-04-11 07:32] LABS: ALT 20 U/L (7-52); AST 14 U/L (13-39); Albumin 3.9 g/dL (3.2-5.2); Albumin/Globulin Ratio 1.2 (1-3); Alkaline Phosphatase 64 U/L (34-104); Blood Urea Nitrogen 38 mg/dL (6-24); Calcium 10.3 mg/dL (8.6-10.3); Chloride 92 mmol/L (101-111); EGFR Non-African American 100.8 (>60); Globulin 3.2 g/dL (2-4); Glucose 126 mg/dL (70-100); Magnesium 1.8 mg/dL (1.9-2.7); Sodium 145 mmol/L (135-145); Total Protein 7.1 g/dL (6.4-8.9)
[2020-04-11 07:33] LABS: INR 0.99 (0.82-1.09)
[2020-04-11 07:34] LABS: Potassium 5.1 mmol/L (3.5-5.0); Troponin I 0.01 ng/mL (<0.03)
[2020-04-11 08:06] LABS: CO2 Carbon Dioxide 48 mmol/L (22-32)
[2020-04-11] MEDS ORDERED: cefTRIAXone 1 gm/50 mL NS BAG 1 GM/50 ML BAG IV ONE (08:40)
[2020-04-11] MEDS ORDERED: Azithromycin 500 mg/250 ml NS 500 MG/250 ML BAG IVPB ONE (08:40)
[2020-04-11 08:41] LABS: Urine Appearance Clear; Urine Bilirubin Negative (Negative); Urine Blood Negative (Negative); Urine Color Yellow; Urine Glucose Negative (Negative); Urine Ketones Trace (Negative); Urine Nitrite Negative (Negative); Urine Protein Negative (Negative); Urine Specific Gravity 1.014 (1.010-1.030); Urine Urobilinogen Negative (Negative)
[2020-04-11] MEDS ORDERED: Sodium Polystyrene ORAL.SUSP 15 GM/60 ML BTL PO ONE (09:56)
[2020-04-11] MEDS ORDERED: Albuterol/Ipratropium NEB.SOL (2.5/0.5 MG) 3 ML NEB.SOLN INH PRN (09:57)
[2020-04-11] MEDS ORDERED: NS 0.9% 1000 ml BAG 1,000 ML IV SCH (10:00)
[2020-04-11] MEDS: Enoxaparin 40 MG/0.4 ML SYR SUBCUT SCH (12:24)
[2020-04-11] MEDS ORDERED: Albuterol/Ipratropium NEB.SOL (2.5/0.5 MG) 3 ML NEB.SOLN INH SCH (13:00)
[2020-04-11] MEDS: Polymyx/Trimethoprim OPTH.SOL 1 BTL LEFT EYE SCH ×4 (13:13→22:13)
[2020-04-11] MEDS: Albuterol HFA INHALER 8 gm MDI INH SCH ×2 (14:35→20:16)
[2020-04-11] MEDS: SPIRIVA Respimat (tiotropium) 2.5 mcg/inh Inhaler INH SCH (14:36)
[2020-04-11 16:06] LABS: Folate > 20.00 ng/mL (>3.99)
[2020-04-11 16:07] LABS: Vitamin B12 < 50 pg/mL (180-914)
[2020-04-11] MEDS: Mometasone/Formoter 100/5 MDI INH SCH (20:02)
[2020-04-11] MEDS: Insulin GLARGINE 100 un/ml 10 ml VIAL SUBCUT SCH (20:45)
[2020-04-11] MEDS: Senna TAB 8.6 mg TAB PO SCH (20:51)
[2020-04-12] MEDS: Polymyx/Trimethoprim OPTH.SOL 1 BTL LEFT EYE SCH ×8 (00:57→23:12)
[2020-04-12] MEDS: Albuterol HFA INHALER 8 gm MDI INH SCH ×2 (01:03→07:22)
[2020-04-12 04:11] LABS: ABS Basophils 0.1 10^3/ul (0-0.2); ABS Lymphocytes 0.8 10^3/ul (1.0-4.8); ABS Monocytes 0.8 10^3/ul (0-0.8); ABS Neutrophils 11.1 10^3/ul (1.5-7.7); Eosinophil % 0.1 %; Hematocrit 32 % (42-52); Hemoglobin 10.4 g/dL (14.0-18.0); Lymphocyte % 6.6 %; Mean Corpuscular HGB Conc 32 g/dL (31-36); Mean Corpuscular Hemoglobin 34 pg (27-31); Mean Corpuscular Volume 104 fL (80-94); Mean Platelet Volume 8.7 fL (7.4-10.4); Nucleated Red Blood Cells % 0.1; Platelet Count 353 10^3/uL (150-450); Red Blood Count 3.09 10^6 /uL (4.18-5.48); Red Cell Distribution Width 16 % (10-15); White Blood Count 12.8 10^3/uL (3.5-10.8)
[2020-04-12] MEDS ORDERED: Albuterol/Ipratropium NEB.SOL (2.5/0.5 MG) 3 ML NEB.SOLN INH ONE ×2 (04:25→08:00)
[2020-04-12 04:27] LABS: Blood Urea Nitrogen 30 mg/dL (6-24); Calcium 9.6 mg/dL (8.6-10.3); Chloride 100 mmol/L (101-111); EGFR African American 113.3 (>60); EGFR Non-African American 93.7 (>60); Glucose 110 mg/dL (70-100)
[2020-04-12 04:33] LABS: CO2 Carbon Dioxide 49 mmol/L (22-32); Sodium 146 mmol/L (135-145)
[2020-04-12] MEDS ORDERED: Piperacillin/Tazobac ADVAN 3.375 GM in NS 0.9% 100 ml BAG 100 ML IVPB ONE (04:56)
[2020-04-12] MEDS ORDERED: Vancomycin 1,500 MG in NS 0.9% 250 ml 250 ML IVPB ONE (04:57)
[2020-04-12] MEDS ORDERED: Zosyn per Pharmacy NOTE FOLLOW UP SCH (05:00)
[2020-04-12] MEDS: methylPREDNISolone SOD 40 mg/ml 1 ml VIAL IV SCH ×2 (05:34→17:19)
[2020-04-12] MEDS ORDERED: Patiromer POWDER 8.4 GM PAK PO ONE (06:18)
[2020-04-12] MEDS: SPIRIVA Respimat (tiotropium) 2.5 mcg/inh Inhaler INH SCH (07:22)
[2020-04-12] MEDS: Mometasone/Formoter 100/5 MDI INH SCH (07:22)
[2020-04-12] MEDS ORDERED: Albuterol/Ipratropium NEB.SOL (2.5/0.5 MG) 3 ML NEB.SOLN ONE (07:59)
[2020-04-12] MEDS ORDERED: Albuterol/Ipratropium NEB.SOL (2.5/0.5 MG) 3 ML NEB.SOLN INH SCH (08:00)
[2020-04-12 08:41] LABS: BUN/Creatinine Ratio 35.1 (8-20); Blood Urea Nitrogen 27 mg/dL (6-24); Calcium 9.8 mg/dL (8.6-10.3); Chloride 102 mmol/L (101-111); EGFR African American 120.2 (>60); EGFR Non-African American 99.3 (>60); Glucose 87 mg/dL (70-100)
[2020-04-12] MEDS ORDERED: cefTRIAXone 1 gm/50 mL NS BAG 1 GM/50 ML BAG IVPB SCH (09:00)
[2020-04-12] MEDS: ZOSYN 3.375 GM Q8H per EXTENDED INFUSION IV SCH ×2 (09:11→17:19)
[2020-04-12 09:23] LABS: Anion Gap 1 mmol/L (2-11); CO2 Carbon Dioxide 45 mmol/L (22-32); Sodium 148 mmol/L (135-145); Troponin I 0.03 ng/mL (<0.03)
[2020-04-12] MEDS ORDERED: Azithromycin 500 mg/250 ml NS 500 MG/250 ML BAG IVPB SCH (10:00)
[2020-04-12] MEDS: Albuterol/Ipratropium NEB.SOL (2.5/0.5 MG) 3 ML NEB.SOLN INH SCH ×4 (11:07→23:18)
[2020-04-12] MEDS: Enoxaparin 40 MG/0.4 ML SYR SUBCUT SCH (13:10)
[2020-04-12] MEDS: Nystatin TOP POWDER 15 GM BTL TOPICAL SCH ×2 (14:24→20:04)
[2020-04-12] MEDS: Vancomycin 1,000 MG in NS 0.9% 250 ml 250 ML IV SCH ×2 (14:24→23:12)
[2020-04-12 15:12] LABS: Potassium Redraw 4.9 mmol/L (3.5-5.0)
[2020-04-12 15:14] LABS: Troponin I 0.01 ng/mL (<0.03)
[2020-04-12] MEDS: Insulin GLARGINE 100 un/ml 10 ml VIAL SUBCUT SCH (20:04)
[2020-04-12] MEDS: Senna TAB 8.6 mg TAB PO SCH (20:04)
[2020-04-13] MEDS: Polymyx/Trimethoprim OPTH.SOL 1 BTL LEFT EYE SCH ×8 (01:03→22:25)
[2020-04-13] MEDS: ZOSYN 3.375 GM Q8H per EXTENDED INFUSION IV SCH ×2 (01:03→09:13)
[2020-04-13] MEDS: Albuterol/Ipratropium NEB.SOL (2.5/0.5 MG) 3 ML NEB.SOLN INH SCH ×2 (03:49→07:39)
[2020-04-13] MEDS ORDERED: Vancomycin Trough Check NOTE FOLLOW UP ONE (05:30)
[2020-04-13] MEDS: methylPREDNISolone SOD 40 mg/ml 1 ml VIAL IV SCH (05:33)
[2020-04-13] MEDS: Vancomycin 1,000 MG in NS 0.9% 250 ml 250 ML IV SCH (05:33)
[2020-04-13 05:36] LABS: Hematocrit 34 % (42-52); Hemoglobin 10.6 g/dL (14.0-18.0); Mean Corpuscular HGB Conc 32 g/dL (31-36); Mean Corpuscular Hemoglobin 33 pg (27-31); Mean Corpuscular Volume 105 fL (80-94); Mean Platelet Volume 8.1 fL (7.4-10.4); Platelet Count 335 10^3/uL (150-450); Red Blood Count 3.19 10^6 /uL (4.18-5.48); Red Cell Distribution Width 16 % (10-15); White Blood Count 10.5 10^3/uL (3.5-10.8)
[2020-04-13 05:52] LABS: BUN/Creatinine Ratio 27.2 (8-20); Calcium 9.8 mg/dL (8.6-10.3); EGFR African American 113.3 (>60); EGFR Non-African American 93.7 (>60); Magnesium 2.4 mg/dL (1.9-2.7); Potassium 4.9 mmol/L (3.5-5.0)
[2020-04-13] MEDS ORDERED: Vancomycin per Pharmacy 1 EA NOTE FOLLOW UP PRN (08:37)
[2020-04-13] MEDS: Nystatin TOP POWDER 15 GM BTL TOPICAL SCH ×3 (09:13→21:04)
[2020-04-13] MEDS ORDERED: Albuterol/Ipratropium NEB.SOL (2.5/0.5 MG) 3 ML NEB.SOLN INH PRN (10:46)
[2020-04-13] MEDS: Enoxaparin 40 MG/0.4 ML SYR SUBCUT SCH (12:20)
[2020-04-13 13:57] LABS: Urine Appearance Clear; Urine Bilirubin Negative (Negative); Urine Blood 1+ (Negative); Urine Color Yellow; Urine Glucose 1+(50 mg/dL) (Negative); Urine Ketones Trace (Negative); Urine Nitrite Negative (Negative); Urine Protein Negative (Negative); Urine Specific Gravity 1.018 (1.010-1.030); Urine Urobilinogen Negative (Negative)
[2020-04-13 14:14] LABS: Urine Bacteria Absent (Absent); Urine Red Blood Cell 2+(6-10/hpf) (Absent); Urine White Blood Cell Trace(0-5/hpf) (Absent)
[2020-04-13] MEDS ORDERED: Vancomycin 1,000 MG in NS 0.9% 250 ml 250 ML IV SCH (20:00)
[2020-04-13] MEDS: Insulin GLARGINE 100 un/ml 10 ml VIAL SUBCUT SCH (21:02)
[2020-04-13] MEDS: Senna TAB 8.6 mg TAB PO SCH (21:04)
[2020-04-13] MEDS ORDERED: Polymyx/Trimethoprim OPTH.SOL 1 BTL BOTH EYES SCH (22:21)
[2020-04-14] MEDS: Polymyx/Trimethoprim OPTH.SOL 1 BTL BOTH EYES SCH ×4 (00:31→08:17)
[2020-04-14 06:11] LABS: BUN/Creatinine Ratio 35.4 (8-20); Calcium 9.4 mg/dL (8.6-10.3); EGFR African American 146.1 (>60); EGFR Non-African American 120.8 (>60); Potassium 4.2 mmol/L (3.5-5.0)
[2020-04-14] MEDS ORDERED: Senna TAB 8.6 mg TAB PO PRN (07:29)
[2020-04-14] MEDS: Nystatin TOP POWDER 15 GM BTL TOPICAL SCH (08:17)
[2020-04-14] MEDS ORDERED: Senna TAB 8.6 mg TAB PO SCH (09:00)
[2020-04-14] MEDS ORDERED: methylPREDNISolone SOD 40 mg/ml 1 ml VIAL IV SCH (09:00)
[2020-04-14 09:12] VITALS: BP 133/82
[2020-04-15] MEDS ORDERED: Vancomycin Trough Check NOTE FOLLOW UP ONE (07:30)
== END 2020-04-14 10:00 | DRG 189 ==
LOC: MED 06:40 → ED 06:40 → MED 10:43 → ICU 23:56
PROVIDERS: ADMIT Internal Medicine; ATTEND Surgery Surgical Critical Care